=== PATIENT | female | born 1980 | race Caucasian/White ===

== ENCOUNTER 2018-01-02 13:45 | Emergency (ER) | payer MEDICAID, SELFPAY ==
[2018-01-02 13:47] VITALS: BP 103/70; PULSE 95; RESP 17; TEMP 36.8; O2SAT 97; BMI 17.5
--- NOTE | 2018-01-02 14:14 | RAD_ITS ---
STUDY: X-RAY CHEST REASON FOR EXAM: Female, 37 years old. Cough, fever TECHNIQUE: PA and lateral views of the chest. COMPARISON: February 12, 2016 FINDINGS: There is no new focal consolidation. The lungs remain hyperinflated. Normal size heart. Normal mediastinum and chantell. Normal visualized pulmonary arteries. Normal visualized aortic arch and descending thoracic aorta. Normal visualized thoracic spine. Normal visualized ribs, clavicles, and shoulders. There is no demonstrated abnormality of the visualized soft tissue structures of the upper abdomen. RAD/Chest PA and Lateral IMPRESSION: No acute cardiopulmonary process. Electronically Signed: Emi Mendoza MD at 15:30 EDT Tel , Service support ,
[2018-01-02] MEDS: Albuterol 2.5 MG/3 ML VIAL.NEB. INHALATION (14:21)
[2018-01-02 14:23] VITALS: PULSE 95; RESP 18; O2SAT 98
--- NOTE | 2018-01-02 15:52 | ED.VISSUMM ---
- ER Visit Summary Date of Service: 01/02/18 Chief Complaint: Cough and fever History of Present Illness: The patient is a 37 F presenting for evaluation secondary to cough and fever. Patient states that over the course last 5 days she has been feeling significantly ill. Patient states that she has a nonproductive cough, nausea with no vomiting. She has a mild amount of diarrhea. Patient states that she is getting somewhat dyspneic on exertion and has had fevers as high as 102. She has generalized myalgias. Patient states that ibuprofen really has not been helping her myalgias, but has been helping her fevers. Patient states that she does not have any sick contacts. She has a prior history of alcohol abuse, has been clean since July, she has not smoked a cigarette in 5 days. Physical Examination: Vital signs are within normal limits, patient is afebrile. General: Patient is well-nourished well-developed and in no acute distress. Head: Normocephalic, atraumatic Eyes: Pupils equal round and reactive bilaterally, extra occular motion intact bialterally ENT: Moist mucous membranes Neck: Supple, no lymphadenopathy, no JVD, no meningismus, negative Brudzinski Kernig jolt and heel strike CVS: Heart regular rate and rhythm, no murmurs, rubs or gallops, radial pulses 2+ bilaterally Resp: Respirations nondistressed, lung sounds showed evidence of wheezes with no respiratory distress or retractions Abdomen: Soft, nontender, nondistended, no palpable masses, normal bowel sounds Back: Nontender Extremities: Nontender, atraumatic, active full range of motion, no peripheral edema Skin: warm, no rashes, no petechia Neuro: Alert and oriented x 4, CN 2-12 intact, no lateralizing neurological defecits Psyc: Normal affect Test Results: Flu swab is negative, PA and lateral chest x-ray by my personal interpretation as well as radiology is found to be negative Emergency Department Course and Treatment: Patient presented for evaluation secondary to generalized illness. She has normal vital signs I do not believe the laboratory workup is necessary. Chest x-ray shows no evidence of infiltrate, influenza was found to be negative but the patient has all of the stigmata of influenza. However, the patient is outside of the treatment window for this so she will be treated symptomatically. Patient was treated with albuterol Toradol and prednisone in the emergency department she will be discharged with a albuterol inhaler, prednisone, Naprosyn and instructed to follow-up with her primary care physician. Disposition: Discharge Impression: 1. Influenza This note was generated with Gem dictation software. It may contain incorrect words, spelling, and punctuation that were not noted in review of the chart prior to signing ED Disposition - Plan for ED Patient: Disposition: Home or Assisted Living Chief Complaint: General Illness Diagnosis: Influenza Instructions: ED Flu Prescriptions: Albuterol Inhaler [Ventolin Hfa] 1 - 2 puff INHALATION Q4H PRN PRN #1 inhaler PRN Reason: Wheezing Naproxen [Naprosyn] 500 mg PO BID PRN #20 tab Prednisone [Deltasone] 60 mg PO DAILY #15 tab Referrals: Jonah Leroy MD [NON-STAFF] - 1 Week if not improving
--- NOTE | 2018-01-02 15:59 | ED.DCSUM_ITS ---
- ER Visit Summary Date of Service: 01/02/18 Chief Complaint: Cough and fever History of Present Illness: The patient is a 37 F presenting for evaluation secondary to cough and fever. Patient states that over the course last 5 days she has been feeling significantly ill. Patient states that she has a nonproductive cough, nausea with no vomiting. She has a mild amount of diarrhea. Patient states that she is getting somewhat dyspneic on exertion and has had fevers as high as 102. She has generalized myalgias. Patient states that ibuprofen really has not been helping her myalgias, but has been helping her fevers. Patient states that she does not have any sick contacts. She has a prior history of alcohol abuse, has been clean since July, she has not smoked a cigarette in 5 days. Physical Examination: Vital signs are within normal limits, patient is afebrile. General: Patient is well-nourished well-developed and in no acute distress. Head: Normocephalic, atraumatic Eyes: Pupils equal round and reactive bilaterally, extra occular motion intact bialterally ENT: Moist mucous membranes Neck: Supple, no lymphadenopathy, no JVD, no meningismus, negative Brudzinski Kernig jolt and heel strike CVS: Heart regular rate and rhythm, no murmurs, rubs or gallops, radial pulses 2 + bilaterally Resp: Respirations nondistressed, lung sounds showed evidence of wheezes with no respiratory distress or retractions Abdomen: Soft, nontender, nondistended, no palpable masses, normal bowel sounds Back: Nontender Extremities: Nontender, atraumatic, active full range of motion, no peripheral edema Skin: warm, no rashes, no petechia Neuro: Alert and oriented x 4, CN 2-12 intact, no lateralizing neurological defecits Psyc: Normal affect Test Results: Flu swab is negative, PA and lateral chest x-ray by my personal interpretation as well as radiology is found to be negative Emergency Department Course and Treatment: Patient presented for evaluation secondary to generalized illness. She has normal vital signs I do not believe the laboratory workup is necessary. Chest x-ray shows no evidence of infiltrate , influenza was found to be negative but the patient has all of the stigmata of influenza. However, the patient is outside of the treatment window for this so she will be treated symptomatically. Patient was treated with albuterol Toradol and prednisone in the emergency department she will be discharged with a albuterol inhaler, prednisone, Naprosyn and instructed to follow-up with her primary care physician. Disposition: Discharge Impression: 1. Influenza This note was generated with [employer] dictation software. It may contain incorrect words, spelling, and punctuation that were not noted in review of the chart prior to signing ED Disposition - Plan for ED Patient: Disposition: Home or Assisted Living Chief Complaint: General Illness Diagnosis: Influenza Instructions: ED Flu Prescriptions: Albuterol Inhaler [Ventolin Hfa] 1 - 2 puff INHALATION Q4H PRN PRN #1 inhaler PRN Reason: Wheezing Naproxen [Naprosyn] 500 mg PO BID PRN #20 tab Prednisone [Deltasone] 60 mg PO DAILY #15 tab Referrals: Jonah Leroy MD [NON-STAFF] - 1 Week if not improving
[2018-01-02] MEDS: predniSONE 20 MG Tablet 60 MG PO (16:06)
[2018-01-02] MEDS: Ketorolac 30 MG/ML Syringe IM (16:06)
[2018-01-02 16:27] VITALS: BP 100/64; PULSE 101; RESP 16; O2SAT 94
== END 2018-01-02 16:28 | disposition home or self-care (01) ==
PROVIDERS: Emergency Provider Emergency Medicine
DX: J11.1 Influenza due to unidentified influenza virus with other respiratory manifestations (principal); Z87.19 Personal history of other diseases of the digestive system; Z87.898 Personal history of other specified conditions; Z87.891 Personal history of nicotine dependence
CPT/HCPCS: 71046; 87804; 94640; 96372; 99283

== ENCOUNTER 2018-08-27 08:04 | Observation (INO) | payer MEDICAID, SELFPAY ==
[2018-08-27 08:05] VITALS: BP 115/57; PULSE 59; RESP 18; TEMP 36.7; O2SAT 96; BMI 19.5
[2018-08-27] MEDS: 0.9% Normal Saline 1,000 ML 1000 ML IV (08:20)
[2018-08-27] MEDS: Ondansetron 4 MG/2 ML Vial IV ×2 (08:20→14:27)
[2018-08-27 08:53] LABS: Absolute Lymphocyte Count 1.42 X10^3/ul (0.83-4.51); Absolute Neutrophil Count 11.8 X10^3/uL (2.0-7.7); Eosinophil# 0.03 X10^3/uL; Eosinophils% 0.2 % (0-5); Hematocrit 40.4 % (37-47); Lymphocyte # 1.42 X10^3/ul (4.0); Lymphocyte % 10.2 % (19-41); Mean Corp Hgb Conc 34.7 g/gl (32-36); Mean Corpuscular Hgb 36.3 pg (27.0-32.0); Mean Corpuscular Volume 104.7 fL (81-99); Mean Platelet Vol. 10.9 fl (6.2-12.0); Monocyte# 0.77 X10^3/uL; Monocyte% 5.5 % (0-10); Neutrophil # 11.75 X10^3/uL (2.7-7.7); Platelet Count 254 K/mm3 (150-450); RBC Distribution Width CV 13.5 % (11.6-14.6); RBC Distribution Width SD 51.5 fl (35.1-43.9); Red Blood Count 3.86 M/mm3 (4.2-5.4)
[2018-08-27 08:56] LABS: POSITIVE COUNT NO; POSITIVE DIFFERENTIAL NO; POSITIVE MORPHOLOGY NO
[2018-08-27 08:59] LABS: Acetaminophen (Tylenol) Level < 2.0 ug/mL (10.0-30.0)
[2018-08-27 09:00] LABS: ALB/GLOB Ratio 0.9 RATIO (0.9-2.4); AST(SGOT) 58 U/L (15-37); Alanine Aminotransfer ALT/SGPT 47 U/L (13-56); Albumin, Serum 3.5 g/dL (3.2-5.0); Alkaline Phosphatase 136 U/L (45-117); Anion Gap 10 (5-15); BUN 14 mg/dL (7-18); BUN/Creat Ratio 19.4 RATIO (10-20); Chloride 96 mmol/L (98-107); Creatinine, Serum 0.72 mg/dL (0.55-1.02); EST Glomerular Filtration Rate 96 mL/min (>60); Est Glom Filt Rate - Afr Amer 117 mL/min (>60); Globulin 3.8 g/dL (2.2-4.2); Glucose 124 mg/dL (74-106); International Normalized Ratio 1.2; Lipase 6025 U/L (73-393); Potassium 3.3 mmol/L (3.5-5.1); Protein, Total 7.3 g/dL (6.4-8.2); Prothrombin Time (Protime)PT. 14.8 SECONDS (11.7-14.9); Sodium Level 133 mmol/L (136-145)
[2018-08-27 09:01] LABS: Partial Thromboplast Time 26.4 Seconds (24.1-36.2)
[2018-08-27 09:02] LABS: Salicylate < 1.7 mg/dL (2.8-20.0)
[2018-08-27 09:04] LABS: Lactic Acid 1.2 mmol/L (0.4-2.0)
[2018-08-27 09:08] LABS: Pregnancy, Serum, hCG Quali. NEGATIVE Negative (0-9 Nonpreg)
--- NOTE | 2018-08-27 09:30 | RAD_ITS ---
STUDY: X-RAY - ACUTE ABDOMINAL SERIES REASON FOR EXAM: Female, 38 years old. Abdominal pain with distention and vomiting. TECHNIQUE: Single view of the chest. Supine, and erect view(s) of the abdomen were obtained. COMPARISON: Comparison is made with prior chest radiograph dated January 02, 2018. FINDINGS: A faint infiltrate is seen in the right midlung. Follow-up is recommended. Normal size heart. Normal mediastinum and chantell. Normal visualized pulmonary arteries. Normal visualized aortic arch and descending thoracic aorta. There is a non-specific bowel gas pattern. The soft tissue structures of the abdomen and pelvis are unremarkable. Normal visualized osseous structures. RAD/Acute Abdomen Inc Chest IMPRESSION: Faint infiltrate is seen in the right midlung. Follow-up is recommended. Electronically Signed: Parker Paz MD at 10:12 EST Tel [phone], Service support ,
[2018-08-27] MEDS: HYDROmorphone 0.5 MG/0.5 ML SYRINGE IV (10:03)
[2018-08-27 10:05] VITALS: BP 112/74; PULSE 80; RESP 14; O2SAT 98
--- NOTE | 2018-08-27 10:14 | ED.VISSUMM ---
- ER Visit Summary Date of Service: 08/27/18 Chief Complaint: Central upper abdominal pain History of Present Illness: The patient is a 38 F who presents by ambulance because of central abdominal pain that started approximate 1 week ago. She states the pain is gotten worse. She reports vomiting several times since last evening. She denies diarrhea or constipation. She is still passing gas. She denied taking anything more than 2 Advil. Violetta informed me that her significant other stated she took multiple [id number]-ovxcuic medications. Uncertain whether she took aspirin Tylenol or NSAID. This was not an intentional ingestion. She states she took the medicine to help alleviate the pain. She reports documented fever to 103 degrees. She denies visual, ocular auditory symptoms. She denies chest pain, palpitations, orthopnea or PND. She denies shortness of breath, dyspnea on exertion. She does report slight cough. She is a smoker. She denies hematemesis, no hematochezia. She reports decreased urine output otherwise negative. She does report mid central back pain. She also complains of generalized weakness. Review of past medical history reveals history of depression anxiety and anxiety. She has history of pancreatitis. Of note she admitted to drinking heavily this past weekend. Physical Examination: Patient appears uncomfortable. She is presently not febrile. HEENT exam is remarkable dry mucosa. There is no scleral icterus. Neck is supple. Heart is regular without murmur, gallop or rub. Lungs are clear to auscultation. Abdomen is slightly distended tympanitic with significant pain upper abdomen versus lower. There is equivocal left CVA tenderness. There is no evidence of trauma. There is no petechia purpura contusions or hematomas noted. Patient is alert and oriented ?3. Motor is 5 over 5. Sensory is intact. DTRs are symmetric with no clonus or Babinski sign. Cranial 2 through 12 are intact. Cerebellar testing is normal. Test Results: White count is 14,000 with 84 segs no bands. Electro panel reveals mild abnormalities with a sodium 133 and chloride of 96. Potassium 3.3 and glucose is 124. PT/INR and PTT are normal. Hepatic enzymes reveal slight elevation AST of 58. Lipase is 6025. Serum test is negative. Three-view x-ray of the abdomen reveals no evidence of pneumoperitoneum. Chest portion is normal with a normal cardiac silhouette, mediastinum and lung parenchyma. Salicylate and acetaminophen level were obtained since there was report of ingestion to alleviate her pain with OTC pain medicine. Emergency Department Course and Treatment: IV was established and she received IV fluids. She initially received Zofran. Once lipase returned and results were reviewed he received Dilaudid. Will obtain PT/INR PTT to evaluate for coagulopathy. With reported vomiting I panel was obtained to assess electrolytes and more importantly renal function. CBC was obtained to evaluate for anemia etc. Treatment Plan: IV fluids, IV Zofran and Dilaudid Disposition: Admit medical surge floor Impression: Abdominal pain secondary to acute pancreatitis Sinus bradycardia documented on monitor This note was generated with [employer] dictation software. It may contain incorrect words, spelling, and punctuation that were not noted in review of the chart prior to signing ED Disposition - Plan for ED Patient: Chief Complaint: Abd Pain Referrals: Care Physician,No Primary [Primary Care Provider] -
--- NOTE | 2018-08-27 10:19 | ED.DCSUM_ITS ---
- ER Visit Summary Date of Service: 08/27/18 Chief Complaint: Central upper abdominal pain History of Present Illness: The patient is a 38 F who presents by ambulance because of central abdominal pain that started approximate 1 week ago. She states the pain is gotten worse. She reports vomiting several times since last evening. She denies diarrhea or constipation. She is still passing gas. She denied taking anything more than 2 Advil. Violetta informed me that her significant other stated she took multiple [id number] medications. Uncertain whether she took aspirin Tylenol or NSAID. This was not an intentional ingestion. She states she took the medicine to help alleviate the pain. She reports documented fever to 103 degrees. She denies visual, ocular auditory symptoms. She denies chest pain, palpitations, orthopnea or PND. She denies shortness of breath, dyspnea on exertion. She does report slight cough. She is a smoker. She denies hematemesis, no hematochezia. She reports decreased urine output otherwise negative. She does report mid central back pain. She also complains of generalized weakness. Review of past medical history reveals history of depression anxiety and anxiety. She has history of pancreatitis. Of note she admitted to drinking heavily this past weekend. Physical Examination: Patient appears uncomfortable. She is presently not febrile. HEENT exam is remarkable dry mucosa. There is no scleral icterus. Neck is supple. Heart is regular without murmur, gallop or rub. Lungs are clear to auscultation. Abdomen is slightly distended tympanitic with significant pain upper abdomen versus lower. There is equivocal left CVA tenderness. There is no evidence of trauma. There is no petechia purpura contusions or hematomas noted. Patient is alert and oriented ?3. Motor is 5 over 5. Sensory is intact. DTRs are symmetric with no clonus or Babinski sign. Cranial 2 through 12 are intact. Cerebellar testing is normal. Test Results: White count is 14,000 with 84 segs no bands. Electro panel re veals mild abnormalities with a sodium 133 and chloride of 96. Potassium 3.3 and glucose is 124. PT/INR and PTT are normal. Hepatic enzymes reveal slight elevation AST of 58. Lipase is 6025. Serum test is negative. Three- view x-ray of the abdomen reveals no evidence of pneumoperitoneum. Chest portion is normal with a normal cardiac silhouette, mediastinum and lung parenchyma. Salicylate and acetaminophen level were obtained since there was report of ingestion to alleviate her pain with OTC pain medicine. Emergency Department Course and Treatment: IV was established and she received IV fluids. She initially received Zofran. Once lipase returned and results were reviewed he received Dilaudid. Will obtain PT/INR PTT to evaluate for coagulopathy. With reported vomiting I panel was obtained to assess electrolytes and more importantly renal function. CBC was obtained to evaluate for anemia etc. Treatment Plan: IV fluids, IV Zofran and Dilaudid Disposition: Admit medical surge floor Impression: Abdominal pain secondary to acute pancreatitis Sinus bradycardia documented on monitor This note was generated with [employer] dictation software. It may contain incorrect words, spelling, and punctuation that were not noted in review of the chart prior to signing ED Disposition - Plan for ED Patient: Chief Complaint: Abd Pain Referrals: Care Physician,No Primary [Primary Care Provider] -
[2018-08-27 11:04] VITALS: BMI 18.8
[2018-08-27 11:47] VITALS: BP 130/76; PULSE 51; RESP 16; TEMP 36.8; O2SAT 100
[2018-08-27] MEDS: Dicyclomine 10 MG Capsule 20 MG PO (12:09)
[2018-08-27] MEDS: chlordiazePOXIDE 25 MG Capsule PO ×2 (12:10→22:21)
[2018-08-27] MEDS: 0.9% Normal Saline 1,000 ML 200 ML IV ×3 (12:12→22:37)
[2018-08-27] MEDS: Methocarbamol 750 MG Tablet PO (14:27)
[2018-08-27 14:29] VITALS: BP 141/83; PULSE 53; RESP 16; TEMP 37.1; O2SAT 100
--- NOTE | 2018-08-27 15:21 | US_ITS ---
STUDY: ABDOMINAL ULTRASOUND - RIGHT UPPER QUADRANT REASON FOR VISIT: Female, 38 years old. Pancreatitis TECHNIQUE: Ultrasound evaluation of the right upper quadrant was performed with real-time and static ramírez-scale imaging. TECHNICAL QUALITY: Adequate. COMPARISON: None. FINDINGS: Liver: The liver measures 15.6 cm. There is normal echogenicity of the liver. The bile ducts are within normal limits. There is hepatic color flow. The direction of portal flow is hepatopetal. There is no demonstrated mass lesion. Gallbladder: Normal distended gallbladder. The gallbladder wall measures 1.8 mm. There is a negative sonographic Rain's sign. There is no pericholecystic fluid. There are no gallstones. Common Bile Duct (C.B.D.): The common bile duct measures 3.9 mm. Pancreas: Normal size of the head, body and tail of the pancreas. There is normal echogenicity of the pancreas. There is no demonstrated pancreatic mass or cyst. Right Kidney: Normal size of the right kidney. The right kidney measures 10.9 x 5.2 x 3.7 cm. Normal renal cortex. The right cortex measures 1.2 cm. There is no demonstrated renal mass or cyst. There is no right hydronephrosis. US/Gallbladder IMPRESSION: Normal right upper quadrant ultrasound examination. Electronically Signed: Vikas Hutchinson DO at 23:13 EST Tel [phone], Service support ,
[2018-08-27] MEDS: Morphine 2 MG/ML Syringe IV ×2 (15:38→22:21)
--- NOTE | 2018-08-27 15:53 | HP.PCM_ITS ---
Problem List (1) Tobacco use Status: Chronic (2) Anxiety and depression Status: Chronic (3) Alcohol abuse Status: Chronic (4) Pancreatitis Status: Acute Qualifiers: History of Present Illness Date of Admission: 08/27/18 Chief Complaint: Abdominal pain The patient is a 38 year old F who takes no medications presents with a 1 days history of mid-abdominal pain with radiation to her back. She also had nausea/vomiting yesterday and today with minimal intake. her pain started around 1 pm as did her vomiting. She presented to the ER for further evaluation. In the ED she was found to have an elevated lipase and was given pain medications and IVF. Per the ED physician she drinks heavily on the weekends, per the floor nurse, her last drink was 4 months ago, and to me she states that she has a small beer 4 days ago and the weekend prior. She denies any fevers, chills, or SOB, and reports no drug use. Past Medical History Past Medical History (Chronic Problems): Chronic Problems Tobacco use (Chronic) Anxiety and depression (Chronic) Alcohol abuse (Chronic) Hepatomegaly (Chronic) Hepatic steatosis (Chronic) Allergies No Known Allergies Allergy (Verified 08/27/18 10:07) Home Medications: Ambulatory Orders Medication Instructions Recorded NK 08/27/18 Surgical History: - - Partial Hysterectomy. 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 Denies: Chills, Fever, Weight Change HEENT: Denies: Head Aches, Sinus Congestion, Sinus Drainage Cardiovascular: Denies: Chest Pain, Palpitations Respiratory: Denies: Cough, Shortness of breath at rest, Sputum production Gastrointestinal: Reports: Abdominal Pain, Nausea, Vomiting Genitourinary: Denies: Dysuria Musculoskeletal: Denies: Joint Pain, Joint Tenderness Skin: Denies: Rash, Wounds Neurological: Denies: Numbness, Tingling, Focal weakness Psychiatric: Denies: Anxiety, Depression Hematologic/ Lymphatic: Denies: Easy Bruising, Easy Bleeding VTE Information - Inpt Only VTE Present on Admission: No - Physical Exam General: Alert, Oriented x3, Cooperative, No apparent distress HEENT: Atraumatic, PERRLA, EOMI, Normocephalic Oral: Dry Mucosa Neck: Supple, No JVD Lungs: Clear to auscultation, Normal air movement, No rhonchi, No wheeze, No rales Cardiovascular: Regular rate, Regular Rhythm, Normal S1, Normal S2, No murmurs Abdomen: Soft, Non-Distended, No Hepato-splenomegaly, Guarding, Tender Extremities: No edema, Capillary Refill Less than 3 Seconds Skin: No rashes, No breakdown Neurological: Neuro grossly intact, Motor Exam 5/5 strength throughout, Sensory exam intact to light touch and pain Psych/Mental Status: Normal Affect, Appropriate Vital Signs Temp Pulse Resp BP Pulse Ox 98.7 F 53 L 16 141/83 H 100 08/27/18 14:29 08/27/18 14:29 08/27/18 14:29 08/27/18 14:29 08/27/18 14:29 Oxygen Delivery Method Room Air Weight: 96 lb 5.472 oz Body Mass Index (BMI) 18.8 Laboratory Tests Past 24 Hrs 08/27/18 08/27/18 08/27/18 08:15 08:15 08:15 WBC 14.0 H RBC 3.86 L Hgb 14.0 Hct 40.4 MCV 104.7 H MCH 36.3 H MCHC 34.7 RDW 13.5 RDW Differential 51.5 H Plt Count 254 MPV 10.9 Immature Gran % (Auto) 0.100 Neut % (Auto) 84.0 H Lymph % (Auto) 10.2 L [place] % (Auto) 5.5 Eos % (Auto) 0.2 Baso % (Auto) 0.0 Absolute Neuts (auto) 11.8 H Absolute Lymphs (auto) 1.42 Total Counted Not Reportable PT 14.8 INR 1.2 APTT 26.4 Sodium 133 L Potassium 3.3 L Chloride 96 L Carbon Dioxide 27.0 Anion Gap 10 BUN 14 Creatinine 0.72 Estim Creat Clear Calc 76.60 Est GFR (MDRD) Af Amer 117 Est GFR (MDRD) Non-Af 96 BUN/Creatinine Ratio 19.4 Glucose 124 H Lactic Acid Calcium 9.0 Total Bilirubin 0.90 AST 58 H ALT 47 Alkaline Phosphatase 136 H Total Protein 7.3 Albumin 3.5 Globulin 3.8 Albumin/Globulin Ratio 0.9 Lipase 6025 H Serum , Qual Salicylates Acetaminophen 08/27/18 08/27/18 08/27/18 08:15 08:15 08:15 WBC RBC Hgb Hct MCV MCH MCHC RDW RDW Differential Plt Count MPV Immature Gran % (Auto) Neut % (Auto) Lymph % (Auto) [place] % (Auto) Eos % (Auto) Baso % (Auto) Absolute Neuts (auto) Absolute Lymphs (auto) Total Counted PT INR APTT Sodium Potassium Chloride Carbon Dioxide Anion Gap BUN Creatinine Estim Creat Clear Calc Est GFR (MDRD) Af Amer Est GFR (MDRD) Non-Af BUN/Creatinine Ratio Glucose Lactic Acid 1.2 Calcium Total Bilirubin AST ALT Alkaline Phosphatase Total Protein Albumin Globulin Albumin/Globulin Ratio Lipase Serum , Qual NEGATIVE Salicylates Acetaminophen < 2.0 L 08/27/18 08:15 WBC RBC Hgb Hct MCV MCH MCHC RDW RDW Differential Plt Count MPV Immature Gran % (Auto) Neut % (Auto) Lymph % (Auto) [place] % (Auto) Eos % (Auto) Baso % (Auto) Absolute Neuts (auto) Absolute Lymphs (auto) Total Counted PT INR APTT Sodium Potassium Chloride Carbon Dioxide Anion Gap BUN Creatinine Estim Creat Clear Calc Est GFR (MDRD) Af Amer Est GFR (MDRD) Non-Af BUN/Creatinine Ratio Glucose Lactic Acid Calcium Total Bilirubin AST ALT Alkaline Phosphatase Total Protein Albumin Globulin Albumin/Globulin Ratio Lipase Serum , Qual Salicylates < 1.7 L Acetaminophen Assessment/Plan All Active Problems Hypomagnesemia (Acute) Hypokalemia (Acute) Acute alcoholic hepatitis (Acute) Pancreatitis (Acute) 1. Acute pancreatitis - She denies any medications - She still has her gallbladder so will obtain a RUQ US even though her bilirubin is normal - C/w with aggressive IVF - Check lipid panel in the am - Etiology is unsure at the moment - Morphine for pain - IF pain is improved tomorrow with transition to a low fat diet - Lipase is over 6000 2. Alcohol use - this could be the cause, however she gives very fluctuating account of her habits - Will treat as alcohol abuse at the moment and will continue with the new vision protocol 3. Tobacco and marijuana use - counselled on cessation DVT: None Diet: NPO Code Visit Inpatient E&M: 31835 Init Hosp L3
[2018-08-27 22:27] VITALS: BP 117/73; PULSE 102; RESP 16; TEMP 37; O2SAT 100
[2018-08-27] MEDS: LORazepam 2 MG/ML Syringe 1 MG IV (23:08)
[2018-08-28] MEDS: 0.9% Normal Saline 1,000 ML 200 ML IV ×4 (03:45→18:41)
[2018-08-28] MEDS: chlordiazePOXIDE 25 MG Capsule PO ×3 (03:54→20:34)
[2018-08-28 03:57] VITALS: BP 107/75; PULSE 57; RESP 16; TEMP 36.8; O2SAT 100
[2018-08-28 06:17] LABS: Absolute Lymphocyte Count 1.72 X10^3/ul (0.83-4.51); Absolute Neutrophil Count 7.5 X10^3/uL (2.0-7.7); Basophil# 0.01 X10^3/uL; Basophil% 0.1 % (0-1); Hematocrit 32.3 % (37-47); Hemoglobin 10.9 g/dl (12.0-15.0); Lymphocyte # 1.72 X10^3/ul (4.0); Lymphocyte % 17.1 % (19-41); Mean Corp Hgb Conc 33.7 g/gl (32-36); Mean Corpuscular Volume 106.6 fL (81-99); Mean Platelet Vol. 10.8 fl (6.2-12.0); Monocyte# 0.67 X10^3/uL; Monocyte% 6.7 % (0-10); Neutrophil # 7.53 X10^3/uL (2.7-7.7); Platelet Count 173 K/mm3 (150-450); RBC Distribution Width CV 13.5 % (11.6-14.6); RBC Distribution Width SD 53.1 fl (35.1-43.9); Red Blood Count 3.03 M/mm3 (4.2-5.4)
[2018-08-28 06:27] LABS: POSITIVE COUNT NO; POSITIVE DIFFERENTIAL NO; POSITIVE MORPHOLOGY NO
[2018-08-28 06:42] LABS: Anion Gap 8 (5-15); BUN 5 mg/dL (7-18); BUN/Creat Ratio 12.4 RATIO (10-20); Calcium,Total 7.7 mg/dL (8.5-10.1); Chloride 103 mmol/L (98-107); Cholesterol 132 mg/dL (200); EST Glomerular Filtration Rate 188 mL/min (>60); Est Glom Filt Rate - Afr Amer 228 mL/min (>60); Estimated Creatinine Clearance 132.84 ml/min; Glucose 78 mg/dL (74-106); High Density Lipoprotein 46 mg/dL; Potassium 3.1 mmol/L (3.5-5.1); Sodium Level 134 mmol/L (136-145); Triglycerides 95 mg/dL; Very Low Density Lipoprotein 19 mg/dL (5-40)
[2018-08-28 08:13] VITALS: BP 114/71; PULSE 60; RESP 18; TEMP 37; O2SAT 100
[2018-08-28] MEDS: 0.9% NaCl Peripheral Flush Adult/Peds IV ×3 (08:19→17:17)
[2018-08-28] MEDS: Morphine 2 MG/ML Syringe IV ×4 (08:19→20:34)
[2018-08-28] MEDS: Folic Acid 1 MG Tablet PO (08:23)
[2018-08-28] MEDS: Multivitamins,Therapeutic Tablet 1 TABLET PO (08:24)
--- NOTE | 2018-08-28 08:28 | PCM.PN.HOSP ---
Subjective: Still with abdominal pain. Improves with the morphine Vitals/I&O's: Vital Signs Temp Pulse Resp BP Pulse Ox 98.6 F 60 18 114/71 100 08/28/18 08:13 08/28/18 08:13 08/28/18 08:13 08/28/18 08:13 08/28/18 08:13 Oxygen Delivery Method Room Air Weight: 96 lb 5.472 oz Body Mass Index (BMI) 18.8 Intake and Output for Last 24 Hours 08/26/18 08/27/18 08/28/18 23:59 23:59 23:59 Intake Total 975 / 975 1000 / 1000 Output Total 100 / 100 200 / 200 Balance 875 / 875 800 / 800 General: Alert, Oriented x3, Cooperative, No apparent distress HEENT: Atraumatic, PERRLA, EOMI, Normocephalic Oral: Dry Mucosa Neck: Supple, No JVD Lungs: Clear to auscultation, Normal air movement, No rhonchi, No wheeze, No rales Cardiovascular: Regular rate, Regular Rhythm, Normal S1, Normal S2, No murmurs Abdomen: Soft, Non-Distended, No Hepato-splenomegaly, Guarding, Tender mid abdomen Extremities: No edema, Capillary Refill Less than 3 Seconds Skin: No rashes, No breakdown Neurological: Neuro grossly intact, Motor Exam 5/5 strength throughout, Sensory exam intact to light touch and pain Psych/Mental Status: Normal Affect, Appropriate Laboratory Results 08/27/18 08:15: WBC 14.0 H, RBC 3.86 L, Hgb 14.0, Hct 40.4, MCV 104.7 H, MCH 36.3 H, MCHC 34.7, RDW 13.5, RDW Differential 51.5 H, Plt Count 254, MPV 10.9, Immature Gran % (Auto) 0.100, Neut % (Auto) 84.0 H, Lymph % (Auto) 10.2 L, [place] % (Auto) 5.5, Eos % (Auto) 0.2, Baso % (Auto) 0.0, Absolute Neuts (auto) 11.8 H, Absolute Lymphs (auto) 1.42, Total Counted Not Reportable 08/27/18 08:15: PT 14.8, INR 1.2, APTT 26.4 08/27/18 08:15: Sodium 133 L, Potassium 3.3 L, Chloride 96 L, Carbon Dioxide 27.0, Anion Gap 10, BUN 14, Creatinine 0.72, Estim Creat Clear Calc 76.60, Est GFR (MDRD) Af Amer 117, Est GFR (MDRD) Non-Af 96, BUN/Creatinine Ratio 19.4, Glucose 124 H, Calcium 9.0, Total Bilirubin 0.90, AST 58 H, ALT 47, Alkaline Phosphatase 136 H, Total Protein 7.3, Albumin 3.5, Globulin 3.8, Albumin/Globulin Ratio 0.9, Lipase 6025 H 08/27/18 08:15: Lactic Acid 1.2 08/27/18 08:15: Serum , Qual NEGATIVE 08/27/18 08:15: Acetaminophen < 2.0 L 08/27/18 08:15: Salicylates < 1.7 L 08/28/18 05:26: Sodium 134 L, Potassium 3.1 L, Chloride 103, Carbon Dioxide 23.0, Anion Gap 8, BUN 5 L, Creatinine 0.40 L, Estim Creat Clear Calc 132.84, Est GFR (MDRD) Af Amer 228, Est GFR (MDRD) Non-Af 188, BUN/Creatinine Ratio 12.4, Glucose 78, Calcium 7.7 L, Triglycerides 95, Cholesterol 132, LDL Cholesterol 67, VLDL Cholesterol 19, HDL Cholesterol 46 08/28/18 05:26: WBC 10.0, RBC 3.03 L, Hgb 10.9 L, Hct 32.3 L, MCV 106.6 H, MCH 36.0 H, MCHC 33.7, RDW 13.5, RDW Differential 53.1 H, Plt Count 173, MPV 10.8, Immature Gran % (Auto) 0.100, Neut % (Auto) 75.0 H, Lymph % (Auto) 17.1 L, [place] % (Auto) 6.7, Eos % (Auto) 1.0, Baso % (Auto) 0.1, Absolute Neuts (auto) 7.5, Absolute Lymphs (auto) 1.72, Total Counted Not Reportable Current Medications Chlordiazepoxide (Librium) 50 mg PO Q8H [facility]; Taper Stop: 08/30/18 12:44 Last Admin: 08/28/18 03:54 Dose: 50 mg Dicyclomine HCl (Bentyl) 20 mg PO Q6H PRN PRN PRN Reason: abdominal discomfort Last Admin: 08/27/18 12:09 Dose: 20 [facility] Last Admin: 08/28/18 08:23 Dose: 1 mg Hydroxyzine Pamoate (Vistaril Pamoate Capsule) 50 mg PO Q6H PRN PRN PRN Reason: Mild Anxiety (score 1/3) Sodium Chloride () 1,000 mls @ 200 mls/hr IV .Q5H [facility] Last Admin: 08/28/18 08:19 Dose: 200 mls/hr Thiamine HCl 200 mg/ Sodium (Chloride) 52 mls @ 200 mls/hr IV DAILY [facility] Last Admin: 08/27/18 13:32 Dose: 200 mls/hr Lorazepam (Ativan) 1 mg IV Q4H PRN PRN PRN Reason: Severe Anxiety Last Admin: 08/27/18 23:08 Dose: 1 mg Lorazepam (Ativan) 2 mg IV X1 PRN PRN Reason: Seizure Magnesium Hydroxide (Milk Of Magnesia) 30 ml PO DAILY PRN PRN PRN Reason: Constipation Methocarbamol (Methocarbamol) 750 mg PO Q6H PRN PRN PRN Reason: Muscle Aches Last Admin: 08/27/18 14:27 Dose: 750 mg Morphine Sulfate () 2 mg IV Q3H PRN PRN PRN Reason: SEVERE PAIN (6-10/10) Last Admin: 08/28/18 08:19 Dose: 2 mg [facility] ([facility]) [facility] Last Admin: 08/28/18 08:24 Dose: 1 tablet Ondansetron HCl (Zofran) 4 mg IV Q8H PRN PRN PRN Reason: NAUSEA Last Admin: 08/27/18 14:27 Dose: 4 mg Sodium Chloride () 5 - 30 ml IV UD PRN PRN Reason: SALINE FLUSH Last Admin: 08/28/18 08:19 Dose: 10 ml Medical Necessity - Tobacco Use Smoking Status: Current every day smoker Tobacco Use: Cigarettes Assessment/Plan All Active Problems Hypomagnesemia (Acute) Hypokalemia (Acute) Acute alcoholic hepatitis (Acute) Pancreatitis (Acute) 1. Acute pancreatitis - She denies any medications - RUQ US was unremarkable - C/w with aggressive IVF - TG normal - Etiology is unsure at the moment - Morphine for pain - IF pain is improved tomorrow with transition to a low fat diet - Lipase is over 6000 2. Alcohol use - this could be the cause, however she gives very fluctuating account of her habits - Will treat as alcohol abuse at the moment and will continue with the new vision protocol 3. Tobacco and marijuana use - counselled on cessation DVT: None Diet: NPO Code Visit Inpatient E&M: 46983 Subs Hosp L2
--- NOTE | 2018-08-28 08:32 | PN_ITS ---
Subjective: Still with abdominal pain. Improves with the morphine Vitals/I&O's: Vital Signs Temp Pulse Resp BP Pulse Ox 98.6 F 60 18 114/71 100 08/28/18 08:13 08/28/18 08:13 08/28/18 08:13 08/28/18 08:13 08/28/18 08:13 Oxygen Delivery Method Room Air Weight: 96 lb 5.472 oz Body Mass Index (BMI) 18.8 Intake and Output for Last 24 Hours 08/26/18 08/27/18 08/28/18 23:59 23:59 23:59 Intake Total 975 / 975 1000 / 1000 Output Total 100 / 100 200 / 200 Balance 875 / 875 800 / 800 General: Alert, Oriented x3, Cooperative, No apparent distress HEENT: Atraumatic, PERRLA, EOMI, Normocephalic Oral: Dry Mucosa Neck: Supple, No JVD Lungs: Clear to auscultation, Normal air movement, No rhonchi, No wheeze, No rales Cardiovascular: Regular rate, Regular Rhythm, Normal S1, Normal S2, No murmurs Abdomen: Soft, Non-Distended, No Hepato-splenomegaly, Guarding, Tender mid abdomen Extremities: No edema, Capillary Refill Less than 3 Seconds Skin: No rashes, No breakdown Neurological: Neuro grossly intact, Motor Exam 5/5 strength throughout, Sensory exam intact to light touch and pain Psych/Mental Status: Normal Affect, Appropriate Laboratory Results 08/27/18 08:15: WBC 14.0 H, RBC 3.86 L, Hgb 14.0, Hct 40.4, MCV 104.7 H, MCH 36.3 H, MCHC 34.7, RDW 13.5, RDW Differential 51.5 H, Plt Count 254, MPV 10.9, Immature Gran % (Auto) 0.100, Neut % (Auto) 84.0 H, Lymph % (Auto) 10.2 L, [place] % (Auto) 5.5, Eos % (Auto) 0.2, Baso % (Auto) 0.0, Absolute Neuts (auto) 11.8 H, Absolute Lymphs (auto) 1.42, Total Counted Not Reportable 08/27/18 08:15: PT 14.8, INR 1.2, APTT 26.4 08/27/18 08:15: Sodium 133 L, Potassium 3.3 L, Chloride 96 L, Carbon Dioxide 27.0, Anion Gap 10, BUN 14, Creatinine 0.72, Estim Creat Clear Calc 76.60, Est GFR (MDRD) Af Amer 117, Est GFR (MDRD) Non-Af 96, BUN/Creatinine Ratio 19.4, Glucose 124 H, Calcium 9.0, Total Bilirubin 0.90, AST 58 H, ALT 47, Alkaline Phosphatase 136 H, Total Protein 7.3, Albumin 3.5, Globulin 3.8, Albumin/Globulin Ratio 0.9, Lipase 6025 H 08/27/18 08:15: Lactic Acid 1.2 08/27/18 08:15: Serum , Qual NEGATIVE 08/27/18 08:15: Acetaminophen < 2.0 L 08/27/18 08:15: Salicylates < 1.7 L 08/28/18 05:26: Sodium 134 L, Potassium 3.1 L, Chloride 103, Carbon Dioxide 23.0, Anion Gap 8, BUN 5 L, Creatinine 0.40 L, Estim Creat Clear Calc 132.84, Est GFR (MDRD) Af Amer 228, Est GFR (MDRD) Non-Af 188, BUN/Creatinine Ratio 12.4, Glucose 78, Calcium 7.7 L, Triglycerides 95, Cholesterol 132, LDL Cholesterol 67, VLDL Cholesterol 19, HDL Cholesterol 46 08/28/18 05:26: WBC 10.0, RBC 3.03 L, Hgb 10.9 L, Hct 32.3 L, MCV 106.6 H, MCH 36.0 H, MCHC 33.7, RDW 13.5, RDW Differential 53.1 H, Plt Count 173, MPV 10.8, Immature Gran % (Auto) 0.100, Neut % (Auto) 75.0 H, Lymph % (Auto) 17.1 L, [place] % (Auto) 6.7, Eos % (Auto) 1.0, Baso % (Auto) 0.1, Absolute Neuts (auto) 7.5, Absolute Lymphs (auto) 1.72, Total Counted Not Reportable Current Medications Chlordiazepoxide (Librium) 50 mg PO Q8H [facility]; Taper Stop: 08/30/18 12:44 Last Admin: 08/28/18 03:54 Dose: 50 mg Dicyclomine HCl (Bentyl) 20 mg PO Q6H PRN PRN PRN Reason: abdominal discomfort Last Admin: 08/27/18 12:09 Dose: 20 mg [facility] Last Admin: 08/28/18 08:23 Dose: 1 mg Hydroxyzine Pamoate (Vistaril Pamoate Capsule) 50 mg PO Q6H PRN PRN PRN Reason: Mild Anxiety (score 1/3) Sodium Chloride () 1,000 mls @ 200 mls/hr IV .Q5H [facility] Last Admin: 08/28/18 08:19 Dose: 200 mls/hr Thiamine HCl 200 mg/ Sodium (Chloride) 52 mls @ 200 mls/hr IV DAILY [facility] Last Admin: 08/27/18 13:32 Dose: 200 mls/hr Lorazepam (Ativan) 1 mg IV Q4H PRN PRN PRN Reason: Severe Anxiety Last Admin: 08/27/18 23:08 Dose: 1 mg Lorazepam (Ativan) 2 mg IV X1 PRN PRN Reason: Seizure Magnesium Hydroxide (Milk Of Magnesia) 30 ml PO DAILY PRN PRN PRN Reason: Constipation Methocarbamol (Methocarbamol) 750 mg PO Q6H PRN PRN PRN Reason: Muscle Aches Last Admin: 08/27/18 14:27 Dose: 750 mg Morphine Sulfate () 2 mg IV Q3H PRN PRN PRN Reason: SEVERE PAIN (6-10/10) Last Admin: 08/28/18 08:19 Dose: 2 mg Multivitamins ([facility]itamin) [facility] Last Admin: 08/28/18 08:24 Dose: 1 tablet Ondansetron HCl (Zofran) 4 mg IV Q8H PRN PRN PRN Reason: NAUSEA Last Admin: 08/27/18 14:27 Dose: 4 mg Sodium Chloride () 5 - 30 ml IV UD PRN PRN Reason: SALINE FLUSH Last Admin: 08/28/18 08:19 Dose: 10 ml Medical Necessity - Tobacco Use Smoking Status: Current every day smoker Tobacco Use: Cigarettes Assessment/Plan All Active Problems Hypomagnesemia (Acute) Hypokalemia (Acute) Acute alcoholic hepatitis (Acute) Pancreatitis (Acute) 1. Acute pancreatitis - She denies any medications - RUQ US was unremarkable - C/w with aggressive IVF - TG normal - Etiology is unsure at the moment - Morphine for pain - IF pain is improved tomorrow with transition to a low fat diet - Lipase is over 6000 2. Alcohol use - this could be the cause, however she gives very fluctuating account of her habits - Will treat as alcohol abuse at the moment and will continue with the new vision protocol 3. Tobacco and marijuana use - counselled on cessation DVT: None Diet: NPO Code Visit Inpatient E&M: 34625 Subs Hosp L2
[2018-08-28 10:38] LABS: Magnesium 1.6 mg/dL (1.6-2.6); Phosphorus 1.8 mg/dL (2.5-4.9)
--- NOTE | 2018-08-28 12:35 | CASEMGMT ---
STEPHANIE PRICE Face to Face with patient for initial transition planning/care coordination assessment. STEPHANIE PRICE introduced self and role at [facility]. Patient lying in bed, alert and oriented. Patient willing to participate in assessment and is able to answer all questions appropriately. Care providers, pharmacy, and demographics verified. Patient wishes to discharge home, denies need for home health at this time. Patient states that her had recently moved out and took her car and money. RN ALBERT offered to have SW see patient, but she denied services. Patient states she has no further needs or concerns at this time. CM to follow for discharge planning needs that may arise. PCP: No PCP, CM to provide list of PCPs Specialists: None Preferred Pharmacy: [facility] Insurance: [employer] Prescription Benefit: [employer] Living Will/HPOA: None LNOK: (seperated) 3 kids ages 15,7,and 6. Living Arrangements: Patient lives with children in 1 story house, no steps to enter home. Patient independent. Transportation: Self DME/HHC: Denied needs for DME Disposition Plan: Patient to discharge home with family support and follow-up plans in place. Aydee DIANEN, RN, CM
[2018-08-28 13:27] VITALS: BP 114/70; PULSE 58; RESP 18; TEMP 36.7; O2SAT 96
[2018-08-28] MEDS: Dicyclomine 10 MG Capsule 20 MG PO (13:33)
--- NOTE | 2018-08-28 14:02 | NURSING ---
PT RESTING QUIETLY IN BED WITH EYES CLOSED, RESP EASY
--- NOTE | 2018-08-28 15:49 | NURSING ---
LATE ENTRY - 1500 - PT STATES MORPHINE INEFFECTIVE THIS TIME. RATES ABD/BACK PAIN 4. PAIN MED NOT DUE AGAIN UNTIL 1630. PT ENCOURAGED TO USE HEATING PAD FOR COMFORT. ALSO ENCOURAGED PT TO AMBULATE IN HALLS TO HELP RELIEVE PAIN - MAYBE BACK WOULD FEEL BETTER IF NOT LAYING IN BED, PT STATES NO FUCKING WAY AM I WALKING OUT THERE LOOKING LIKE THIS!. DR BRAGG MADE AWARE, NO MED CHANGES @ THIS TIME.
[2018-08-28] MEDS: Methocarbamol 750 MG Tablet PO (17:17)
[2018-08-28 20:53] VITALS: BP 100/61; PULSE 54; RESP 16; TEMP 37; O2SAT 99
[2018-08-28] MEDS: LORazepam 2 MG/ML Syringe 1 MG IV (23:39)
[2018-08-29] VITALS (7 sets, daily range): BP systolic 107–120; BP diastolic 59–77; PULSE 54–109; RESP 16–18; TEMP 36.7–37.1; O2SAT 95–100
[2018-08-29] MEDS: 0.9% Normal Saline 1,000 ML 200 ML IV ×2 (01:48→05:39)
[2018-08-29] MEDS: chlordiazePOXIDE 25 MG Capsule PO ×2 (05:38→11:41)
[2018-08-29 06:08] LABS: Basophil# 0.01 X10^3/uL; Basophil% 0.1 % (0-1); Eosinophil# 0.28 X10^3/uL; Eosinophils% 3.9 % (0-5); Hematocrit 36.7 % (37-47); Hemoglobin 12.4 g/dl (12.0-15.0); Lymphocyte % 19.5 % (19-41); Mean Corp Hgb Conc 33.8 g/gl (32-36); Mean Corpuscular Hgb 36.3 pg (27.0-32.0); Mean Corpuscular Volume 107.3 fL (81-99); Mean Platelet Vol. 11.3 fl (6.2-12.0); Monocyte# 0.43 X10^3/uL; Neutrophil # 5.03 X10^3/uL (2.7-7.7); Neutrophil % 70.2 % (47-70); Platelet Count 139 K/mm3 (150-450); RBC Distribution Width CV 12.7 % (11.6-14.6); RBC Distribution Width SD 49.3 fl (35.1-43.9); Red Blood Count 3.42 M/mm3 (4.2-5.4); White Blood Count 7.2 K/mm3 (4.4-11.0)
[2018-08-29 06:17] LABS: Anion Gap 14 (5-15); BUN 4 mg/dL (7-18); BUN/Creat Ratio 11.3 RATIO (10-20); Calcium,Total 8.2 mg/dL (8.5-10.1); Chloride 106 mmol/L (98-107); Creatinine, Serum 0.36 mg/dL (0.55-1.02); EST Glomerular Filtration Rate 219 mL/min (>60); Est Glom Filt Rate - Afr Amer 264 mL/min (>60); Estimated Creatinine Clearance 147.61 ml/min; Glucose 50 mg/dL (74-106); Phosphorus 2.2 mg/dL (2.5-4.9); Potassium 3.8 mmol/L (3.5-5.1); Sodium Level 137 mmol/L (136-145)
[2018-08-29 06:35] LABS: POSITIVE COUNT NO; POSITIVE DIFFERENTIAL NO; POSITIVE MORPHOLOGY NO
[2018-08-29] MEDS: Dextrose 50%-Water 25 GM/50 ML DISP.SYRIN IV (08:09)
[2018-08-29] MEDS: Folic Acid 1 MG Tablet PO (08:13)
[2018-08-29] MEDS: Multivitamins,Therapeutic Tablet 1 TABLET PO (08:13)
[2018-08-29] MEDS: Morphine 2 MG/ML Syringe IV ×4 (08:18→19:40)
[2018-08-29] MEDS: 0.9% NaCl Peripheral Flush Adult/Peds IV ×4 (08:18→12:22)
[2018-08-29 08:46] LABS: Bedside Glucose 143 mg/dL (70-110)
--- NOTE | 2018-08-29 09:32 | CT_ITS ---
STUDY: CT ABDOMEN AND PELVIS WITH CONTRAST REASON FOR EXAM: Female, 38 years old. Abdominal pain. History of alcoholic hepatitis and pancreatitis. Elevated lipase. RADIATION DOSAGE (If Supplied By Facility): CTDIvol = ( 6.44 ) mGy, DLP = ( 285.01 ) mGycm TECHNIQUE: Transaxial images were obtained from the dome of the diaphragm to the symphysis pubis with oral contrast. 100mL ml of Isovue 300 contrast was administered. Sagittal and coronal images were reconstructed. Individualized dose optimization techniques were used for this CT. COMPARISON: Comparison is made with prior study of December 01, 2016. FINDINGS: Small bilateral pleural effusions left greater than right with bibasilar atelectasis worse on the left side. The visualized portions of the heart are within normal limits. There is decreased attenuation of the liver consistent with steatosis. The liver measures upper limits of normal. This has improved as compared to prior study. Normal gallbladder and extrahepatic biliary system. Normal spleen. There is diffuse enlargement of the pancreas with [place]-pancreatic edema suggesting acute pancreatitis. There is evidence of increased markings in the left pararenal space. Normal bilateral adrenal glands. Normal right kidney. Normal left kidney. Normal visualized stomach. Normal small intestine. Normal colon. There is non-visualization of the appendix. Normal abdominal aorta. Normal inferior vena cava. Normal retroperitoneum. Normal urinary bladder. There is absence of the uterus consistent with a prior hysterectomy. Small amount of free fluid is seen in the cul-de-sac. Normal abdominal wall. Normal osseous structures. CT/Abdomen/Pelvis WITH Contrast IMPRESSION: Findings indicative of pancreatitis. Electronically Signed: Parker Paz MD at 12:51 EST Tel [phone], Service support ,
--- NOTE | 2018-08-29 09:33 | PCM.PN.HOSP ---
Subjective: Complaining of worsening pain, still NPO, VSS normal, heart rate normal, temp is normal and respiratory rate is normal. Blood pressure is stable Vitals/I&O's: Vital Signs Temp Pulse Resp BP Pulse Ox 98.1 F 61 18 120/64 97 08/29/18 08:14 08/29/18 08:40 08/29/18 08:40 08/29/18 08:14 08/29/18 08:14 Oxygen Delivery Method Room Air Weight: 96 lb 5.472 oz Body Mass Index (BMI) 18.8 Intake and Output for Last 24 Hours 08/27/18 08/28/18 08/29/18 23:59 23:59 23:59 Intake Total 975 / 975 4556 / 4556 1696 / 1696 Output Total 100 / 100 3550 / 3550 500 / 500 Balance 875 / 875 1006 / 1006 1196 / 1196 General: Alert, Oriented x3, Cooperative, No apparent distress HEENT: Atraumatic, PERRLA, EOMI, Normocephalic Oral: Dry Mucosa Neck: Supple, No JVD Lungs: Clear to auscultation, Normal air movement, No rhonchi, No wheeze, No rales Cardiovascular: Regular rate, Regular Rhythm, Normal S1, Normal S2, No murmurs Abdomen: Soft, Non-Distended, No Hepato-splenomegaly, Guarding, Tender mid abdomen Extremities: No edema, Capillary Refill Less than 3 Seconds Skin: No rashes, No breakdown Neurological: Neuro grossly intact, Sensory exam intact to light touch and pain Psych/Mental Status: Normal Affect, Appropriate Laboratory Results 08/28/18 05:26: Phosphorus 1.8 L, Magnesium 1.6 08/29/18 05:32: WBC 7.2, RBC 3.42 L, Hgb 12.4, Hct 36.7 L, MCV 107.3 H, MCH 36.3 H, MCHC 33.8, RDW 12.7, RDW Differential 49.3 H, Plt Count 139 L, MPV 11.3, Immature Gran % (Auto) 0.300, Neut % (Auto) 70.2 H, Lymph % (Auto) 19.5, [place] % (Auto) 6.0, Eos % (Auto) 3.9, Baso % (Auto) 0.1, Absolute Neuts (auto) 5.0, Absolute Lymphs (auto) 1.40, Total Counted Not Reportable 08/29/18 05:32: Sodium 137, Potassium 3.8, Chloride 106, Carbon Dioxide 17.0 L, Anion Gap 14, BUN 4 L, Creatinine 0.36 L, Estim Creat Clear Calc 147.61, Est GFR (MDRD) Af Amer 264, Est GFR (MDRD) Non-Af 219, BUN/Creatinine Ratio 11.3, Glucose 50 L, Calcium 8.2 L, Phosphorus 2.2 L, Magnesium 2.0 08/29/18 08:36: POC Glucose 143 H Current Medications Chlordiazepoxide (Librium) 50 mg PO Q8H [facility]; Taper Stop: 08/30/18 12:44 Last Admin: 08/29/18 05:38 Dose: 50 mg Dicyclomine HCl (Bentyl) 20 mg PO Q6H PRN PRN PRN Reason: abdominal discomfort Last Admin: 08/28/18 13:33 Dose: 20 mg Folic Acid (Folic Acid) 1 mg PO DAILYCM [facility] Last Admin: 08/29/18 08:13 Dose: 1 mg Hydroxyzine Pamoate (Vistaril Pamoate Capsule) 50 mg PO Q6H PRN PRN PRN Reason: Mild Anxiety (score 1/3) Thiamine HCl 200 mg/ Sodium (Chloride) 52 mls @ 200 mls/hr IV DAILY [facility] Last Admin: 08/28/18 11:08 Dose: 200 mls/hr Dextrose/Sodium Chloride (Dextrose 5%/0.9% Nacl) 1,000 mls @ 100 mls/hr IV .Q10H [facility] Lorazepam (Ativan) 1 mg IV Q4H PRN PRN PRN Reason: Severe Anxiety Last Admin: 08/28/18 23:39 Dose: 1 mg Lorazepam (Ativan) 2 mg IV X1 PRN PRN Reason: Seizure Magnesium Hydroxide (Milk Of Magnesia) 30 ml PO DAILY PRN PRN PRN Reason: Constipation Methocarbamol (Methocarbamol) 750 mg PO Q6H PRN PRN PRN Reason: Muscle Aches Last Admin: 08/28/18 17:17 Dose: 750 mg Morphine Sulfate () 2 mg IV Q3H PRN PRN PRN Reason: SEVERE PAIN (6-10/10) Last Admin: 08/29/18 08:18 Dose: 2 mg Multivitamins (Multivitamin) 1 tablet PO DAILYCM [facility] Last Admin: 08/29/18 08:13 Dose: 1 tablet Ondansetron HCl (Zofran) 4 mg IV Q8H PRN PRN PRN Reason: NAUSEA Last Admin: 08/27/18 14:27 Dose: 4 mg Sodium Chloride () 5 - 30 ml IV UD PRN PRN Reason: SALINE FLUSH Last Admin: 08/29/18 08:18 Dose: 10 ml Medical Necessity - Tobacco Use Smoking Status: Current every day smoker Tobacco Use: Cigarettes Assessment/Plan All Active Problems Hypomagnesemia (Acute) Hypokalemia (Acute) Acute alcoholic hepatitis (Acute) Pancreatitis (Acute) 1. Acute pancreatitis - She denies any medications - RUQ US was unremarkable - C/w with aggressive IVF - TG normal - Etiology is unsure at the moment - Morphine for pain - Lipase was over 6000 on admission - CT abd/pelvis today to evaluate for worsening pain 2. Alcohol use - this could be the cause, however she gives very fluctuating account of her habits - Will treat as alcohol abuse at the moment and will continue with the new vision protocol 3. Tobacco and marijuana use - counselled on cessation DVT: Lovenox Diet: NPO Code Visit Inpatient E&M: [id number] Subs Hosp L2
--- NOTE | 2018-08-29 09:36 | PN_ITS ---
Subjective: Complaining of worsening pain, still NPO, VSS normal, heart rate normal, temp is normal and respiratory rate is normal. Blood pressure is stable Vitals/I&O's: Vital Signs Temp Pulse Resp BP Pulse Ox 98.1 F 61 18 120/64 97 08/29/18 08:14 08/29/18 08:40 08/29/18 08:40 08/29/18 08:14 08/29/18 08:14 Oxygen Delivery Method Room Air Weight: 96 lb 5.472 oz Body Mass Index (BMI) 18.8 Intake and Output for Last 24 Hours 08/27/18 08/28/18 08/29/18 23:59 23:59 23:59 Intake Total 975 / 975 4556 / 4556 1696 / 1696 Output Total 100 / 100 3550 / 3550 500 / 500 Balance 875 / 875 1006 / 1006 1196 / 1196 General: Alert, Oriented x3, Cooperative, No apparent distress HEENT: Atraumatic, PERRLA, EOMI, Normocephalic Oral: Dry Mucosa Neck: Supple, No JVD Lungs: Clear to auscultation, Normal air movement, No rhonchi, No wheeze, No rales Cardiovascular: Regular rate, Regular Rhythm, Normal S1, Normal S2, No murmurs Abdomen: Soft, Non-Distended, No Hepato-splenomegaly, Guarding, Tender mid abdomen Extremities: No edema, Capillary Refill Less than 3 Seconds Skin: No rashes, No breakdown Neurological: Neuro grossly intact, Sensory exam intact to light touch and pain Psych/Mental Status: Normal Affect, Appropriate Laboratory Results 08/28/18 05:26: Phosphorus 1.8 L, Magnesium 1.6 08/29/18 05:32: WBC 7.2, RBC 3.42 L, Hgb 12.4, Hct 36.7 L, MCV 107.3 H, MCH 36.3 H, MCHC 33.8, RDW 12.7, RDW Differential 49.3 H, Plt Count 139 L, MPV 11.3, Immature Gran % (Auto) 0.300, Neut % (Auto) 70.2 H, Lymph % (Auto) 19.5, [place] % (Auto) 6.0, Eos % (Auto) 3.9, Baso % (Auto) 0.1, Absolute Neuts (auto) 5.0, Absolute Lymphs (auto) 1.40, Total Counted Not Reportable 08/29/18 05:32: Sodium 137, Potassium 3.8, Chloride 106, Carbon Dioxide 17.0 L, Anion Gap 14, BUN 4 L, Creatinine 0.36 L, Estim Creat Clear Calc 147.61, Est GFR (MDRD) Af Amer 264, Est GFR (MDRD) Non-Af 219, BUN/Creatinine Ratio 11.3, Glucose 50 L, Calcium 8.2 L, Phosphorus 2.2 L, Magnesium 2.0 08/29/18 08:36: POC Glucose 143 H Current Medications Chlordiazepoxide (Librium) 50 mg PO Q8H [facility]; Taper Stop: 08/30/18 12:44 Last Admin: 08/29/18 05:38 Dose: 50 mg Dicyclomine HCl (Bentyl) 20 mg PO Q6H PRN PRN PRN Reason: abdominal discomfort Last Admin: 08/28/18 13:33 Dose: 20 mg Folic Acid (Folic Acid) 1 mg PO DAILYCM [facility] Last Admin: 08/29/18 08:13 Dose: 1 mg Hydroxyzine Pamoate (Vistaril Pamoate Capsule) 50 mg PO Q6H PRN PRN PRN Reason: Mild Anxiety (score 1/3) Thiamine HCl 200 mg/ Sodium (Chloride) 52 mls @ 200 mls/hr IV DAILY [facility] Last Admin: 08/28/18 11:08 Dose: 200 mls/hr Dextrose/Sodium Chloride (Dextrose 5%/0.9% Nacl) 1,000 mls @ 100 mls/hr IV .Q10H [facility] Lorazepam (Ativan) 1 mg IV Q4H PRN PRN PRN Reason: Severe Anxiety Last Admin: 08/28/18 23:39 Dose: 1 mg Lorazepam (Ativan) 2 mg IV X1 PRN PRN Reason: Seizure Magnesium Hydroxide (Milk Of Magnesia) 30 ml PO DAILY PRN PRN PRN Reason: Constipation Methocarbamol (Methocarbamol) 750 mg PO Q6H PRN PRN PRN Reason: Muscle Aches Last Admin: 08/28/18 17:17 Dose: 750 mg Morphine Sulfate () 2 mg IV Q3H PRN PRN PRN Reason: SEVERE PAIN (6-10/10) Last Admin: 08/29/18 08:18 Dose: 2 mg Multivitamins (Multivitamin) 1 tablet PO DAILYCM [facility] Last Admin: 08/29/18 08:13 Dose: 1 tablet Ondansetron HCl (Zofran) 4 mg IV Q8H PRN PRN PRN Reason: NAUSEA Last Admin: 08/27/18 14:27 Dose: 4 mg Sodium Chloride () 5 - 30 ml IV UD PRN PRN Reason: SALINE FLUSH Last Admin: 08/29/18 08:18 Dose: 10 ml Medical Necessity - Tobacco Use Smoking Status: Current every day smoker Tobacco Use: Cigarettes Assessment/Plan All Active Problems Hypomagnesemia (Acute) Hypokalemia (Acute) Acute alcoholic hepatitis (Acute) Pancreatitis (Acute) 1. Acute pancreatitis - She denies any medications - RUQ US was unremarkable - C/w with aggressive IVF - TG normal - Etiology is unsure at the moment - Morphine for pain - Lipase was over 6000 on admission - CT abd/pelvis today to evaluate for worsening pain 2. Alcohol use - this could be the cause, however she gives very fluctuating account of her habits - Will treat as alcohol abuse at the moment and will continue with the new vision protocol 3. Tobacco and marijuana use - counselled on cessation DVT: Lovenox Diet: NPO Code Visit Inpatient E&M: 81785 Subs Hosp L2
[2018-08-29] MEDS: Dextrose 5%/0.9% NaCl 1,000 ML 100 ML IV ×2 (10:12→19:40)
[2018-08-29] MEDS: Enoxaparin 40 MG/0.4 ML Syringe SC (11:26)
[2018-08-29] MEDS: Methocarbamol 750 MG Tablet PO ×2 (11:41→17:43)
[2018-08-29] MEDS: hydrOXYzine PAM 25 MG Capsule 50 MG PO ×2 (11:41→17:43)
--- NOTE | 2018-08-29 13:42 | CASEMGMT ---
Social Work Note SW attempted to meet with pt to determine if pt needs additional resources at discharge. Pt currently sleeping. SW will attempt to meet with pt later today or tomorrow to talk to pt. Aydee Velarde PROFESSOR OF ENGLISH, ANTHROPOLOGY AND ARCHEOLOGY INSTRUCTOR
--- NOTE | 2018-08-29 15:56 | NURSING ---
agree with kalani ornelas shift assessments today.
[2018-08-30] MEDS: chlordiazePOXIDE 25 MG Capsule PO (01:01)
[2018-08-30] MEDS: Morphine 2 MG/ML Syringe IV ×6 (01:01→23:07)
[2018-08-30 05:21] LABS: Absolute Lymphocyte Count 1.08 X10^3/ul (0.83-4.51); Absolute Neutrophil Count 2.5 X10^3/uL (2.0-7.7); Basophil# 0.01 X10^3/uL; Basophil% 0.2 % (0-1); Eosinophil# 0.19 X10^3/uL; Eosinophils% 4.7 % (0-5); Hematocrit 34.1 % (37-47); Hemoglobin 11.8 g/dl (12.0-15.0); Lymphocyte # 1.08 X10^3/ul (4.0); Lymphocyte % 26.8 % (19-41); Mean Corp Hgb Conc 34.6 g/gl (32-36); Mean Corpuscular Hgb 36.4 pg (27.0-32.0); Mean Corpuscular Volume 105.2 fL (81-99); Mean Platelet Vol. 11.1 fl (6.2-12.0); Monocyte# 0.24 X10^3/uL; Neutrophil # 2.49 X10^3/uL (2.7-7.7); Neutrophil % 61.8 % (47-70); Platelet Count 147 K/mm3 (150-450); RBC Distribution Width CV 12.4 % (11.6-14.6); RBC Distribution Width SD 46.3 fl (35.1-43.9); Red Blood Count 3.24 M/mm3 (4.2-5.4)
[2018-08-30 05:24] LABS: POSITIVE COUNT NO; POSITIVE DIFFERENTIAL NO; POSITIVE MORPHOLOGY NO
[2018-08-30] MEDS: Dextrose 5%/0.9% NaCl 1,000 ML 100 ML IV ×2 (05:30→19:29)
[2018-08-30 05:32] VITALS: BP 108/71; PULSE 62; RESP 16; TEMP 36.9; O2SAT 96
[2018-08-30 05:34] LABS: ALB/GLOB Ratio 0.8 RATIO (0.9-2.4); AST(SGOT) 28 U/L (15-37); Alanine Aminotransfer ALT/SGPT 22 U/L (13-56); Albumin, Serum 2.3 g/dL (3.2-5.0); Alkaline Phosphatase 76 U/L (45-117); Anion Gap 10 (5-15); BUN 2 mg/dL (7-18); BUN/Creat Ratio 4.6 RATIO (10-20); Calcium,Total 8.1 mg/dL (8.5-10.1); Chloride 108 mmol/L (98-107); Creatinine, Serum 0.44 mg/dL (0.55-1.02); EST Glomerular Filtration Rate 172 mL/min (>60); Est Glom Filt Rate - Afr Amer 208 mL/min (>60); Estimated Creatinine Clearance 120.77 ml/min; Glucose 111 mg/dL (74-106); Potassium 2.9 mmol/L (3.5-5.1); Protein, Total 5.3 g/dL (6.4-8.2); Sodium Level 140 mmol/L (136-145)
[2018-08-30 08:00] VITALS: BP 124/76; PULSE 76; RESP 16; TEMP 36.6; O2SAT 97
--- NOTE | 2018-08-30 09:08 | PCM.PN.HOSP ---
Subjective: Feels a little better, mostly back pain now. She is very emotional since she is going through so much right now in her personal life. CT did demonstrate pancreatitis. Vitals/I&O's: Vital Signs Temp Pulse Resp BP Pulse Ox 98.4 F 62 16 108/71 96 08/30/18 05:32 08/30/18 05:32 08/30/18 05:32 08/30/18 05:32 08/30/18 05:32 Oxygen Delivery Method Room Air Weight: 96 lb 5.472 oz Body Mass Index (BMI) 18.8 Intake and Output for Last 24 Hours 08/28/18 08/29/18 08/30/18 23:59 23:59 23:59 Intake Total 4556 / 4556 2506 / 2506 1254 / 1254 Output Total 3550 / 3550 1100 / 1100 1100 / 1100 Balance 1006 / 1006 1406 / 1406 154 / 154 General: Alert, Oriented x3, Cooperative, No apparent distress HEENT: Atraumatic, PERRLA, EOMI, Normocephalic Oral: Dry Mucosa Neck: Supple, No JVD Lungs: Clear to auscultation, Normal air movement, No rhonchi, No wheeze, No rales Cardiovascular: Regular rate, Regular Rhythm, Normal S1, Normal S2, No murmurs Abdomen: Soft, Non-Distended, No Hepato-splenomegaly, Guarding, Tender mid abdomen Extremities: No edema, Capillary Refill Less than 3 Seconds Skin: No rashes, No breakdown Neurological: Neuro grossly intact, Sensory exam intact to light touch and pain Psych/Mental Status: Normal Affect, Appropriate Laboratory Results 08/30/18 05:08: WBC 4.0 L, RBC 3.24 L, Hgb 11.8 L, Hct 34.1 L, MCV 105.2 H, MCH 36.4 H, MCHC 34.6, RDW 12.4, RDW Differential 46.3 H, Plt Count 147 L, MPV 11.1, Immature Gran % (Auto) 0.500, Neut % (Auto) 61.8, Lymph % (Auto) 26.8, [place] % (Auto) 6.0, Eos % (Auto) 4.7, Baso % (Auto) 0.2, Absolute Neuts (auto) 2.5, Absolute Lymphs (auto) 1.08, Total Counted Not Reportable 08/30/18 05:08: Sodium 140, Potassium 2.9 L, Chloride 108 H, Carbon Dioxide 22.0, Anion Gap 10, BUN 2 L, Creatinine 0.44 L, Estim Creat Clear Calc 120.77, Est GFR (MDRD) Af Amer 208, Est GFR (MDRD) Non-Af 172, BUN/Creatinine Ratio 4.6 L, Glucose 111 H, Calcium 8.1 L, Total Bilirubin 0.30, AST 28, ALT 22, Alkaline Phosphatase 76, Total Protein 5.3 L, Albumin 2.3 L, Globulin 3.0, Albumin/Globulin Ratio 0.8 L Current Medications Chlordiazepoxide (Librium) 25 mg PO Q12H [facility]; Taper Stop: 08/30/18 12:44 Last Admin: 08/30/18 01:01 Dose: 25 mg Dicyclomine HCl (Bentyl) 20 mg PO Q6H PRN PRN PRN Reason: abdominal discomfort Last Admin: 08/28/18 13:33 Dose: 20 mg Enoxaparin Sodium (Lovenox) 40 mg SC DAILY [facility] Last Admin: 08/29/18 11:26 Dose: 40 mg Folic Acid (Folic Acid) 1 mg PO DAILYCM [facility] Last Admin: 08/29/18 08:13 Dose: 1 mg Hydroxyzine Pamoate (Vistaril Pamoate Capsule) 50 mg PO Q6H PRN PRN PRN Reason: Mild Anxiety (score 1/3) Last Admin: 08/29/18 17:43 Dose: 50 mg Thiamine HCl 200 mg/ Sodium (Chloride) 52 mls @ 200 mls/hr IV DAILY [facility] Last Admin: 08/29/18 11:26 Dose: 200 mls/hr Dextrose/Sodium Chloride (Dextrose 5%/0.9% Nacl) 1,000 mls @ 100 mls/hr IV .Q10H [facility] Last Admin: 08/30/18 05:30 Dose: 100 mls/hr Lorazepam (Ativan) 1 mg IV Q4H PRN PRN PRN Reason: Severe Anxiety Last Admin: 08/28/18 23:39 Dose: 1 mg Lorazepam (Ativan) 2 mg IV X1 PRN PRN Reason: Seizure Magnesium Hydroxide (Milk Of Magnesia) 30 ml PO DAILY PRN PRN PRN Reason: Constipation Methocarbamol (Methocarbamol) 750 mg PO Q6H PRN PRN PRN Reason: Muscle Aches Last Admin: 08/29/18 17:43 Dose: 750 mg Morphine Sulfate () 2 mg IV Q2H PRN PRN PRN Reason: SEVERE PAIN (6-10/10) Last Admin: 08/30/18 05:37 Dose: 2 mg Multivitamins (Multivitamin) 1 tablet PO DAILYCM [facility] Last Admin: 08/29/18 08:13 Dose: 1 tablet Ondansetron HCl (Zofran) 4 mg IV Q8H PRN PRN PRN Reason: NAUSEA Last Admin: 08/27/18 14:27 Dose: 4 mg Sodium Chloride () 5 - 30 ml IV UD PRN PRN Reason: SALINE FLUSH Last Admin: 08/29/18 12:22 Dose: 10 ml Medical Necessity - Tobacco Use Smoking Status: Current every day smoker Tobacco Use: Cigarettes Assessment/Plan All Active Problems Hypomagnesemia (Acute) Hypokalemia (Acute) Acute alcoholic hepatitis (Acute) Pancreatitis (Acute) 1. Acute pancreatitis - She denies any medications - RUQ US was unremarkable - C/w with aggressive IVF no with D5 given her hypoglycemia yesterday - TG normal - Etiology is unsure at the moment - Morphine for pain - Lipase was over 6000 on admission - CT abd/pelvis with pancreatitis, if no significant improvement by tomorrow, may need surgery for dobhoff and post-pyloric feeding 2. Alcohol use - this could be the cause, however she gives very fluctuating account of her habits - Will treat as alcohol abuse at the moment and will continue with the new vision protocol 3. Tobacco and marijuana use - counselled on cessation 4. Hypokalemia - once again 2.8 - had to replace with phos and mag last time, so will obtain levels prior to replacing potassium DVT: Lovenox Diet: NPO Code Visit Inpatient E&M: 82047 Subs Hosp L2
--- NOTE | 2018-08-30 09:12 | PN_ITS ---
Subjective: Feels a little better, mostly back pain now. She is very emotional since she is going through so much right now in her personal life. CT did demonstrate pancreatitis. Vitals/I&O's: Vital Signs Temp Pulse Resp BP Pulse Ox 98.4 F 62 16 108/71 96 08/30/18 05:32 08/30/18 05:32 08/30/18 05:32 08/30/18 05:32 08/30/18 05:32 Oxygen Delivery Method Room Air Weight: 96 lb 5.472 oz Body Mass Index (BMI) 18.8 Intake and Output for Last 24 Hours 08/28/18 08/29/18 08/30/18 23:59 23:59 23:59 Intake Total 4556 / 4556 2506 / 2506 1254 / 1254 Output Total 3550 / 3550 1100 / 1100 1100 / 1100 Balance 1006 / 1006 1406 / 1406 154 / 154 General: Alert, Oriented x3, Cooperative, No apparent distress HEENT: Atraumatic, PERRLA, EOMI, Normocephalic Oral: Dry Mucosa Neck: Supple, No JVD Lungs: Clear to auscultation, Normal air movement, No rhonchi, No wheeze, No rales Cardiovascular: Regular rate, Regular Rhythm, Normal S1, Normal S2, No murmurs Abdomen: Soft, Non-Distended, No Hepato-splenomegaly, Guarding, Tender mid abdomen Extremities: No edema, Capillary Refill Less than 3 Seconds Skin: No rashes, No breakdown Neurological: Neuro grossly intact, Sensory exam intact to light touch and pain Psych/Mental Status: Normal Affect, Appropriate Laboratory Results 08/30/18 05:08: WBC 4.0 L, RBC 3.24 L, Hgb 11.8 L, Hct 34.1 L, MCV 105.2 H, MCH 36.4 H, MCHC 34.6, RDW 12.4, RDW Differential 46.3 H, Plt Count 147 L, MPV 11.1, Immature Gran % (Auto) 0.500, Neut % (Auto) 61.8, Lymph % (Auto) 26.8, [place] % (Auto) 6.0, Eos % (Auto) 4.7, Baso % (Auto) 0.2, Absolute Neuts (auto) 2.5, Absolute Lymphs (auto) 1.08, Total Counted Not Reportable 08/30/18 05:08: Sodium 140, Potassium 2.9 L, Chloride 108 H, Carbon Dioxide 22.0, Anion Gap 10, BUN 2 L, Creatinine 0.44 L, Estim Creat Clear Calc 120.77, Est GFR (MDRD) Af Amer 208, Est GFR (MDRD) Non-Af 172, BUN/Creatinine Ratio 4.6 L, Glucose 111 H, Calcium 8.1 L, Total Bilirubin 0.30, AST 28, ALT 22, Alkaline Phosphatase 76, Total Protein 5.3 L, Albumin 2.3 L, Globulin 3.0, Albumin/Globulin Ratio 0.8 L Current Medications Chlordiazepoxide (Librium) 25 mg PO Q12H [facility]; Taper Stop: 08/30/18 12:44 Last Admin: 08/30/18 01:01 Dose: 25 mg Dicyclomine HCl (Bentyl) 20 mg PO Q6H PRN PRN PRN Reason: abdominal discomfort Last Admin: 08/28/18 13:33 Dose: 20 mg Enoxaparin Sodium (Lovenox) 40 mg SC DAILY [facility] Last Admin: 08/29/18 11:26 Dose: 40 mg Folic Acid (Folic Acid) 1 mg PO DAILYCM [facility] Last Admin: 08/29/18 08:13 Dose: 1 mg Hydroxyzine Pamoate (Vistaril Pamoate Capsule) 50 mg PO Q6H PRN PRN PRN Reason: Mild Anxiety (score 1/3) Last Admin: 08/29/18 17:43 Dose: 50 mg Thiamine HCl 200 mg/ Sodium (Chloride) 52 mls @ 200 mls/hr IV DAILY [facility] Last Admin: 08/29/18 11:26 Dose: 200 mls/hr Dextrose/Sodium Chloride (Dextrose 5%/0.9% Nacl) 1,000 mls @ 100 mls/hr IV .Q10H [facility] Last Admin: 08/30/18 05:30 Dose: 100 mls/hr Lorazepam (Ativan) 1 mg IV Q4H PRN PRN PRN Reason: Severe Anxiety Last Admin: 08/28/18 23:39 Dose: 1 mg Lorazepam (Ativan) 2 mg IV X1 PRN PRN Reason: Seizure Magnesium Hydroxide (Milk Of Magnesia) 30 ml PO DAILY PRN PRN PRN Reason: Constipation Methocarbamol (Methocarbamol) 750 mg PO Q6H PRN PRN PRN Reason: Muscle Aches Last Admin: 08/29/18 17:43 Dose: 750 mg Morphine Sulfate () 2 mg IV Q2H PRN PRN PRN Reason: SEVERE PAIN (6-10/10) Last Admin: 08/30/18 05:37 Dose: 2 mg Multivitamins (Multivitamin) 1 tablet PO DAILYCM [facility] Last Admin: 08/29/18 08:13 Dose: 1 tablet Ondansetron HCl (Zofran) 4 mg IV Q8H PRN PRN PRN Reason: NAUSEA Last Admin: 08/27/18 14:27 Dose: 4 mg Sodium Chloride () 5 - 30 ml IV UD PRN PRN Reason: SALINE FLUSH Last Admin: 08/29/18 12:22 Dose: 10 ml Medical Necessity - Tobacco Use Smoking Status: Current every day smoker Tobacco Use: Cigarettes Assessment/Plan All Active Problems Hypomagnesemia (Acute) Hypokalemia (Acute) Acute alcoholic hepatitis (Acute) Pancreatitis (Acute) 1. Acute pancreatitis - She denies any medications - RUQ US was unremarkable - C/w with aggressive IVF no with D5 given her hypoglycemia yesterday - TG normal - Etiology is unsure at the moment - Morphine for pain - Lipase was over 6000 on admission - CT abd/pelvis with pancreatitis, if no significant improvement by tomorrow, may need surgery for dobhoff and post-pyloric feeding 2. Alcohol use - this could be the cause, however she gives very fluctuating account of her habits - Will treat as alcohol abuse at the moment and will continue with the new vision protocol 3. Tobacco and marijuana use - counselled on cessation 4. Hypokalemia - once again 2.8 - had to replace with phos and mag last time, so will obtain levels prior to replacing potassium DVT: Lovenox Diet: NPO Code Visit Inpatient E&M: 34716 Subs Hosp L2
[2018-08-30 09:29] LABS: Magnesium 1.6 mg/dL (1.6-2.6); Phosphorus 2.5 mg/dL (2.5-4.9)
[2018-08-30] MEDS: Folic Acid 1 MG Tablet PO (09:41)
[2018-08-30] MEDS: 0.9% NaCl Peripheral Flush Adult/Peds IV ×5 (09:41→20:12)
[2018-08-30] MEDS: Enoxaparin 40 MG/0.4 ML Syringe SC (09:41)
[2018-08-30] MEDS: Multivitamins,Therapeutic Tablet 1 TABLET PO (09:41)
[2018-08-30] MEDS: Methocarbamol 750 MG Tablet PO (10:40)
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
[2018-08-30 14:00] VITALS: BP 114/71; PULSE 72; RESP 16; TEMP 36.6; O2SAT 99
[2018-08-30] MEDS: LORazepam 2 MG/ML Syringe 1 MG IV (14:02)
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
[2018-08-30 19:51] VITALS: BP 116/82; PULSE 71; RESP 16; TEMP 36.9; O2SAT 98
[2018-08-30] MEDS: Ondansetron 4 MG/2 ML Vial IV (20:12)
[2018-08-30] MEDS: Magnesium Hydroxide 30 ML UDC PO (20:12)
[2018-08-30 20:14] VITALS: BP 116/82; PULSE 71; RESP 16; TEMP 36.9; O2SAT 98
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
[2018-08-31 02:10] VITALS: BP 102/67; PULSE 65; RESP 18; TEMP 36.9; O2SAT 98
--- NOTE | 2018-08-31 06:02 | NURSING ---
ENTERED PT ROOM TO FIND THE IV TUBING DISCONNECTED FROM HER IV SITE. PT IS IN [place] [place]. STATES REPEATEDLY THAT SHE NEEDED TO GET HER SON TO SCHOOL SO SHE NEEDS TO LEAVE. THIS RN REMINDED PT THAT TODAY IS SUNDAY. ASKED PT IF SHE PLANNED TO STAY AT THE HOSPITAL OR LEAVE AMA PREVIOUSLY DISCUSSED. PT STATES SHE'D LIKE SOME TIME TO CONSIDER HER DECISION. EMOTIONAL SUPPORT OFFERED. WILL MONITOR.
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
--- OUTSIDE RECORDS SUMMARY | 2018-10-08 20:41 | XMS RPT_ITS ---
:1980 Author Organization OHIP Support Name Relationship Address Phone АНДРЕЙ PEARCE Unavailable [address] + [place] [address] [address] + [place] [address] АНДРЕЙ PEARCE Unavailable [address] + [place] [address] + [place] [address] АНДРЕЙ PEARCE Unavailable [address] + [place] [address] + [place] [address] АНДРЕЙ PEARCE Unavailable [address] + [place] [address] + [place] [address] АНДРЕЙ PEARCE Unavailable [address] + [place] [address] +. [place] [address] АНДРЕЙ PEARCE Unavailable [address] + [place] [address] [address] . +. [place] [address] АНДРЕЙ PEARCE Unavailable [address] + [place] [address] +[place] [address] АНДРЕЙ PEARCE Unavailable [address] + [place] [address] +[place] [address] АНДРЕЙ PEARCE Unavailable [address] + [place] [address] +[place] [address] DUNSP Unavailable [address] + [place] [address] АНДРЕЙ PEARCE Unavailable [address] + [place] [address] [address] . +. [place] [address] Care Team Providers Name Role Phone Primay Care Physicia, No Primary Care Unavailable Arron King Attending Unavailable Primay Care Physicia, No Primary Care Unavailable Kotsonis, Ottoniel F Admitting Unavailable Kotsonis, Ottoniel F Attending Unavailable Kotsonis, Ottoniel F Admitting Unavailable Kotsonis, Ototniel F Attending Unavailable Primay Care Physicia, No Primary Care Unavailable Kotsonis, Ottoniel F Consulting Unavailable Kotsonis, Ottoniel F Admitting Unavailable Kotsonis, Ottoniel F Attending Unavailable Primay Care Physicia, No Primary Care Unavailable Kotsonis, Ottoniel F Consulting Unavailable Kotsonis, Ottoniel F Admitting Unavailable Kotsonis, Ottoniel F Attending Unavailable Primay Care Physicia, No Primary Care Unavailable Kotsonis, Ottoniel F Consulting Unavailable Kotsonis, Ottoniel F Admitting Unavailable Kotsonis, Ottoniel F Attending Unavailable Primay Care Physicia, No Primary Care Unavailable Kotsonis, Ottoniel F Consulting Unavailable Primay Care Physicia, No Primary Care Unavailable Kotsonis, Ottoniel F Admitting Unavailable Roberta Traore Consulting Unavailable Nitin Escoto Attending Unavailable Kotsonis, Ottoniel F Admitting Unavailable Kotsonis, Ottoniel F Attending Unavailable Primay Care Physicia, No Primary Care Unavailable Roberta Traore Consulting Unavailable Kotsonis, Ottoniel F Consulting Unavailable Kotsonis, Ottoniel F Admitting Unavailable Kotsonis, Ottoniel F Attending Unavailable Primay Care Physicia, No Primary Care Unavailable Roberta Traore Consulting Unavailable Ranjittsonis, Ottoniel F Consulting Unavailable Kotsonis, Ottoniel F Admitting Unavailable Nitin Escoto Attending Unavailable Primay Care Physicia, No Primary Care Unavailable Roberta Traore Consulting Unavailable Nitin Escoto Consulting Unavailable PROBLEMS PROBLEMS DATE TYPE CONDITION / CODE ATTENDING STATUS SOURCE 09/03/2018 Unknown K85.90 - Acute Tereletsky, Active Brice pancreatitis [facility] without necrosis Hospital or infection, Repository unspecified / K85.90(ICD-10) PROCEDURES PROCEDURES No Procedure Records FoundRESULTS RESULTS DISCHARGE SUMMARY Observed: 09/03/2018 Status: F Source: [place] 9:15 AM [facility] REPOSITORY [facility] Medical Records Department [address] [place] [address] Discharge Summary 09/03/18 0910 MR#: [id number] Acct: [id number] Name: FAY PEARCE Rep #: [id number] : 1980 38 From: Nitin Escoto DO PCP: Care Physician, No Primary Status: DIS IN Y Location: LA3 [id number] Discharge Date and Diagnosis Date of Admission: 08/31/18 Date of Discharge: 09/02/18 - Primary Discharge Diagnosis #1 acute recurrent pancreatitis-etiology unknown #2 hypokalemia - Secondary Discharge Diagnosis Chronic Problems Tobacco use (Chronic) Anxiety and depression (Chronic) Alcohol abuse (Chronic) Hepatomegaly (Chronic) Hepatic steatosis (Chronic) Hospital Course and Treatment Operations: None Procedures: None Summary of Care Provided: The patient is a 38 year old F who was seen in the emergency room at [facility] with chief complaint of abdominal pain, she had been seen earlier in the emergency room at [facility] but left AMA to take care of personal business, she then return for reevaluation and labs were drawn which showed elevated lipase at 696, AST was slightly elevated at 81, potassium was 3.3, white blood cell count was normal. Toxicology screen was positive for benzodiazepines. Patient was admitted for acute recurrent pancreatitis, she was seen in consultation by general surgery who did not feel the patient needed surgical intervention, she was given IV fluids and IV pain medications and no imaging studies were performed as the patient had a gallbladder ultrasound on August 27, [address] of the abdomen and pelvis on 08/29/18. These tests were remarkable for findings indicative of pancreatitis on her abdominal CT. Patient's abdominal pain improved, on 09/02/18, patient was seen and examined: On examination she appeared in good health and spirits. Vital signs as documented. Skin warm and dry and without overt rashes. Neck without JVD. Lungs clear. Heart exam notable for regular rhythm, normal sounds and absence of murmurs, rubs or gallops. Abdomen unremarkable and without evidence of organomegaly, masses, or abdominal aortic enlargement. Extremities nonedematous. Neuro: Cranial nerves II through XII are intact, no focal motor deficits were noted. Psych: Patient is alert and oriented x3, she does not appear to be anxious or depressed. On 09/02/18, patient was seen and examined and discharged home in stable condition. Etiology of the patient's pancreatitis was unknown. - Physical Exam Vital Signs Temp Pulse Resp BP Pulse Ox 97.8 F 106 H 16 142/98 H 94 09/02/18 08:15 09/02/18 08:15 09/02/18 08:15 09/02/18 08:15 09/02/18 08:15 Oxygen Delivery Method Room Air Weight: 45.359 kg Body Mass Index (BMI) 19.5 Finger Stick Blood Glucose 185 Intake and Output for Last 24 Hours Intake Total 2292 / 2292 671 / 671 Output Total 1700 / 1700 400 / 400 Balance 592 / 592 271 / 271 Laboratory Tests Past 24 Hrs Vitamin B12 > 2000 H Discharge Activity: Return to Normal Activity Weight Bearing Status: Full weight bearing Home Medications: Medications to take at Discharge Oxycodone [Oxyir] 10 mg PO Q6H PRN PRN 7 Days #30 tab 09/02/18 Following Prescrptions Were Given to Patient: Oxycodone [Oxyir] 10 mg PO Q6H PRN PRN 7 Days #30 tab PRN Reason: Severe Pain (6-07/10) Primary Care Physician: Care Physician,No Primary [Primary Care Provider] - Please follow up with your Primary Care Physician in: in 2- 3 weeks Disposition: Home Minutes spent on discharge:: 33 Patient Condition:: Stable Medical Necessity - Tobacco Use Smoking Status: Current every day smoker Meaningful Use Info Meaningful Use Diagnoses (Choose all that apply): None applicable Code Visit Inpatient E AND M: 34520 Disch Hosp 09/03/18 0915 <Electronically signed by Nitin Escoto DO> Date Nitin Escoto DO Cosigner Signature (if applicable): Date CC: No Primary Care Physician; Nitin Escoto DO Signed DISCHARGE INSTRUCTION Observed: 09/02/2018 Status: F Source: [place] 11:30 AM [facility] REPOSITORY [facility] Medical Records Department [address] [place] [address] Instructions for Home/Discharge Instructions 09/02/18 1129 MR#: [id number] Acct: [id number] Name: FAY PEARCE Rep #: [id number] : 1980 38 From: Nitin Escoto DO PCP: Care Physician, No Primary Status: ADM IN You will use the following diet at home:: No restrictions Your food should be the consistency of: Regular Your liquids should be the consistency of: Regular/Thin Discharge Activity: Return to Normal Activity Weight Bearing Status: Full weight bearing Allergies/Adverse Reactions: Allergies No Known Allergies Allergy (Verified 08/27/18 10:07) Medications to take at Discharge Oxycodone [Oxyir] 10 mg PO Q6H PRN PRN 7 Days #30 tab 09/02/18 The following prescriptions were given: Oxycodone [Oxyir] 10 mg PO Q6H PRN PRN 7 Days #30 tab PRN Reason: Severe Pain () Primary Care Physician: Care Physician,No Primary [Primary Care Provider] - Please follow up with your Primary Care Physician in: in 2- 3 weeks Test Results: Test results from this visit will be discussed in further detail at your follow-up appointment, if applicable. 09/02/18 1130 <Electronically signed by Nitin Escoto DO> Date Nitin Escoto DO CC: No Primary Care Physician; Roberta Traore MD CONSULTATION Observed: 09/01/2018 Status: F Source: [place] 12:29 PM [facility] REPOSITORY [facility] Medical Records Department [address] [place] [address] Consultation 08/31/18 1903 MR#: [id number] Acct: [id number] Name: FAY PEARCE Rep #: [id number] : 1980 38 From: Roberta Traore MD PCP: Care Physician, No Primary Status: ADM IN Y Location: MS3 [id number] - Consult Date of Consult: 08/31/18 - Reason for Consult Asked to see patient by hospitalist service for persistent pancreatitis. Chief Complaint: abdominal pain History of Present Illness: 38 y/o WF with abdominal pain. Patient states that this is her first admission for pancreatitis to the hospital and that she never had pancreatitis before. She states that she has a great deal of personal stress as she is undergoing a divorce and her bank account has been emptied and that she is responsible for care of many children. Patient complains of severe epigastric abdominal pain for the past 3-4 days, sharp, cannot walk. She states that she has had numerous episodes of emesis and filled a garbage can. Denies fevers, but having chills. Has no appetite, she states that she hasn't eaten for 10 days. Also states that she has not had a bowel movement for at least a week. Also complains of severe back pain. Past Medical History: TOB use anxiety/depression disorder hepatic steatosis ETOH abuse - though patient denies Past Surgical History: csections partial hysterectomy wisdom teeth extraction Medications: denies taking chronic medications (this was asked by me specifically to patient) Allergies: Has no known drug allergies Social history: TOB use about a pack per day ETOH use patient denies, states that her last ETOH drink was one drink about 2 weeks ago, and she denied chronic ETOH use when I pointedly questioned her about this Review of Systems: General - denies fevers, denies weight loss, has no appetite Cardiovascular denies chest pain Pulmonary denies shortness of breath, denies coughing up blood Gastrointestinal as per HPI Neurological denies seizures Genitourinary denies blood in urine Hematological denies spontaneous/prolonged bleeding Endocrine denies diabetes Psychological personal stress ongoing, denies suicidal ideation, denies hallucinations Physical examination: Vital signs Temp 97.7F HR 82 RR 16 BP 115/68 General WD/WN WF tearful, upset, states that she is in severe pain HEENT Normocephalic. EOM intact with sclera clear and no icterus noted. Lungs no labored breathing noted, such as retractions. No cough heard. Heart normal S1 and S2 auscultated. No rubs/clicks/murmurs noted. Normal size and location by auscultation. Abdomen soft, generalized tenderness - no peritoneal signs noted Extremities no calf tenderness noted. Genitourinary/Rectal deferred Skin normal skin integrity. Neurological non focal. Psychological crying, tearful, anxious Impression: acute on chronic pancreatitis Discussion/Plan: I have discussed the above with the patient. At this point in time, I have no surgical options to offer patient. US gallbladder was normal. May consider MRCP for further workup of pancreatitis. Treatment of pancreatitis - aggressive fluid hydration, bowel rest until decreased symptomology and/or inflammatory markers decreasing, pain management. Patient seems to have psychosocial stressors that are contributing to her symptoms. She denies ETOH abuse to my questioning and/or history of pancreatitis in the past, when it is well documented in the EHR. Also outpatient records in [facility] from the past note patient having drank 1/2 bottle of vodka per day. She has a history of medical noncompliance, for example, signing out AMA, no-shows for office appointments, etc. She is an unreliable historian of her medical history. Given above, etiology of pancreatitis is likely due to ETOH. Her best option for prevention of further episodes of pancreatitis would be complete abstinence of alcohol. From the EHR, she has been offered psychosocial support as an outpatient in the past. I have answered all questions to the patient s satisfaction and the patient has no further questions. 09/01/18 1229 <Electronically signed by Roberta Traore MD> Date Roberta Traore MD Cosigner Signature (if applicable): Date CC: No Primary Care Physician; Roberta Traore MD Signed BASIC METABOLIC Collected: 09/01/2018 Status: F Source: [place] PROFILE (BMP) 5:45 AM [facility] REPOSITORY TYPE CODE TESTS RESULT OUT OF RANGE REFERENCE UNITS LAB L501.0100 74-106 mg/dL High GLU 117 Result Comment: Fasting Glucose result from 100 to 125 mg/dL suggests IMPAIRED HOMEOSTASIS per A.D.A. criteria. Please note revised GLUCOSE reference range effective 2017. LAB L501.1000 7-18 mg/dL Low BUN < 1 LAB L501.1100 0.55-1.02 mg/dL Normal CREAT,SERUM 0.58 Result Comment: The validity of the calculated GFR AND GFRAA in patients over 70 years has not been determined. Clinical correlation is essential. LAB L501.1110 >60 mL/min Normal EST GFR 125 Result Comment: Non- GFR Calc LAB L501.1115 >60 mL/min Normal EST GFR - AA 152 Result Comment: GFR Calc LAB L501.1255 ml/min 95.10 Normal Estimated CRCL LAB L501.1300 10-20 RATIO Test Normal BUN/CRE not performed LAB L501.2200 8.5-10 mg/dL .1 CA 8.5 Normal LAB L501.5300 136-14 mmol/L 5 NA 143 Normal LAB L501.5600 3.5-5. mmol/L 1 K 3.6 Normal LAB L501.5900 98-107 mmol/L High CL 111 LAB L501.6100 21.0-3 mmol/L 2.0 CO2 25.0 Normal LAB L501.6200 5-15 GAP 7 Normal Performed By: #### L500.2500, L501.2300, L501.5200 #### [facility] [address] [facility]. [place], [place], [id number] PHOSPHORUS Collected: 09/01/2018 Status: F Source: [place] 5:45 AM [facility] REPOSITORY TYPE CODE TESTS RESULT OUT OF RANGE REFERENCE UNITS LAB L501.2300 2.5-4.9 mg/dL Normal PHOS 3.4 Performed By: #### L500.2500, L501.2300, L501.5200 #### [facility] [address] [place], [address] MAGNESIUM Collected: 09/01/2018 Status: F Source: [place] 5:45 AM [facility] REPOSITORY TYPE CODE TESTS RESULT OUT OF RANGE REFERENCE UNITS LAB L501.5200 1.6-2.6 mg/dL Normal MG 2.2 Performed By: #### L500.2500, L501.2300, L501.5200 #### [facility] [address] [facility]. [place], [place], [address] CBC W/DIFF, AUTOMATED Collected: 09/01/2018 Status: F Source: [place] 5:45 AM [facility] REPOSITORY TYPE CODE TESTS RESULT OUT OF RANGE REFERENCE UNITS LAB L100.1000 4.4-11.0 K/mm3 Low WBC 3.8 LAB L100.1200 4.2-5.4 M/mm3 Low RBC 3.45 LAB L100.1300 12.0-15.0 g/dl Normal HGB 12.1 LAB L100.1400 37-47 % Low HCT 36.5 LAB L100.1500 81-99 fL High MCV 105.8 LAB L100.1600 27.0-32.0 pg High MCH 35.1 LAB L100.1700 32-36 g/gl Normal MCHC 33.2 LAB L100.1810 11.6-14.6 % Normal RDW CV 13.5 LAB L100.1820 35.1-43.9 fl High RDW SD 52.4 LAB L100.1900 150-450 K/mm3 Normal PLT 199 LAB L100.2000 6.2-12.0 fl Normal MPV 10.9 LAB L100.2100 47-70 % Low NEUT% 42.5 LAB L100.2200 19-41 % Normal LY% 38.9 LAB L100.2300 0-10 % High MONO% 10.2 LAB L100.2400 0-5 % High EO% 8.1 LAB L100.2500 0-1 % Normal BASO% 0.3 LAB L100.2550 0.0-0.9 % Normal IM GRAN % 0.000 Result Comment: IG% - Immature Granulocytes (promyelocytes, myelocytes and metamyelocytes) > 1% indicates that a LEFT SHIFT is Present. LAB L100.2620 2.0-7.7 X10 3/uL Low Absolute Neut 1.6 LAB L100.2720 0.83-4.51 X10 3/ul Normal Absolute Lymph 1.49 Performed By: #### L100.0100 #### [facility] [address] [place], [address] HISTORY AND PHYSICAL Observed: 08/31/2018 Status: F Source: [place] EXAM 7:16 PM [facility] REPOSITORY [facility] Medical Records Department [address] [place] [address] History and Physical 08/31/18 1356 MR#: [id number] Acct: [id number] Name: FAY PEARCE Rep #: [id number] : 1980 38 From: Ottoniel Morrow MD PCP: Care Physician, No Primary Status: ADM IN Y Location: [facility] [id number] Problem List (1) Hypomagnesemia Status: Acute (2) Hypokalemia Status: Acute (3) Anxiety and depression Status: Chronic (4) Alcohol abuse Status: Chronic (5) Pancreatitis Status: Acute Qualifiers: History of Present Illness Date of Admission: 08/31/18 Chief Complaint: Abdominal pain The patient is a 38 year old F who takes no medications presented with a 1 day history of mid-abdominal pain with radiation to her back. She also had nausea/vomiting the day prior to her initial presentaion. Her pain started around 1 pm as did her vomiting. She presented to the ER for further evaluation. In the ED she was found to have an elevated lipase to 6000 and was given pain medications and IVF. Per the ED physician she drinks heavily on the weekends, per the floor nurse, her last drink was 4 months ago, and to me she states that she has a small beer 4 days ago and the weekend prior. She denies any fevers, chills, or SOB, and reports no drug use. She left this morning AMA and returned a few hours later stating she never should have left and that the pain was worse. Her history is complicated by the fact that she is going through a divorce and her ex- just filed for full custody of their kids, which was the impetus for her to leave today. The issue is that she is still having pain despite a lipase <700 and almost 4 days of not eating. Past Medical History Past Medical History (Chronic Problems): Chronic Problems Tobacco use (Chronic) Anxiety and depression (Chronic) Alcohol abuse (Chronic) Hepatomegaly (Chronic) Hepatic steatosis (Chronic) Allergies No Known Allergies Allergy (Verified 08/27/18 10:07) Home Medications: Ambulatory Orders Medication Instructions Recorded NK 08/27/18 Surgical History: - - Partial Hysterectomy. Psychiatric History: Anxiety, Depression [employer]OR History: No pertinent [employer]ATE [employer]AT[employer] PROF[employer]OR history Smoking Status: Current every day smoker - *Family History Maternal History Items: No pertinent history Paternal History Items: No pertinent history Review of Systems Constitutional: Denies: Chills, Fever, Weight Change HEENT: Denies: Head Aches, Sinus Congestion, Sinus Drainage Cardiovascular: Denies: Chest Pain, Palpitations Respiratory: Denies: Cough, Shortness of breath at rest, Sputum production Gastrointestinal: Reports: Abdominal Pain, Nausea. Denies: Vomiting Genitourinary: Denies: Dysuria Musculoskeletal: Denies: Joint Pain, Joint Tenderness Skin: Denies: Rash, Wounds Neurological: Denies: Numbness, Tingling, Focal weakness Psychiatric: Reports: Anxiety. Denies: Depression Hematologic/ Lymphatic: Denies: Easy Bruising, Easy Bleeding VTE Information - Inpt Only VTE Present on Admission: No - Physical Exam Vital Signs Temp Pulse Resp BP Pulse Ox 97.4 F L 102 H 18 152/93 H 96 08/31/18 11:19 08/31/18 11:19 08/31/18 12:03 08/31/18 11:19 08/31/18 11:19 Oxygen Delivery Method Room Air Weight: 100 lb Body Mass Index (BMI) 19.5 Finger Stick Blood Glucose 185 Laboratory Tests Past 24 Hrs WBC 5.8 RBC 3.69 L Hgb 13.2 Hct 38.7 MCV 104.9 H MCH 35.8 H MCHC 34.1 RDW 13.5 POC Glucose POC Glucose 185 H General: Alert, Oriented x3, Cooperative, No apparent distress HEENT: Atraumatic, PERRLA, EOMI, Normocephalic Oral: Dry Mucosa Neck: Supple, No JVD Lungs: Clear to auscultation, Normal air movement, No rhonchi, No wheeze, No rales Cardiovascular: Regular rate, Regular Rhythm, Normal S1, Normal S2, No murmurs Abdomen: Soft, Non-Distended, No Hepato-splenomegaly, Guarding, Tender mid abdomen Extremities: No edema, Capillary Refill Less than 3 Seconds Skin: No rashes, No breakdown Neurological: Neuro grossly intact, Sensory exam intact to light touch and pain Psych/Mental Status: Normal Affect, Appropriate Assessment/Plan All Active Problems Hypomagnesemia (Acute) Hypokalemia (Acute) Acute alcoholic hepatitis (Acute) Pancreatitis (Acute) 1. Acute pancreatitis - She denies any medications - RUQ US was unremarkable - C/w with aggressive IVF no with D5 given her hypoglycemia yesterday - TG normal - Etiology is unsure at the moment - Morphine for pain - Lipase was over 6000 on admission - CT abd/pelvis with pancreatitis, - Since no improvement will discuss with surgery, option for therapy and feeding 2. Alcohol use - this could be the cause, however she gives very fluctuating account of her habits - Will treat as alcohol abuse at the moment and will continue with the new vision protocol 3. Tobacco and marijuana use - counselled on cessation 4. Hypokalemia - once again 3.3 - Will replace 5. Macrocytosis - check B12 and Folate, related to EtOH use DVT: Lovenox Diet: NPO Code Visit Inpatient E AND M: 19746 Init Hosp L3 08/31/18 1916 <Electronically signed by Ottoniel Morrow MD> Date Ottoniel Morrow MD Cosigner Signature: Date (if applicable) CC: No Primary Care Physician; Ottoniel Morrow MD Signed EMERGENCY DEPARTMENT Observed: 08/31/2018 Status: F Source: [place] SUMMARY 4:15 PM [facility] REPOSITORY [facility] Medical Records Department [address] [place] [address] Emergency Department Summary 08/31/18 1133 MR#: [id number] Acct: [id number] Name: FAY PEARCE Rep #: [id number] : 1980 38 From: Jose Luis Calle MD PCP: Care Physician, No Primary Status: ADM IN - ER Visit Summary Date of Service: 08/31/18 Chief Complaint: Pancreatitis History of Present Illness: The patient is a 38 F with a history of pancreatitis. She was in the hospital and left this morning AMA at 6:30 AM to address some family issues. She says that since she left, she lost custody of her children. She returned, stating that she should have never left. She continues to have abdominal pain. It radiates through to her back. No other changes. Physical Examination: Afebrile and vital signs unremarkable. She is tearful and appears depressed. Abdomen diffusely tender. Otherwise exam unremarkable. Test Results: Laboratory studies, drug screen, and alcohol testing are pending. Emergency Department Course and Treatment: I spoke with Dr. Morrow who was aware that she had left. He advised starting D5 as she has a history of hypoglycemia. I also treated her with morphine and Zofran. Will recheck labs and she will be admitted. IV access obtained. Patient treated. Results pending. Patient will be admitted. Treatment Plan: As above Disposition: Admission Impression: 1. Pancreatitis This note was generated with JUNTA.[employer] dictation software. It may contain incorrect words, spelling, and punctuation that were not noted in review of the chart prior to signing ED Disposition - Plan for ED Patient: Chief Complaint: Abd Pain Referrals: Care Physician,No Primary [Primary Care Provider] - What to do if you have Problems For any increased pain, shortness of breath, bleeding, nausea or vomiting, chest pain, or any unexpected problems, contact your Primary Care Provider. Call [facility] ([phone]) or report to the closest Emergency Room. Call 911 if necessary. 08/31/18 4568 <Electronically signed by Jose Luis Calle MD> Date Jose Luis Calle MD Cosigner Signature (If Indicated): Date CC: No Primary Care Physician VITAMIN B12 Collected: 08/31/2018 Status: F Source: [place] 1:13 PM [facility] REPOSITORY TYPE CODE TESTS RESULT OUT OF REFERENCE UNITS RANGE LAB L503.0105 211-911 pg/mL High Vitamin B12 > 2000 Performed By: #### L503.0105 #### [facility] [address] [place], [place], [address] BEDSIDE GLUCOSE Collected: 08/31/2018 Status: F Source: BRADY 12:13 PM [facility] REPOSITORY TYPE CODE TESTS RESULT OUT OF REFERENCE UNITS RANGE LAB L501.080 70-110 mg/dL High BEDSIDE GLU 185 Result Comment: MANAGEMENT OF PATIENT CARE PER NURSING PROTOCOL Performed By: #### L501.080 #### [facility] Point of Care [address] [place], [place] [address] CBC W/DIFF, AUTOMATED Collected: 08/31/2018 Status: F Source: BRADY 11:58 AM [facility] REPOSITORY TYPE CODE TESTS RESULT OUT OF RANGE REFERENCE UNITS LAB L100.1000 4.4-11.0 K/mm3 Normal WBC 5.8 LAB L100.1200 4.2-5.4 M/mm3 Low RBC 3.69 LAB L100.1300 12.0-15.0 g/dl Normal HGB 13.2 LAB L100.1400 37-47 % Normal HCT 38.7 LAB L100.1500 81-99 fL High MCV 104.9 LAB L100.1600 27.0-32.0 pg High MCH 35.8 LAB L100.1700 32-36 g/gl Normal MCHC 34.1 LAB L100.1810 11.6-14.6 % Normal RDW CV 13.5 LAB L100.1820 35.1-43.9 fl High RDW SD 51.3 LAB L100.1900 150-450 K/mm3 Normal PLT 189 LAB L100.2000 6.2-12.0 fl Normal MPV 10.1 LAB L100.2100 47-70 % High NEUT% 77.5 LAB L100.2200 19-41 % Low LY% 14.8 LAB L100.2300 0-10 % Normal MONO% 4.8 LAB L100.2400 0-5 % Normal EO% 2.6 LAB L100.2500 0-1 % Normal BASO% 0.3 LAB L100.2550 0.0-0.9 % Normal IM GRAN % 0.000 Result Comment: IG% - Immature Granulocytes (promyelocytes, myelocytes and metamyelocytes) > 1% indicates that a LEFT SHIFT is Present. LAB L100.2620 2.0-7.7 X10 3/uL Normal Absolute Neut 4.5 LAB L100.2720 0.83-4.51 X10 3/ul Normal Absolute Lymph 0.86 Performed By: #### L100.0100 #### [facility] [place], [address] COMPREHENSIVE METABOLIC Collected: 08/31/2018 Status: F Source: [facility] 11:58 AM [facility] REPOSITORY TYPE CODE TESTS RESULT OUT OF RANGE REFERENCE UNITS LAB L501.0100 74-106 mg/dL Normal GLU 106 Result Comment: Fasting Glucose result from 100 to 125 mg/dL suggests IMPAIRED HOMEOSTASIS per A.D.A. criteria. Please note revised GLUCOSE reference range effective 2017. LAB L501.1000 7-18 mg/dL Low BUN 1 LAB L501.1100 0.55-1.02 mg/dL Normal CREAT,SERUM 0.57 Result Comment: The validity of the calculated GFR AND GFRAA in patients over 70 years has not been determined. Clinical correlation is essential. LAB L501.1110 >60 mL/min Normal EST GFR 127 Result Comment: Non- GFR Calc LAB L501.1115 >60 mL/min Normal EST GFR - AA 153 Result Comment: GFR Calc LAB L501.1255 ml/min Normal Estimated CRCL 96.76 LAB L501.1300 10-20 RATIO Low BUN/CRE 1.8 LAB L501.1500 6.4-8. g/dL Normal 2 T PROT 7.6 LAB L501.1800 3.2-5. g/dL Normal 0 ALB 3.4 LAB L501.1950 2.2-4. g/dL Normal 2 GLOB 4.2 LAB L501.2000 0.9-2. RATIO Low 4 A/G 0.8 LAB L501.2200 8.5-10 mg/dL Normal .1 CA 9.2 LAB L501.4100 15-37 U/L High AST 81 LAB L501.4305 45-117 U/L Normal ALK P 98 LAB L501.4405 13-56 U/L Normal ALT 47 LAB L501.4600 0.20-1 mg/dL Normal .00 T BILI 0.30 LAB L501.5300 136-14 mmol/L Normal 5 NA 142 LAB L501.5600 3.5-5. mmol/L Low 1 K 3.3 LAB L501.5900 98-107 mmol/L Normal CL 107 LAB L501.6100 21.0-3 mmol/L Normal 2.0 CO2 27.0 LAB L501.6200 5-15 Normal GAP 8 Performed By: #### L500.4050, L501.2450 #### [facility] [address] [place], [address] LIPASE Collected: 08/31/2018 Status: F Source: BRADY 11:58 AM [facility] REPOSITORY TYPE CODE TESTS RESULT OUT OF REFERENCE UNITS RANGE LAB L501.2450 73-393 U/L High LIPASE 696 Performed By: #### L500.4050, L501.2450 #### [facility] [address] [place], [address] ALCOHOL, BLOOD Collected: 08/31/2018 Status: F Source: BRADY (MEDICAL)-SERUM 11:58 AM [facility] REPOSITORY TYPE CODE TESTS RESULT OUT OF RANGE REFERENCE UNITS LAB L501.9100 mg/dL Normal SERUM 7.0 ETOH Result Comment: The serum:whole blood ethanol ratio is approximately 1.14 and varies slightly with hematocrit. Medical Alcohol reference interval and critical value in non-tolerant individuals; 50 - 100 Impairment 100 Intoxication 100 - 250 Severe Poisoning 250 - 400 Deep/possible fatal coma Performed By: #### L501.9100 #### [facility] [address] [facility] [place], [address] FOLATES, (FOLIC ACID) Collected: 08/31/2018 Status: F Source: BRADY 11:58 AM [facility] REPOSITORY TYPE CODE TESTS RESULT OUT OF RANGE REFERENCE UNITS LAB L506.0250 3.1-55.4 ng/mL Normal FOLATES 15.90 Performed By: #### L506.0250 #### [facility] [address] [place], [address] URINE DRUG SCREEN Collected: 08/31/2018 Status: F Source: YUDY (VISTA) 11:55 AM [facility] REPOSITORY TYPE CODE TESTS RESULT OUT OF RANGE REFERENCE UNITS LAB L505.0075 TO BE Normal CONFIRMED Result Comment: CONFIRMATORY TESTING FOR ALL POSITIVE URINE DRUG SCREEN RESULTS WILL ONLY BE SENT OUT UPON PHYSICIAN ORDER. VISTA Urine Drug Screen methods provide only preliminary analytical test results. A more specific alternate chemical method must be used in order to obtain a confirmed analytical result. Gas chromatography/mass spectrometery (GC/MS) is the preferred confirmatory method. Clinical consideration and professional judgement should be applied to any drug of abuse test result, particularly when preliminary positive results are used. URINE TCA TESTING MUST BE ORDERED SEPARATELY. USE TEST MNEMONIC: [facility] LAB L505.5005 VISTA UDS PH 6 Normal LAB L505.5015 <1000 ng/mL AMPHETAMINES Normal NEGATIVE LAB L505.5025 < 200 ng/mL BARBITIURATES Normal NEGATIVE LAB L505.5035 < 200 High ng/mL BENZODIAZIPINE POSITIVE LAB L505.5045 < 300 ng/mL COCAINE Normal NEGATIVE LAB L505.5055 < 500 ng/mL ECSTACY Normal NEGATIVE LAB L505.5065 < 300 ng/mL METHADONE Normal NEGATIVE LAB L505.5075 < 300 ng/mL OPIATES Normal NEGATIVE LAB L505.5085 < 25 ng/mL PCP Normal NEGATIVE LAB L505.5095 < 50 ng/mL THC Normal NEGATIVE Performed By: #### L505.5000 #### [facility] [place], [address] CBC W/DIFF, AUTOMATED Collected: 08/30/2018 Status: F Source: YUDY 5:08 AM [facility] REPOSITORY TYPE CODE TESTS RESULT OUT OF RANGE REFERENCE UNITS LAB L100.1000 4.4-11.0 K/mm3 Low WBC 4.0 LAB L100.1200 4.2-5.4 M/mm3 Low RBC 3.24 LAB L100.1300 12.0-15.0 g/dl Low HGB 11.8 LAB L100.1400 37-47 % Low HCT 34.1 LAB L100.1500 81-99 fL High MCV 105.2 LAB L100.1600 27.0-32.0 pg High MCH 36.4 LAB L100.1700 32-36 g/gl Normal MCHC 34.6 LAB L100.1810 11.6-14.6 % Normal RDW CV 12.4 LAB L100.1820 35.1-43.9 fl High RDW SD 46.3 LAB L100.1900 150-450 K/mm3 Low PLT 147 LAB L100.2000 6.2-12.0 fl Normal MPV 11.1 LAB L100.2100 47-70 % Normal NEUT% 61.8 LAB L100.2200 19-41 % Normal LY% 26.8 LAB L100.2300 0-10 % Normal MONO% 6.0 LAB L100.2400 0-5 % Normal EO% 4.7 LAB L100.2500 0-1 % Normal BASO% 0.2 LAB L100.2550 0.0-0.9 % Normal IM GRAN % 0.500 Result Comment: IG% - Immature Granulocytes (promyelocytes, myelocytes and metamyelocytes) > 1% indicates that a LEFT SHIFT is Present. LAB L100.2620 2.0-7.7 X10 3/uL Normal Absolute Neut 2.5 LAB L100.2720 0.83-4.51 X10 3/ul Normal Absolute Lymph 1.08 Performed By: #### L100.0100 #### [facility] [address] [place], [address] COMPREHENSIVE METABOLIC Collected: 08/30/2018 Status: F Source: [facility] 5:08 AM [facility] REPOSITORY TYPE CODE TESTS RESULT OUT OF RANGE REFERENCE UNITS LAB L501.0100 74-106 mg/dL High GLU 111 Result Comment: Fasting Glucose result from 100 to 125 mg/dL suggests IMPAIRED HOMEOSTASIS per A.D.A. criteria. Please note revised GLUCOSE reference range effective 2017. LAB L501.1000 7-18 mg/dL Low BUN 2 LAB L501.1100 0.55-1.02 mg/dL Low CREAT,SERUM 0.44 Result Comment: The validity of the calculated GFR AND GFRAA in patients over 70 years has not been determined. Clinical correlation is essential. LAB L501.1110 >60 mL/min Normal EST GFR 172 Result Comment: Non- GFR Calc LAB L501.1115 >60 mL/min Normal EST GFR - AA 208 Result Comment: GFR Calc LAB L501.1255 ml/min Normal Estimated CRCL 120.77 LAB L501.1300 10-20 RATIO Low BUN/CRE 4.6 LAB L501.1500 6.4-8. g/dL Low 2 T PROT 5.3 LAB L501.1800 3.2-5. g/dL Low 0 ALB 2.3 LAB L501.1950 2.2-4. g/dL 2 GLOB Normal 3.0 LAB L501.2000 0.9-2. RATIO Low 4 A/G 0.8 LAB L501.2200 8.5-10 mg/dL Low .1 CA 8.1 LAB L501.4100 15-37 U/L AST Normal 28 LAB L501.4305 45-117 U/L ALK P Normal 76 LAB L501.4405 13-56 U/L ALT Normal 22 LAB L501.4600 0.20-1 mg/dL .00 T BILI Normal 0.30 LAB L501.5300 136-14 mmol/L 5 NA Normal 140 LAB L501.5600 3.5-5. mmol/L Low 1 K 2.9 LAB L501.5900 98-107 mmol/L High CL 108 LAB L501.6100 21.0-3 mmol/L 2.0 CO2 Normal 22.0 LAB L501.6200 5-15 GAP Normal 10 Performed By: #### L500.4050 #### [facility] [address] [place], [place], [id number] PHOSPHORUS Collected: 08/30/2018 Status: F Source: BRADY 5:08 AM [facility] REPOSITORY TYPE CODE TESTS RESULT OUT OF RANGE REFERENCE UNITS LAB L501.2300 2.5-4.9 mg/dL Normal PHOS 2.5 Performed By: #### L501.2300, L501.5200 #### [facility] [address] [place], [place], [address] MAGNESIUM Collected: 08/30/2018 Status: F Source: BRADY 5:08 AM [facility] REPOSITORY TYPE CODE TESTS RESULT OUT OF RANGE REFERENCE UNITS LAB L501.5200 1.6-2.6 mg/dL Normal MG 1.6 Performed By: #### L501.2300, L501.5200 #### [facility] [address] [place], [address] ABDOMEN/PELVIS WITH Observed: 08/29/2018 Status: F Source: BRADY CONTRAST 9:33 AM [facility] REPOSITORY [facility] Imaging Services [address] [place] [address] Abdomen/Pelvis WITH Contrast MR#: [id number] Acct: [id number] Name: FAY PEARCE Rep #: [id number] : 1980 F 38 From: Parker Paz MD PCP: Care Physician, No Primary Status: ADM IN Study: Abdomen/Pelvis WITH Contrast Date of Exam: 08/29/18 Exam# [id number] Ordering Dr: Ottoniel Morrow MD STUDY: CT ABDOMEN AND PELVIS WITH CONTRAST REASON FOR EXAM: Female, 38 years old. Abdominal pain. History of alcoholic hepatitis and pancreatitis. Elevated lipase. RADIATION DOSAGE (If Supplied By Facility): CTDIvol = ( 6.44 ) mGy, DLP = ( 285.01 ) mGycm TECHNIQUE: Transaxial images were obtained from the dome of the diaphragm to the symphysis pubis with oral contrast. 100mL ml of Isovue 300 contrast was administered. Sagittal and coronal images were reconstructed. Individualized dose optimization techniques were used for this CT. COMPARISON: Comparison is made with prior study of December 01, 2016. FINDINGS: Small bilateral pleural effusions left greater than right with bibasilar atelectasis worse on the left side. The visualized portions of the heart are within normal limits. There is decreased attenuation of the liver consistent with steatosis. The liver measures upper limits of normal. This has improved as compared to prior study. Normal gallbladder and extrahepatic biliary system. Normal spleen. There is diffuse enlargement of the pancreas with angeles-pancreatic edema suggesting acute pancreatitis. There is evidence of increased markings in the left pararenal space. Normal bilateral adrenal glands. Normal right kidney. Normal left kidney. Normal visualized stomach. Normal small intestine. Normal colon. There is non-visualization of the appendix. Normal abdominal aorta. Normal inferior vena cava. Normal retroperitoneum. Normal urinary bladder. There is absence of the uterus consistent with a prior hysterectomy. Small amount of free fluid is seen in the cul-de-sac. Normal abdominal wall. Normal osseous structures. CT/Abdomen/Pelvis WITH Contrast IMPRESSION: Findings indicative of pancreatitis. Electronically Signed: Parker Paz MD at 12:51 EST Tel [phone], Service support , CC: No Primary Care Physician; Ottoniel Morrow MD Surtass Analyst: Signed BEDSIDE GLUCOSE Collected: 08/29/2018 Status: F Source: BRADY 8:36 AM [facility] REPOSITORY TYPE CODE TESTS RESULT OUT OF REFERENCE UNITS RANGE LAB L501.080 70-110 mg/dL High BEDSIDE GLU 143 Result Comment: MANAGEMENT OF PATIENT CARE PER NURSING PROTOCOL Performed By: #### L501.080 #### [facility] Point of Care [address] [place] [address] BASIC METABOLIC Collected: 08/29/2018 Status: F Source: BRADY PROFILE (BMP) 5:32 AM [facility] REPOSITORY TYPE CODE TESTS RESULT OUT OF RANGE REFERENCE UNITS LAB L501.0100 74-106 mg/dL Low GLU 50 Result Comment: Please note revised GLUCOSE reference range effective 2017. LAB L501.1000 7-18 mg/dL Low BUN 4 LAB L501.1100 0.55-1.02 mg/dL Low CREAT,SERUM 0.36 Result Comment: The validity of the calculated GFR AND GFRAA in patients over 70 years has not been determined. Clinical correlation is essential. LAB L501.1110 >60 mL/min Normal EST GFR 219 Result Comment: Non- GFR Calc LAB L501.1115 >60 mL/min Normal EST GFR - AA 264 Result Comment: GFR Calc LAB L501.1255 ml/min Normal Estimated CRCL 147.61 LAB L501.1300 10-20 RATIO BUN/CRE Normal 11.3 LAB L501.2200 8.5-10 mg/dL Low .1 CA 8.2 LAB L501.5300 136-14 mmol/L 5 NA Normal 137 LAB L501.5600 3.5-5. mmol/L 1 K Normal 3.8 Result Comment: Slight Hemolysis, Result may be falsely increased. LAB L501.5900 98-107 mmol/L Normal CL 106 LAB L501.6100 21.0-32.0 mmol/L Low CO2 17.0 LAB L501.6200 5-15 Normal GAP 14 Performed By: #### L500.2500, L501.2300, L501.5200 #### [facility] [address] [place], [place], [id number] PHOSPHORUS Collected: 08/29/2018 Status: F Source: BRADY 5:32 AM [facility] REPOSITORY TYPE CODE TESTS RESULT OUT OF RANGE REFERENCE UNITS LAB L501.2300 2.5-4.9 mg/dL Low PHOS 2.2 Performed By: #### L500.2500, L501.2300, L501.5200 #### [facility] [address] [place], [place], [address] MAGNESIUM Collected: 08/29/2018 Status: F Source: BRADY 5:32 AM [facility] REPOSITORY TYPE CODE TESTS RESULT OUT OF RANGE REFERENCE UNITS LAB L501.5200 1.6-2.6 mg/dL Normal MG 2.0 Result Comment: Slight Hemolysis, Result may be falsely increased. Performed By: #### L500.2500, L501.2300, L501.5200 #### [facility] [address] [place], [place], [address] CBC W/DIFF, AUTOMATED Collected: 08/29/2018 Status: F Source: BRADY 5:32 AM [facility] REPOSITORY TYPE CODE TESTS RESULT OUT OF RANGE REFERENCE UNITS LAB L100.1000 4.4-11.0 K/mm3 Normal WBC 7.2 LAB L100.1200 4.2-5.4 M/mm3 Low RBC 3.42 LAB L100.1300 12.0-15.0 g/dl Normal HGB 12.4 LAB L100.1400 37-47 % Low HCT 36.7 LAB L100.1500 81-99 fL High MCV 107.3 LAB L100.1600 27.0-32.0 pg High MCH 36.3 LAB L100.1700 32-36 g/gl Normal MCHC 33.8 LAB L100.1810 11.6-14.6 % Normal RDW CV 12.7 LAB L100.1820 35.1-43.9 fl High RDW SD 49.3 LAB L100.1900 150-450 K/mm3 Low PLT 139 LAB L100.2000 6.2-12.0 fl Normal MPV 11.3 LAB L100.2100 47-70 % High NEUT% 70.2 LAB L100.2200 19-41 % Normal LY% 19.5 LAB L100.2300 0-10 % Normal MONO% 6.0 LAB L100.2400 0-5 % Normal EO% 3.9 LAB L100.2500 0-1 % Normal BASO% 0.1 LAB L100.2550 0.0-0.9 % Normal IM GRAN % 0.300 Result Comment: IG% - Immature Granulocytes (promyelocytes, myelocytes and metamyelocytes) > 1% indicates that a LEFT SHIFT is Present. LAB L100.2620 2.0-7.7 X10 3/uL Normal Absolute Neut 5.0 LAB L100.2720 0.83-4.51 X10 3/ul Normal Absolute Lymph 1.40 Performed By: #### L100.0100 #### [facility] [address] [place] [address]. [place], [address] CBC W/DIFF, AUTOMATED Collected: 08/28/2018 Status: F Source: BRADY 5:26 AM [facility] REPOSITORY TYPE CODE TESTS RESULT OUT OF RANGE REFERENCE UNITS LAB L100.1000 4.4-11.0 K/mm3 Normal WBC 10.0 LAB L100.1200 4.2-5.4 M/mm3 Low RBC 3.03 LAB L100.1300 12.0-15.0 g/dl Low HGB 10.9 LAB L100.1400 37-47 % Low HCT 32.3 LAB L100.1500 81-99 fL High MCV 106.6 LAB L100.1600 27.0-32.0 pg High MCH 36.0 LAB L100.1700 32-36 g/gl Normal MCHC 33.7 LAB L100.1810 11.6-14.6 % Normal RDW CV 13.5 LAB L100.1820 35.1-43.9 fl High RDW SD 53.1 LAB L100.1900 150-450 K/mm3 Normal PLT 173 LAB L100.2000 6.2-12.0 fl Normal MPV 10.8 LAB L100.2100 47-70 % High NEUT% 75.0 LAB L100.2200 19-41 % Low LY% 17.1 LAB L100.2300 0-10 % Normal MONO% 6.7 LAB L100.2400 0-5 % Normal EO% 1.0 LAB L100.2500 0-1 % Normal BASO% 0.1 LAB L100.2550 0.0-0.9 % Normal IM GRAN % 0.100 Result Comment: IG% - Immature Granulocytes (promyelocytes, myelocytes and metamyelocytes) > 1% indicates that a LEFT SHIFT is Present. LAB L100.2620 2.0-7.7 X10 3/uL Normal Absolute Neut 7.5 LAB L100.2720 0.83-4.51 X10 3/ul Normal Absolute Lymph 1.72 Performed By: #### L100.0100 #### [facility] [address] [place], [place], [address] BASIC METABOLIC Collected: 08/28/2018 Status: F Source: BRADY PROFILE ([facility]) 5:26 AM [facility] REPOSITORY TYPE CODE TESTS RESULT OUT OF RANGE REFERENCE UNITS LAB L501.0100 74-106 mg/dL Normal GLU 78 Result Comment: Please note revised GLUCOSE reference range effective 2017. LAB L501.1000 7-18 mg/dL Low BUN 5 LAB L501.1100 0.55-1.02 mg/dL Low CREAT,SERUM 0.40 Result Comment: The validity of the calculated GFR AND GFRAA in patients over 70 years has not been determined. Clinical correlation is essential. LAB L501.1110 >60 mL/min Normal EST GFR 188 Result Comment: Non- GFR Calc LAB L501.1115 >60 mL/min Normal EST GFR - AA 228 Result Comment: GFR Calc LAB L501.1255 ml/min Normal Estimated CRCL 132.84 LAB L501.1300 10-20 RATIO BUN/CRE Normal 12.4 LAB L501.2200 8.5-10 mg/dL Low .1 CA 7.7 LAB L501.5300 136-14 mmol/L Low 5 NA 134 LAB L501.5600 3.5-5. mmol/L Low 1 K 3.1 LAB L501.5900 98-107 mmol/L CL Normal 103 LAB L501.6100 21.0-3 mmol/L 2.0 CO2 Normal 23.0 LAB L501.6200 5-15 GAP Normal 8 Performed By: #### L500.2500, L500.4100 #### [facility] [address] [facility] [place], [place], [id number] LIPID PROFILE Collected: 08/28/2018 Status: F Source: BRADY 5:26 AM [facility] REPOSITORY TYPE CODE TESTS RESULT OUT OF RANGE REFERENCE UNITS LAB L501.4900 200 mg/dL Normal CHOL 132 Result Comment: <200 mg/dL Desirable 200-240 mg/dL Borderline >240 mg/dL High Risk LAB L501.5000 mg/dL Normal TRIG 95 Result Comment: The drugs N-Acetylcysteine and Metamizole may falsely depress this assay. Serum Triglycerides Reference Interval Normal <150 mg/dL Borderline high 150 - 199 mg/dL High 200 - 499 mg/dL Very High > or = 500 mg/dL LAB L501.6400 mg/dL Normal HDL 46 Result Comment: The drugs N-Acetylcysteine and Metamizole may falsely depress this assay. Reference Range HDL <40 mg/dL Low HDL Cholesterol HDL >or= 60 mg/dL High HDL Cholesterol LAB L501.6500 0-130 mg/dL Normal LDL 67 LAB L501.6600 5-40 mg/dL Normal VLDL 19 Performed By: #### L500.2500, L500.4100 #### [facility] [address] [facility] [place], [place], [id number] PHOSPHORUS Collected: 08/28/2018 Status: F Source: BRADY 5:26 AM [facility] REPOSITORY TYPE CODE TESTS RESULT OUT OF RANGE REFERENCE UNITS LAB L501.2300 2.5-4.9 mg/dL Low PHOS 1.8 Performed By: #### L501.2300, L501.5200 #### [facility] [address] [place], [address] MAGNESIUM Collected: 08/28/2018 Status: F Source: YUDY 5:26 AM [facility] REPOSITORY TYPE CODE TESTS RESULT OUT OF RANGE REFERENCE UNITS LAB L501.5200 1.6-2.6 mg/dL Normal MG 1.6 Performed By: #### L501.2300, L501.5200 #### [facility] [address] [facility] [place], [address] HISTORY AND PHYSICAL Observed: 08/27/2018 Status: F Source: BRADY EXAM 4:00 PM [facility] REPOSITORY [facility] Medical Records Department [address] [place] [address] History and Physical 08/27/18 1549 MR#: [id number] Acct: [id number] Name: FAY PEARCE Rep #: [id number] : 1980 38 From: Ottoniel Morrow MD PCP: Care Physician, No Primary Status: ADM IN Y Location: [address] Problem List (1) Tobacco use Status: Chronic (2) Anxiety and depression Status: Chronic (3) Alcohol abuse Status: Chronic (4) Pancreatitis Status: Acute Qualifiers: History of Present Illness Date of Admission: 08/27/18 Chief Complaint: Abdominal pain The patient is a 38 year old F who takes no medications presents with a 1 days history of mid-abdominal pain with radiation to her back. She also had nausea/vomiting yesterday and today with minimal intake. her pain started around 1 pm as did her vomiting. She presented to the ER for further evaluation. In the ED she was found to have an elevated lipase and was given pain medications and IVF. Per the ED physician she drinks heavily on the weekends, per the floor nurse, her last drink was 4 months ago, and to me she states that she has a small beer 4 days ago and the weekend prior. She denies any fevers, chills, or SOB, and reports no drug use. Past Medical History Past Medical History (Chronic Problems): Chronic Problems Tobacco use (Chronic) Anxiety and depression (Chronic) Alcohol abuse (Chronic) Hepatomegaly (Chronic) Hepatic steatosis (Chronic) Allergies No Known Allergies Allergy (Verified 08/27/18 10:07) Home Medications: Ambulatory Orders Medication Instructions Recorded NK 08/27/18 Surgical History: - - Partial Hysterectomy. 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 Denies: Chills, Fever, Weight Change HEENT: Denies: Head Aches, Sinus Congestion, Sinus Drainage Cardiovascular: Denies: Chest Pain, Palpitations Respiratory: Denies: Cough, Shortness of breath at rest, Sputum production Gastrointestinal: Reports: Abdominal Pain, Nausea, Vomiting Genitourinary: Denies: Dysuria Musculoskeletal: Denies: Joint Pain, Joint Tenderness Skin: Denies: Rash, Wounds Neurological: Denies: Numbness, Tingling, Focal weakness Psychiatric: Denies: Anxiety, Depression Hematologic/ Lymphatic: Denies: Easy Bruising, Easy Bleeding VTE Information - Inpt Only VTE Present on Admission: No - Physical Exam General: Alert, Oriented x3, Cooperative, No apparent distress HEENT: Atraumatic, PERRLA, EOMI, Normocephalic Oral: Dry Mucosa Neck: Supple, No JVD Lungs: Clear to auscultation, Normal air movement, No rhonchi, No wheeze, No rales Cardiovascular: Regular rate, Regular Rhythm, Normal S1, Normal S2, No murmurs Abdomen: Soft, Non-Distended, No Hepato-splenomegaly, Guarding, Tender Extremities: No edema, Capillary Refill Less than 3 Seconds Skin: No rashes, No breakdown Neurological: Neuro grossly intact, Motor Exam 5/5 strength throughout, Sensory exam intact to light touch and pain Psych/Mental Status: Normal Affect, Appropriate Vital Signs Temp Pulse Resp BP Pulse Ox 98.7 F 53 L 16 141/83 H 100 08/27/18 14:29 08/27/18 14:29 08/27/18 14:29 08/27/18 14:29 08/27/18 14:29 Oxygen Delivery Method Room Air Weight: 96 lb 5.472 oz Body Mass Index (BMI) 18.8 Laboratory Tests Past 24 Hrs WBC 14.0 H RBC 3.86 L Hgb 14.0 Hct 40.4 WBC RBC Hgb Hct WBC RBC Hgb Hct MCV MCH MCHC RDW RDW Differential Plt Count MPV Immature Gran % (Auto) Assessment/Plan All Active Problems Hypomagnesemia (Acute) Hypokalemia (Acute) Acute alcoholic hepatitis (Acute) Pancreatitis (Acute) 1. Acute pancreatitis - She denies any medications - She still has her gallbladder so will obtain a RUQ US even though her bilirubin is normal - C/w with aggressive IVF - Check lipid panel in the am - Etiology is unsure at the moment - Morphine for pain - IF pain is improved tomorrow with transition to a low fat diet - Lipase is over 6000 2. Alcohol use - this could be the cause, however she gives very fluctuating account of her habits - Will treat as alcohol abuse at the moment and will continue with the new vision protocol 3. Tobacco and marijuana use - counselled on cessation DVT: None Diet: NPO Code Visit Inpatient E AND M: [id number] Init Hosp L3 08/27/18 1600 <Electronically signed by Ottoniel Morrow MD> Date Ottoniel Morrow MD Cosigner Signature: Date (if applicable) CC: No Primary Care Physician; Ottoniel Morrow MD Signed GALLBLADDER Observed: 08/27/2018 Status: F Source: BRADY 3:22 PM [facility] REPOSITORY [facility] Imaging Services [address] [place] [address] Gallbladder MR#: [id number] Acct: [id number] Name: FAY PEARCE Rep #: [id number] : 1980 F 38 From: Vikas Hutchinson DO PCP: Care Physician, No Primary Status: ADM IN Study: Gallbladder Date of Exam: 08/27/18 Exam# [id number] Ordering Dr: Ottoniel Morrow MD STUDY: ABDOMINAL ULTRASOUND - RIGHT UPPER QUADRANT REASON FOR VISIT: Female, 38 years old. Pancreatitis TECHNIQUE: Ultrasound evaluation of the right upper quadrant was performed with real-time and static ramírez-scale imaging. TECHNICAL QUALITY: Adequate. COMPARISON: None. FINDINGS: Liver: The liver measures 15.6 cm. There is normal echogenicity of the liver. The bile ducts are within normal limits. There is hepatic color flow. The direction of portal flow is hepatopetal. There is no demonstrated mass lesion. Gallbladder: Normal distended gallbladder. The gallbladder wall measures 1.8 mm. There is a negative sonographic Rain's sign. There is no pericholecystic fluid. There are no gallstones. Common Bile Duct (C.B.D.): The common bile duct measures 3.9 mm. Pancreas: Normal size of the head, body and tail of the pancreas. There is normal echogenicity of the pancreas. There is no demonstrated pancreatic mass or cyst. Right Kidney: Normal size of the right kidney. The right kidney measures 10.9 x 5.2 x 3.7 cm. Normal renal cortex. The right cortex measures 1.2 cm. There is no demonstrated renal mass or cyst. There is no right hydronephrosis. US/Gallbladder IMPRESSION: Normal right upper quadrant ultrasound examination. Electronically Signed: Vikas Hutchinson DO at 23:13 EST Tel [phone], Service support , CC: No Primary Care Physician; Ottoniel Morrow MD Surtass Analyst: Signed EMERGENCY DEPARTMENT Observed: 08/27/2018 Status: F Source: YUDY SUMMARY 10:19 AM [facility] REPOSITORY [facility] Medical Records Department [address] [place] [address] Emergency Department Summary 08/27/18 1014 MR#: [id number] Acct: [id number] Name: FAY PEARCE Rep #: [id number] : 1980 38 From: Shiv Candelario MD PCP: Care Physician, No Primary Status: REG ER - ER Visit Summary Date of Service: 08/27/18 Chief Complaint: Central upper abdominal pain History of Present Illness: The patient is a 38 F who presents by ambulance because of central abdominal pain that started approximate 1 week ago. She states the pain is gotten worse. She reports vomiting several times since last evening. She denies diarrhea or constipation. She is still passing gas. She denied taking anything more than 2 Advil. Violetta informed me that her significant other stated she took multiple [id number] medications. Uncertain whether she took aspirin Tylenol or NSAID. This was not an intentional ingestion. She states she took the medicine to help alleviate the pain. She reports documented fever to 103 degrees. She denies visual, ocular auditory symptoms. She denies chest pain, palpitations, orthopnea or PND. She denies shortness of breath, dyspnea on exertion. She does report slight cough. She is a smoker. She denies hematemesis, no hematochezia. She reports decreased urine output otherwise negative. She does report mid central back pain. She also complains of generalized weakness. Review of past medical history reveals history of depression anxiety and anxiety. She has history of pancreatitis. Of note she admitted to drinking heavily this past weekend. Physical Examination: Patient appears uncomfortable. She is presently not febrile. HEENT exam is remarkable dry mucosa. There is no scleral icterus. Neck is supple. Heart is regular without murmur, gallop or rub. Lungs are clear to auscultation. Abdomen is slightly distended tympanitic with significant pain upper abdomen versus lower. There is equivocal left CVA tenderness. There is no evidence of trauma. There is no petechia purpura contusions or hematomas noted. Patient is alert and oriented 3. Motor is 5 over 5. Sensory is intact. DTRs are symmetric with no clonus or Babinski sign. Cranial 2 through 12 are intact. Cerebellar testing is normal. Test Results: White count is 14,000 with 84 segs no bands. Electro panel reveals mild abnormalities with a sodium 133 and chloride of 96. Potassium 3.3 and glucose is 124. PT/INR and PTT are normal. Hepatic enzymes reveal slight elevation AST of 58. Lipase is 6025. Serum test is negative. Three-view x-ray of the abdomen reveals no evidence of pneumoperitoneum. Chest portion is normal with a normal cardiac silhouette, mediastinum and lung parenchyma. Salicylate and acetaminophen level were obtained since there was report of ingestion to alleviate her pain with OTC pain medicine. Emergency Department Course and Treatment: IV was established and she received IV fluids. She initially received Zofran. Once lipase returned and results were reviewed he received Dilaudid. Will obtain PT/INR PTT to evaluate for coagulopathy. With reported vomiting I panel was obtained to assess electrolytes and more importantly renal function. CBC was obtained to evaluate for anemia etc. Treatment Plan: IV fluids, IV Zofran and Dilaudid Disposition: Admit medical surge floor Impression: Abdominal pain secondary to acute pancreatitis Sinus bradycardia documented on monitor This note was generated with JUNTA.CL dictation software. It may contain incorrect words, spelling, and punctuation that were not noted in review of the chart prior to signing ED Disposition - Plan for ED Patient: Chief Complaint: Abd Pain Referrals: Care Physician,No Primary [Primary Care Provider] - What to do if you have Problems For any increased pain, shortness of breath, bleeding, nausea or vomiting, chest pain, or any unexpected problems, contact your Primary Care Provider. Call [facility] ([phone]) or report to the closest Emergency Room. Call 911 if necessary. 08/27/18 1019 <Electronically signed by Shiv Candelario MD> Date Shiv Candelario MD Cosigner Signature (If Indicated): Date CC: No Primary Care Physician CBC W/DIFF, AUTOMATED Collected: 08/27/2018 Status: F Source: YUDY 8:15 AM [facility] REPOSITORY TYPE CODE TESTS RESULT OUT OF RANGE REFERENCE UNITS LAB L100.1000 4.4-11.0 K/mm3 High WBC 14.0 LAB L100.1200 4.2-5.4 M/mm3 Low RBC 3.86 LAB L100.1300 12.0-15.0 g/dl Normal HGB 14.0 LAB L100.1400 37-47 % Normal HCT 40.4 LAB L100.1500 81-99 fL High MCV 104.7 LAB L100.1600 27.0-32.0 pg High MCH 36.3 LAB L100.1700 32-36 g/gl Normal MCHC 34.7 LAB L100.1810 11.6-14.6 % Normal RDW CV 13.5 LAB L100.1820 35.1-43.9 fl High RDW SD 51.5 LAB L100.1900 150-450 K/mm3 Normal PLT 254 LAB L100.2000 6.2-12.0 fl Normal MPV 10.9 LAB L100.2100 47-70 % High NEUT% 84.0 LAB L100.2200 19-41 % Low LY% 10.2 LAB L100.2300 0-10 % Normal MONO% 5.5 LAB L100.2400 0-5 % Normal EO% 0.2 LAB L100.2500 0-1 % Normal BASO% 0.0 LAB L100.2550 0.0-0.9 % Normal IM GRAN % 0.100 Result Comment: IG% - Immature Granulocytes (promyelocytes, myelocytes and metamyelocytes) > 1% indicates that a LEFT SHIFT is Present. LAB L100.2620 2.0-7.7 X10 3/uL High Absolute Neut 11.8 LAB L100.2720 0.83-4.51 X10 3/ul Normal Absolute Lymph 1.42 Performed By: #### L100.0100 #### [facility] [address] [facility] [place], [address] ACETAMINOPHEN (TYLENOL) Collected: 08/27/2018 Status: F Source: YUDY LEVEL 8:15 AM [facility] REPOSITORY TYPE CODE TESTS RESULT OUT OF REFERENCE UNITS RANGE LAB L501.8400 10.0-30.0 ug/mL ACETAMINOPHEN Low < 2.0 Performed By: #### L501.8400 #### [facility] [address] [place], [place], [address] COMPREHENSIVE METABOLIC Collected: 08/27/2018 Status: F Source: YUDY PROFIL 8:15 AM [facility] REPOSITORY TYPE CODE TESTS RESULT OUT OF RANGE REFERENCE UNITS LAB L501.0100 74-106 mg/dL High GLU 124 Result Comment: Fasting Glucose result from 100 to 125 mg/dL suggests IMPAIRED HOMEOSTASIS per A.D.A. criteria. Please note revised GLUCOSE reference range effective 2017. LAB L501.1000 7-18 mg/dL Normal BUN 14 LAB L501.1100 0.55-1.02 mg/dL Normal CREAT,SERUM 0.72 Result Comment: The validity of the calculated GFR AND GFRAA in patients over 70 years has not been determined. Clinical correlation is essential. LAB L501.1110 >60 mL/min Normal EST GFR 96 Result Comment: Non- GFR Calc LAB L501.1115 >60 mL/min Normal EST GFR - AA 117 Result Comment: GFR Calc LAB L501.1255 ml/min Normal Estimated CRCL 76.60 LAB L501.1300 10-20 RATIO Normal BUN/CRE 19.4 LAB L501.1500 6.4-8. g/dL Normal 2 T PROT 7.3 LAB L501.1800 3.2-5. g/dL Normal 0 ALB 3.5 LAB L501.1950 2.2-4. g/dL Normal 2 GLOB 3.8 LAB L501.2000 0.9-2. RATIO Normal 4 A/G 0.9 LAB L501.2200 8.5-10 mg/dL Normal .1 CA 9.0 LAB L501.4100 15-37 U/L High AST 58 Result Comment: Slight Hemolysis, Result may be falsely increased. LAB L501.4305 45-117 U/L High ALK P 136 LAB L501.4405 13-56 U/L Normal ALT 47 LAB L501.4600 0.20-1.00 mg/dL Normal T BILI 0.90 LAB L501.5300 136-145 mmol/L Low NA 133 LAB L501.5600 3.5-5.1 mmol/L Low K 3.3 Result Comment: Slight Hemolysis, Result may be falsely increased. LAB L501.5900 98-107 mmol/L Low CL 96 LAB L501.6100 21.0-32.0 mmol/L Normal CO2 27.0 LAB L501.6200 5-15 Normal GAP 10 Performed By: #### L500.4050, L501.2450 #### [facility] [address] [place], [address] LIPASE Collected: 08/27/2018 Status: F Source: BRADY 8:15 AM [facility] REPOSITORY TYPE CODE TESTS RESULT OUT OF REFERENCE UNITS RANGE LAB L501.2450 73-393 U/L High LIPASE 6025 Performed By: #### L500.4050, L501.2450 #### [facility] [address] [place], [address] SALICYLATE Collected: 08/27/2018 Status: F Source: BRADY 8:15 AM [facility] REPOSITORY TYPE CODE TESTS RESULT OUT OF REFERENCE UNITS RANGE LAB L501.8300 2.8-20.0 mg/dL Low SALICYLATE < 1.7 Performed By: #### L501.8300 #### [facility] [place], [address] LACTIC ACID Collected: 08/27/2018 Status: F Source: BRADY 8:15 AM [facility] REPOSITORY Order Comment: Yes/No query for Sepsis Lactate Rule Y TYPE CODE TESTS RESULT OUT OF RANGE REFERENCE UNITS LAB L503.6005 0.4-2.0 mmol/L Normal LACTIC ACID 1.2 Performed By: #### L503.6005 #### [facility] [address] [place], [address] PROTHROMBIN TIME W/INR Collected: 08/27/2018 Status: F Source: BRADY 8:15 AM [facility] REPOSITORY TYPE CODE TESTS RESULT OUT OF RANGE REFERENCE UNITS LAB L300.4150 11.7-14.9 SECONDS Normal PROTIME 14.8 LAB L300.4200 Normal INR 1.2 Performed By: #### L300.3900, L300.4310 #### [facility] [address] [place], [address] PARTIAL THROMBOPLAST Collected: 08/27/2018 Status: F Source: BRADY TIME 8:15 AM [facility] REPOSITORY TYPE CODE TESTS RESULT OUT OF RANGE REFERENCE UNITS LAB L300.4310 24.1-36.2 Seconds Normal PTT 26.4 Performed By: #### L300.3900, L300.4310 #### [facility] [address] [place], [address] ,SERUM,HCG QUALI. Collected: Status: F Source: BRADY 08/27/2018 8:15 AM [facility] REPOSITORY TYPE CODE TESTS RESULT OUT OF REFERENCE UNITS RANGE LAB L700.6700 =>Qualitative mIU/mL Normal HCG Qual < 1 triggr LAB L700.7000 0-9 Nonpreg Negative Normal HCGSQUAL NEGATIVE Performed By: #### L700.6800 #### [facility] [address] [facility] [place], [address] ACUTE ABDOMEN INC Observed: 08/27/2018 Status: F Source: BRADY CHEST 8:10 AM [facility] REPOSITORY [facility] Imaging Services [address] [place] [address] Acute Abdomen Inc Chest MR#: [id number] Acct: [id number] Name: FAY PEARCE Rep #: [id number] : 1980 F 38 From: Parker Paz MD PCP: Care Physician, No Primary Status: REG ER Study: Acute Abdomen Inc Chest Date of Exam: 08/27/18 Exam# [id number] Ordering Dr: Shiv Candelario MD STUDY: X-RAY - ACUTE ABDOMINAL SERIES REASON FOR EXAM: Female, 38 years old. Abdominal pain with distention and vomiting. TECHNIQUE: Single view of the chest. Supine, and erect view(s) of the abdomen were obtained. COMPARISON: Comparison is made with prior chest radiograph dated January 02, 2018. FINDINGS: A faint infiltrate is seen in the right midlung. Follow-up is recommended. Normal size heart. Normal mediastinum and chantell. Normal visualized pulmonary arteries. Normal visualized aortic arch and descending thoracic aorta. There is a non-specific bowel gas pattern. The soft tissue structures of the abdomen and pelvis are unremarkable. Normal visualized osseous structures. RAD/Acute Abdomen Inc Chest IMPRESSION: Faint infiltrate is seen in the right midlung. Follow-up is recommended. Electronically Signed: Parker Paz MD at 10:12 EST Tel [phone], Service support , CC: No Primary Care Physician; Shiv Candelario MD Surtass Analyst: Signed EMERGENCY DEPARTMENT Observed: 01/02/2018 Status: F Source: BRADY SUMMARY 4:27 PM [facility] REPOSITORY [facility] Medical Records Department [address] [place] [address] Emergency Department Summary 01/02/18 1552 MR#: [id number] Acct: [id number] Name: FAY YUONG Rep #: [id number] : 1980 37 From: Arron King MD PCP: Care Physician, No Primary Status: REG ER - ER Visit Summary Date of Service: 01/02/18 Chief Complaint: Cough and fever History of Present Illness: The patient is a 37 F presenting for evaluation secondary to cough and fever. Patient states that over the course last 5 days she has been feeling significantly ill. Patient states that she has a nonproductive cough, nausea with no vomiting. She has a mild amount of diarrhea. Patient states that she is getting somewhat dyspneic on exertion and has had fevers as high as 102. She has generalized myalgias. Patient states that ibuprofen really has not been helping her myalgias, but has been helping her fevers. Patient states that she does not have any sick contacts. She has a prior history of alcohol abuse, has been clean since July, she has not smoked a cigarette in 5 days. Physical Examination: Vital signs are within normal limits, patient is afebrile. General: Patient is well-nourished well-developed and in no acute distress. Head: Normocephalic, atraumatic Eyes: Pupils equal round and reactive bilaterally, extra occular motion intact bialterally ENT: Moist mucous membranes Neck: Supple, no lymphadenopathy, no JVD, no meningismus, negative Brudzinski Kernig jolt and heel strike CVS: Heart regular rate and rhythm, no murmurs, rubs or gallops, radial pulses 2+ bilaterally Resp: Respirations nondistressed, lung sounds showed evidence of wheezes with no respiratory distress or retractions Abdomen: Soft, nontender, nondistended, no palpable masses, normal bowel sounds Back: Nontender Extremities: Nontender, atraumatic, active full range of motion, no peripheral edema Skin: warm, no rashes, no petechia Neuro: Alert and oriented x 4, CN 2-12 intact, no lateralizing neurological defecits Psyc: Normal affect Test Results: Flu swab is negative, PA and lateral chest x- ray by my personal interpretation as well as radiology is found to be negative Emergency Department Course and Treatment: Patient presented for evaluation secondary to generalized illness. She has normal vital signs I do not believe the laboratory workup is necessary. Chest x-ray shows no evidence of infiltrate, influenza was found to be negative but the patient has all of the stigmata of influenza. However, the patient is outside of the treatment window for this so she will be treated symptomatically. Patient was treated with albuterol Toradol and prednisone in the emergency department she will be discharged with a albuterol inhaler, prednisone, Naprosyn and instructed to follow-up with her primary care physician. Disposition: Discharge Impression: 1. Influenza This note was generated with JUNTA.CL dictation software. It may contain incorrect words, spelling, and punctuation that were not noted in review of the chart prior to signing ED Disposition - Plan for ED Patient: Disposition: Home or Assisted Living Chief Complaint: General Illness Diagnosis: Influenza Instructions: ED Flu Prescriptions: Albuterol Inhaler [Ventolin Hfa] 1 - 2 puff INHALATION Q4H PRN PRN #1 inhaler PRN Reason: Wheezing Naproxen [Naprosyn] 500 mg PO BID PRN #20 tab Prednisone [Deltasone] 60 mg PO DAILY #15 tab Referrals: Jonah Leroy MD [NON-STAFF] - 1 Week if not improving What to do if you have Problems For any increased pain, shortness of breath, bleeding, nausea or vomiting, chest pain, or any unexpected problems, contact your Primary Care Provider. Call [facility] ([phone]) or report to the closest Emergency Room. Call 911 if necessary. 01/02/18 1627 <Electronically signed by Arron King MD> Date Arron King MD Cosigner Signature (If Indicated): Date CC: No Primary Care Physician Observed: 01/02/2018 Status: F Source: BRADY INFLUENZA A+B (RAPID 2:25 PM [facility] YISEL) REPOSITORY Has pt arrived? Y FLU A/B Rapid Negative test results should be confirmed by culture. Order Rapid Viral Culture for Influenzae A+B ([id number]) if clinically indicated. Influenza Ag, Direct Presumptive NEGATIVE for Influenza A/B Antigen (See Note) Performed By: #### M101.0101 #### [facility] [address] [facility] [place], [address] CHEST PA AND LATERAL Observed: 01/02/2018 Status: F Source: BRADY 2:15 PM [facility] REPOSITORY [facility] Imaging Services [address] [place] [address] Chest PA and Lateral MR#: [id number] Acct: [id number] Name: FAY YOUNG Rep #: [id number] : 1980 F 37 From: Emi Mendoza MD PCP: Care Physician, No Primary Status: REG ER Study: Chest PA and Lateral Date of Exam: 01/02/18 Exam# [id number] Ordering Dr: Arron King MD STUDY: X-RAY CHEST REASON FOR EXAM: Female, 37 years old. Cough, fever TECHNIQUE: PA and lateral views of the chest. COMPARISON: February 12, 2016 FINDINGS: There is no new focal consolidation. The lungs remain hyperinflated. Normal size heart. Normal mediastinum and chantell. Normal visualized pulmonary arteries. Normal visualized aortic arch and descending thoracic aorta. Normal visualized thoracic spine. Normal visualized ribs, clavicles, and shoulders. There is no demonstrated abnormality of the visualized soft tissue structures of the upper abdomen. RAD/Chest PA and Lateral IMPRESSION: No acute cardiopulmonary process. Electronically Signed: Emi Mendoza MD at 15:30 EDT Tel , Service support , CC: No Primary Care Physician; Arron King Surtass Analyst: Signed ALLERGIES ALLERGIES DATE TYPE / CODE NAME / CODE REACTION SEVERITY SOURCE 08/27/2018 Drug No Known Unknown [facility] Allergy/4160 Allergies/F00 Hospital 83801(SNOMED 2846015(RXNOR Repository CT) M) ENCOUNTERS ENCOUNTERS ADMIT/DISCHARGE ACCOUNT ADMITTING ENCOUNTER LOCATION SOURCE NUMBER CLASS 08/31/2018/ [id number] Odalys, Inpatient Brice Yudy 8 5 Ottoniel Fabian Encounter [facility] ing:SY6Tmfm: Repository IC174Won: 1 08/31/2018 [id number] Odalys, Ambulatory BMSBuilding:B Yudy 8 Ottoniel Fabian [place] Repository 08/31/2018 [id number] Fernandos, Ambulatory BMSBuilding:B Brice 4 Ottoniel Fabian [place] Repository 08/31/2018 [id number] Fernandos, Ambulatory BMSBuilding:B Brice 4 Ottoniel Fabian [place] Repository 08/27/2018/ [id number] Ranjittsbuddys, Inpatient Yudy Yudy 8 1 Ottoniel Rui Encounter [facility] ing:GE2Qkdl: Repository QX801Sma: 1 08/27/2018 [id number] Odalys, Ambulatory BMSBuilding:B Yudy 1 Ottoniel Fabian [place] Repository 08/27/2018 [id number] Fernandos, Ambulatory BMSBuilding:B Brice 1 Ottoniel Fabian [place] Repository 08/27/2018 [id number] Ranjittsonis, Ambulatory BMSBuilding:B Brice 0 Ottoniel Fabian [place] Repository 08/27/2018 [id number] Kotsonis, Ambulatory BMSBuilding:B Yudy 6 Ottoniel Fabian [place] Repository 01/02/2018/ [id number] Emergency Yudy Yudy 8 9 [facility] ing:ED Repository PAYERS PAYERS ENCOUNTER GUARANTOR PAYER SUBSCRIBER SOURCE 08/31/2018 FAY A Primary FAY A Yudy [id number] Insurance:[facility]: [facility] Number: [id number] [id number] Repository [address]Toz: ([phone]) Date:2018-08-31P O [phone] () [address]ATTN: [place] [address]OG: 08/31/2018 Secondary NOT GIVENUNK Brice Insurance:SELF PAY [facility] Number: Effective Repository Date:2018-08-31 08/31/2018 FAY A Primary FAY A Brice [id number] Insurance:[facility]: [facility] Number: [id number], [place] [id number] Repository [address]Jel: ([phone]) Date:2018-08-31P O [phone] () [address]ATTN: [place] [address]WT: 08/31/2018 Secondary NOT GIVENUNK Yudy Insurance:SELF PAY [facility] Number: Effective Repository Date:2018-08-31 08/31/2018 FAY A Primary FAY A Brice [id number] Insurance:[facility]: [facility] Number: [id number], [place] [id number] Repository 18[address]Nie: ([phone]) Date:2018-08-31P O [phone] () [address]ATTN: [place] [address]MN: 08/31/2018 Secondary NOT GIVENUNK Brice Insurance:SELF PAY [facility] Number: Effective Repository Date:2018-08-31 08/31/2018 FAY A Primary FAY A Brice [id number] [facility] Number: [id number], [place] [id number] Repository [address]Rel: ([phone]) Date:2018-08-31 O [phone] () [address]ATTN: [place] [address]DA: 08/31/2018 Secondary NOT GIVENUNK Brice Insurance:SELF PAY [facility] Number: Effective Repository Date:2018-08-31 08/27/2018 FAY A Primary FAY A Brice [id number] [facility] Number: [id number], [place] [id number] Repository [address]Cdq: ([phone]) Date:2018-08-27P O [phone] (HP) [address]ATTN: [place] [address]LN: 08/27/2018 Secondary NOT GIVENUNK Yudy Insurance:SELF PAY [facility] Number: Effective Repository Date:2018-08-27 08/27/2018 FAY A Primary FAY A Yudy [id number] Insurance:[employer]P [facility]: [facility] Number: [id number], [place] [id number] Repository [address]Joe: ([phone]) Date:2018-08-27P O [phone] () [address]ATTN: [place] [address]UV: 08/27/2018 Secondary NOT GIVENUNK Yudy Insurance:SELF PAY [facility] Number: Effective Repository Date:2018-08-27 08/27/2018 FAY A Primary FAY A Yudy [id number] Insurance[facility] Number: [id number], [place] [id number] Repository [address]Bxw: ([phone]) Date:2018-08-27P O [phone] (HP) [address]ATTN: [place] [address]CB: 08/27/2018 Secondary NOT GIVENUNK Brice Insurance:SELF PAY [facility] Number: Effective Repository Date:2018-08-27 08/27/2018 FAY A Primary FAY A Yudy [id number] [facility] Number: [id number], [place] [id number] Repository [address]Shz: ([phone]) Date:2018-08-27P O [phone] (HP) [address]ATTN: [place] [address]NQ: 08/27/2018 Secondary NOT GIVENUNK Brice Insurance:SELF PAY [facility] Number: Effective Repository Date:2018-08-27 08/27/2018 FAY A Primary FAY A Yudy [id number] Insurance:[facility]: [facility] Number: [id number], [place] [id number] Repository [address]Wdd: (330) Date:2018-08-27P O [phone] (HP) [address]ATTN: [place] [address]VU: 08/27/2018 Secondary NOT GIVENUNK Yudy Insurance:SELF PAY [facility] Number: Effective Repository Date:2018-08-27 01/02/2018 FAY A Primary FAY A Yudy [id number] Insurance:[facility] Number: [id number] [id number] Repository [id number]: (330) Date:2018-01-02P O [phone] (HP) [address]ATTN: [place] [address]MO: 01/02/2018 Secondary NOT GIVENUNK Brice Insurance:SELF PAY [facility] Number: Effective Repository Date:2018-01-02
== END 2018-08-31 06:31 | disposition left against medical advice (07) | DRG 282 ==
LOC: ED 08:19 → MS3 10:56
PROVIDERS: Admitting Provider Family Medicine; Emergency Provider Emergency Medicine; Visit Provider Family Medicine
DX: K85.90 Acute pancreatitis without necrosis or infection, unspecified (principal); R00.1 Bradycardia, unspecified; F17.210 Nicotine dependence, cigarettes, uncomplicated; F12.90 Cannabis use, unspecified, uncomplicated; E87.6 Hypokalemia; F10.10 Alcohol abuse, uncomplicated
CPT/HCPCS: 36415; 74022; 74177; 76705; 80048; 80053; 80061; 80329; 82962; 83605; 83690; 83735; 84100; 84703; 85025; 85610; 85730; 99218; 99285; 99406; J7030; J7040; J7050; Q9967; A4216; G0378; G0480; J2405; J3490

== ENCOUNTER 2018-08-31 11:17 | Inpatient (IN) | payer MEDICAID, SELFPAY ==
[2018-08-27 11:04] VITALS: BMI 18.8
[2018-08-31 11:19] VITALS: BP 152/93; PULSE 102; RESP 16; TEMP 36.3; O2SAT 96; BMI 19.5
--- NOTE | 2018-08-31 11:33 | ED.VISSUMM ---
- ER Visit Summary Date of Service: 08/31/18 Chief Complaint: Pancreatitis History of Present Illness: The patient is a 38 F with a history of pancreatitis. She was in the hospital and left this morning AMA at 6:30 AM to address some family issues. She says that since she left, she lost custody of her children. She returned, stating that she should have never left. She continues to have abdominal pain. It radiates through to her back. No other changes. Physical Examination: Afebrile and vital signs unremarkable. She is tearful and appears depressed. Abdomen diffusely tender. Otherwise exam unremarkable. Test Results: Laboratory studies, drug screen, and alcohol testing are pending. Emergency Department Course and Treatment: I spoke with Dr. Morrow who was aware that she had left. He advised starting D5 as she has a history of hypoglycemia. I also treated her with morphine and Zofran. Will recheck labs and she will be admitted. IV access obtained. Patient treated. Results pending. Patient will be admitted. Treatment Plan: As above Disposition: Admission Impression: 1. Pancreatitis This note was generated with [employer] dictation software. It may contain incorrect words, spelling, and punctuation that were not noted in review of the chart prior to signing ED Disposition - Plan for ED Patient: Chief Complaint: Abd Pain Referrals: Care Physician,No Primary [Primary Care Provider] -
[2018-08-31] MEDS: Ondansetron 4 MG/2 ML Vial IV (12:02)
[2018-08-31] MEDS: Dextrose 5%/0.9% NaCl 1,000 ML 125 ML IV (12:02)
[2018-08-31] MEDS: Morphine 4 MG/ML Syringe IV (12:02)
[2018-08-31 12:03] VITALS: RESP 18
[2018-08-31 12:03] LABS: Absolute Lymphocyte Count 0.86 X10^3/ul (0.83-4.51); Absolute Neutrophil Count 4.5 X10^3/uL (2.0-7.7); Basophil# 0.02 X10^3/uL; Basophil% 0.3 % (0-1); Eosinophil# 0.15 X10^3/uL; Eosinophils% 2.6 % (0-5); Hematocrit 38.7 % (37-47); Hemoglobin 13.2 g/dl (12.0-15.0); Lymphocyte # 0.86 X10^3/ul (4.0); Lymphocyte % 14.8 % (19-41); Mean Corp Hgb Conc 34.1 g/gl (32-36); Mean Corpuscular Hgb 35.8 pg (27.0-32.0); Mean Corpuscular Volume 104.9 fL (81-99); Mean Platelet Vol. 10.1 fl (6.2-12.0); Monocyte# 0.28 X10^3/uL; Monocyte% 4.8 % (0-10); Neutrophil # 4.49 X10^3/uL (2.7-7.7); Neutrophil % 77.5 % (47-70); POSITIVE COUNT NO; POSITIVE DIFFERENTIAL NO; POSITIVE MORPHOLOGY NO; Platelet Count 189 K/mm3 (150-450); RBC Distribution Width CV 13.5 % (11.6-14.6); RBC Distribution Width SD 51.3 fl (35.1-43.9); Red Blood Count 3.69 M/mm3 (4.2-5.4); White Blood Count 5.8 K/mm3 (4.4-11.0)
[2018-08-31 12:12] LABS: Amphetamine Urine VISTA NEGATIVE (<1000 ng/mL); Barbiturate Urine VISTA NEGATIVE (< 200 ng/mL); Benzodiazepine Urine VISTA POSITIVE (< 200 ng/mL); Cocaine Urine VISTA NEGATIVE (< 300 ng/mL); Ecstacy Urine VISTA NEGATIVE (< 500 ng/mL); Methadone Urine VISTA NEGATIVE (< 300 ng/mL); PCP Urine VISTA NEGATIVE (< 25 ng/mL); THC Urine VISTA NEGATIVE (< 50 ng/mL); Vista UDS pH Range 6
[2018-08-31 12:18] LABS: ALB/GLOB Ratio 0.8 RATIO (0.9-2.4); AST(SGOT) 81 U/L (15-37); Alanine Aminotransfer ALT/SGPT 47 U/L (13-56); Albumin, Serum 3.4 g/dL (3.2-5.0); Alkaline Phosphatase 98 U/L (45-117); Anion Gap 8 (5-15); BUN 1 mg/dL (7-18); BUN/Creat Ratio 1.8 RATIO (10-20); Calcium,Total 9.2 mg/dL (8.5-10.1); Chloride 107 mmol/L (98-107); Creatinine, Serum 0.57 mg/dL (0.55-1.02); EST Glomerular Filtration Rate 127 mL/min (>60); Est Glom Filt Rate - Afr Amer 153 mL/min (>60); Estimated Creatinine Clearance 96.76 ml/min; Globulin 4.2 g/dL (2.2-4.2); Glucose 106 mg/dL (74-106); Lipase 696 U/L (73-393); Potassium 3.3 mmol/L (3.5-5.1); Protein, Total 7.6 g/dL (6.4-8.2); Sodium Level 142 mmol/L (136-145)
[2018-08-31 12:20] LABS: Bedside Glucose 185 mg/dL (70-110)
[2018-08-31 13:14] VITALS: BMI 19.5
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
[2018-08-31] MEDS: Magnesium Hydroxide 30 ML UDC PO (15:31)
[2018-08-31] MEDS: Morphine 2 MG/ML Syringe IV ×2 (15:31→19:59)
[2018-08-31 16:17] VITALS: BP 111/67; PULSE 75; RESP 18; TEMP 36.8; O2SAT 96
[2018-08-31] MEDS: Dextrose 5%/0.9% NaCl 1,000 ML 100 ML IV (17:16)
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
[2018-08-31] MEDS: 0.9% NaCl Peripheral Flush Adult/Peds IV (20:00)
[2018-08-31 21:26] VITALS: BP 115/68; PULSE 77; RESP 16; TEMP 36.8; O2SAT 96
[2018-08-31] MEDS: LORazepam 1 MG Tablet PO (23:56)
[2018-09-01] MEDS: Dextrose 5%/0.9% NaCl 1,000 ML 100 ML IV (02:25)
[2018-09-01 03:59] VITALS: BP 103/58; PULSE 52; RESP 16; TEMP 36.5; O2SAT 99
[2018-09-01 06:35] LABS: Absolute Lymphocyte Count 1.49 X10^3/ul (0.83-4.51); Absolute Neutrophil Count 1.6 X10^3/uL (2.0-7.7); Basophil# 0.01 X10^3/uL; Basophil% 0.3 % (0-1); Eosinophil# 0.31 X10^3/uL; Eosinophils% 8.1 % (0-5); Hematocrit 36.5 % (37-47); Hemoglobin 12.1 g/dl (12.0-15.0); Lymphocyte # 1.49 X10^3/ul (4.0); Lymphocyte % 38.9 % (19-41); Mean Corp Hgb Conc 33.2 g/gl (32-36); Mean Corpuscular Hgb 35.1 pg (27.0-32.0); Mean Corpuscular Volume 105.8 fL (81-99); Mean Platelet Vol. 10.9 fl (6.2-12.0); Monocyte# 0.39 X10^3/uL; Monocyte% 10.2 % (0-10); Neutrophil # 1.63 X10^3/uL (2.7-7.7); Neutrophil % 42.5 % (47-70); Platelet Count 199 K/mm3 (150-450); RBC Distribution Width CV 13.5 % (11.6-14.6); RBC Distribution Width SD 52.4 fl (35.1-43.9); Red Blood Count 3.45 M/mm3 (4.2-5.4); White Blood Count 3.8 K/mm3 (4.4-11.0)
--- NOTE | 2018-09-01 06:43 | PN_ITS ---
Subjective: Abdominal pain is improved but continues to have back pain Vitals/I&O's: Vital Signs Temp Pulse Resp BP Pulse Ox 97.7 F L 52 L 16 103/58 L 99 09/01/18 03:59 09/01/18 03:59 09/01/18 03:59 09/01/18 03:59 09/01/18 03:59 Oxygen Delivery Method Room Air Weight: 100 lb Body Mass Index (BMI) 19.5 Finger Stick Blood Glucose 185 Intake and Output for Last 24 Hours 08/30/18 08/31/18 09/01/18 23:59 23:59 23:59 Intake Total 1139 / 1139 944 / 944 Output Total 600 / 600 300 / 300 Balance 539 / 539 644 / 644 General: Alert, Oriented x3, Cooperative, No apparent distress HEENT: Atraumatic, PERRLA, EOMI, Normocephalic Oral: Dry Mucosa Neck: Supple, No JVD Lungs: Clear to auscultation, Normal air movement, No rhonchi, No wheeze, No rales Cardiovascular: Regular rate, Regular Rhythm, Normal S1, Normal S2, No murmurs Abdomen: Soft, Non-Distended, No Hepato-splenomegaly, no guarding, mild TTP mid abdomen Extremities: No edema, Capillary Refill Less than 3 Seconds Skin: No rashes, No breakdown Neurological: Neuro grossly intact, Sensory exam intact to light touch and pain Psych/Mental Status: Normal Affect, Appropriate Laboratory Results 08/31/18 11:55: Urine Opiates Screen NEGATIVE, Urine Methadone Screen NEGATIVE, Ur Barbiturates Screen NEGATIVE, Ur Phencyclidine Scrn NEGATIVE, Ur Amphetamines Screen NEGATIVE, U Methamphetamin-MDMA NEGATIVE, U Benzodiazepines Scrn POSITIVE H, Urine Cocaine Screen NEGATIVE, U Cannabinoids Screen NEGATIVE, Ur Drug Screen Comment 08/31/18 11:58: WBC 5.8, RBC 3.69 L, Hgb 13.2, Hct 38.7, MCV 104.9 H, MCH 35.8 H , MCHC 34.1, RDW 13.5, RDW Differential 51.3 H, Plt Count 189, MPV 10.1, Immature Gran % (Auto) 0.000, Neut % (Auto) 77.5 H, Lymph % (Auto) 14.8 L, [place] % (Auto) 4.8, Eos % (Auto) 2.6, Baso % (Auto) 0.3, Absolute Neuts (auto) 4.5, Absolute Lymphs (auto) 0.86, Total Counted Not Reportable 08/31/18 11:58: Sodium 142, Potassium 3.3 L, Chloride 107, Carbon Dioxide 27.0, Anion Gap 8, BUN 1 L, Creatinine 0.57, Estim Creat Clear Calc 96.76, Est GFR (MDRD) Af Amer 153, Est GFR (MDRD) Non-Af 127, BUN/Creatinine Ratio 1.8 L, Glucose 106, Calcium 9.2, Total Bilirubin 0.30, AST 81 H, ALT 47, Alkaline Phosphatase 98, Total Protein 7.6, Albumin 3.4, Globulin 4.2, Albumin/Globulin Ratio 0.8 L, Lipase 696 H 08/31/18 11:58: Ethyl Alcohol 7.0 08/31/18 11:58: Folate 15.90 08/31/18 12:13: POC Glucose 185 H 09/01/18 05:45: WBC Pending, RBC Pending, Hgb Pending, Hct Pending, MCV Pending, MCH Pending, MCHC Pending, RDW Pending, RDW Differential Pending, Plt Count Pending, Neut % (Auto) Pending, Absolute Neuts (auto) Pending, Total Counted Pending 09/01/18 05:45: Sodium Pending, Potassium Pending, Chloride Pending, Carbon Dioxide Pending, Anion Gap Pending, BUN Pending, Creatinine Pending, Est GFR (MDRD) Af Amer Pending, Est GFR (MDRD) Non-Af Pending, BUN/Creatinine Ratio Pending, Glucose Pending, Calcium Pending, Phosphorus Pending, Magnesium Pending Current Medications Enoxaparin Sodium (Lovenox) 40 mg SC DAILY@1000 AMRIT Dextrose/Sodium Chloride (Dextrose 5%/0.9% Nacl) 1,000 mls @ 100 mls/hr IV .Q10H AMRIT Last Admin: 09/01/18 02:25 Dose: 100 mls/hr Sodium Chloride () 250 mls @ 15 mls/hr IV .[id number] PRN PRN Reason: SALINE FLUSH Magnesium Hydroxide (Milk Of Magnesia) 30 ml PO DAILY PRN PRN PRN Reason: Constipation Last Admin: 08/31/18 15:31 Dose: 30 ml Morphine Sulfate () 2 mg IV Q2H PRN PRN PRN Reason: SEVERE PAIN (6-10/10) Last Admin: 08/31/18 19:59 Dose: 2 mg Sodium Chloride () 5 - 15 ml IV UD PRN PRN Reason: SALINE FLUSH Last Admin: 08/31/18 20:00 Dose: 10 ml Medical Necessity - Tobacco Use Smoking Status: Current every day smoker Assessment/Plan All Active Problems Hypomagnesemia (Acute) Hypokalemia (Acute) Acute alcoholic hepatitis (Acute) Pancreatitis (Acute) 1. Acute pancreatitis - She denies any medications - RUQ US was unremarkable - c/w IVF - TG normal - Etiology is unsure at the moment - Morphine for pain - Lipase was over 6000 on admission - CT abd/pelvis with pancreatitis, - C/s to surgery, apreciate recs - will try and advance to a low fat diet today, if fails may need post-pyloric feed 2. Alcohol use - this could be the cause, however she gives very fluctuating account of her habits - Will treat as alcohol abuse at the moment and will continue with the new vision protocol 3. Tobacco and marijuana use - counselled on cessation 4. Hypokalemia - once again 3.3 - Will replace 5. Macrocytosis - check B12 and Folate, related to EtOH use DVT: Lovenox Diet: Low fat Code Visit Inpatient E&M: 11132 Subs Hosp L2
[2018-09-01 07:04] LABS: Anion Gap 7 (5-15); BUN < 1 mg/dL (7-18); Calcium,Total 8.5 mg/dL (8.5-10.1); Chloride 111 mmol/L (98-107); Creatinine, Serum 0.58 mg/dL (0.55-1.02); EST Glomerular Filtration Rate 125 mL/min (>60); Est Glom Filt Rate - Afr Amer 152 mL/min (>60); Glucose 117 mg/dL (74-106); Magnesium 2.2 mg/dL (1.6-2.6); Phosphorus 3.4 mg/dL (2.5-4.9); Potassium 3.6 mmol/L (3.5-5.1); Sodium Level 143 mmol/L (136-145)
[2018-09-01 07:09] LABS: POSITIVE COUNT NO; POSITIVE DIFFERENTIAL NO; POSITIVE MORPHOLOGY NO
[2018-09-01] MEDS: 0.9% Normal Saline 1,000 ML 100 ML IV ×2 (07:18→15:04)
[2018-09-01 09:09] VITALS: BP 100/69; PULSE 50; RESP 18; TEMP 36.8; O2SAT 98
[2018-09-01] MEDS: Enoxaparin 40 MG/0.4 ML Syringe SC (09:10)
--- NOTE | 2018-09-01 11:59 | PCM.PN.SRG ---
Subjective: awoke patient from sleep at 11:45 am, asked if she had any abdominal pain for today and she stated that her eyes just opened and she couldn't say, she stated that she couldn't sleep all night because she was awakened every hour when the question was repeated, she stated that she did not have abdominal pain. she states that she had a bowel movement yesterday she did not feel hungry - Physical Exam General: Alert Oral: Moist Mucosa Neck: Supple Abdomen: Bowel Sounds Present, Soft Vital Signs Temp Pulse Resp BP Pulse Ox 98.2 F 50 L 18 100/69 98 09/01/18 09:09 09/01/18 09:09 09/01/18 09:09 09/01/18 09:09 09/01/18 09:09 Oxygen Delivery Method Room Air Weight: 45.359 kg Body Mass Index (BMI) 19.5 Finger Stick Blood Glucose 185 Intake and Output for Last 24 Hours 08/30/18 08/31/18 09/01/18 23:59 23:59 23:59 Intake Total 1139 / 1139 944 / 944 Output Total 600 / 600 300 / 300 Balance 539 / 539 644 / 644 Laboratory Tests Past 24 Hrs 08/31/18 08/31/18 08/31/18 11:55 11:58 11:58 WBC 5.8 RBC 3.69 L Hgb 13.2 Hct 38.7 MCV 104.9 H MCH 35.8 H MCHC 34.1 RDW 13.5 RDW Differential 51.3 H Plt Count 189 MPV 10.1 Immature Gran % (Auto) 0.000 Neut % (Auto) 77.5 H Lymph % (Auto) 14.8 L [place] % (Auto) 4.8 Eos % (Auto) 2.6 Baso % (Auto) 0.3 Absolute Neuts (auto) 4.5 Absolute Lymphs (auto) 0.86 Total Counted Not Reportable Sodium 142 Potassium 3.3 L Chloride 107 Carbon Dioxide 27.0 Anion Gap 8 BUN 1 L Creatinine 0.57 Estim Creat Clear Calc 96.76 Est GFR (MDRD) Af Amer 153 Est GFR (MDRD) Non-Af 127 BUN/Creatinine Ratio 1.8 L Glucose 106 Calcium 9.2 Phosphorus Magnesium Total Bilirubin 0.30 AST 81 H ALT 47 Alkaline Phosphatase 98 Total Protein 7.6 Albumin 3.4 Globulin 4.2 Albumin/Globulin Ratio 0.8 L Lipase 696 H Folate Urine Opiates Screen NEGATIVE Urine Methadone Screen NEGATIVE Ur Barbiturates Screen NEGATIVE Ur Phencyclidine Scrn NEGATIVE Ur Amphetamines Screen NEGATIVE U Methamphetamin-MDMA NEGATIVE U Benzodiazepines Scrn POSITIVE H Urine Cocaine Screen NEGATIVE U Cannabinoids Screen NEGATIVE Ethyl Alcohol 08/31/18 08/31/18 09/01/18 11:58 11:58 05:45 WBC 3.8 L RBC 3.45 L Hgb 12.1 Hct 36.5 L MCV 105.8 H MCH 35.1 H MCHC 33.2 RDW 13.5 RDW Differential 52.4 H Plt Count 199 MPV 10.9 Immature Gran % (Auto) 0.000 Neut % (Auto) 42.5 L Lymph % (Auto) 38.9 [place] % (Auto) 10.2 H Eos % (Auto) 8.1 H Baso % (Auto) 0.3 Absolute Neuts (auto) 1.6 L Absolute Lymphs (auto) 1.49 Total Counted Not Reportable Sodium Potassium Chloride Carbon Dioxide Anion Gap BUN Creatinine Estim Creat Clear Calc Est GFR (MDRD) Af Amer Est GFR (MDRD) Non-Af BUN/Creatinine Ratio Glucose Calcium Phosphorus Magnesium Total Bilirubin AST ALT Alkaline Phosphatase Total Protein Albumin Globulin Albumin/Globulin Ratio Lipase Folate 15.90 Urine Opiates Screen Urine Methadone Screen Ur Barbiturates Screen Ur Phencyclidine Scrn Ur Amphetamines Screen U Methamphetamin-MDMA U Benzodiazepines Scrn Urine Cocaine Screen U Cannabinoids Screen Ethyl Alcohol 7.0 09/01/18 05:45 WBC RBC Hgb Hct MCV MCH MCHC RDW RDW Differential Plt Count MPV Immature Gran % (Auto) Neut % (Auto) Lymph % (Auto) [place] % (Auto) Eos % (Auto) Baso % (Auto) Absolute Neuts (auto) Absolute Lymphs (auto) Total Counted Sodium 143 Potassium 3.6 Chloride 111 H Carbon Dioxide 25.0 Anion Gap 7 BUN < 1 L Creatinine 0.58 Estim Creat Clear Calc 95.10 Est GFR (MDRD) Af Amer 152 Est GFR (MDRD) Non-Af 125 BUN/Creatinine Ratio TNP Glucose 117 H Calcium 8.5 Phosphorus 3.4 Magnesium 2.2 Total Bilirubin AST ALT Alkaline Phosphatase Total Protein Albumin Globulin Albumin/Globulin Ratio Lipase Folate Urine Opiates Screen Urine Methadone Screen Ur Barbiturates Screen Ur Phencyclidine Scrn Ur Amphetamines Screen U Methamphetamin-MDMA U Benzodiazepines Scrn Urine Cocaine Screen U Cannabinoids Screen Ethyl Alcohol POC Glucose 08/31/18 12:13 POC Glucose 185 H Medical Necessity - Tobacco Use Smoking Status: Current every day smoker Assessment/Plan All Active Problems Hypomagnesemia (Acute) Hypokalemia (Acute) Acute alcoholic hepatitis (Acute) Pancreatitis (Acute) Impression: acute on chronic pancreatitis Plan: as per previous note
[2018-09-01] MEDS: Morphine 2 MG/ML Syringe IV ×5 (12:20→23:54)
[2018-09-01 15:05] VITALS: BP 112/62; PULSE 68; RESP 18; TEMP 36.8; O2SAT 97
[2018-09-01 20:15] VITALS: BP 118/75; PULSE 84; RESP 18; TEMP 37; O2SAT 96
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
[2018-09-02] MEDS: LORazepam 0.5 MG Tablet PO (00:19)
[2018-09-02] MEDS: 0.9% Normal Saline 1,000 ML 100 ML IV (00:20)
[2018-09-02 02:00] VITALS: BP 150/90; PULSE 97; RESP 17; TEMP 36.8; O2SAT 96
[2018-09-02] MEDS: Morphine 2 MG/ML Syringe IV (06:10)
[2018-09-02 08:15] VITALS: BP 142/98; PULSE 106; RESP 16; TEMP 36.6; O2SAT 94
[2018-09-02] MEDS: oxyCODONE 5 MG Tablet 10 MG PO (08:18)
--- NOTE | 2018-09-02 11:30 | DCINST_ITS ---
You will use the following diet at home:: No restrictions Your food should be the consistency of: Regular Your liquids should be the consistency of: Regular/Thin Discharge Activity: Return to Normal Activity Weight Bearing Status: Full weight bearing Allergies/Adverse Reactions: Allergies No Known Allergies Allergy (Verified 08/27/18 10:07) Medications to take at Discharge Oxycodone [Oxyir] 10 mg PO Q6H PRN PRN 7 Days #30 tab 09/02/18 The following prescriptions were given: Oxycodone [Oxyir] 10 mg PO Q6H PRN PRN 7 Days #30 tab PRN Reason: Severe Pain (-07/10) Primary Care Physician: Care Physician,No Primary [Primary Care Provider] - Please follow up with your Primary Care Physician in: in 2-3 weeks Test Results: Test results from this visit will be discussed in further detail at your follow- up appointment, if applicable.
[2018-09-02 14:12] LABS: Vitamin B12 > 2000 pg/mL (211-911)
--- NOTE | 2018-09-02 15:00 | CASEMGMT ---
RN CM attempted to complete Face to Face assessment but patient was discharged. RN ALBERT had Face to Face assessment completed on last admission on 08/28/18. Patient denied needs at that time.
--- NOTE | 2018-09-03 09:10 | PCM.DC.SUM ---
Discharge Date and Diagnosis Date of Admission: 08/31/18 Date of Discharge: 09/02/18 - Primary Discharge Diagnosis #1 acute recurrent pancreatitis-etiology unknown #2 hypokalemia - Secondary Discharge Diagnosis Chronic Problems Tobacco use (Chronic) Anxiety and depression (Chronic) Alcohol abuse (Chronic) Hepatomegaly (Chronic) Hepatic steatosis (Chronic) Hospital Course and Treatment Operations: None Procedures: None Summary of Care Provided: The patient is a 38 year old F who was seen in the emergency room at [facility] with chief complaint of abdominal pain, she had been seen earlier in the emergency room at [facility] but left AMA to take care of personal business, she then return for reevaluation and labs were drawn which showed elevated lipase at 696, AST was slightly elevated at 81, potassium was 3.3, white blood cell count was normal. Toxicology screen was positive for benzodiazepines. Patient was admitted for acute recurrent pancreatitis, she was seen in consultation by general surgery who did not feel the patient needed surgical intervention, she was given IV fluids and IV pain medications and no imaging studies were performed as the patient had a gallbladder ultrasound on August 27, [address] of the abdomen and pelvis on 08/29/18. These tests were remarkable for findings indicative of pancreatitis on her abdominal CT. Patient's abdominal pain improved, on 09/02/18, patient was seen and examined: On examination she appeared in good health and spirits. Vital signs as documented. Skin warm and dry and without overt rashes. Neck without JVD. Lungs clear. Heart exam notable for regular rhythm, normal sounds and absence of murmurs, rubs or gallops. Abdomen unremarkable and without evidence of organomegaly, masses, or abdominal aortic enlargement. Extremities nonedematous. Neuro: Cranial nerves II through XII are intact, no focal motor deficits were noted. Psych: Patient is alert and oriented x3, she does not appear to be anxious or depressed. On 09/02/18, patient was seen and examined and discharged home in stable condition. Etiology of the patient's pancreatitis was unknown. - Physical Exam Vital Signs Temp Pulse Resp BP Pulse Ox 97.8 F 106 H 16 142/98 H 94 09/02/18 08:15 09/02/18 08:15 09/02/18 08:15 09/02/18 08:15 09/02/18 08:15 Oxygen Delivery Method Room Air Weight: 45.359 kg Body Mass Index (BMI) 19.5 Finger Stick Blood Glucose 185 Intake and Output for Last 24 Hours 09/01/18 09/02/18 09/03/18 23:59 23:59 23:59 Intake Total 2292 / 2292 671 / 671 Output Total 1700 / 1700 400 / 400 Balance 592 / 592 271 / 271 Laboratory Tests Past 24 Hrs 08/31/18 13:13 Vitamin B12 > 2000 H Discharge Activity: Return to Normal Activity Weight Bearing Status: Full weight bearing Home Medications: Medications to take at Discharge Oxycodone [Oxyir] 10 mg PO Q6H PRN PRN 7 Days #30 tab 09/02/18 Following Prescrptions Were Given to Patient: Oxycodone [Oxyir] 10 mg PO Q6H PRN PRN 7 Days #30 tab PRN Reason: Severe Pain (-07/10) Primary Care Physician: Care Physician,No Primary [Primary Care Provider] - Please follow up with your Primary Care Physician in: in 2-3 weeks Disposition: Home Minutes spent on discharge:: 33 Patient Condition:: Stable Medical Necessity - Tobacco Use Smoking Status: Current every day smoker Meaningful Use Info Meaningful Use Diagnoses (Choose all that apply): None applicable Code Visit Inpatient E&M: 02869 Disch Hosp
--- NOTE | 2018-09-05 16:03 | CASEMGMT ---
STEPHANIE PRICE Discharge Follow-up Phone Call: TEGAN: 11 Strata: 3 Call Date: 09/05/18 Discharge Date: 09/02/18 Time of Call: 1605 Duration: 1 min Admitting Diagnosis: Pancreatitis RN ALBERT attempted to complete follow-up phone call after recent hospitalization. No answer, voice mail box full and unable to leave message.
--- OUTSIDE RECORDS SUMMARY | 2018-10-25 19:57 | XMS RPT_ITS ---
:1980 Author Organization OHIP Support Name Relationship Address Phone АНДРЕЙ PEARCE Unavailable [address] + [place] [address] [address] + [place] [address] АНДРЕЙ PEARCE Unavailable [address] + [place] [address] [address] + [place] [address] АНДРЕЙ PEARCE Unavailable [address] + [place] [address] [address] + [place] [address] АНДРЕЙ PEARCE Unavailable [address] + [place] [address] + [place] [address] АНДРЕЙ PEARCE Unavailable [address] + [place] [address] +[place] [address] АНДРЕЙ PEARCE Unavailable [address] + [place] [address] [address] Unavailable . +. [place] [address] АНДРЕЙ PEARCE Unavailable [address] + [place] [address] +[place] [address] АНДРЕЙ PEARCE Unavailable [address] + [place] [address] +[place] [address] АНДРЕЙ PEARCE Unavailable [address] + [place] [address] +[place] [address] DUNSP Unavailable [address] + [place] [address] АНДРЕЙ PEARCE Unavailable [address] + [place] [address] [address] Unavailable . +. [place] [address] Care Team Providers Name Role Phone Primay [...] Care Physicia, No Primary Care Unavailable Roberta Traroe Consulting Unavailable Kotsonis, Ottoniel F Consulting Unavailable [...] 09/03/2018 Unknown K85.90 - Acute Tereletsky, Active Foster pancreatitis [facility] without necrosis Hospital or infection, Repository unspecified / K85.90(ICD-10) PROCEDURES PROCEDURES No Procedure Records FoundRESULTS RESULTS DISCHARGE SUMMARY Observed: 09/03/2018 Status: F Source: [place] 9:15 AM [facility] REPOSITORY [facility] Medical Records Department [address] [place] [address] Discharge Summary 09/03/18 0910 MR#: [id number] Acct: [id number] Name: FAY PEARCE Rep #: [id number] : 1980 38 From: Nitin Escoto DO PCP: Care Physician, No Primary Status: DIS IN Y Location: NH3 BF687-0 Discharge Date and Diagnosis Date of Admission: [...] was seen in the emergency room at [facility] with chief complaint of abdominal pain, she had been seen earlier in the emergency room at [facility] but left AMA to take care [...] applicable Code Visit Inpatient E AND M: 78745 Disch Hosp 09/03/18 0915 <Electronically signed by Nitin Escoto DO> Date Nitin Escoto DO Cosigner Signature (if applicable): Date CC: No Primary Care Physician; Nitin Escoto DO Signed DISCHARGE INSTRUCTION Observed: 09/02/2018 Status: F Source: [place] 11:30 AM [facility] REPOSITORY [facility] Medical Records Department [address] [place] [address] Instructions for Home/Discharge Instructions 09/02/18 1129 MR#: [id number] Acct: [id number] Name: FAY PEARCE Rep #: [id number] : 1980 38 From: Nitin Escoto DO [...] 09/01/2018 Status: F Source: [place] 12:29 PM [facility] REPOSITORY [facility] Medical Records Department [address] [place] [address] Consultation 08/31/18 1903 MR#: [id number] Acct: [id number] Name: FAY PEARCE Rep #: [id number] : 1980 38 From: Roberta Traore MD PCP: Care Physician, No Primary Status: ADM IN Y Location: MS3 GD119-4 - Consult Date of Consult: 08/31/18 - [...] in the EHR. Also outpatient records in [facility] from the past note patient having drank [...] F Source: [place] PROFILE (BMP) 5:45 AM [facility] REPOSITORY TYPE CODE TESTS RESULT OUT OF [...] Performed By: #### L500.2500, L501.2300, L501.5200 #### [facility] [address] [facility]. [place], [place], [address] PHOSPHORUS Collected: 09/01/2018 Status: F Source: [place] 5:45 AM [facility] REPOSITORY TYPE CODE TESTS RESULT OUT OF RANGE REFERENCE UNITS LAB L501.2300 2.5-4.9 mg/dL Normal PHOS 3.4 Performed By: #### L500.2500, L501.2300, L501.5200 #### [facility] [address] [facility] [place], [address] MAGNESIUM Collected: 09/01/2018 Status: F Source: [place] 5:45 AM [facility] REPOSITORY TYPE CODE TESTS RESULT OUT OF RANGE REFERENCE UNITS LAB L501.5200 1.6-2.6 mg/dL Normal MG 2.2 Performed By: #### L500.2500, L501.2300, L501.5200 #### [facility] [address] [facility]. [place], [place], [address] CBC W/DIFF, AUTOMATED Collected: 09/01/2018 Status: F Source: [place] 5:45 AM [facility] REPOSITORY TYPE CODE TESTS RESULT OUT OF [...] Lymph 1.49 Performed By: #### L100.0100 #### [facility] [address] [place], [address] HISTORY AND PHYSICAL Observed: 08/31/2018 Status: F Source: [place] EXAM 7:16 PM [facility] REPOSITORY [facility] Medical Records Department [address] [place] [address] History and Physical 08/31/18 1356 MR#: [id number] Acct: [id number] Name: FAY PEARCE Rep #: [id number] : 1980 38 From: Ottoniel Morrow MD PCP: Care Physician, No Primary Status: ADM IN Y Location: [facility] [id number] Problem List (1) Hypomagnesemia Status: Acute (2) [...] - Partial Hysterectomy. 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 Smoking Status: Current every day smoker [...] NPO Code Visit Inpatient E AND M: 62918 Init Hosp L3 08/31/18 1916 <Electronically signed by Ottoniel Morrow MD> Date Ottoniel Morrow MD Cosigner Signature: Date (if applicable) CC: No Primary Care Physician; Ottoniel Morrow MD Signed EMERGENCY DEPARTMENT Observed: 08/31/2018 Status: F Source: [place] SUMMARY 4:15 PM [facility] REPOSITORY [facility] Medical Records Department [address] [place] [address] Emergency Department Summary 08/31/18 1133 MR#: [id number] Acct: [id number] Name: FAY PEARCE Rep #: [id number] : 1980 38 From: Jose Luis Calle [...] 1. Pancreatitis This note was generated with [employer] dictation software. It may contain incorrect words, [...] your Primary Care Provider. Call [facility] ([phone]) or report to the closest Emergency Room. Call 911 if necessary. 08/31/18 0513 <Electronically signed by Jose Luis Calle MD> Date Jose Luis Calle MD Cosigner Signature (If Indicated): Date CC: No Primary Care Physician VITAMIN B12 Collected: 08/31/2018 Status: F Source: [place] 1:13 PM [facility] REPOSITORY TYPE CODE TESTS RESULT OUT OF REFERENCE UNITS RANGE LAB L503.0105 211-911 pg/mL High Vitamin B12 > 2000 Performed By: #### L503.0105 #### [facility] [address] [place], [place], [address] BEDSIDE GLUCOSE Collected: 08/31/2018 Status: F Source: [place] 12:13 PM [facility] REPOSITORY TYPE CODE TESTS RESULT OUT OF REFERENCE UNITS RANGE LAB L501.080 70-110 mg/dL High BEDSIDE GLU 185 Result Comment: MANAGEMENT OF PATIENT CARE PER NURSING PROTOCOL Performed By: #### L501.080 #### [facility] Point of Care [address] [place], [place] [address] CBC W/DIFF, AUTOMATED Collected: 08/31/2018 Status: F Source: [place] 11:58 AM [facility] REPOSITORY TYPE CODE TESTS RESULT OUT OF [...] Lymph 0.86 Performed By: #### L100.0100 #### [facility] [address], [address] COMPREHENSIVE METABOLIC Collected: 08/31/2018 Status: F Source: [facility] 11:58 AM [facility] REPOSITORY TYPE CODE TESTS RESULT OUT OF [...] 8 Performed By: #### L500.4050, L501.2450 #### [facility] [address] [facility] [address] [place], [address] LIPASE Collected: 08/31/2018 Status: F Source: [place] 11:58 AM [facility] REPOSITORY TYPE CODE TESTS RESULT OUT OF REFERENCE UNITS RANGE LAB L501.2450 73-393 U/L High LIPASE 696 Performed By: #### L500.4050, L501.2450 #### [facility] [address] [facility] [place], [address] ALCOHOL, BLOOD Collected: 08/31/2018 Status: F Source: [place] (MEDICAL)-SERUM 11:58 AM [facility] REPOSITORY TYPE CODE TESTS RESULT OUT OF [...] fatal coma Performed By: #### L501.9100 #### [facility] [address] [facility] [place], [address] FOLATES, (FOLIC ACID) Collected: 08/31/2018 Status: F Source: [place] 11:58 AM [facility] REPOSITORY TYPE CODE TESTS RESULT OUT OF RANGE REFERENCE UNITS LAB L506.0250 3.1-55.4 ng/mL Normal FOLATES 15.90 Performed By: #### L506.0250 #### [facility] [address] [facility] [place], [address] URINE DRUG SCREEN Collected: 08/31/2018 Status: F Source: [place] (VISTA) 11:55 AM [facility] REPOSITORY TYPE CODE TESTS RESULT OUT OF [...] Normal NEGATIVE Performed By: #### L505.5000 #### [facility] [place], [address] CBC W/DIFF, AUTOMATED Collected: 08/30/2018 Status: F Source: [place] 5:08 AM [facility] REPOSITORY TYPE CODE TESTS RESULT OUT OF [...] Lymph 1.08 Performed By: #### L100.0100 #### [facility] [address] [place], [address] COMPREHENSIVE METABOLIC Collected: 08/30/2018 Status: F Source: [facility] 5:08 AM [facility] REPOSITORY TYPE CODE TESTS RESULT OUT OF [...] Normal 10 Performed By: #### L500.4050 #### [facility] [address] [place], [place], [address] PHOSPHORUS Collected: 08/30/2018 Status: F Source: [place] 5:08 AM [facility] REPOSITORY TYPE CODE TESTS RESULT OUT OF RANGE REFERENCE UNITS LAB L501.2300 2.5-4.9 mg/dL Normal PHOS 2.5 Performed By: #### L501.2300, L501.5200 #### [facility] [address] [place], [place], [address] MAGNESIUM Collected: 08/30/2018 Status: F Source: [place] 5:08 AM [facility] REPOSITORY TYPE CODE TESTS RESULT OUT OF RANGE REFERENCE UNITS LAB L501.5200 1.6-2.6 mg/dL Normal MG 1.6 Performed By: #### L501.2300, L501.5200 #### [facility] [address] [place], [address] ABDOMEN/PELVIS WITH Observed: 08/29/2018 Status: F Source: [place] CONTRAST 9:33 AM [facility] REPOSITORY [facility] Imaging Services [address] [place] [address] Abdomen/Pelvis WITH Contrast MR#: [id number] Acct: [id number] Name: FAY PEARCE Rep #: [id number] : 1980 F 38 From: Parker Paz MD PCP: Care Physician, No Primary Status: ADM IN Study: Abdomen/Pelvis WITH Contrast Date of Exam: 08/29/18 Exam# [id number] Ordering Dr: Ottoniel Morrow MD STUDY: CT [...] Parker Paz MD at 12:51 EST Tel [phone], Service support , CC: No Primary Care Physician; Ottoniel Morrow MD Residential Driver: Signed BEDSIDE GLUCOSE Collected: 08/29/2018 Status: F Source: [place] 8:36 AM [facility] REPOSITORY TYPE CODE TESTS RESULT OUT OF REFERENCE UNITS RANGE LAB L501.080 70-110 mg/dL High BEDSIDE GLU 143 Result Comment: MANAGEMENT OF PATIENT CARE PER NURSING PROTOCOL Performed By: #### L501.080 #### [facility] Point of Care [address] [place] [address] BASIC METABOLIC Collected: 08/29/2018 Status: F Source: [place] PROFILE (BMP) 5:32 AM [facility] REPOSITORY TYPE CODE TESTS RESULT OUT OF [...] Performed By: #### L500.2500, L501.2300, L501.5200 #### [facility] [address] [place], [place], [address] PHOSPHORUS Collected: 08/29/2018 Status: F Source: [place] 5:32 AM [facility] REPOSITORY TYPE CODE TESTS RESULT OUT OF RANGE REFERENCE UNITS LAB L501.2300 2.5-4.9 mg/dL Low PHOS 2.2 Performed By: #### L500.2500, L501.2300, L501.5200 #### [facility] [address] [place], [place], [address] MAGNESIUM Collected: 08/29/2018 Status: F Source: [place] 5:32 AM [facility] REPOSITORY TYPE CODE TESTS RESULT OUT OF RANGE REFERENCE UNITS LAB L501.5200 1.6-2.6 mg/dL Normal MG 2.0 Result Comment: Slight Hemolysis, Result may be falsely increased. Performed By: #### L500.2500, L501.2300, L501.5200 #### [facility] [address] [facility] [address] [place], [place], [address] CBC W/DIFF, AUTOMATED Collected: 08/29/2018 Status: F Source: [place] 5:32 AM [facility] REPOSITORY TYPE CODE TESTS RESULT OUT OF [...] Lymph 1.40 Performed By: #### L100.0100 #### [facility] [address] [place] [address]. [place], [address] CBC W/DIFF, AUTOMATED Collected: 08/28/2018 Status: F Source: [place] 5:26 AM [facility] REPOSITORY TYPE CODE TESTS RESULT OUT OF [...] Lymph 1.72 Performed By: #### L100.0100 #### [facility] [address] [place], [place], [address] BASIC METABOLIC Collected: 08/28/2018 Status: F Source: [place] PROFILE ([facility]) 5:26 AM [facility] REPOSITORY TYPE CODE TESTS RESULT OUT OF [...] 8 Performed By: #### L500.2500, L500.4100 #### [facility] [address] [facility] [place], [place], [address] LIPID PROFILE Collected: 08/28/2018 Status: F Source: [place] 5:26 AM [facility] REPOSITORY TYPE CODE TESTS RESULT OUT OF [...] 19 Performed By: #### L500.2500, L500.4100 #### [facility] [address] [facility] [place], [place], [address] PHOSPHORUS Collected: 08/28/2018 Status: F Source: [place] 5:26 AM [facility] REPOSITORY TYPE CODE TESTS RESULT OUT OF RANGE REFERENCE UNITS LAB L501.2300 2.5-4.9 mg/dL Low PHOS 1.8 Performed By: #### L501.2300, L501.5200 #### [facility] [address] [place] [place], [address] MAGNESIUM Collected: 08/28/2018 Status: F Source: [place] 5:26 AM [facility] REPOSITORY TYPE CODE TESTS RESULT OUT OF RANGE REFERENCE UNITS LAB L501.5200 1.6-2.6 mg/dL Normal MG 1.6 Performed By: #### L501.2300, L501.5200 #### [facility] [address] [facility] [place], [address] HISTORY AND PHYSICAL Observed: 08/27/2018 Status: F Source: [place] EXAM 4:00 PM [facility] REPOSITORY [facility] Medical Records Department [address] [facility] [place] [address] History and Physical 08/27/18 1549 MR#: [id number] Acct: [id number] Name: FAY PEARCE Rep #: [id number] : 1980 38 From: Ottoniel Morrow MD PCP: Care Physician, No Primary Status: ADM IN Y Location: [address] Problem List (1) Tobacco use Status: [...] - Partial Hysterectomy. 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 Smoking Status: Current every day smoker [...] NPO Code Visit Inpatient E AND M: 19311 Init Hosp L3 08/27/18 1600 <Electronically signed by Ottoniel Morrow MD> Date Ottoniel Morrow MD Cosigner Signature: Date (if applicable) CC: No Primary Care Physician; Ottoniel Morrow MD Signed GALLBLADDER Observed: 08/27/2018 Status: F Source: [place] 3:22 PM [facility] REPOSITORY [facility] Imaging Services [address] [place] [address] Gallbladder MR#: [id number] Acct: [id number] Name: FAY PEARCE Rep #: [id number] : 1980 F 38 From: Vikas Hutchinson DO PCP: Care Physician, No Primary Status: ADM IN Study: Gallbladder Date of Exam: 08/27/18 Exam# [id number] Ordering Dr: Ottoniel Morrow MD STUDY: ABDOMINAL [...] Vikas Hutchinson DO at 23:13 EST Tel [phone], Service support , CC: No Primary Care Physician; Ottoniel Morrow MD Residential Driver: Signed EMERGENCY DEPARTMENT Observed: 08/27/2018 Status: F Source: [place] SUMMARY 10:19 AM [facility] REPOSITORY [facility] Medical Records Department [address] [place] [address] Emergency Department Summary 08/27/18 1014 MR#: [id number] Acct: [id number] Name: FAY PEARCE Rep #: [id number] : 1980 38 From: Shiv Candelario MD [...] her significant other stated she took multiple trcy-dgp-elitqgx medications. Uncertain whether she took aspirin Tylenol [...] on monitor This note was generated with [employer] dictation software. It may contain incorrect words, [...] your Primary Care Provider. Call [facility] ([phone]) or report to the closest Emergency Room. Call 911 if necessary. 08/27/18 1019 <Electronically signed by Shiv Candelario MD> Date Shiv Candelario MD Cosigner Signature (If Indicated): Date CC: No Primary Care Physician CBC W/DIFF, AUTOMATED Collected: 08/27/2018 Status: F Source: [place] 8:15 AM [facility] REPOSITORY TYPE CODE TESTS RESULT OUT OF [...] Lymph 1.42 Performed By: #### L100.0100 #### [facility] [address] [facility] [place], [address] ACETAMINOPHEN (TYLENOL) Collected: 08/27/2018 Status: F Source: [place] LEVEL 8:15 AM [facility] REPOSITORY TYPE CODE TESTS RESULT OUT OF REFERENCE UNITS RANGE LAB L501.8400 10.0-30.0 ug/mL ACETAMINOPHEN Low < 2.0 Performed By: #### L501.8400 #### [facility] [address] [place], [place], [address] COMPREHENSIVE METABOLIC Collected: 08/27/2018 Status: F Source: [place] PROFIL 8:15 AM [facility] REPOSITORY TYPE CODE TESTS RESULT OUT OF [...] 10 Performed By: #### L500.4050, L501.2450 #### [facility] [address] [place], [address] LIPASE Collected: 08/27/2018 Status: F Source: [place] 8:15 AM [facility] REPOSITORY TYPE CODE TESTS RESULT OUT OF REFERENCE UNITS RANGE LAB L501.2450 73-393 U/L High LIPASE 6025 Performed By: #### L500.4050, L501.2450 #### [facility] [address] [place], [address] SALICYLATE Collected: 08/27/2018 Status: F Source: [place] 8:15 AM [facility] REPOSITORY TYPE CODE TESTS RESULT OUT OF REFERENCE UNITS RANGE LAB L501.8300 2.8-20.0 mg/dL Low SALICYLATE < 1.7 Performed By: #### L501.8300 #### [facility] [place], [address] LACTIC ACID Collected: 08/27/2018 Status: F Source: [place] 8:15 AM [facility] REPOSITORY Order Comment: Yes/No query for Sepsis Lactate Rule Y TYPE CODE TESTS RESULT OUT OF RANGE REFERENCE UNITS LAB L503.6005 0.4-2.0 mmol/L Normal LACTIC ACID 1.2 Performed By: #### L503.6005 #### [facility] [address] [place], [address] PROTHROMBIN TIME W/INR Collected: 08/27/2018 Status: F Source: [place] 8:15 AM [facility] REPOSITORY TYPE CODE TESTS RESULT OUT OF RANGE REFERENCE UNITS LAB L300.4150 11.7-14.9 SECONDS Normal PROTIME 14.8 LAB L300.4200 Normal INR 1.2 Performed By: #### L300.3900, L300.4310 #### [facility] [address] [place], [address] PARTIAL THROMBOPLAST Collected: 08/27/2018 Status: F Source: [place] TIME 8:15 AM [facility] REPOSITORY TYPE CODE TESTS RESULT OUT OF RANGE REFERENCE UNITS LAB L300.4310 24.1-36.2 Seconds Normal PTT 26.4 Performed By: #### L300.3900, L300.4310 #### [facility] [address] [place] [place], [address] ,SERUM,HCG QUALI. Collected: Status: F Source: [place] 08/27/2018 8:15 AM [facility] REPOSITORY TYPE CODE TESTS RESULT OUT OF REFERENCE UNITS RANGE LAB L700.6700 =>Qualitative mIU/mL Normal HCG Qual < 1 triggr LAB L700.7000 0-9 Nonpreg Negative Normal HCGSQUAL NEGATIVE Performed By: #### L700.6800 #### [facility] [address] [facility] [place], [address] ACUTE ABDOMEN INC Observed: 08/27/2018 Status: F Source: [place] CHEST 8:10 AM [facility] REPOSITORY [facility] Imaging Services [address] [place] [address] Acute Abdomen Inc Chest MR#: [id number] Acct: [id number] Name: FAY PEARCE Rep #: [id number] : 1980 F 38 From: Parker Paz MD PCP: Care Physician, No Primary Status: REG ER Study: Acute Abdomen Inc Chest Date of Exam: 08/27/18 Exam# [id number] Ordering Dr: Shiv Candelario MD STUDY: X-RAY [...] Parker Paz MD at 10:12 EST Tel [phone], Service support , CC: No Primary Care Physician; Shiv Candelario MD Residential Driver: Signed EMERGENCY DEPARTMENT Observed: 01/02/2018 Status: F Source: [place] SUMMARY 4:27 PM [facility] REPOSITORY [facility] Medical Records Department [address] [place] [address] Emergency Department Summary 01/02/18 1552 MR#: [id number] Acct: [id number] Name: FAY YOUNG Rep #: [id number] : 1980 37 From: Arron King MD [...] 1. Influenza This note was generated with [employer] dictation software. It may contain incorrect words, [...] your Primary Care Provider. Call [facility] ([phone]) or report to the closest Emergency Room. Call 911 if necessary. 01/02/18 1627 <Electronically signed by Arron King MD> Date Arron King MD Cosigner Signature (If Indicated): Date CC: No Primary Care Physician Observed: 01/02/2018 Status: F Source: [place] INFLUENZA A+B (RAPID 2:25 PM [facility] YISEL) REPOSITORY Has pt arrived? Y FLU A/B Rapid Negative test results should be confirmed by culture. Order Rapid Viral Culture for Influenzae A+B ([id number]) if clinically indicated. Influenza Ag, Direct Presumptive NEGATIVE for Influenza A/B Antigen (See Note) Performed By: #### M101.0101 #### [facility] [address] [facility] [place], [address] CHEST PA AND LATERAL Observed: 01/02/2018 Status: F Source: [place] 2:15 PM [facility] REPOSITORY [facility] Imaging Services [address] [place] [address] Chest PA and Lateral MR#: [id number] Acct: [id number] Name: FAY YOUNG Rep #: [id number] : 1980 F 37 From: Emi Mendoza MD PCP: Care Physician, No Primary Status: REG ER Study: Chest PA and Lateral Date of Exam: 01/02/18 Exam# [id number] Ordering Dr: Arron King MD STUDY: X-RAY [...] CC: No Primary Care Physician; Arron King Residential Driver: Signed ALLERGIES ALLERGIES DATE TYPE / CODE NAME / CODE REACTION SEVERITY SOURCE 08/27/2018 Drug No Known Unknown [facility] Allergy/4160 Allergies/F00 Hospital 67012(SNOMED [id number](RXNOR Repository CT) M) ENCOUNTERS ENCOUNTERS ADMIT/DISCHARGE ACCOUNT ADMITTING ENCOUNTER LOCATION SOURCE NUMBER CLASS 08/31/2018/ [id number] Odalys, Inpatient [place] 8 5 Ottoniel Fabian Encounter [facility] ing:ZT1Uxbf: Repository IB268Ehj: 1 08/31/2018 [id number] Odalys, Ambulatory BMSBuilding:B [place] 8 Ottoniel Fabian [place] Repository 08/31/2018 [id number] Fernandos, Ambulatory BMSBuilding:B [place] 4 Ottoniel Fabian MS.[facility] Repository 08/31/2018 [id number] Fernandos, Ambulatory BMSBuilding:B [place] 4 Ottoniel Fabian [place].[facility] Repository 08/27/2018/ [id number] Ranjittsbuddys, Inpatient [place] 8 1 Ottoniel Rui Encounter [facility] ing:YS1Qirp: Repository RE262Ddi: 1 08/27/2018 [id number] Odalys, Ambulatory BMSBuilding:B [place] 1 Ottoniel Fabian MS.[facility] Repository 08/27/2018 [id number] Fernandos, Ambulatory BMSBuilding:B [place] 1 Ottoniel Fabian MS.[facility] Repository 08/27/2018 [id number] Ranjittsonis, Ambulatory BMSBuilding:B [place] 0 Ottoniel Fabian MS.[facility] Repository 08/27/2018 [id number] Kotsonis, Ambulatory BMSBuilding:B [place] 6 Ottoniel Fabian MS.[facility] Repository 01/02/2018/ [id number] Emergency [place] 8 9 [facility] ing:ED Repository PAYERS PAYERS ENCOUNTER GUARANTOR PAYER SUBSCRIBER SOURCE 08/31/2018 FAY A Primary FAY A [place] [id number] Insurance:[facility]: [facility] Number: [id number] [id number] Repository 56898Rcy: ([phone]) Date:2018-08-31P O [phone] () [address]ATTN: [place] [address]CK: 08/31/2018 Secondary NOT GIVENUNK Foster Insurance:SELF PAY [facility] Number: Effective Repository Date:2018-08-31 08/31/2018 FAY A Primary FAY A Foster [id number] Insurance:[facility]: [facility] Number: [id number], [place] [id number] Repository 22578Gng: (330) Date:2018-08-31P O [phone] () [address]ATTN: [place] [address]SI: 08/31/2018 Secondary NOT GIVENUNK Yudy Insurance:SELF PAY [facility] Number: Effective Repository Date:2018-08-31 08/31/2018 FAY A Primary FAY A Foster [id number] Insurance:[facility]: [facility] Number: [id number], [place] [id number] Repository [address]Acc: ([phone]) Date:2018-08-31P O [phone] () [address]ATTN: [place] [address]TC: 08/31/2018 Secondary NOT GIVENUNK Foster Insurance:SELF PAY [facility] Number: Effective Repository Date:2018-08-31 08/31/2018 FAY A Primary FAY A Foster [id number] [facility] Number: [id number], [place] [id number] Repository 40[address]Gyg: ([phone]) Date:2018-08-31 O [phone] () [address]ATTN: [place] [address]SY: 08/31/2018 Secondary NOT GIVENUNK Foster Insurance:SELF PAY [facility] Number: Effective Repository Date:2018-08-31 08/27/2018 FAY A Primary FAY A Foster [id number] [facility] Number: [id number], [place] [id number] Repository [address]Iyn: ([phone]) Date:2018-08-27P O [phone] (HP) [address]ATTN: [place] [address]RM: 08/27/2018 Secondary NOT GIVENUNK Yudy Insurance:SELF PAY [facility] Number: Effective Repository Date:2018-08-27 08/27/2018 FYA A Primary FAY A Yudy [id number] Insurance[place] [place] Number: [id number], [place] [id number] Repository [address]Mvu: ([phone]) Date:2018-08-27P O [phone] () [address]ATTN: [place] [address]YN: 08/27/2018 Secondary NOT GIVENUNK Yudy Insurance:SELF PAY [facility] Number: Effective Repository Date:2018-08-27 08/27/2018 FAY A Primary FAY A Yudy [id number] Insurance[facility] Number: [id number], [place] [id number] Repository [address]Xoy: ([phone]) Date:2018-08-27P O [phone] (HP) [address]N: [place] [address]EL: 08/27/2018 Secondary NOT GIVENUNK Foster Insurance:SELF PAY [facility] Number: Effective Repository Date:2018-08-27 08/27/2018 FAY A Primary FAY A Yudy [id number] [facility] Number: [id number], [place] [id number] Repository 38[address]Mml: (330) Date:2018-08-27P O [phone] (HP) [address]ATTN: [place] [address]SK: 08/27/2018 Secondary NOT GIVENUNK Foster Insurance:SELF PAY [facility] Number: Effective Repository Date:2018-08-27 08/27/2018 FAY A Primary FAY A Yudy [id number] Insurance:[facility]: [facility] Number: [id number], [place] [id number] Repository [address]Uta: ([phone]) Date:2018-08-27P O [phone] (HP) [address]ATTN: [place] [address]XU: 08/27/2018 Secondary NOT GIVENUNK Yudy Insurance:SELF PAY [facility] Number: Effective Repository Date:2018-08-27 01/02/2018 FAY A Primary FAY A Yudy [id number] Insurance[facility] Number: [id number] [place] [id number] Repository [address]Kbj: ([phone]) Date:2018-01-02P O [phone] (HP) [address]ATTN: [place] [address]TU: 01/02/2018 Secondary NOT GIVENUNK Foster Insurance:SELF PAY [facility]: Effective Repository Date:2018-01-02
== END 2018-09-02 12:27 | disposition home or self-care (01) | DRG 282 ==
LOC: ED 11:56 → MS3 12:47
PROVIDERS: Admitting Provider Family Medicine; Emergency Provider Emergency Medicine; Visit Provider Internal Medicine
DX: K85.90 Acute pancreatitis without necrosis or infection, unspecified (principal); E87.6 Hypokalemia; F32.9 Major depressive disorder, single episode, unspecified; F41.9 Anxiety disorder, unspecified; F10.10 Alcohol abuse, uncomplicated; K76.0 Fatty (change of) liver, not elsewhere classified; R16.0 Hepatomegaly, not elsewhere classified; F12.90 Cannabis use, unspecified, uncomplicated; F17.210 Nicotine dependence, cigarettes, uncomplicated; R00.1 Bradycardia, unspecified
CPT/HCPCS: 36415; 74022; 74177; 76705; 80048; 80053; 80061; 80307; 80320; 80329; 82607; 82746; 82962; 83605; 83690; 83735; 84100; 84703; 85025; 85610; 85730; 99218; 99284; 99285; 99406; J7030; J7040; J7050; Q9967; A4216; G0378; G0480; J2405; J3490

== ENCOUNTER 2019-01-26 16:27 | Emergency (ER) | payer MEDICAID, SELFPAY ==
[2018-08-31 13:14] VITALS: BMI 19.5
[2019-01-26 16:28] VITALS: BP 114/80; PULSE 70; RESP 18; TEMP 36.5; O2SAT 100; BMI 17.8
--- NOTE | 2019-01-26 16:51 | ED.VIS.GEN ---
History of Present Illness Chief Complaint: Back Informant: Patient Onset: Today Context: Sudden Onset Timing: Continuous Quality: Pain Location: lower dorsal upper lumbar Current Severity: Moderate Maximum Severity: Severe Worsened by: Bending, twisting and lifting Relieved by: Nothing Associated Symptoms: Patient reports dysuria Narrative: Patient is a 38-year-old woman who presents with abrupt onset of back pain as she was loading her vehicle. She states she was getting supplies for child's birthday. She reports dysuria prior to presentation when she urinated. She denies history of back problems. Denies history of PE or DVT. She denies leg pain, swelling discoloration. She denies any other symptoms. Prior similar symptoms: No Recent Illness/Hospitalization: No - Past Medical History (1) Acute alcoholic hepatitis Status: Acute (2) Alcohol abuse Status: Chronic (3) Anxiety and depression Status: Chronic (4) Hepatic steatosis Status: Chronic (5) Tobacco use Status: Chronic Past Medical History - Allergies and Home Meds Allergies/Adverse Reactions: Allergies No Known Allergies Allergy (Verified 01/26/19 17:16) Primary Care Physician: Care Physician,No Primary [NON-STAFF] - Prior records reviewed: Yes Surgical History: noncontributory, - - Partial Hysterectomy. Lives: Spouse/ Significant Other, With Family Smoking Status: Current every day smoker Alcohol: Rare - Family History Maternal Family History: Reports: No pertinent history Paternal Family History: Reports: No pertinent history Review of Systems General: Denies: Chills, Fever, Subjective Cardiovascular: Denies: Chest pain, Palpitations, Heart racing Respiratory: Denies: Dyspnea, Cough, Dyspnea on exertion Gastrointestinal: Denies: Abdominal pain, Nausea, Vomiting Genitourinary: Reports: Dysuria. Denies: Hematuria, Frequency Musculoskeletal: Reports: Back pain. Denies: Myalgias, Arthralgias, Neck pain, Swelling, Extremity Pain, -, - Skin: Denies: Rash, Wounds Neurological: Denies: Headache, Weakness, Parasthesia, Numbness, -, - Allergy: Denies: Uticaria, Swelling of the mouth Physical Exam Vital Signs/Narrative: Vital Signs Temp Pulse Resp BP Pulse Ox 01/26/19 16:28 97.7 F L 70 18 114/80 100 Inital Vital Signs reviewed: Yes General: Well nourished, Well developed, No Acute Distress Head: Normocephalic, Atraumatic Eyes: Perrl, EOMI. Negative for: Pale conjunctiva, Scleral icterus ENT: Negative for: Moist mucous membranes, No rhinorrhea, TM's clear Cardiovascular: Regular rate, Regular rhythm, No murmurs, Normal S1, Normal S2 Respiratory: No distress, CTA bilaterally, Chest nontender Abdomen: Soft, Nontender, Nondistended, Normal bowel sounds, No masses Back: Normal Inspection, - - Bilateral dorsal and lumbar pain to palpation. Straight leg test is negative bilaterally. She complains of severe pain with 5 to 10 degrees of elevation without radicular pain. Having her twist to the left or right or flex causes her significant pain.. Negative for: CVA tenderness Extremities: Nontender, No edema, - - There is no asymmetry, swelling, discoloration, leg vein distention, palpable cords or tenderness along the distribution of the deep venous system. Skin: Normal color, No rash. Negative for: Diaphoresis, Jaundice Neurological: Alert, Oriented x3, Cranial nerves II-XII grossly intact, Normal Strength, Normal Sensation, Normal DTR - Patella and ankle reflex are 2+., - - EHL is intact bilaterally. Dorsi and plantar flexion is 5/5. Psychological: Normal affect, Normal Mood Diagnostic/Tx/Re-eval Laboratory Results 01/26/19 17:18 Urine Color Yellow Urine Clarity Clear Urine pH 6.5 Ur Specific [place] 1.010 Urine Protein Negative Urine Glucose (UA) Normal Urine Ketones Negative Urine Occult Blood Negative Urine Nitrite Negative Urine Bilirubin Negative Urine Urobilinogen Normal Ur Leukocyte Esterase Negative Urine RBC 0 SEEN Urine WBC 0 SEEN Ur Squamous Epith Cells 0 SEEN Urine Bacteria 0 SEEN Urine Mucus 0 SEEN - Medical Decision Making Recent with acute muscular bilateral back pain. Will medicate with IV Toradol and reevaluate. Patient reports improvement after medication. She states she feels loopy. She feels comfortable going home with pain medicine. With history of alcohol abuse and substance abuse opiate analgesia was not prescribed. ED Disposition - Plan for ED Patient: Disposition: Home or Assisted Living Diagnosis: Bilateral thoracic back pain Instructions: ED Neck Back Pain General Prescriptions: Naproxen [Naprosyn] 500 mg PO BID #14 tablet Referrals: Care Physician,No Primary [NON-STAFF] - Additional Instructions: Your prescription was electronically transmitted to your designated pharmacy of choice.
[2019-01-26] MEDS: Ondansetron 4 MG/2 ML Vial IV (17:14)
[2019-01-26] MEDS: Ketorolac 15 MG/ML Vial IV (17:14)
[2019-01-26] MEDS: Morphine 4 MG/ML Syringe IV (17:14)
[2019-01-26 17:21] LABS: Bacteria 0 SEEN /hpf (None Seen); Mucous, Urine 0 SEEN /hpf (<or=2+); Red Blood Cells-Urine 0 SEEN /hpf (0-5); Squamous Epithelial Cells - UA 0 SEEN /hpf (5-10); White Blood Cells 0 SEEN /hpf (0-5)
[2019-01-26 17:27] LABS: Color, Urine Yellow (Yellow); Glucose, Dipstick Normal (Normal); Ketone-Dipstick Negative (Negative); Leukocyte Esterase-Dipstick Negative /ul (Negative); Nitrite-Dipstick Negative (Negative); Occult Blood-Urine Negative /ul (Negative); Protein-Dipstick Negative (Negative); Urine Bilirubin Dipstick Negative (Negative); Urine Clarity Clear (Clear); Urine Urobilinogen Normal (Normal); Urine pH 6.5 (5.0 - 8.0)
[2019-01-26 18:33] VITALS: BP 142/67; PULSE 71; RESP 15; O2SAT 98
== END 2019-01-26 18:35 | disposition home or self-care (01) ==
PROVIDERS: Emergency Provider Emergency Medicine; Family Provider Family Medicine; PCP Family Medicine
DX: M54.6 Pain in thoracic spine (principal); F17.200 Nicotine dependence, unspecified, uncomplicated
CPT/HCPCS: 81001; 96374; 96375; 99283; A4216; J2405

== ENCOUNTER 2019-07-15 23:44 | Emergency (ER) | payer MEDICAID, SELFPAY ==
[2019-07-15 23:45] VITALS: BP 114/79; PULSE 65; RESP 16; TEMP 37.2; O2SAT 100; BMI 17.4
--- NOTE | 2019-07-16 | ED.DCSUM_ITS ---
History of Present Illness Chief Complaint: Abd Pain Informant: Patient Onset: Days - 2 days Current Severity: Moderate Maximum Severity: Moderate Narrative: Patient presents with generalized abdominal pain, nausea, vomiting, and diarrhea over the past 2 days. She states she had a temperature of 102. She does report is been drinking a lot of wine recently. She is a history of alcohol abuse and pancreatitis. She states her abdominal pain does not feel consistent with her prior pancreatitis episodes. She has had partial hysterectomy in the past. Past Medical History - Allergies and Home Meds Allergies/Adverse Reactions: Allergies No Known Allergies Allergy (Verified 07/15/19 23:50) Primary Care Physician: Jonah Leroy MD [Primary Care Provider] - Prior records reviewed: Yes Past Medical History: - - Reviewed Surgical History: noncontributory, - - Partial Hysterectomy. Lives: Spouse/ Significant Other Smoking Status: Current every day smoker Alcohol: Heavy - Family History Maternal Family History: Reports: No pertinent history Paternal Family History: Reports: No pertinent history Review of Systems General: Reports: Fever. Denies: Chills Eyes: Denies: Visual changes - bilaterally ENT: Denies: Bilateral ear pain Cardiovascular: Denies: Chest pain Respiratory: Denies: Dyspnea Gastrointestinal: Reports: Abdominal pain, Nausea, Vomiting, Diarrhea Genitourinary: Denies: Dysuria Musculoskeletal: Denies: Extremity Pain Skin: Denies: Rash Neurological: Denies: Headache Physical Exam Vital Signs/Narrative: Vital Signs Temp Pulse Resp BP Pulse Ox 07/15/19 23:45 98.9 F 65 16 114/79 100 Inital Vital Signs reviewed: Yes General: Well nourished, Well developed Head: Normocephalic ENT: Moist mucous membranes Cardiovascular: Regular rate, Regular rhythm Respiratory: No distress, CTA bilaterally Abdomen: Soft, Tender - Mild diffuse tenderness palpation., Hypoactive bowel sounds. Negative for: Guarding, Rebound tenderness Extremities: Nontender Skin: Normal color Neurological: Alert, Oriented x3 Psychological: Normal affect Diagnostic/Tx/Re-eval Laboratory Results 07/16/19 07/16/19 00:18 00:18 WBC 10.7 RBC 3.85 L Hgb 14.2 Hct 40.9 MCV 106.2 H MCH 36.9 H MCHC 34.7 RDW Std Deviation 53.5 H RDW Coeff of Jose Guadalupe 13.6 Plt Count 297 MPV 10.2 Immature Gran % (Auto) 0.400 Neut % (Auto) 60.6 Lymph % (Auto) 30.5 Wallace % (Auto) 6.2 Eos % (Auto) 1.9 Baso % (Auto) 0.4 Absolute Neuts (auto) 6.5 Absolute Lymphs (auto) 3.25 Nucleated RBC % 0 Sodium 141 Potassium 4.7 Chloride 108 H Carbon Dioxide 26.0 Anion Gap 7 BUN 4 L Creatinine 0.73 Estim Creat Clear Calc 66.97 Est GFR (MDRD) Af Amer 115 Est GFR (MDRD) Non-Af 95 BUN/Creatinine Ratio 5.5 L Glucose 89 Calcium 8.8 Total Bilirubin 0.40 Direct Bilirubin 0.07 AST 32 ALT 17 Alkaline Phosphatase 113 Total Protein 7.8 Albumin 3.9 Globulin 3.9 Lipase 49 L - Medical Decision Making Patient was given IV fluids along with morphine and Zofran. On repeat evaluation she is resting comfortably. Repeat abdominal examination reveals mild tenderness with no guarding or rebound. I advised her that her pain could be secondary to her recent alcohol consumption or secondary to a gastro-bug. There is no evidence of acute pancreatitis. She will be treated with Bentyl and Zofran at home. ED Disposition - Plan for ED Patient: Disposition: Home or Assisted Living Diagnosis: Gastroenteritis Instructions: GASTROENTERITIS, Viral (7y-Adult) Prescriptions: Dicyclomine HCl [Bentyl] 10 mg PO TIDAC PRN #20 capsule PRN Reason: Pain Score 1-10/10 Ondansetron [Zofran Odt] 4 mg PO Q8H PRN PRN #10 tablet PRN Reason: Nausea Referrals: Jonah Leroy MD [Primary Care Provider] - 3-5 Days if not improving
[2019-07-16] MEDS: Ondansetron 4 MG/2 ML Vial IV (00:17)
[2019-07-16 00:28] LABS: Absolute Lymphocyte Count 3.25 X10^3/uL (0.83-4.51); Absolute Neutrophil Count 6.5 X10^3/uL (2.0-7.7); Basophil# 0.04 X10^3/uL; Basophil% 0.4 % (0-1); Eosinophils% 1.9 % (0-5); Hematocrit 40.9 % (37-47); Hemoglobin 14.2 g/dL (12.0-15.0); Lymphocyte # 3.25 X10^3/ul (4.0); Lymphocyte % 30.5 % (19-41); Mean Corp Hgb Conc 34.7 g/dL (32-36); Mean Corpuscular Hgb 36.9 pg (27.0-32.0); Mean Corpuscular Volume 106.2 fL (81-99); Mean Platelet Vol. 10.2 fl (6.2-12.0); Monocyte# 0.66 X10^3/uL; Monocyte% 6.2 % (0-10); NRBC Flagged by Analyzer 0 % (0-5); Neutrophil # 6.47 X10^3/uL (2.7-7.7); Neutrophil % 60.6 % (47-70); Platelet Count 297 K/mm3 (150-450); RBC Distribution Width CV 13.6 % (11.6-14.6); RBC Distribution Width SD 53.5 fl (35.1-43.9); Red Blood Count 3.85 M/mm3 (4.2-5.4); White Blood Count 10.7 K/mm3 (4.4-11.0)
[2019-07-16] MEDS: Morphine 4 MG/ML Syringe IV (00:43)
[2019-07-16] MEDS: 0.9% Normal Saline 1,000 ML 75 ML IV (00:44)
[2019-07-16 00:47] LABS: AST(SGOT) 32 U/L (15-37); Alanine Aminotransfer ALT/SGPT 17 U/L (13-56); Albumin, Serum 3.9 g/dL (3.2-5.0); Alkaline Phosphatase 113 U/L (45-117); Anion Gap 7 (5-15); BUN 4 mg/dL (7-18); BUN/Creat Ratio 5.5 RATIO (10-20); Bilirubin, Direct 0.07 mg/dL (0.00-0.30); Calcium,Total 8.8 mg/dL (8.5-10.1); Chloride 108 mmol/L (98-107); Creatinine, Serum 0.73 mg/dL (0.55-1.02); EST Glomerular Filtration Rate 95 mL/min (>60); Est Glom Filt Rate - Afr Amer 115 mL/min (>60); Estimated Creatinine Clearance 66.97 ml/min; Globulin 3.9 g/dL (2.2-4.2); Glucose 89 mg/dL (74-106); Lipase 49 U/L (73-393); Potassium 4.7 mmol/L (3.5-5.1); Protein, Total 7.8 g/dL (6.4-8.2); Sodium Level 141 mmol/L (136-145)
[2019-07-16 01:21] VITALS: BP 103/67; PULSE 74; RESP 16; O2SAT 98
== END 2019-07-16 01:26 | disposition home or self-care (01) ==
PROVIDERS: Emergency Provider Emergency Medicine; Family Provider Family Medicine; PCP Family Medicine
DX: K52.9 Noninfective gastroenteritis and colitis, unspecified (principal); F17.200 Nicotine dependence, unspecified, uncomplicated
CPT/HCPCS: 80048; 80076; 83690; 85025; 96361; 96374; 96375; 99284; J7030; A4216; J2405

== ENCOUNTER 2019-10-09 20:23 | Inpatient (IN) | payer MEDICAID, SELFPAY ==
[2019-10-09 20:24] VITALS: BP 105/71; PULSE 111; RESP 18; TEMP 36.6; O2SAT 97; BMI 17.6
--- NOTE | 2019-10-09 20:57 | CT_ITS ---
STUDY: CT ABDOMEN AND PELVIS WITH CONTRAST REASON FOR EXAM: Female, 39 years old. RIGHT SIDE ABDOMINAL PAIN RADIATES INTO BACK. VOMITING AND DECREASED APPETITE -- Hx: alcoholic HEPATITIS AND PANCREATITIS -- Surgery: X 2 ,PARTIAL HYSTERECTOMY RADIATION DOSAGE (If Supplied By Facility): CTDIvol = ( 10.64 ) mGy, DLP = ( 213.34 ) mGycm TECHNIQUE: Transaxial images were obtained from the dome of the diaphragm to the symphysis pubis without oral contrast. IV 100mL Isovue-300 was administered. Sagittal and coronal images were reconstructed. Individualized dose optimization techniques were used for this CT. COMPARISON: August 29, 2018 FINDINGS: The visualized lung bases are unremarkable. The visualized portions of the heart are within normal limits. There is a stable too small to characterize low-attenuation focus within the right hepatic lobe. Normal gallbladder and extrahepatic biliary system. Normal spleen. There is peripancreatic fluid adjacent to the pancreatic tail. There is associated fluid within the left paracolic gutter. Normal bilateral adrenal glands. Normal right kidney. Normal left kidney. Normal visualized stomach. Normal small intestine. The colon is incompletely distended. There is circumferential wall thickening of the colon. The appendix is visualized and appears normal. There are peripheral calcifications of the abdominal aorta. Normal inferior vena cava. Normal retroperitoneum. Normal urinary bladder. Normal abdominal wall. Normal osseous structures. CT/Abdomen/Pelvis W IV Cont ONLY IMPRESSION: Circumferential wall thickening of the colon, this may be secondary to its incompletely distended state however cannot exclude underlying colitis. Stranding adjacent to the tail of the pancreas, cannot exclude focal pancreatitis. Atherosclerosis. Electronically Signed: Emi Mendoza MD at 22:22 EST Tel , Service support ,
--- NOTE | 2019-10-09 20:58 | ED.DCSUM_ITS ---
History of Present Illness Chief Complaint: Abd Pain Informant: Patient - Abdominal Pain/Flank Pain Onset: Days - 5 Context: Gradual Onset Timing: Continuous, Waxes and wanes Location: Right Flank Current Severity: Severe Maximum Severity: Severe Worsened by: Nothing Relieved by: Nothing - Nausea/Vomiting/Emesis GI Symptom: Nausea, Vomiting Onset: Weeks - 1 Quality: Nonbilious. Negative for: Blood streaks, Coffee ground, Hematemesis Severity: Severe - Diarrhea/Melena/Hematochezia GI Symptom: - - Small amounts of stool. Negative for: Melena, Hematochezia Onset: Weeks - 1 Associated Symptoms: - - Decreased urine output. Negative for: Dysuria, Frequency, Hematuria, Urgency Narrative: Patient states for about a week she has had vomiting, occasional fevers up to 102, cough, sore throat, now she is hoarse of voice. She was seen at urgent care on 5 days ago, at that time she had some mild right flank/right upper quadrant pain, it slowly worsened and got severe yesterday and today. It seems colicky. She has no history of any abdominal surgeries, she had a negative ultrasound just over a year ago of her gallbladder. She has history of pancreatitis and states this feels similar, she had pancreatitis due to an alcohol problem and indeed she did drink some alcohol recently which she does not elaborate on. She has been having trouble keeping fluids down. No fevers in the past 2 days. No known history of kidney stones. - Past Medical History (1) Pancreatitis Status: Suspected (2) Alcohol abuse Status: Chronic (3) Anxiety and depression Status: Chronic (4) Hepatic steatosis Status: Chronic (5) Hepatomegaly Status: Chronic Past Medical History - Allergies and Home Meds Allergies/Adverse Reactions: Allergies No Known Allergies Allergy (Verified 07/15/19 23:50) Primary Care Physician: Jonah Leroy MD [Primary Care Provider] - Surgical History: noncontributory, - - Partial Hysterectomy. Smoking Status: Current every day smoker Alcohol: Occasional Drugs: None - Family History Maternal Family History: Reports: No pertinent history Paternal Family History: Reports: No pertinent history Review of Systems General: Reports: Fever, Malaise. Denies: Chills, Sweats Eyes: Denies: Visual changes - bilaterally, Diplopia ENT: Reports: Sore throat, - - Hoarse of voice. Denies: Bilateral ear pain, Rhinorrhea Cardiovascular: Denies: Chest pain, Palpitations Respiratory: Reports: Cough. Denies: Dyspnea, Dyspnea on exertion Gastrointestinal: Reports: Abdominal pain - Radiates straight through to her back, Nausea, Vomiting. Denies: Melena, Hematochezia Genitourinary: Denies: Dysuria, Hematuria, Frequency Musculoskeletal: Reports: Back pain. Denies: Neck pain, Swelling, Extremity Pain Skin: Denies: Rash, Wounds Neurological: Denies: Headache, Weakness, Numbness Physical Exam Vital Signs/Narrative: Vital Signs Temp Pulse Resp BP Pulse Ox 10/09/19 20:24 97.9 F 111 H 18 105/71 97 Inital Vital Signs reviewed: Yes General: Well nourished, Well developed, No Acute Distress Head: Normocephalic, Atraumatic Eyes: Perrl, EOMI ENT: Moist mucous membranes, No rhinorrhea, - - Hoarseness without stridor Neck: Supple, Nontender, No lymphadenopathy Cardiovascular: Regular rate, Regular rhythm, No murmurs, Tachycardia - Mild Respiratory: No distress, CTA bilaterally, Chest nontender Abdomen: Soft, Nondistended, Normal bowel sounds, Tender - Severely tender throughout the right side/abdomen; otherwise nontender throughout the epigastrium/left side, Guarding - Voluntary right side. Negative for: Rebound tenderness Back: Nontender, Normal Inspection. Negative for: CVA tenderness Extremities: Nontender, No edema Skin: Normal color, No rash, No Trauma Neurological: Alert, Oriented x3, Cranial nerves II-XII grossly intact, Normal Strength, Normal Sensation Psychological: Normal affect, Normal Mood Diagnostic/Tx/Re-eval Impressions Abdomen/Pelvis CT 10/09/19 20:57 IMPRESSION: Circumferential wall thickening of the colon, this may be secondary to its incompletely distended state however cannot exclude underlying colitis. Stranding adjacent to the tail of the pancreas, cannot exclude focal pancreatitis. Atherosclerosis. Electronically Signed: Emi Mendoza MD at 22:22 EST Tel , Service support , Chest X-Ray 10/09/19 21:42 IMPRESSION: No acute cardiopulmonary process. Electronically Signed: Emi Mendoza MD at 22:00 EST Tel , Service support , 10/09/19 20:57 Abdomen/Pelvis W IV Cont ONLY [CT] Stat 10/09/19 21:42 Chest PA and Lateral [RAD] Stat Laboratory Results 10/09/19 10/09/19 10/09/19 20:49 21:15 21:15 WBC 16.9 H RBC 3.61 L Hgb 13.2 Hct 37.9 MCV 105.0 H MCH 36.6 H MCHC 34.8 RDW Std Deviation 53.1 H RDW Coeff of Jose Guadalupe 13.9 Plt Count 308 MPV 10.2 Immature Gran % (Auto) 0.500 Neut % (Auto) 83.4 H Lymph % (Auto) 11.2 L [place] % (Auto) 4.1 Eos % (Auto) 0.6 Baso % (Auto) 0.2 Absolute Neuts (auto) 14.1 H Absolute Lymphs (auto) 1.89 Nucleated RBC % 0 Sodium 139 Potassium 3.6 Chloride 105 Carbon Dioxide 27.0 Anion Gap 7 BUN 9 Creatinine 0.73 Estim Creat Clear Calc 67.80 Est GFR (MDRD) Af Amer 114 Est GFR (MDRD) Non-Af 94 BUN/Creatinine Ratio 12.3 Glucose 107 H Calcium 9.2 Total Bilirubin 0.30 AST 55 H ALT 27 Alkaline Phosphatase 113 Total Protein 7.0 Albumin 3.7 Globulin 3.3 Albumin/Globulin Ratio 1.1 Lipase 1158 H Urine Color Yellow Urine Clarity Clear Urine pH 7.0 Ur Specific [place] 1.010 Urine Protein 30 H Urine Glucose (UA) Normal Urine Ketones 5 H Urine Occult Blood Negative Urine Nitrite Negative Urine Bilirubin Negative Urine Urobilinogen 1 H Ur Leukocyte Esterase Negative Urine RBC 0 SEEN Urine WBC 0 SEEN Ur Squamous Epith Cells 0-5 SEEN Urine Bacteria RARE Urine Mucus RARE - Medical Decision Making Pain was initially improved with morphine, she was given IV fluids and Zofran and her nausea is resolved but now her pain is returning. She is asking for more pain medication. She has never tried to treat her pancreatitis at home with fluids and prefers to be admitted to the hospital which I think is not unreasonable. Suspect this is more related to alcohol than her gallbladder, which appears normal on the CT, and she had an unremarkable ultrasound just over a year ago. No evidence of liver enzyme elevation. ED Disposition - Plan for ED Patient: Disposition: Acute Care [facility] Diagnosis: Acute pancreatitis, Viral URI with cough Referrals: Jonah Leroy MD [Primary Care Provider] -
[2019-10-09] MEDS: 0.9% Normal Saline 1,000 ML 1000 ML IV (21:19)
[2019-10-09] MEDS: Ondansetron 4 MG/2 ML Vial IV (21:19)
[2019-10-09] MEDS: Morphine 4 MG/ML Syringe IV ×2 (21:19→22:52)
[2019-10-09 21:23] LABS: Absolute Lymphocyte Count 1.89 X10^3/uL (0.83-4.51); Absolute Neutrophil Count 14.1 X10^3/uL (2.0-7.7); Basophil# 0.04 X10^3/uL; Basophil% 0.2 % (0-1); Eosinophils% 0.6 % (0-5); Hematocrit 37.9 % (37-47); Hemoglobin 13.2 g/dL (12.0-15.0); Lymphocyte # 1.89 X10^3/ul (4.0); Lymphocyte % 11.2 % (19-41); Mean Corp Hgb Conc 34.8 g/dL (32-36); Mean Corpuscular Hgb 36.6 pg (27.0-32.0); Mean Platelet Vol. 10.2 fl (6.2-12.0); Monocyte# 0.69 X10^3/uL; Monocyte% 4.1 % (0-10); NRBC Flagged by Analyzer 0 % (0-5); Neutrophil # 14.14 X10^3/uL (2.7-7.7); Neutrophil % 83.4 % (47-70); Platelet Count 308 K/mm3 (150-450); RBC Distribution Width CV 13.9 % (11.6-14.6); RBC Distribution Width SD 53.1 fl (35.1-43.9); Red Blood Count 3.61 M/mm3 (4.2-5.4); White Blood Count 16.9 K/mm3 (4.4-11.0)
[2019-10-09 21:35] LABS: Red Blood Cells-Urine 0 SEEN /hpf (0-5); White Blood Cells 0 SEEN /hpf (0-5)
[2019-10-09 21:36] LABS: Color, Urine Yellow (Yellow); Glucose, Dipstick Normal (Normal); Ketone-Dipstick 5 mg/dl (Negative); Leukocyte Esterase-Dipstick Negative /ul (Negative); Nitrite-Dipstick Negative (Negative); Occult Blood-Urine Negative /ul (Negative); Protein-Dipstick 30 mg/dl (Negative); Urine Bilirubin Dipstick Negative (Negative); Urine Clarity Clear (Clear); Urine Urobilinogen 1 mg/dl (Normal)
[2019-10-09 21:40] LABS: ALB/GLOB Ratio 1.1 RATIO (0.9-2.4); AST(SGOT) 55 U/L (15-37); Alanine Aminotransfer ALT/SGPT 27 U/L (13-56); Albumin, Serum 3.7 g/dL (3.2-5.0); Alkaline Phosphatase 113 U/L (45-117); Anion Gap 7 (5-15); BUN 9 mg/dL (7-18); BUN/Creat Ratio 12.3 RATIO (10-20); Calcium,Total 9.2 mg/dL (8.5-10.1); Chloride 105 mmol/L (98-107); Creatinine, Serum 0.73 mg/dL (0.55-1.02); EST Glomerular Filtration Rate 94 mL/min (>60); Est Glom Filt Rate - Afr Amer 114 mL/min (>60); Globulin 3.3 g/dL (2.2-4.2); Glucose 107 mg/dL (74-106); Lipase 1158 U/L (73-393); Potassium 3.6 mmol/L (3.5-5.1); Sodium Level 139 mmol/L (136-145)
--- NOTE | 2019-10-09 21:42 | RAD_ITS ---
STUDY: X-RAY CHEST REASON FOR EXAM: Female, 39 years old. COUGH AND FEVER TECHNIQUE: PA and lateral views of the chest. COMPARISON: August 27, 2018 FINDINGS: The lungs remain hyperinflated. There is no new focal consolidation. Normal size heart. Normal mediastinum and chantell. Normal visualized pulmonary arteries. Normal visualized aortic arch and descending thoracic aorta. Normal visualized thoracic spine. Normal visualized ribs, clavicles, and shoulders. There is no demonstrated abnormality of the visualized soft tissue structures of the upper abdomen. RAD/Chest PA and Lateral IMPRESSION: No acute cardiopulmonary process. Electronically Signed: Emi Mendoza MD at 22:00 EST Tel , Service support ,
[2019-10-09 22:02] LABS: Bacteria RARE /hpf (None Seen); Mucous, Urine RARE /hpf (<or=2+); Squamous Epithelial Cells - UA 0-5 SEEN /hpf (5-10)
[2019-10-09 22:23] VITALS: BP 109/76; PULSE 78; RESP 16; O2SAT 98
--- NOTE | 2019-10-09 22:57 | HP.PCM_ITS ---
Problem List (1) Acute pancreatitis Status: Acute Qualifiers: Pancreatitis type: alcohol induced Acute pancreatitis complication: unspecified Qualified Code(s): K85.20 - Alcohol induced acute pancreatitis without necrosis or infection (2) Viral URI with cough Status: Acute (3) Tobacco use Status: Chronic (4) Anxiety and depression Status: Chronic (5) Alcohol abuse Status: Chronic History of Present Illness Date of Admission: 10/09/19 Chief Complaint: Abdominal pain, nausea and vomiting- 1 day. 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 Patient has had a lot of sick contacts. She was recently seen in the urgent care 5 days prior and reportedly had a strep throat test done which was negative. She has been having diarrhea that has been ongoing for days to weeks. She had multiple bowel movements, nonbloody, non-mucoid. She noticed epigastric pain that was crampy-dull and radiated to her back that started today. Associated with nausea and several episodes of vomiting. She denies any fever or chills or chest pain or shortness of breath. Patient has been drinking heavily, she drinks 1 bottle of wine every day. She sometimes drinks twisted tea reportedly contains high amounts of alcohol. She is apparently going through a divorce and is feeling very stressed out and resorts to alcohol. Vitals in the ED showed pressure of 90 7.9F, heart rate 111, blood pressure 105/71, respiratory rate was 18, SPO2 was 97% on room air. Her admitting blood work showed WBC count of 16.9, hemoglobin 13.2, platelet count of 308, BMP was unremarkable, AST was 55, ALT was 27, ALP 113, lipase is 1158, UA is unremarkable. CT of abdomen and pelvis showed peripancreatic fluid adjacent to the pancreatic to with fluid in the left paracolic gutter, circumferential wall thickening of the colon. Chest x-ray was unremarkable. 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 Denies: Chills, Fever, Weight Change Eyes: Denies: Blurred vision, Cataracts, Conjunctivae Inflammation, Pain, Redness, Vision Change HEENT: Reports: Nasal Congestion, Post Nasal Drip, Sinus Congestion, Sinus Drainage, Sore Throat. Denies: Head Aches, Hearing Changes Cardiovascular: Denies: Chest Pain, Claudication, Orthopnea, Palpitations, Paroxysmal Noc. Dyspnea Respiratory: Denies: Cough, Hemoptysis, Shortness of Breath, Shortness of breath at rest, Shortness of breath upon exertion, Sputum production Gastrointestinal: Reports: Abdominal Pain, Diarrhea, Nausea, Vomiting. Denies: Hematemesis, Hematochezia, Melena Genitourinary: Denies: Dysuria, Frequency, Incontinence, Nocturia Gynecological: Denies: Breast symptoms, Excessively long or heavy periods Musculoskeletal: Denies: Joint Pain, Joint stiffness, Joint swelling, Joint Tenderness Skin: Denies: Pruritis, Rash, Wounds Neurological: Denies: Double vision, Difficulty swallowing, Focal weakness, Numbness, Tingling Psychiatric: Reports: Anxiety, Depression. Denies: Homicidal Ideations, Suicidal Ideations Hematologic/ Lymphatic: Denies: Easy Bruising, Easy Bleeding VTE Information - Inpt Only VTE Present on Admission: No VTE Pharm Prophylaxis ordered?: Yes Patient Problems: Active and Suspected Problems Acute pancreatitis (Acute) Viral URI with cough (Acute) - Physical Exam Vitals/I&O's: Vital Signs Temp Pulse Resp BP Pulse Ox 97.9 F 111 H 18 105/71 97 10/09/19 20:24 10/09/19 20:24 10/09/19 20:24 10/09/19 20:24 10/09/19 20:24 Oxygen Delivery Method Room Air Weight: 41.1 kg Body Mass Index (BMI) 17.6 Finger Stick Blood Glucose 185 Intake and Output for Last 24 Hours 10/07/19 10/08/1910/09/20 23:59 23:59 23:59 Intake Total 999 / 999 Balance 999 / 999 General: Alert, Oriented x3, Cooperative, No apparent distress HEENT: Atraumatic, PERRLA, EOMI, Normocephalic Oral: Moist Mucosa Neck: Supple Lungs: Clear to auscultation, Normal air movement Cardiovascular: Regular rate, Regular Rhythm, Normal S1, Normal S2, No murmurs Abdomen: Bowel Sounds Present, Soft, Non-Distended, No Hepato-splenomegaly, Hypoactive Bowel Sounds, Guarding, Tender Extremities: No edema Skin: - - Tattooes all over the body Musculoskeletal: No Tenderness to Palpation of Joints or Extremities Lymphatic: No Cervical, Supraclavicular, or Inguinal Adenopathy Neurological: Cranial nerves II-XII grossly intact, Neuro grossly intact Psych/Mental Status: Normal Affect, Appropriate Laboratory Results 10/09/19 20:49: Urine Color Yellow, Urine Clarity Clear, Urine pH 7.0, Ur Specific [place] 1.010, Urine Protein 30 H, Urine Glucose (UA) Normal, Urine Ketones 5 H, Urine Occult Blood Negative, Urine Nitrite Negative, Urine Bilirubin Negative, Urine Urobilinogen 1 H, Ur Leukocyte Esterase Negative, Urine RBC 0 SEEN, Urine WBC 0 SEEN, Ur Squamous Epith Cells 0-5 SEEN, Urine Bacteria RARE, Urine Mucus RARE 10/09/19 21:15: WBC 16.9 H, RBC 3.61 L, Hgb 13.2, Hct 37.9, MCV 105.0 H, MCH 36.6 H, MCHC 34.8, RDW Std Deviation 53.1 H, RDW Coeff of Jose Guadalupe 13.9, Plt Count 308, MPV 10.2, Immature Gran % (Auto) 0.500, Neut % (Auto) 83.4 H, Lymph % (Auto) 11.2 L, [place] % (Auto) 4.1, Eos % (Auto) 0.6, Baso % (Auto) 0.2, Absolute Neuts (auto) 14.1 H, Absolute Lymphs (auto) 1.89, Nucleated RBC % 0 10/09/19 21:15: Sodium 139, Potassium 3.6, Chloride 105, Carbon Dioxide 27.0, Anion Gap 7, BUN 9, Creatinine 0.73, Estim Creat Clear Calc 67.80, Est GFR (MDRD) Af Amer 114, Est GFR (MDRD) Non-Af 94, BUN/Creatinine Ratio 12.3, Glucose 107 H, Calcium 9.2, Total Bilirubin 0.30, AST 55 H, ALT 27, Alkaline Phosphatase 113, Total Protein 7.0, Albumin 3.7, Globulin 3.3, Albumin/Globulin Ratio 1.1, Lipase 1158 H Assessment/Plan All Active Problems Acute pancreatitis (Acute) Viral URI with cough (Acute) Hypomagnesemia (Acute) Hypokalemia (Acute) Acute alcoholic hepatitis (Acute) 39 year old F with past medical history of 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 1. Acute pancreatitis, likely alcohol-related; patient consumes heavy amounts of alcohol Admitting lipase was 1158. CT of abdomen and pelvis shows pancreatitis of the tail of the pancreas Patient is tolerating clear liquid diet We will continue pain control, Zofran as needed, ultrasound of the gallbladder continue on clear liquid diet, advance diet as can be tolerated 2. Acute upper respiratory infection, likely viral Check respiratory panel Will rule out acute Strep throat with rapid strep assay Continue symptomatic treatment 3. Acute colitis, recent diarrhea, doubt ischemic colitis as patient has no risk factors for that We will put in contact precautions, stool enteric panel Empiric IV Cipro and Flagyl pending results of enteric panel Consider general surgery consult if colitis persists/worsens 4. Leukocytosis, likely related to current upper respiratory infection as well as acute diarrhea vs acute pancreatitis 5. Chronic heavy Alcohol use disorder, would anticipate acute withdrawal Continue on the CIWA protocol 6. Nicotine dependence, on replacement 7. DVT PPx- low risk, encourage early ambulation Code Visit Inpatient E&M: 40367 Init Hosp L2
[2019-10-09 23:13] VITALS: BP 109/76; PULSE 78; RESP 16; O2SAT 98
[2019-10-09 23:27] VITALS: BMI 17.6
--- NOTE | 2019-10-09 23:49 | US_ITS ---
STUDY: ABDOMINAL ULTRASOUND - RIGHT UPPER QUADRANT REASON FOR VISIT: Female, 39 years old ACUTE PANCREATITIS -- RT ABD PAIN TECHNIQUE: Ultrasound evaluation of the right upper quadrant was performed with real-time and static ramírez-scale imaging. TECHNICAL QUALITY: Adequate. COMPARISON: None. FINDINGS: Liver: The liver measures 16.9 cm. There is normal echogenicity of the liver. The bile ducts are within normal limits. There is hepatic color flow. The direction of portal flow is hepatopetal. There is no demonstrated mass lesion. Gallbladder: Normal distended gallbladder. The gallbladder wall measures 2.4 mm. There is a positive sonographic Rain''s sign. There is a trace of pericholecystic fluid. There are no gallstones. Common Bile Duct (C.B.D.): The common bile duct measures 3.8 mm. Pancreas: Normal size of the head, body and tail of the pancreas. There is normal echogenicity of the pancreas. There is no demonstrated pancreatic mass or cyst. Right Kidney: Normal size of the right kidney. The right kidney measures 10.8 cm x 5 cm x 3.0 cm. Normal renal cortex. The right cortex measures 1.1 cm. There is no demonstrated renal mass or cyst. There is no right hydronephrosis. US/Abdomen Limited IMPRESSION: Small amount of pericholecystic fluid. No evidence of cholelithiasis. Positive Rain''s sign. Electronically Signed: Parker Paz, at 8:38 EST , Service support ,
[2019-10-09 23:51] VITALS: BP 98/65; PULSE 71; RESP 16; TEMP 37.4; O2SAT 99
[2019-10-10] MEDS: Dicyclomine 10 MG Capsule 20 MG PO ×2 (00:17→06:19)
[2019-10-10] MEDS: Methocarbamol 750 MG Tablet PO ×3 (00:17→12:35)
[2019-10-10] MEDS: 0.9% Normal Saline 1,000 ML 150 ML IV ×3 (00:18→16:26)
[2019-10-10 00:31] LABS: Amphetamine Urine VISTA NEGATIVE (<1000 ng/mL); Barbiturate Urine VISTA NEGATIVE (< 200 ng/mL); Benzodiazepine Urine VISTA NEGATIVE (< 200 ng/mL); Cocaine Urine VISTA NEGATIVE (< 300 ng/mL); Ecstacy Urine VISTA NEGATIVE (< 500 ng/mL); Methadone Urine VISTA NEGATIVE (< 300 ng/mL); PCP Urine VISTA NEGATIVE (< 25 ng/mL); THC Urine VISTA POSITIVE (< 50 ng/mL); Vista UDS pH Range 7
[2019-10-10] MEDS: LORazepam 1 MG Tablet PO ×6 (00:38→20:52)
[2019-10-10] MEDS: Ciprofloxacin 400 MG/200 ML BAG 200 MG IV ×3 (01:01→21:07)
[2019-10-10] MEDS: Morphine 2 MG/ML Syringe IV ×6 (02:42→21:01)
[2019-10-10 04:35] VITALS: BP 92/53; PULSE 65; RESP 18; TEMP 36.9; O2SAT 99
[2019-10-10 06:24] LABS: Absolute Lymphocyte Count 2.59 X10^3/uL (0.83-4.51); Absolute Neutrophil Count 9.1 X10^3/uL (2.0-7.7); Basophil# 0.02 X10^3/uL; Basophil% 0.2 % (0-1); Eosinophil# 0.28 X10^3/uL; Eosinophils% 2.2 % (0-5); Hematocrit 30.4 % (37-47); Hemoglobin 10.4 g/dL (12.0-15.0); Lymphocyte # 2.59 X10^3/ul (4.0); Lymphocyte % 20.7 % (19-41); Mean Corp Hgb Conc 34.2 g/dL (32-36); Mean Corpuscular Hgb 36.7 pg (27.0-32.0); Mean Corpuscular Volume 107.4 fL (81-99); NRBC Flagged by Analyzer 0 % (0-5); Neutrophil # 9.05 X10^3/uL (2.7-7.7); Neutrophil % 72.4 % (47-70); Platelet Count 230 K/mm3 (150-450); RBC Distribution Width CV 13.8 % (11.6-14.6); RBC Distribution Width SD 54.2 fl (35.1-43.9); Red Blood Count 2.83 M/mm3 (4.2-5.4); White Blood Count 12.5 K/mm3 (4.4-11.0)
[2019-10-10 06:53] LABS: ALB/GLOB Ratio 1.1 RATIO (0.9-2.4); AST(SGOT) 31 U/L (15-37); Alanine Aminotransfer ALT/SGPT 17 U/L (13-56); Albumin, Serum 2.7 g/dL (3.2-5.0); Alkaline Phosphatase 95 U/L (45-117); Anion Gap 5 (5-15); BUN 6 mg/dL (7-18); BUN/Creat Ratio 8.4 RATIO (10-20); Calcium,Total 7.6 mg/dL (8.5-10.1); Chloride 107 mmol/L (98-107); Creatinine, Serum 0.72 mg/dL (0.55-1.02); EST Glomerular Filtration Rate 96 mL/min (>60); Est Glom Filt Rate - Afr Amer 117 mL/min (>60); Globulin 2.5 g/dL (2.2-4.2); Glucose 91 mg/dL (74-106); Lipase 885 U/L (73-393); Potassium 3.2 mmol/L (3.5-5.1); Protein, Total 5.2 g/dL (6.4-8.2); Sodium Level 138 mmol/L (136-145)
[2019-10-10 08:31] VITALS: BP 99/73; PULSE 67; RESP 16; TEMP 36.8; O2SAT 100
[2019-10-10] MEDS: Thiamine Hydrochloride 100 MG Tablet PO (08:38)
[2019-10-10] MEDS: Folic Acid 1 MG Tablet PO (08:38)
[2019-10-10] MEDS: Ensure Clear 120 ML Liquid PO ×3 (08:38→21:07)
[2019-10-10] MEDS: 0.9% Saline Lock 10 ML Syringe IV ×5 (08:38→21:00)
[2019-10-10] MEDS: Multivitamins,Therapeutic Tablet 1 TABLET PO (08:38)
--- NOTE | 2019-10-10 10:25 | CASEMGMT ---
RN CM Face to Face with patient for initial transition planning/care coordination assessment. RN CM introduced self and role at [facility]. Patient lying in bed, alert and oriented. Patient willing to participate in assessment and is able to answer all questions appropriately. Care providers, pharmacy, and demographics verified. Patient wishes to discharge home, denies need for home health at this time. Patient states she has no further needs or concerns at this time. CM to follow for discharge planning needs that may arise. PCP: Mariaa Specialists: none [facility] Insurance: [employer] Prescription Benefit: yes Living Will/HPOA: none LNOK: , currently going through divorce, children-17,8,7 yo Living Arrangements: Patient lives with children in 1 story home. Patient is independent at home. Transportation: Brother DME/C: None Patient states she smokes cigarettes and drinks bottle of wine per day. Patient states that she is going to quit and is interested in information. TIM Velarde notified. Disposition Plan: Patient to discharge home with family support and follow-up plans in place. Aydee ESPINO, RN, CM
--- NOTE | 2019-10-10 10:55 | CASEMGMT ---
Social Work Note TIM reviewed chart, pt has pancreatitis that is likely linked to alcohol consumption. Per H+P pt is currently going through a divorce. SW met with pt and introduced self and role at [facility]. Pt is alert and orientated x3. Pt confirms that she drinks around a bottle of wine a day. SW provided pt with substance abuse/mental health resources and also provided support to pt regarding divorce. Pt thanked this worker, denied additional needs or concerns at this time. Aydee Velarde RETAIL SALES ASSISTANT, COMPUTER SYSTEMS SOFTWARE ENGINEER
--- NOTE | 2019-10-10 11:40 | PCM.PN.HOSP ---
Patient Problems: Active and Suspected Problems Acute pancreatitis (Acute) Viral URI with cough (Acute) Subjective: She was sleeping when I entered the room, seems to be doing fairly comfortable, though with epigastric abdominal pain Vitals/I&O's: Vital Signs Temp Pulse Resp BP Pulse Ox 98.2 F 67 16 99/73 100 10/10/19 08:31 10/10/19 08:31 10/10/19 08:31 10/10/19 08:31 10/10/19 08:31 Oxygen Delivery Method Room Air Weight: 90 lb 2.705 oz Body Mass Index (BMI) 17.6 Finger Stick Blood Glucose 185 Intake and Output for Last 24 Hours 10/08/19 10/09/19 10/10/19 23:59 23:59 23:59 Intake Total 1000 / 1000 1577 / 1577 Output Total 375 / 375 Balance 1000 / 1000 1202 / 1202 General: Alert, Oriented x3, Cooperative, No apparent distress HEENT: Atraumatic, PERRLA, EOMI, Normocephalic Oral: Moist Mucosa Neck: Supple, No JVD Lungs: Clear to auscultation, Normal air movement, No rhonchi, No wheeze, No rales Cardiovascular: Regular rate, Regular Rhythm, Normal S1, Normal S2, No murmurs Abdomen: Soft, Non-Distended - region, No Hepato-splenomegaly, Tender - In the epigastric Extremities: No edema, Capillary Refill Less than 3 Seconds Skin: No rashes, No breakdown Neurological: Neuro grossly intact, Sensory exam intact to light touch and pain Psych/Mental Status: Normal Affect, Appropriate Microbiology Past 72 Hours 10/10/19 03:19 Mucosa - Nasopharyngeal Respiratory Panel (PCR) - Final 10/10/19 03:30 Mucosa - Throat Group A Streptococcus Rapid Screen - Preliminary Laboratory Results 10/09/19 20:49: Urine Color Yellow, Urine Clarity Clear, Urine pH 7.0, Ur Specific [place] 1.010, Urine Protein 30 H, Urine Glucose (UA) Normal, Urine Ketones 5 H, Urine Occult Blood Negative, Urine Nitrite Negative, Urine Bilirubin Negative, Urine Urobilinogen 1 H, Ur Leukocyte Esterase Negative, Urine RBC 0 SEEN, Urine WBC 0 SEEN, Ur Squamous Epith Cells 0-5 SEEN, Urine Bacteria RARE, Urine Mucus RARE 10/09/19 20:49: Urine Opiates Screen NEGATIVE, Urine Methadone Screen NEGATIVE, Ur Barbiturates Screen NEGATIVE, Ur Phencyclidine Scrn NEGATIVE, Ur Amphetamines Screen NEGATIVE, U Methamphetamin-MDMA NEGATIVE, U Benzodiazepines Scrn NEGATIVE, Urine Cocaine Screen NEGATIVE, U Cannabinoids Screen POSITIVE H, Ur Drug Screen Comment 10/09/19 21:15: WBC 16.9 H, RBC 3.61 L, Hgb 13.2, Hct 37.9, MCV 105.0 H, MCH 36.6 H, MCHC 34.8, RDW Std Deviation 53.1 H, RDW Coeff of Jose Guadalupe 13.9, Plt Count 308, MPV 10.2, Immature Gran % (Auto) 0.500, Neut % (Auto) 83.4 H, Lymph % (Auto) 11.2 L, [place] % (Auto) 4.1, Eos % (Auto) 0.6, Baso % (Auto) 0.2, Absolute Neuts (auto) 14.1 H, Absolute Lymphs (auto) 1.89, Nucleated RBC % 0 10/09/19 21:15: Sodium 139, Potassium 3.6, Chloride 105, Carbon Dioxide 27.0, Anion Gap 7, BUN 9, Creatinine 0.73, Estim Creat Clear Calc 67.80, Est GFR (MDRD) Af Amer 114, Est GFR (MDRD) Non-Af 94, BUN/Creatinine Ratio 12.3, Glucose 107 H, Calcium 9.2, Total Bilirubin 0.30, AST 55 H, ALT 27, Alkaline Phosphatase 113, Total Protein 7.0, Albumin 3.7, Globulin 3.3, Albumin/Globulin Ratio 1.1, Lipase 1158 H 10/10/19 05:39: WBC 12.5 H, RBC 2.83 L, Hgb 10.4 L, Hct 30.4 L, MCV 107.4 H, MCH 36.7 H, MCHC 34.2, RDW Std Deviation 54.2 H, RDW Coeff of Jose Guadalupe 13.8, Plt Count 230, MPV 11.0, Immature Gran % (Auto) 0.500, Neut % (Auto) 72.4 H, Lymph % (Auto) 20.7, [place] % (Auto) 4.0, Eos % (Auto) 2.2, Baso % (Auto) 0.2, Absolute Neuts (auto) 9.1 H, Absolute Lymphs (auto) 2.59, Nucleated RBC % 0 10/10/19 05:39: Sodium 138, Potassium 3.2 L, Chloride 107, Carbon Dioxide 26.0, Anion Gap 5, BUN 6 L, Creatinine 0.72, Estim Creat Clear Calc 68.40, Est GFR (MDRD) Af Amer 117, Est GFR (MDRD) Non-Af 96, BUN/Creatinine Ratio 8.4 L, Glucose 91, Calcium 7.6 L, Total Bilirubin 0.70, AST 31, ALT 17, Alkaline Phosphatase 95, Total Protein 5.2 L, Albumin 2.7 L, Globulin 2.5, Albumin/Globulin Ratio 1.1, Lipase 885 H Current Medications Dicyclomine HCl (Bentyl) 20 mg PO Q6H PRN PRN PRN Reason: abdominal discomfort Last Admin: 10/10/19 06:19 Dose: 20 mg Documented by: Folic Acid (Folic Acid) [facility] Stop: 10/12/19 08:01 Last Admin: 10/10/19 08:38 Dose: 1 mg Documented by: Hydroxyzine Pamoate (Vistaril Pamoate Capsule) 50 mg PO Q6H PRN PRN PRN Reason: Mild Anxiety (score 1/3) Sodium Chloride () 1,000 mls @ 150 mls/hr IV .[id number] [facility] Last Infusion: 10/10/19 10:28 Dose: 150 mls/hr Documented by: Ciprofloxacin (Cipro) 400 mg in 200 mls @ 200 mls/hr IV Q12 [facility] Last Infusion: 10/10/19 10:28 Dose: Infused Documented by: Thiamine HCl 200 mg/ Sodium (Chloride) 52 mls @ 200 mls/hr IV DAILY [facility] Last Infusion: 10/10/19 00:55 Dose: Infused Documented by: Sodium Chloride () 250 mls @ 15 mls/hr IV .[id number] PRN PRN Reason: Saline Flush Sodium Chloride () 250 mls @ 15 mls/hr IV .[id number] PRN PRN Reason: Additional IVPB Infusion Potassium Chloride () 10 meq in 100 mls @ 100 mls/hr IV BOLUS Q1H [facility] Stop: 10/10/19 15:44 Lorazepam (Ativan) 2 mg IV X1 PRN PRN Reason: Seizure Lorazepam (Ativan) 1 mg PO Q4H [facility]; Taper Stop: 10/13/19 04:14 Last Admin: 10/10/19 08:38 Dose: 1 mg Documented by: Methocarbamol (Methocarbamol) 750 mg PO Q6H PRN PRN PRN Reason: Muscle Aches Last Admin: 10/10/19 06:19 Dose: 750 mg Documented by: Morphine Sulfate () 2 mg IV Q3H PRN PRN PRN Reason: Pain Score 6-10/10 Last Admin: 10/10/19 09:28 Dose: 2 mg Documented by: Multivitamins (Multivitamin) 1 tablet [facility] Last Admin: 10/10/19 08:38 Dose: 1 tablet Documented by: Nicotine (Nicoderm Cq ([facility])) 21 mg TRANSDERM. DAILY [facility] Last Admin: 10/10/19 09:28 Dose: 21 mg Documented by: Nicotine Polacrilex ([place]ugby Nicotine ([facility])) 4 mg PO Q2H PRN PRN PRN Reason: Nicotine Craving Nutritional Formula (Lactose Free) (Ensure Clear) 120 ml PO 4X/DAY [facility] Last Admin: 10/10/19 08:38 Dose: 120 ml Documented by: Ondansetron HCl (Zofran) 4 mg IV Q8H PRN PRN PRN Reason: NAUSEA/VOMITING Sodium Chloride () 10 - 40 ml IV UD PRN PRN Reason: SALINE FLUSH Last Admin: 10/10/19 09:28 Dose: 10 ml Documented by: Thiamine HCl (Vitamin B1) 100 mg PO [facility] Stop: 10/12/19 08:01 Last Admin: 10/10/19 08:38 Dose: 100 mg Documented by: STROKE Vital Signs/Narrative: Vital Signs Temp Pulse Resp BP Pulse Ox 10/10/19 08:31 98.2 F 67 16 99/73 100 Medical Necessity - Tobacco Use Smoking Status: Current every day smoker Tobacco Use: Cigarettes Assessment/Plan All Active Problems Acute pancreatitis (Acute) Viral URI with cough (Acute) Hypomagnesemia (Acute) Hypokalemia (Acute) Acute alcoholic hepatitis (Acute) 1. Acute alcoholic pancreatitis/possible acute colitis/viral URI -Strep throat was negative, will continue with symptomatic treatment for her viral URI -Continue with Cipro and Flagyl for possible colitis, though as her lipase improves and her pancreatitis comes down if should her diarrhea and pain slows down we can stop the antibiotics. -This morning when I entered the room she was resting comfortably and sleeping however she did receive morphine at around 6 AM -Continue with IV fluids and continue with n.p.o. for now, if she has minimal tenderness in the morning can advance her to a low-fat diet 2. Alcohol abuse/nicotine abuse -She states that she drinks about a bottle of wine every day and occasionally will also drink twisted tea, she says she has been going through a divorce and that is why she is resorting alcohol -We will continue with alcohol withdrawal protocol -He with a nicotine patch, advised cessation DVT: Ambulation Code Visit Inpatient E&M: 36013 Subs Hosp L2
[2019-10-10 12:30] VITALS: BP 93/53; PULSE 65; RESP 14; TEMP 36.8; O2SAT 100
[2019-10-10 16:26] VITALS: BP 99/61; PULSE 79; RESP 14; TEMP 36.9; O2SAT 99
--- NOTE | 2019-10-10 16:31 | CHAPLAIN ---
patient was sleeping when visit was attempted
[2019-10-10 20:50] VITALS: BP 93/65; PULSE 90; RESP 16; TEMP 37.7; O2SAT 97
[2019-10-10] MEDS: Ondansetron 4 MG/2 ML Vial IV (21:00)
[2019-10-11] MEDS: 0.9% Normal Saline 1,000 ML 150 ML IV ×3 (00:19→14:54)
[2019-10-11] MEDS: 0.9% Saline Lock 10 ML Syringe IV (00:22)
[2019-10-11] MEDS: Morphine 2 MG/ML Syringe IV ×3 (00:22→20:56)
[2019-10-11] MEDS: LORazepam 1 MG Tablet PO ×4 (02:28→20:45)
[2019-10-11 02:30] VITALS: BP 107/74; PULSE 96; RESP 16; TEMP 37.7; O2SAT 98
[2019-10-11 07:35] LABS: Absolute Lymphocyte Count 1.65 X10^3/uL (0.83-4.51); Absolute Neutrophil Count 10.1 X10^3/uL (2.0-7.7); Basophil# 0.03 X10^3/uL; Basophil% 0.2 % (0-1); Eosinophils% 3.1 % (0-5); Hematocrit 30.4 % (37-47); Hemoglobin 10.5 g/dL (12.0-15.0); Lymphocyte # 1.65 X10^3/ul (4.0); Lymphocyte % 12.9 % (19-41); Mean Corp Hgb Conc 34.5 g/dL (32-36); Mean Corpuscular Hgb 36.8 pg (27.0-32.0); Mean Corpuscular Volume 106.7 fL (81-99); Mean Platelet Vol. 11.4 fl (6.2-12.0); Monocyte# 0.58 X10^3/uL; Monocyte% 4.5 % (0-10); NRBC Flagged by Analyzer 0 % (0-5); Neutrophil # 10.06 X10^3/uL (2.7-7.7); Neutrophil % 78.8 % (47-70); Platelet Count 209 K/mm3 (150-450); RBC Distribution Width CV 13.5 % (11.6-14.6); RBC Distribution Width SD 53.2 fl (35.1-43.9); Red Blood Count 2.85 M/mm3 (4.2-5.4); White Blood Count 12.8 K/mm3 (4.4-11.0)
[2019-10-11 07:58] LABS: Anion Gap 4 (5-15); BUN 3 mg/dL (7-18); BUN/Creat Ratio 5.7 RATIO (10-20); Calcium,Total 7.9 mg/dL (8.5-10.1); Chloride 110 mmol/L (98-107); Creatinine, Serum 0.52 mg/dL (0.55-1.02); EST Glomerular Filtration Rate 139 mL/min (>60); Est Glom Filt Rate - Afr Amer 168 mL/min (>60); Estimated Creatinine Clearance 103.28 ml/min; Glucose 84 mg/dL (74-106); Potassium 3.4 mmol/L (3.5-5.1); Sodium Level 139 mmol/L (136-145)
[2019-10-11 08:39] VITALS: BP 103/64; PULSE 91; RESP 16; TEMP 37.3; O2SAT 96
[2019-10-11 08:45] VITALS: RESP 16
[2019-10-11] MEDS: Thiamine Hydrochloride 100 MG Tablet PO (08:55)
[2019-10-11] MEDS: Multivitamins,Therapeutic Tablet 1 TABLET PO (08:55)
[2019-10-11] MEDS: Folic Acid 1 MG Tablet PO (08:55)
[2019-10-11 09:22] LABS: Magnesium 1.6 mg/dL (1.6-2.6); Phosphorus 2.3 mg/dL (2.5-4.9)
--- NOTE | 2019-10-11 10:15 | PCM.PN.HOSP ---
Patient Problems: Active and Suspected Problems Acute pancreatitis (Acute) Viral URI with cough (Acute) Subjective: Abdominal pain has improved some, and she has not had any diarrhea Vitals/I&O's: Vital Signs Temp Pulse Resp BP Pulse Ox 99.1 F 91 16 103/64 96 10/11/19 08:39 10/11/19 08:39 10/11/19 08:45 10/11/19 08:39 10/11/19 08:39 Oxygen Delivery Method Room Air Weight: 98 lb 5.219 oz Body Mass Index (BMI) 17.6 Finger Stick Blood Glucose 185 Intake and Output for Last 24 Hours 10/09/19 10/10/19 10/11/19 23:59 23:59 23:59 Intake Total 1000 / 1000 4114.5 / 4734.5 2117.5 / 2117.5 Output Total 1575 / 2075 500 / 500 Balance 1000 / 1000 2539.5 / 2659.5 1617.5 / 1617.5 General: Alert, Oriented x3, Cooperative, No apparent distress HEENT: Atraumatic, PERRLA, EOMI, Normocephalic Oral: Moist Mucosa Neck: Supple, No JVD Lungs: Clear to auscultation, Normal air movement, No rhonchi, No wheeze, No rales Cardiovascular: Regular rate, Regular Rhythm, Normal S1, Normal S2, No murmurs Abdomen: Soft, Non-Distended, No Hepato-splenomegaly, mild tender - In the epigastric region Extremities: No edema, Capillary Refill Less than 3 Seconds Skin: No rashes, No breakdown Neurological: Neuro grossly intact, Sensory exam intact to light touch and pain Psych/Mental Status: Normal Affect, Appropriate Microbiology Past 72 Hours 10/10/19 03:19 Mucosa - Nasopharyngeal Respiratory Panel (PCR) - Final 10/10/19 03:30 Mucosa - Throat Group A Streptococcus Rapid Screen - Preliminary Laboratory Results 10/11/19 06:16: WBC 12.8 H, RBC 2.85 L, Hgb 10.5 L, Hct 30.4 L, MCV 106.7 H, MCH 36.8 H, MCHC 34.5, RDW Std Deviation 53.2 H, RDW Coeff of Jose Guadalupe 13.5, Plt Count 209, MPV 11.4, Immature Gran % (Auto) 0.500, Neut % (Auto) 78.8 H, Lymph % (Auto) 12.9 L, [place] % (Auto) 4.5, Eos % (Auto) 3.1, Baso % (Auto) 0.2, Absolute Neuts (auto) 10.1 H, Absolute Lymphs (auto) 1.65, Nucleated RBC % 0 10/11/19 06:16: Sodium 139, Potassium 3.4 L, Chloride 110 H, Carbon Dioxide 25.0, Anion Gap 4 L, BUN 3 L, Creatinine 0.52 L, Estim Creat Clear Calc 103.28, Est GFR (MDRD) Af Amer 168, Est GFR (MDRD) Non-Af 139, BUN/Creatinine Ratio 5.7 L, Glucose 84, Calcium 7.9 L 10/11/19 06:16: Phosphorus 2.3 L, Magnesium 1.6 Current Medications Dicyclomine HCl (Bentyl) 20 mg PO Q6H PRN PRN PRN Reason: abdominal discomfort Last Admin: 10/10/19 06:19 Dose: 20 mg Documented by: Folic Acid (Folic Acid) 1 mg PO DAILY [facility] Stop: 10/12/19 08:01 Last Admin: 10/11/19 08:55 Dose: 1 mg Documented by: Hydroxyzine Pamoate (Vistaril Pamoate Capsule) 50 mg PO Q6H PRN PRN PRN Reason: Mild Anxiety (score 1/3) Sodium Chloride () 1,000 mls @ 150 mls/hr IV .Q6H40M [facility] Last Admin: 10/11/19 07:05 Dose: 150 mls/hr Documented by: Thiamine HCl 200 mg/ Sodium (Chloride) 52 mls @ 200 mls/hr IV DAILY [facility] Last Infusion: 10/10/19 00:55 Dose: Infused Documented by: Sodium Chloride () 250 mls @ 15 mls/hr IV .[id number] PRN PRN Reason: Saline Flush Sodium Chloride () 250 mls @ 15 mls/hr IV .[id number] PRN PRN Reason: Additional IVPB Infusion Lorazepam (Ativan) 2 mg IV X1 PRN PRN Reason: Seizure Lorazepam (Ativan) 1 mg PO Q6H [facility]; Taper Stop: 10/13/19 04:14 Last Admin: 10/11/19 08:55 Dose: 1 mg Documented by: Methocarbamol (Methocarbamol) 750 mg PO Q6H PRN PRN PRN Reason: Muscle Aches Last Admin: 10/10/19 12:35 Dose: 750 mg Documented by: Morphine Sulfate () 2 mg IV Q3H PRN PRN PRN Reason: Pain Score 6-10/10 Last Admin: 10/11/19 00:22 Dose: 2 mg Documented by: Multivitamins ([facility]ivitamin) [facility] Last Admin: 10/11/19 08:55 Dose: 1 tablet Documented by: Nicotine (Nicoderm Cq ([facility])) 21 mg TRANSDERM. DAILY [facility] Last Admin: 10/10/19 09:28 Dose: 21 mg Documented by: Nicotine Polacrilex (Rugby Nicotine ([facility])) 4 mg PO Q2H PRN PRN PRN Reason: Nicotine Craving Nutritional Formula (Lactose Free) (Ensure Clear) 120 ml PO 4X/DAY [facility] Last Admin: 10/10/19 21:07 Dose: 120 ml Documented by: Ondansetron HCl (Zofran) 4 mg IV Q8H PRN PRN PRN Reason: NAUSEA/VOMITING Last Admin: 10/10/19 21:00 Dose: 4 mg Documented by: Sodium Chloride () 10 - 40 ml IV UD PRN PRN Reason: SALINE FLUSH Last Admin: 10/11/19 00:22 Dose: 10 ml Documented by: Thiamine HCl (Vitamin B1) [facility] Stop: 10/12/19 08:01 Last Admin: 10/11/19 08:55 Dose: 100 mg Documented by: STROKE Vital Signs/Narrative: Vital Signs Temp Pulse Resp BP Pulse Ox 10/11/19 08:45 16 10/11/19 08:39 99.1 F 91 16 103/64 96 Medical Necessity - Tobacco Use Smoking Status: Current every day smoker Tobacco Use: Cigarettes Assessment/Plan All Active Problems Acute pancreatitis (Acute) Viral URI with cough (Acute) Hypomagnesemia (Acute) Hypokalemia (Acute) Acute alcoholic hepatitis (Acute) 1. Acute alcoholic pancreatitis/possible acute colitis/viral URI -Strep throat was negative, will continue with symptomatic treatment for her viral URI -Given the lack of BM and the fact that her abdominal pain is more epigastric, will discontinue her Cipro for now -This morning when I entered the room she was resting comfortably and sleeping last morphine dose was around midnight -Continue with IV fluids and will start her on a low-fat diet 2. Alcohol abuse/nicotine abuse -She states that she drinks about a bottle of wine every day and occasionally will also drink twisted tea, she says she has been going through a divorce and that is why she is resorting alcohol -We will continue with alcohol withdrawal protocol -He with a nicotine patch, advised cessation DVT: Ambulation Code Visit Inpatient E&M: 06784 Subs Hosp L2
[2019-10-11] MEDS: Ensure Clear 120 ML Liquid PO ×4 (11:03→20:46)
[2019-10-11 16:24] VITALS: BP 98/73; PULSE 106; RESP 16; TEMP 37.1; O2SAT 98
[2019-10-11] MEDS: Methocarbamol 750 MG Tablet PO (17:45)
[2019-10-11] MEDS: Dicyclomine 10 MG Capsule 20 MG PO (17:45)
[2019-10-11 20:50] VITALS: BP 104/68; PULSE 81; RESP 16; TEMP 37; O2SAT 99
[2019-10-11 21:00] VITALS: RESP 16
[2019-10-12] MEDS: Ibuprofen 400 MG Tablet PO (00:38)
[2019-10-12] MEDS: Morphine 2 MG/ML Syringe IV ×2 (00:38→08:23)
[2019-10-12] MEDS: 0.9% Normal Saline 1,000 ML 150 ML IV ×2 (00:39→07:28)
[2019-10-12 00:46] VITALS: BP 106/76; PULSE 80; RESP 16; TEMP 37.1; O2SAT 99
[2019-10-12 03:00] VITALS: RESP 16
[2019-10-12 04:35] VITALS: BP 113/73; PULSE 56; RESP 16; TEMP 36.9; O2SAT 100
[2019-10-12] MEDS: LORazepam 1 MG Tablet PO ×3 (04:37→20:05)
[2019-10-12 06:46] LABS: Absolute Lymphocyte Count 1.89 X10^3/uL (0.83-4.51); Absolute Neutrophil Count 6.4 X10^3/uL (2.0-7.7); Basophil# 0.02 X10^3/uL; Basophil% 0.2 % (0-1); Eosinophil# 0.48 X10^3/uL; Eosinophils% 5.2 % (0-5); Hematocrit 30.6 % (37-47); Hemoglobin 10.5 g/dL (12.0-15.0); Lymphocyte # 1.89 X10^3/ul (4.0); Lymphocyte % 20.5 % (19-41); Mean Corp Hgb Conc 34.3 g/dL (32-36); Mean Corpuscular Hgb 36.2 pg (27.0-32.0); Mean Corpuscular Volume 105.5 fL (81-99); Mean Platelet Vol. 10.8 fl (6.2-12.0); Monocyte# 0.35 X10^3/uL; Monocyte% 3.8 % (0-10); NRBC Flagged by Analyzer 0 % (0-5); Neutrophil # 6.43 X10^3/uL (2.7-7.7); Platelet Count 204 K/mm3 (150-450); RBC Distribution Width CV 13.6 % (11.6-14.6); RBC Distribution Width SD 52.1 fl (35.1-43.9); White Blood Count 9.2 K/mm3 (4.4-11.0)
[2019-10-12 07:06] LABS: Anion Gap 5 (5-15); BUN 2 mg/dL (7-18); BUN/Creat Ratio 4.8 RATIO (10-20); Calcium,Total 7.8 mg/dL (8.5-10.1); Chloride 109 mmol/L (98-107); Creatinine, Serum 0.42 mg/dL (0.55-1.02); EST Glomerular Filtration Rate 181 mL/min (>60); Est Glom Filt Rate - Afr Amer 220 mL/min (>60); Estimated Creatinine Clearance 121.85 ml/min; Glucose 85 mg/dL (74-106); Magnesium 2.1 mg/dL (1.6-2.6); Phosphorus 2.9 mg/dL (2.5-4.9); Potassium 3.1 mmol/L (3.5-5.1); Sodium Level 139 mmol/L (136-145)
[2019-10-12 07:53] VITALS: BP 102/67; PULSE 54; RESP 16; TEMP 37.1; O2SAT 99
[2019-10-12] MEDS: Thiamine Hydrochloride 100 MG Tablet PO (08:03)
[2019-10-12] MEDS: Multivitamins,Therapeutic Tablet 1 TABLET PO (08:03)
[2019-10-12] MEDS: Folic Acid 1 MG Tablet PO (08:03)
[2019-10-12] MEDS: 0.9% Saline Lock 10 ML Syringe IV (08:24)
--- NOTE | 2019-10-12 09:49 | PCM.PN.HOSP ---
Patient Problems: Active and Suspected Problems Acute pancreatitis (Acute) Viral URI with cough (Acute) Subjective: No issues overnight, slept a little bit better overnight. She still using morphine, she used it about 3 times yesterday and 6 times the day before Vitals/I&O's: Vital Signs Temp Pulse Resp BP Pulse Ox 98.7 F 54 L 16 102/67 99 10/12/19 07:53 10/12/19 07:53 10/12/19 07:53 10/12/19 07:53 10/12/19 07:53 Oxygen Delivery Method Room Air Weight: 93 lb 11.143 oz Body Mass Index (BMI) 17.6 Finger Stick Blood Glucose 185 Intake and Output for Last 24 Hours 10/10/19 10/11/19 10/12/19 23:59 23:59 23:59 Intake Total 4114.5 / 4734.5 3738.5 / 4638.5 1999 Output Total 1575 / 2075 500 / 500 Balance 2539.5 / 2659.5 3238.5 / 4138.5 1999 General: Alert, Oriented x3, Cooperative, No apparent distress HEENT: Atraumatic, PERRLA, EOMI, Normocephalic Oral: Moist Mucosa Neck: Supple, No JVD Lungs: Clear to auscultation, Normal air movement, No rhonchi, No wheeze, No rales Cardiovascular: Regular rate, Regular Rhythm, Normal S1, Normal S2, No murmurs Abdomen: Soft, Non-Distended, No Hepato-splenomegaly, mild tender - In the epigastric region, mostly just sore Extremities: No edema, Capillary Refill Less than 3 Seconds Skin: No rashes, No breakdown Neurological: Neuro grossly intact, Sensory exam intact to light touch and pain Psych/Mental Status: Normal Affect, Appropriate Microbiology Past 72 Hours 10/10/19 03:30 Mucosa - Throat Group A Streptococcus Rapid Screen - Preliminary 10/10/19 03:19 Mucosa - Nasopharyngeal Respiratory Panel (PCR) - Final Laboratory Results 10/12/19 06:10: WBC 9.2, RBC 2.90 L, Hgb 10.5 L, Hct 30.6 L, MCV 105.5 H, MCH 36.2 H, MCHC 34.3, RDW Std Deviation 52.1 H, RDW Coeff of Jose Guadalupe 13.6, Plt Count 204, MPV 10.8, Immature Gran % (Auto) 0.300, Neut % (Auto) 70.0, Lymph % (Auto) 20.5, [place] % (Auto) 3.8, Eos % (Auto) 5.2 H, Baso % (Auto) 0.2, Absolute Neuts (auto) 6.4, Absolute Lymphs (auto) 1.89, Nucleated RBC % 0 10/12/19 06:10: Sodium 139, Potassium 3.1 L, Chloride 109 H, Carbon Dioxide 25.0, Anion Gap 5, BUN 2 L, Creatinine 0.42 L, Estim Creat Clear Calc 121.85, Est GFR (MDRD) Af Amer 220, Est GFR (MDRD) Non-Af 181, BUN/Creatinine Ratio 4.8 L, Glucose 85, Calcium 7.8 L, Phosphorus 2.9, Magnesium 2.1 Current Medications Dicyclomine HCl (Bentyl) 20 mg PO Q6H PRN PRN PRN Reason: abdominal discomfort Last Admin: 10/11/19 17:45 Dose: 20 mg Documented by: Hydroxyzine Pamoate (Vistaril Pamoate Capsule) 50 mg PO Q6H PRN PRN PRN Reason: Mild Anxiety (score 1/3) Sodium Chloride () 1,000 mls @ 150 mls/hr IV .Q6H40M [facility] Last Admin: 10/12/19 07:28 Dose: 150 mls/hr Documented by: Thiamine HCl 200 mg/ Sodium (Chloride) 52 mls @ 200 mls/hr IV DAILY [facility] Last Infusion: 10/11/19 11:19 Dose: Infused Documented by: Sodium Chloride () 250 mls @ 15 mls/hr IV .[id number] PRN PRN Reason: Saline Flush Sodium Chloride () 250 mls @ 15 mls/hr IV .[id number] PRN PRN Reason: Additional IVPB Infusion Ibuprofen (Motrin) 400 mg PO Q6H PRN PRN PRN Reason: HEADACHE () Last Admin: 10/12/19 00:38 Dose: 400 mg Documented by: Lorazepam (Ativan) 2 mg IV X1 PRN PRN Reason: Seizure Lorazepam (Ativan) 1 mg PO Q8H [facility]; Taper Stop: 10/13/19 04:14 Last Admin: 10/12/19 04:37 Dose: 1 mg Documented by: Methocarbamol (Methocarbamol) 750 mg PO Q6H PRN PRN PRN Reason: Muscle Aches Last Admin: 10/11/19 17:45 Dose: 750 mg Documented by: Morphine Sulfate () 2 mg IV Q3H PRN PRN PRN Reason: Pain Score 6-10/10 Last Admin: 10/12/19 08:23 Dose: 2 mg Documented by: [facility]ivit[facility] ([facility]) [facility] Last Admin: 10/12/19 08:03 Dose: 1 tablet Documented by: Nicotine (Nicoderm Cq ([facility])) 21 mg TRANSDERM. DAILY [facility] Last Admin: 10/11/19 11:03 Dose: 21 mg Documented by: Nicotine Polacrilex (Rugby Nicotine ([facility])) 4 mg PO Q2H PRN PRN PRN Reason: Nicotine Craving Nutritional Formula (Lactose Free) (Ensure Clear) 120 ml PO 4X/DAY [facility] Last Admin: 10/11/19 20:46 Dose: 120 ml Documented by: Ondansetron HCl (Zofran) 4 mg IV Q8H PRN PRN PRN Reason: NAUSEA/VOMITING Last Admin: 10/10/19 21:00 Dose: 4 mg Documented by: Oxycodone HCl (Oxyir) 5 mg PO Q6H PRN PRN PRN Reason: Pain Score 6-10/10 Sodium Chloride () 10 - 40 ml IV UD PRN PRN Reason: SALINE FLUSH Last Admin: 10/12/19 08:24 Dose: 10 ml Documented by: STROKE Vital Signs/Narrative: Vital Signs Temp Pulse Resp BP Pulse Ox 10/12/19 07:53 98.7 F 54 L 16 102/67 99 Medical Necessity - Tobacco Use Smoking Status: Current every day smoker Tobacco Use: Cigarettes Assessment/Plan All Active Problems Acute pancreatitis (Acute) Viral URI with cough (Acute) Hypomagnesemia (Acute) Hypokalemia (Acute) Acute alcoholic hepatitis (Acute) 1. Acute alcoholic pancreatitis/viral URI -Strep throat was negative, will continue with symptomatic treatment for her viral URI -Leukocytosis resolved as her pancreatitis is improving and her Cipro was discontinued yesterday unlikely to have colitis -She seems to be doing better however she has not started trying to eat yet therefore I do not feel she is ready for discharge until we know how she does with food -Continue with IV fluids at 75 cc/h and will start her on a low-fat diet 2. Alcohol abuse/nicotine abuse -She states that she drinks about a bottle of wine every day and occasionally will also drink twisted tea, she says she has been going through a divorce and that is why she is resorting alcohol -We will continue with alcohol withdrawal protocol -He with a nicotine patch, advised cessation DVT: Ambulation Code Visit Inpatient E&M: 91069 Subs Hosp L2
[2019-10-12] MEDS: Ensure Clear 120 ML Liquid PO ×4 (10:04→21:14)
--- NOTE | 2019-10-12 10:18 | DCINST_ITS ---
- Discharge Diagnoses Current Active Problems: Current Active and Chronic Problems Acute pancreatitis (Acute) Viral URI with cough (Acute) You will use the following diet at home:: Other - Low-fat Your food should be the consistency of: Regular Your liquids should be the consistency of: Regular/Thin Discharge Activity: Return to Normal Activity Call your doctor if you observe: Fever of 101 or Higher, Shortness of breath, Dizziness, Fainting spells, Swelling in the ankles, Chest pain, Increased palpitations (irregular heartbeat) Allergies/Adverse Reactions: Allergies No Known Allergies Allergy (Verified 07/15/19 23:50) Medications to take at Discharge NK 10/09/19 Primary Care Physician: Jonah Leroy MD [Primary Care Provider] - Please follow up with your Primary Care Physician in: 3-5 days Test Results: Test results from this visit will be discussed in further detail at your follow- up appointment, if applicable.
[2019-10-12 14:47] VITALS: BP 111/77; PULSE 82; RESP 16; TEMP 36.8; O2SAT 98
[2019-10-12] MEDS: oxyCODONE 5 MG Tablet PO ×2 (14:57→21:13)
[2019-10-12] MEDS: hydrOXYzine PAM 25 MG Capsule 50 MG PO (17:24)
[2019-10-12] MEDS: 0.9% Normal Saline 1,000 ML 75 ML IV (20:05)
[2019-10-12 20:08] VITALS: BP 104/71; PULSE 71; RESP 18; TEMP 37.1; O2SAT 99
[2019-10-13 02:00] VITALS: BP 117/68; PULSE 60; RESP 18; TEMP 36.6; O2SAT 100
[2019-10-13] MEDS: oxyCODONE 5 MG Tablet PO ×2 (03:33→09:39)
[2019-10-13 06:48] LABS: Anion Gap 6 (5-15); BUN < 1 mg/dL (7-18); Calcium,Total 8.2 mg/dL (8.5-10.1); Chloride 113 mmol/L (98-107); Creatinine, Serum 0.46 mg/dL (0.55-1.02); EST Glomerular Filtration Rate 161 mL/min (>60); Est Glom Filt Rate - Afr Amer 194 mL/min (>60); Estimated Creatinine Clearance 112.04 ml/min; Glucose 96 mg/dL (74-106); Potassium 3.5 mmol/L (3.5-5.1); Sodium Level 142 mmol/L (136-145)
[2019-10-13 08:15] VITALS: BP 120/75; PULSE 66; RESP 18; TEMP 36.9; O2SAT 98
[2019-10-13] MEDS: 0.9% Normal Saline 1,000 ML 75 ML IV (09:15)
[2019-10-13] MEDS: Ensure Clear 120 ML Liquid PO (09:24)
[2019-10-13] MEDS: Multivitamins,Therapeutic Tablet 1 TABLET PO (09:26)
[2019-10-13] MEDS: hydrOXYzine PAM 25 MG Capsule 50 MG PO (09:42)
--- NOTE | 2019-10-13 10:20 | DCINST_ITS ---
- Discharge Diagnoses Current Active Problems: Current Active and Chronic Problems Acute pancreatitis (Acute) Viral URI with cough (Acute) You will use the following diet at home:: No restrictions Discharge Activity: Return to Normal Activity, May not drive while taking narcotic pain medications. Call your doctor if you observe: Fever of 101 or Higher, Shortness of breath, Dizziness, Fainting spells, Swelling in the ankles, Chest pain, Increased palpitations (irregular heartbeat) Allergies/Adverse Reactions: Allergies No Known Allergies Allergy (Verified 07/15/19 23:50) Medications to take at Discharge Nicotine [Nicoderm Cq] 21 mg TRANSDERM. DAILY #30 patch 10/13/19 Oxycodone [Oxyir] 5 mg PO Q6H PRN PRN 5 Days #15 tablet 10/13/19 Pantoprazole Sodium [Protonix] 40 mg PO DAILY #30 tab 10/13/19 The following prescriptions were given: Nicotine [Nicoderm Cq] 21 mg TRANSDERM. DAILY #30 patch Transmission Status: Pending to [facility] [address] Oxycodone [Oxyir] 5 mg PO Q6H PRN PRN 5 Days #15 tablet PRN Reason: Pain Score 6-10/10 Transmission Status: Received by [facility] Pantoprazole Sodium [Protonix] 40 mg PO DAILY #30 tab Transmission Status: Pending to [facility] Primary Care Physician: Jonah Leroy MD [Primary Care Provider] - Please follow up with your Primary Care Physician in: 3-5 days Test Results: Test results from this visit will be discussed in further detail at your follow- up appointment, if applicable. Proposed Discharge Date: 10/13/19
--- NOTE | 2019-10-13 10:23 | PCM.DC.SUM ---
Discharge Date and Diagnosis - Problem List Patient Problems: Active and Suspected Problems Acute pancreatitis (Acute) Viral URI with cough (Acute) Date of Admission: 10/09/19 Date of Discharge: 10/13/19 - Primary Discharge Diagnosis Active and Suspected Problems Acute pancreatitis (Acute) Viral URI with cough (Acute) - Secondary Discharge Diagnosis Chronic Problems Tobacco use (Chronic) Anxiety and depression (Chronic) Alcohol abuse (Chronic) Hepatomegaly (Chronic) Hepatic steatosis (Chronic) Hospital Course and Treatment Imaging Results: Clinical Impression(s) from Imaging Studies Abdomen/Pelvis CT 10/09/19 20:57 IMPRESSION: Circumferential wall thickening of the colon, this may be secondary to its incompletely distended state however cannot exclude underlying colitis. Stranding adjacent to the tail of the pancreas, cannot exclude focal pancreatitis. Atherosclerosis. Electronically Signed: Emi Mendoza MD at 22:22 EST Tel , Service support , Chest X-Ray 10/09/19 21:42 IMPRESSION: No acute cardiopulmonary process. Electronically Signed: Emi Mendoza MD at 22:00 EST Tel , Service support , Abdomen Ultrasound 10/09/19 23:49 IMPRESSION: Small amount of pericholecystic fluid. No evidence of cholelithiasis. Positive Rain''s sign. Electronically Signed: Parker Paz, at 8:38 EST , Service support , Operations: None Summary of Care Provided: The patient is a 39 year old F with back pain found to have acute pancreatitis 2. Acute alcoholic pancreatitis ?Admitted to regular nursing floor manage with conservative management including bowel rest pain management antinausea medication. Patient was started on oral diet once her pain improved and advance as tolerated 2. Acute viral upper respiratory tract infection Treated symptomatically 3. Chronic alcohol abuse Counseled on cessation 4. Tobacco dependence counseled on cessation, offered nicotine patch for tobacco cravings Patient Problems: Active and Suspected Problems Acute pancreatitis (Acute) Viral URI with cough (Acute) - Physical Exam Vitals/I&O's: Vital Signs Temp Pulse Resp BP Pulse Ox 98.4 F 66 18 120/75 98 10/13/19 08:15 10/13/19 08:15 10/13/19 08:15 10/13/19 08:15 10/13/19 08:15 Oxygen Delivery Method Room Air Weight: 42.8 kg Body Mass Index (BMI) 17.6 Finger Stick Blood Glucose 185 Intake and Output for Last 24 Hours 10/11/19 10/12/19 10/13/19 23:59 23:59 23:59 Intake Total 3738.5 / 4638.5 3402.0 / 3402.0 1539.5 / 1539.5 Output Total 500 / 500 Balance 3238.5 / 4138.5 3402.0 / 3402.0 1539.5 / 1539.5 General: Alert HEENT: Atraumatic Neck: Supple Lungs: Diminished Cardiovascular: Regular rate, Regular Rhythm Neurological: Neuro grossly intact Psych/Mental Status: Normal Affect Microbiology Past 72 Hours 10/10/19 03:30 Mucosa - Throat Group A Streptococcus Rapid Screen - Final 10/11/19 17:45 Stool Enteric Bacteriology - Final 10/10/19 03:19 Mucosa - Nasopharyngeal Respiratory Panel (PCR) - Final Laboratory Results 10/13/19 06:00: Sodium 142, Potassium 3.5, Chloride 113 H, Carbon Dioxide 23.0, Anion Gap 6, BUN < 1 L, Creatinine 0.46 L, Estim Creat Clear Calc 112.04, Est GFR (MDRD) Af Amer 194, Est GFR (MDRD) Non-Af 161, BUN/Creatinine Ratio TNP, Glucose 96, Calcium 8.2 L Current Medications Dicyclomine HCl (Bentyl) 20 mg PO Q6H PRN PRN PRN Reason: abdominal discomfort Last Admin: 10/11/19 17:45 Dose: 20 mg Documented by: Hydroxyzine Pamoate (Vistaril Pamoate Capsule) 50 mg PO Q6H PRN PRN PRN Reason: Mild Anxiety (score 1/3) Last Admin: 10/13/19 09:42 Dose: 50 mg Documented by: Sodium Chloride () 1,000 mls @ 75 mls/hr IV .[id number] [facility] Last Admin: 10/13/19 09:15 Dose: 75 mls/hr Documented by: Thiamine HCl 200 mg/ Sodium (Chloride) 52 mls @ 200 mls/hr IV DAILY [facility] Last Infusion: 10/13/19 09:44 Dose: Infused Documented by: Sodium Chloride () 250 mls @ 15 mls/hr IV .[id number] PRN PRN Reason: Saline Flush Sodium Chloride () 250 mls @ 15 mls/hr IV .[id number] PRN PRN Reason: Additional IVPB Infusion Ibuprofen (Motrin) 400 mg PO Q6H PRN PRN PRN Reason: HEADACHE (-07/10) Last Admin: 10/12/19 00:38 Dose: 400 mg Documented by: Lorazepam (Ativan) 2 mg IV X1 PRN PRN Reason: Seizure Methocarbamol (Methocarbamol) 750 mg PO Q6H PRN PRN PRN Reason: Muscle Aches Last Admin: 10/11/19 17:45 Dose: 750 mg Documented by: Morphine Sulfate () 2 mg IV Q3H PRN PRN PRN Reason: Pain Score 6-10/10 Last Admin: 10/12/19 08:23 Dose: 2 mg Documented by: Multivitamins ([facility]amin) [facility] Last Admin: 10/13/19 09:26 Dose: 1 tablet Documented by: Nicotine (Nicoderm Cq ([facility])) 21 mg TRANSDERM. DAILY [facility] Last Admin: 10/13/19 09:25 Dose: 21 mg Documented by: Nicotine Polacrilex (Rugby Nicotine ([facility])) 4 mg PO Q2H PRN PRN PRN Reason: Nicotine Craving Nutritional Formula (Lactose Free) (Ensure Clear) 120 ml PO 4X/DAY [facility] Last Admin: 10/13/19 09:24 Dose: 120 ml Documented by: Ondansetron HCl (Zofran) 4 mg IV Q8H PRN PRN PRN Reason: NAUSEA/VOMITING Last Admin: 10/10/19 21:00 Dose: 4 mg Documented by: Oxycodone HCl (Oxyir) 5 mg PO Q6H PRN PRN PRN Reason: Pain Score 6-10/10 Last Admin: 10/13/19 09:39 Dose: 5 mg Documented by: Sodium Chloride () 10 - 40 ml IV UD PRN PRN Reason: SALINE FLUSH Last Admin: 10/12/19 08:24 Dose: 10 ml Documented by: Discharge Diet: No Restrictions Discharge Activity: Return to Normal Activity, May not drive while taking narcotic pain medications. Call your doctor if you observe: Fever of 101 or Higher, Shortness of breath, Dizziness, Fainting spells, Swelling in the ankles, Chest pain, Increased palpitations (irregular heartbeat) Home Medications: Medications to take at Discharge Nicotine [Nicoderm Cq] 21 mg TRANSDERM. DAILY #30 patch 10/13/19 Oxycodone [Oxyir] 5 mg PO Q6H PRN PRN 5 Days #15 tablet 10/13/19 Pantoprazole Sodium [Protonix] 40 mg PO DAILY #30 tab 10/13/19 Following Prescrptions Were Given to Patient: Nicotine [Nicoderm Cq] 21 mg TRANSDERM. DAILY #30 patch Transmission Status: Pending to [facility] [address] Oxycodone [Oxyir] 5 mg PO Q6H PRN PRN 5 Days #15 tablet PRN Reason: Pain Score 6-10/10 Transmission Status: Received by [facility] [address] Pantoprazole Sodium [Protonix] 40 mg PO DAILY #30 tab Transmission Status: Pending to [facility] [address] Primary Care Physician: Jonah Leroy MD [Primary Care Provider] - Please follow up with your Primary Care Physician in: 3-5 days Disposition: Home Minutes spent on discharge:: 35 Patient Condition:: Stable Medical Necessity - Tobacco Use Smoking Status: Current every day smoker Tobacco Use: Cigarettes Meaningful Use Info Meaningful Use Diagnoses (Choose all that apply): None applicable Code Visit Inpatient E&M: 64632 Disch Hosp
--- NOTE | 2019-10-14 13:55 | CASEMGMT ---
[facility] PHONE CALL DC DATE: DC Disposition: Home Diagnosis on Discharge: pancreatitis LACE/STRATA: 11/01 Attempted call to phone, no answer. Elisabet DIANEN RN ACM
== END 2019-10-13 13:02 | disposition home or self-care (01) | DRG 282 ==
LOC: ED 22:46 → MS3 23:17
PROVIDERS: Family Medicine; Admitting Provider Internal Medicine; Emergency Provider Emergency Medicine; Family Provider Family Medicine; PCP Family Medicine; Visit Provider Internal Medicine
DX: K85.20 Alcohol induced acute pancreatitis without necrosis or infection (principal); J06.9 Acute upper respiratory infection, unspecified; B97.89 Other viral agents as the cause of diseases classified elsewhere; F32.9 Major depressive disorder, single episode, unspecified; F41.9 Anxiety disorder, unspecified; K76.0 Fatty (change of) liver, not elsewhere classified; R16.0 Hepatomegaly, not elsewhere classified; F10.10 Alcohol abuse, uncomplicated; F17.210 Nicotine dependence, cigarettes, uncomplicated
CPT/HCPCS: 36415; 71046; 74177; 76705; 80048; 80053; 80307; 81001; 83690; 83735; 84100; 85025; 87506; 87633; 87880; 97802; 99284; J7030; Q9967; A4216; J0744; J2405; J3490

== ENCOUNTER 2020-04-09 09:33 | Inpatient (IN) | payer MEDICAID, SELFPAY ==
[2019-10-09 23:27] VITALS: BMI 17.6
[2020-04-09] VITALS (7 sets, daily range): BP systolic 123–145; BP diastolic 65–92; PULSE 57–98; RESP 16–21; TEMP 36.7–36.9; O2SAT 98–100; BMI 19.6
--- NOTE | 2020-04-09 09:44 | CT_ITS ---
STUDY: CT ABDOMEN AND PELVIS WITH CONTRAST REASON FOR EXAM: Female, 40 years old. EPIGASTRIC PAIN. ? PANCREATITIS . ALCOHOLIC HEPATITIS RADIATION DOSAGE (If Supplied By Facility): CTDIvol = ( 7.62 ) mGy, DLP = ( 223.88 ) mGycm TECHNIQUE: Transaxial images were obtained from the dome of the diaphragm to the symphysis pubis without oral contrast. IV 100mL Isovue-300 was administered. Sagittal and coronal images were reconstructed. Individualized dose optimization techniques were used for this CT. COMPARISON: Comparison is made with prior study dated October 09, 2019. FINDINGS: The visualized lung bases are unremarkable. The visualized portions of the heart are within normal limits. There is decreased attenuation of the liver consistent with steatosis. Hepatomegaly. Normal gallbladder and extrahepatic biliary system. Normal spleen. There is diffuse enlargement of the pancreas with angeles-pancreatic edema suggesting acute pancreatitis. There is a 1.1 cm x 1 cm cyst in the tail portion of the pancreas. There is also evidence of a 1.1 cm x 1.3 cm cyst in the region of the uncinate process of the pancreas. These may represent small pseudocysts. Small amount of fluid is seen in the left anterior pararenal space. Normal bilateral adrenal glands. Normal right kidney. Normal left kidney. Normal visualized stomach. Normal small intestine. Normal colon. The appendix is visualized and appears normal. Normal abdominal aorta. Normal inferior vena cava. Normal retroperitoneum. Normal urinary bladder. Small amount of free fluid in the pelvis. Dominant follicle in the left ovary. Normal abdominal wall. Normal osseous structures. CT/Abdomen/Pelvis W IV Cont ONLY IMPRESSION: Findings in keeping with acute pancreatitis with a cystic nodule in the tibial portion of pancreas as well as in the uncinate process of the pancreas. Small amount of free fluid in the pelvis. Dominant follicle in the left ovary. Hepatomegaly and diffuse fatty infiltration of the liver. Electronically Signed: Parker Paz, at 11:13 EDT , Service support ,
--- NOTE | 2020-04-09 09:46 | ED.DCSUM_ITS ---
History of Present Illness Chief Complaint: General Illness Informant: Patient Narrative: Patient is a 40-year-old female presents to the emergency department for epigastric abdominal pain that radiates to her back. This started yesterday. She states she has vomited upwards of 30 times. She has been having many episodes of diarrhea as well. She has had a history of pancreatitis that she feels this is similar to. She was drinking alcohol prior to the onset of the symptoms. She currently rates the pain is 10 out of 10. Scribes the pain is sharp. Movement as well as pushing on the abdomen makes her symptoms much worse. No known relieving factors. She tried taking ibuprofen around 4 AM this morning which did not give her any relief. She states she has had chills but no fevers. No chest pain or shortness of breath. She denies any urinary symptoms. Previous abdominal surgeries include 2 sections as well as partial hysterectomy. Past Medical History - Allergies and Home Meds Allergies/Adverse Reactions: Allergies No Known Allergies Allergy (Verified 04/09/20 09:36) Primary Care Physician: Jonah Leroy MD [Primary Care Provider] - Prior records reviewed: Yes Past Medical History: - - Cryptitis Surgical History: hysterectomy, - - sections Smoking Status: Current every day smoker Alcohol: Occasional Drugs: None - Family History Maternal Family History: Reports: Heart Disease, Hypertension Paternal Family History: Reports: Stroke Review of Systems All systems negative except as indicated General: Reports: Chills. Denies: Fever, Sweats Eyes: Denies: Visual changes - bilaterally, Diplopia ENT: Denies: Rhinorrhea, Sore throat Cardiovascular: Denies: Chest pain, Palpitations Respiratory: Denies: Dyspnea, Cough, Dyspnea on exertion Gastrointestinal: Reports: Abdominal pain, Nausea, Vomiting, Diarrhea. Denies: Melena, Hematochezia Genitourinary: Denies: Dysuria, Hematuria, Frequency Musculoskeletal: Denies: Back pain, Extremity Pain Skin: Denies: Rash, Wounds Neurological: Denies: Headache, Weakness, Numbness Physical Exam Vital Signs/Narrative: Vital Signs Temp Pulse Resp BP Pulse Ox 04/09/20 09:34 98.2 F 98 18 145/84 H 98 Inital Vital Signs reviewed: Yes General: Well nourished, Well developed, No Acute Distress, - - Patient does appear uncomfortable but nontoxic. Head: Normocephalic, Atraumatic Eyes: Perrl, EOMI ENT: Moist mucous membranes, No rhinorrhea Neck: Supple, Nontender Cardiovascular: Regular rate, Regular rhythm, No murmurs Respiratory: No distress, CTA bilaterally, Chest nontender Abdomen: Soft, Nondistended, Normal bowel sounds, Tender - Diffuse, worse in the upper quadrants, Guarding - Voluntary Back: Normal Inspection, - - Tender along the mid back bilaterally. Extremities: Nontender, No edema Skin: Normal color, No rash Neurological: Alert, Oriented x3, Cranial nerves II-XII grossly intact, Normal Strength, Normal Sensation Psychological: Normal affect, Normal Mood, Tearful Diagnostic/Tx/Re-eval - Medical Decision Making Patient presents to emerge department for abdominal pain that radiates to her back. She has been having nausea/vomiting and diarrhea. She does have a history of pancreatitis that she relates this to. Upon arrival to the emerge department vital signs within normal limits. Does have significant abdominal tenderness. Will start IV fluids and give morphine/Zofran for symptomatic treatment. Will obtain basic lab work along with CT scan of abdomen/pelvis. Patient's lipase did come back elevated although she has had high readings before in the past. CT scan did show evidence of acute pancreatitis. After 1 dose of morphine her back pain has relieved but still having significant abdominal pain. Given her pain and imaging/lab findings I do feel patient better be served in hospital setting. Her potassium was slightly low and we will replace IV. She otherwise has been stable throughout ED stay. She is agreeable to staying in the hospital at this time. ED Disposition - Plan for ED Patient: Disposition: Acute Care Hospital [facility] Diagnosis: Acute pancreatitis, Hypokalemia Referrals: Jonah Leroy MD [Primary Care Provider] -
[2020-04-09] MEDS: 0.9% Normal Saline 1,000 ML 1000 ML IV (10:09)
[2020-04-09] MEDS: Ondansetron 4 MG/2 ML Vial IV (10:09)
[2020-04-09] MEDS: Morphine 4 MG/ML Syringe IV (10:10)
[2020-04-09 10:16] LABS: Absolute Lymphocyte Count 1.67 X10^3/uL (0.83-4.51); Absolute Neutrophil Count 7.8 X10^3/uL (2.0-7.7); Basophil# 0.02 X10^3/uL; Basophil% 0.2 % (0-1); Eosinophil# 0.25 X10^3/uL; Eosinophils% 2.4 % (0-5); Hematocrit 40.1 % (37-47); Hemoglobin 14.1 g/dL (12.0-15.0); Lymphocyte # 1.67 X10^3/ul (4.0); Lymphocyte % 16.1 % (19-41); Mean Corp Hgb Conc 35.2 g/dL (32-36); Mean Corpuscular Hgb 40.4 pg (27.0-32.0); Mean Corpuscular Volume 114.9 fL (81-99); Monocyte# 0.54 X10^3/uL; Monocyte% 5.2 % (0-10); NRBC Flagged by Analyzer 0 % (0-5); Neutrophil # 7.84 X10^3/uL (2.7-7.7); Neutrophil % 75.6 % (47-70); Platelet Count 314 K/mm3 (150-450); RBC Distribution Width CV 14.5 % (11.6-14.6); RBC Distribution Width SD 61.8 fl (35.1-43.9); Red Blood Count 3.49 M/mm3 (4.2-5.4); White Blood Count 10.4 K/mm3 (4.4-11.0)
[2020-04-09 10:29] LABS: ALB/GLOB Ratio 0.9 RATIO (0.9-2.4); AST(SGOT) 97 U/L (15-37); Alanine Aminotransfer ALT/SGPT 63 U/L (13-56); Albumin, Serum 3.3 g/dL (3.2-5.0); Alkaline Phosphatase 214 U/L (45-117); Anion Gap 5 (5-15); BUN 7 mg/dL (7-18); BUN/Creat Ratio 8.9 RATIO (10-20); Calcium,Total 8.9 mg/dL (8.5-10.1); Chloride 100 mmol/L (98-107); Creatinine, Serum 0.79 mg/dL (0.55-1.02); EST Glomerular Filtration Rate 86 mL/min (>60); Est Glom Filt Rate - Afr Amer 104 mL/min (>60); Estimated Creatinine Clearance 68.67 ml/min; Globulin 3.8 g/dL (2.2-4.2); Glucose 114 mg/dL (74-106); Lipase 967 U/L (73-393); Potassium 3.2 mmol/L (3.5-5.1); Protein, Total 7.1 g/dL (6.4-8.2); Sodium Level 137 mmol/L (136-145)
[2020-04-09 10:36] LABS: Lactic Acid 1.2 mmol/L (0.4-1.9)
[2020-04-09 11:25] LABS: Mucous, Urine 0 SEEN /hpf (<or=2+); Red Blood Cells-Urine 0 SEEN /hpf (0-5); White Blood Cells 0 SEEN /hpf (0-5)
[2020-04-09 11:29] LABS: Color, Urine Yellow (Yellow); Glucose, Dipstick Normal (Normal); Ketone-Dipstick Negative (Negative); Leukocyte Esterase-Dipstick Negative /ul (Negative); Nitrite-Dipstick Negative (Negative); Occult Blood-Urine Negative /ul (Negative); Protein-Dipstick Negative (Negative); Specific Gravity, Urine 1.005 (1.002-1.030); Urine Bilirubin Dipstick Negative (Negative); Urine Clarity Sl. Cloudy (Clear); Urine Urobilinogen Normal (Normal)
[2020-04-09 11:31] LABS: Internal QC Validated? YES +Cl - CLEAR BKGD; Pregnancy, Urine Negative Negative
[2020-04-09] MEDS: Potassium Chloride 10mEq/100mL 10 MEQ/100 ML IV.SOLN. 100 MEQ IV BOLUS ×2 (11:33→12:27)
[2020-04-09 11:38] LABS: Bacteria 1+ /hpf (None Seen); Squamous Epithelial Cells - UA 0-5 SEEN /hpf (5-10)
[2020-04-09] MEDS: Morphine 2 MG/ML Syringe IV ×3 (13:29→20:06)
[2020-04-09] MEDS: 0.9% Normal Saline 1,000 ML 125 ML IV ×2 (13:31→22:00)
[2020-04-09] MEDS: Phenobarbital 32.4 MG Tablet 64.8 MG PO ×3 (14:29→21:09)
--- NOTE | 2020-04-09 14:35 | HP.PCM_ITS ---
History of Present Illness Date of Admission: 04/09/20 Chief Complaint: Abdominal pain The patient is a 40 year old F with PMH as below who presents to the emergency department for epigastric abdominal pain which was radiating to her back. It started 2 days ago and says that she has had significant episodes of vomiting from the pain, as well as some episodes of diarrhea as well. She says this feels very similar to a previous episode of pancreatitis she had in October. Her previous episode of pancreatitis was secondary to alcohol, and she says that she been doing fine since her last admission, had followed up with 180 however life became stressful again and she has been drinking beers for the last month. In the ER she was given morphine for her pain as well as started on IV fluids. CT scan of her abdomen demonstrated findings of acute pancreatitis as well as cystic nodule in the tail of the pancreas which was not there previously. Bilirubin is elevated to 1.5 which has been previously in 2017. She still has her gallbladder. Past Medical History Past Medical History (Chronic Problems): Chronic Problems Tobacco use (Chronic) Anxiety and depression (Chronic) Alcohol abuse (Chronic) Hepatomegaly (Chronic) Hepatic steatosis (Chronic) Allergies No Known Allergies Allergy (Verified 04/09/20 09:36) Home Medications: Ambulatory Orders Medication Instructions Recorded NK 04/09/20 Surgical History: hysterectomy, - - sections Psychiatric History: Anxiety, Depression [employer] History: No pertinent [employer] history Smoking Status: Current every day smoker Tobacco Use: Cigarettes Alcohol: Occasional Drugs: None - *Family History Maternal History Items: Heart Disease, Hypertension Paternal History Items: Stroke Review of Systems Constitutional: Denies: Chills, Fever, Weight Change HEENT: Denies: Head Aches, Sinus Congestion, Sinus Drainage Cardiovascular: Denies: Chest Pain, Palpitations Respiratory: Denies: Cough, Shortness of breath at rest, Sputum production Gastrointestinal: Reports: Abdominal Pain, Diarrhea, Nausea, Vomiting Genitourinary: Denies: Dysuria Musculoskeletal: Denies: Joint Pain, Joint Tenderness Skin: Denies: Rash, Wounds Neurological: Denies: Numbness, Tingling, Focal weakness Psychiatric: Denies: Anxiety, Depression Hematologic/ Lymphatic: Denies: Easy Bruising, Easy Bleeding VTE Information - Inpt Only VTE Present on Admission: No Patient Problems: Active and Suspected Problems Acute pancreatitis (Acute) Hypokalemia (Acute) - Physical Exam Vitals/I&O's: Vital Signs Temp Pulse Resp BP Pulse Ox 98.1 F 57 L 16 138/92 H 100 04/09/20 13:00 04/09/20 13:00 04/09/20 13:00 04/09/20 13:00 04/09/20 13:00 Oxygen Delivery Method Room Air Weight: 100 lb 8.493 oz Body Mass Index (BMI) 19.6 Finger Stick Blood Glucose 185 Intake and Output for Last 24 Hours 04/07/20 04/08/20 04/09/20 23:59 23:59 23:59 Intake Total 1100 / 1100 Balance 1100 / 1099 General: Alert, Oriented x3, Cooperative, No apparent distress HEENT: Atraumatic, PERRLA, EOMI, Normocephalic Oral: Dry Mucosa Neck: Supple, No JVD Lungs: Clear to auscultation, Normal air movement, No rhonchi, No wheeze, No rales, Diminished Cardiovascular: Regular rate, Regular Rhythm, Normal S1, Normal S2, No murmurs Abdomen: Soft, Non-Distended, No Hepato-splenomegaly, Tender - Epigastric Extremities: No edema, Capillary Refill Less than 3 Seconds Skin: No rashes, No breakdown Neurological: Neuro grossly intact, Sensory exam intact to light touch and pain Psych/Mental Status: Normal Affect, Appropriate Laboratory Results 04/09/20 09:55: WBC 10.4, RBC 3.49 L, Hgb 14.1, Hct 40.1, MCV 114.9 H, MCH 40.4 H, MCHC 35.2, RDW Std Deviation 61.8 H, RDW Coeff of Jose Guadalupe 14.5, Plt Count 314, MPV 10.0, Immature Gran % (Auto) 0.500, Neut % (Auto) 75.6 H, Lymph % (Auto) 16.1 L, [place] % (Auto) 5.2, Eos % (Auto) 2.4, Baso % (Auto) 0.2, Absolute Neuts (auto) 7.8 H, Absolute Lymphs (auto) 1.67, Nucleated RBC % 0 04/09/20 09:55: Sodium 137, Potassium 3.2 L, Chloride 100, Carbon Dioxide 32.0, Anion Gap 5, BUN 7, Creatinine 0.79, Estim Creat Clear Calc 68.67, Est GFR (MDRD) Af Amer 104, Est GFR (MDRD) Non-Af 86, BUN/Creatinine Ratio 8.9 L, Glucose 114 H, Calcium 8.9, Total Bilirubin 1.50 H, AST 97 H, ALT 63 H, Alkaline Phosphatase 214 H, Total Protein 7.1, Albumin 3.3, Globulin 3.8, Albumin/Globulin Ratio 0.9, Lipase 967 H 04/09/20 09:55: Lactic Acid 1.2 04/09/20 11:17: Urine Test Negative 04/09/20 11:17: Urine Color Yellow, Urine Clarity Sl. Cloudy, Urine pH 7.0, Ur Specific [place] 1.005, Urine Protein Negative, Urine Glucose (UA) Normal, Urine Ketones Negative, Urine Occult Blood Negative, Urine Nitrite Negative, Urine Bilirubin Negative, Urine Urobilinogen Normal, Ur Leukocyte Esterase Negative, Urine RBC 0 SEEN, Urine WBC 0 SEEN, Ur Squamous Epith Cells 0-5 SEEN, Urine Bacteria 1+, Urine Mucus 0 SEEN Current Medications Acetaminophen (Tylenol) 650 mg PO Q6H PRN PRN PRN Reason: Pain Score 1-10/Temp > 100.7 F Dicyclomine HCl (Bentyl) 20 mg PO Q6H PRN PRN PRN Reason: abdominal discomfort Enoxaparin Sodium (Lovenox) 40 mg SC DAILY [facility] Folic Acid (Folic Acid) 1 mg PO DAILY@0800 [facility] Gabapentin (Neurontin) 300 mg PO Q8H PRN PRN PRN Reason: moderate to severe anxiety Hydroxyzine Pamoate (Vistaril Pamoate Capsule) 50 mg PO Q4H PRN PRN PRN Reason: mild anxiety Sodium Chloride () 1,000 mls @ 125 mls/hr IV .Q8H [facility] Last Admin: 04/09/20 13:31 Dose: 125 mls/hr Documented by: Loperamide HCl (Imodium) 2 mg PO Q4H PRN PRN PRN Reason: LOOSE STOOLS Melatonin (Melatonin) 3 mg PO QHS PRN PRN PRN Reason: INSOMNIA Morphine Sulfate () 2 mg IV Q3H PRN PRN PRN Reason: Pain Score 6-10/10 Last Admin: 04/09/20 13:29 Dose: 2 mg Documented by: Ondansetron HCl (Zofran) 4 mg IV Q8H PRN PRN PRN Reason: NAUSEA/VOMITING Phenobarbital (Phenobarbital) 97.2 mg PO Q4H [facility]; Taper Stop: 04/13/20 21:59 Last Admin: 04/09/20 14:29 Dose: 97.2 mg Documented by: Sodium Chloride () 10 - 40 ml IV UD PRN PRN Reason: SALINE FLUSH Thiamine HCl (Vitamin B1) 100 mg PO DAILYCM [facility] Trazodone HCl (Desyrel) 100 mg PO QHS PRN PRN Reason: INSOMNIA Assessment/Plan All Active Problems Acute pancreatitis (Acute) Viral URI with cough (Acute) Hypomagnesemia (Acute) Hypokalemia (Acute) Acute alcoholic hepatitis (Acute) 1. Acute alcoholic pancreatitis/alcohol abuse -She has recurrent pancreatitis from alcohol intake. She now also has cystic lesions in her pancreas indicating progression of her disease -Bilirubin is elevated, will monitor with CMP's -Lipase on admission was 967, no need to repeat -Continue with IV fluids and morphine -We will place her on alcohol withdrawal protocol DVT: Alicia Inpatient E&M: 65163 Init Hosp L2
--- NOTE | 2020-04-09 14:46 | CASEMGMT ---
STEPHANIE PRICE Face to Face with patient for initial transition planning/care coordination assessment. RN ALBERT introduced self and role at [facility]. Patient lying in bed, alert and oriented. Patient willing to participate in assessment and is able to answer all questions appropriately. Care providers, pharmacy, and demographics verified. Patient wishes to discharge home, denies need for home health at this time. Patient states she has no further needs or concerns at this time. CM to follow for discharge planning needs that may arise. PCP: Mariaa Specialists: None Preferred Pharmacy: [facility] Insurance: [employer] Prescription Benefit: yes Living Will/HPOA: none LNOK: Living Arrangements: Patient lives with in single story home with bed and bath on first floor. Patient is independent at home. Patient states she quit smoking and drinking beer 2 days ago. Patient was smoking 1PPD and drinking 6 beers per day. RN CM offered resource regarding alcohol and tobacco cessation, patient denied resources. Transportation: self/ DME/HHC: Patient denies DME or previous HHC. Disposition Plan: Patient to discharge home with family support and follow-up plans in place. Aydee ESPINO, RN, CM
[2020-04-09] MEDS: hydrOXYzine PAM 25 MG Capsule 50 MG PO (20:06)
[2020-04-10] VITALS (7 sets, daily range): BP systolic 110–123; BP diastolic 67–76; PULSE 57–82; RESP 16; TEMP 36.4–36.9; O2SAT 95–100
[2020-04-10] MEDS: Morphine 2 MG/ML Syringe IV ×5 (00:17→18:16)
[2020-04-10] MEDS: Phenobarbital 32.4 MG Tablet 64.8 MG PO ×6 (01:39→21:23)
[2020-04-10] MEDS: 0.9% Normal Saline 1,000 ML 125 ML IV ×3 (05:35→21:24)
[2020-04-10 08:00] LABS: Absolute Lymphocyte Count 1.94 X10^3/uL (0.83-4.51); Absolute Neutrophil Count 6.3 X10^3/uL (2.0-7.7); Basophil# 0.03 X10^3/uL; Basophil% 0.3 % (0-1); Eosinophil# 0.38 X10^3/uL; Eosinophils% 4.2 % (0-5); Hematocrit 32.2 % (37-47); Hemoglobin 10.9 g/dL (12.0-15.0); Lymphocyte # 1.94 X10^3/ul (4.0); Lymphocyte % 21.2 % (19-41); Mean Corp Hgb Conc 33.9 g/dL (32-36); Mean Corpuscular Hgb 40.2 pg (27.0-32.0); Mean Corpuscular Volume 118.8 fL (81-99); Mean Platelet Vol. 10.3 fl (6.2-12.0); Monocyte# 0.46 X10^3/uL; NRBC Flagged by Analyzer 0 % (0-5); Neutrophil # 6.29 X10^3/uL (2.7-7.7); Neutrophil % 68.9 % (47-70); Platelet Count 224 K/mm3 (150-450); RBC Distribution Width CV 14.2 % (11.6-14.6); RBC Distribution Width SD 61.9 fl (35.1-43.9); Red Blood Count 2.71 M/mm3 (4.2-5.4); White Blood Count 9.1 K/mm3 (4.4-11.0)
[2020-04-10 08:22] LABS: ALB/GLOB Ratio 0.8 RATIO (0.9-2.4); AST(SGOT) 59 U/L (15-37); Alanine Aminotransfer ALT/SGPT 41 U/L (13-56); Albumin, Serum 2.3 g/dL (3.2-5.0); Alkaline Phosphatase 149 U/L (45-117); Anion Gap 11 (5-15); BUN 4 mg/dL (7-18); BUN/Creat Ratio 9.2 RATIO (10-20); Calcium,Total 7.5 mg/dL (8.5-10.1); Chloride 100 mmol/L (98-107); Creatinine, Serum 0.44 mg/dL (0.55-1.02); EST Glomerular Filtration Rate 170 mL/min (>60); Est Glom Filt Rate - Afr Amer 206 mL/min (>60); Glucose 67 mg/dL (74-106); Potassium 3.3 mmol/L (3.5-5.1); Protein, Total 5.3 g/dL (6.4-8.2); Sodium Level 134 mmol/L (136-145)
[2020-04-10] MEDS: Folic Acid 1 MG Tablet PO (09:13)
[2020-04-10] MEDS: Thiamine Hydrochloride 100 MG Tablet PO (09:13)
[2020-04-10] MEDS: Enoxaparin 40 MG/0.4 ML Syringe SC (09:14)
--- NOTE | 2020-04-10 10:25 | PN_ITS ---
Patient Problems: Active and Suspected Problems Acute pancreatitis (Acute) Hypokalemia (Acute) Subjective: Still with epigastric abdominal pain and back pain. May feel little bit better. Vitals/I&O's: Vital Signs Temp Pulse Resp BP Pulse Ox 98.2 F 76 16 113/73 97 04/10/20 09:27 04/10/20 09:27 04/10/20 09:27 04/10/20 09:27 04/10/20 09:27 Oxygen Delivery Method Room Air Weight: 100 lb 8.493 oz Body Mass Index (BMI) 19.6 Finger Stick Blood Glucose 185 Intake and Output for Last 24 Hours 04/08/20 04/09/20 04/10/20 23:59 23:59 23:59 Intake Total 2220 / 2220 967.92 / 967.92 Output Total 400 / 400 400 / 400 Balance 1820 / 1820 567.92 / 567.92 General: Alert, Oriented x3, Cooperative, No apparent distress HEENT: Atraumatic, PERRLA, EOMI, Normocephalic Oral: Dry Mucosa Neck: Supple, No JVD Lungs: Clear to auscultation, Normal air movement, No rhonchi, No wheeze, No rales, Diminished Cardiovascular: Regular rate, Regular Rhythm, Normal S1, Normal S2, No murmurs Abdomen: Soft, Non-Distended, No Hepato-splenomegaly, Tender - Epigastric Extremities: No edema, Capillary Refill Less than 3 Seconds Skin: No rashes, No breakdown Neurological: Neuro grossly intact, Sensory exam intact to light touch and pain Psych/Mental Status: Normal Affect, Appropriate Laboratory Results 04/09/20 09:55: Sodium 137, Potassium 3.2 L, Chloride 100, Carbon Dioxide 32.0, Anion Gap 5, BUN 7, Creatinine 0.79, Estim Creat Clear Calc 68.67, Est GFR (MDRD) Af Amer 104, Est GFR (MDRD) Non-Af 86, BUN/Creatinine Ratio 8.9 L, Glucose 114 H, Calcium 8.9, Total Bilirubin 1.50 H, AST 97 H, ALT 63 H, Alkaline Phosphatase 214 H, Total Protein 7.1, Albumin 3.3, Globulin 3.8, Albumin/Globulin Ratio 0.9, Lipase 967 H 04/09/20 09:55: Lactic Acid 1.2 04/09/20 11:17: Urine Test Negative 04/09/20 11:17: Urine Color Yellow, Urine Clarity Sl. Cloudy, Urine pH 7.0, Ur Specific [place] 1.005, Urine Protein Negative, Urine Glucose (UA) Normal, Urine Ketones Negative, Urine Occult Blood Negative, Urine Nitrite Negative, Urine Bilirubin Negative, Urine Urobilinogen Normal, Ur Leukocyte Esterase Negative, Urine RBC 0 SEEN, Urine WBC 0 SEEN, Ur Squamous Epith Cells 0-5 SEEN, Urine Bacteria 1+, Urine Mucus 0 SEEN 04/10/20 07:20: WBC 9.1, RBC 2.71 L, Hgb 10.9 L, Hct 32.2 L, MCV 118.8 H, MCH 40.2 H, MCHC 33.9, RDW Std Deviation 61.9 H, RDW Coeff of Jose Guadalupe 14.2, Plt Count 224, MPV 10.3, Immature Gran % (Auto) 0.400, Neut % (Auto) 68.9, Lymph % (Auto) 21.2, [place] % (Auto) 5.0, Eos % (Auto) 4.2, Baso % (Auto) 0.3, Absolute Neuts (auto) 6.3, Absolute Lymphs (auto) 1.94, Nucleated RBC % 0 04/10/20 07:20: Sodium 134 L, Potassium 3.3 L, Chloride 100, Carbon Dioxide 23.0, Anion Gap 11, BUN 4 L, Creatinine 0.44 L, Estim Creat Clear Calc 123.30, Est GFR (MDRD) Af Amer 206, Est GFR (MDRD) Non-Af 170, BUN/Creatinine Ratio 9.2 L, Glucose 67 L, Calcium 7.5 L, Total Bilirubin 0.90, AST 59 H, ALT 41, Alkaline Phosphatase 149 H, Total Protein 5.3 L, Albumin 2.3 L, Globulin 3.0, Albumin/Globulin Ratio 0.8 L Current Medications Acetaminophen (Tylenol) 650 mg PO Q6H PRN PRN PRN Reason: Pain Score 1-10/Temp > 100.7 F Dicyclomine HCl (Bentyl) 20 mg PO Q6H PRN PRN PRN Reason: abdominal discomfort Enoxaparin Sodium (Lovenox) 40 mg SC DAILY [facility] Last Admin: 04/10/20 09:14 Dose: 40 mg Documented by: Folic Acid (Folic Acid) 1 mg PO DAILY@0800 [facility] Last Admin: 04/10/20 09:13 Dose: 1 mg Documented by: Gabapentin (Neurontin) 300 mg PO Q8H PRN PRN PRN Reason: moderate to severe anxiety Hydroxyzine Pamoate (Vistaril Pamoate Capsule) 50 mg PO Q4H PRN PRN PRN Reason: mild anxiety Last Admin: 04/09/20 20:06 Dose: 50 mg Documented by: Sodium Chloride () 1,000 mls @ 125 mls/hr IV .Q8H [facility] Last Admin: 04/10/20 05:35 Dose: 125 mls/hr Documented by: Loperamide HCl (Imodium) 2 mg PO Q4H PRN PRN PRN Reason: LOOSE STOOLS Melatonin (Melatonin) 3 mg PO QHS PRN PRN PRN Reason: INSOMNIA Morphine Sulfate () 2 mg IV Q3H PRN PRN PRN Reason: Pain Score 6-10/10 Last Admin: 04/10/20 09:16 Dose: 2 mg Documented by: Ondansetron HCl (Zofran) 4 mg IV Q8H PRN PRN PRN Reason: NAUSEA/VOMITING Phenobarbital (Phenobarbital) 97.2 mg PO Q4H [facility]; Taper Stop: 04/13/20 21:59 Last Admin: 04/10/20 09:16 Dose: 97.2 mg Documented by: Sodium Chloride () 10 - 40 ml IV UD PRN PRN Reason: SALINE FLUSH Thiamine HCl (Vitamin B1) 100 mg PO DAILYCM [facility] Last Admin: 04/10/20 09:13 Dose: 100 mg Documented by: Trazodone HCl (Desyrel) 100 mg PO QHS PRN PRN Reason: INSOMNIA STROKE Vital Signs/Narrative: Vital Signs Temp Pulse Resp BP Pulse Ox 04/10/20 09:27 98.2 F 76 16 113/73 97 Medical Necessity - Tobacco Use Smoking Status: Current every day smoker Tobacco Use: Cigarettes Assessment/Plan All Active Problems Acute pancreatitis (Acute) Viral URI with cough (Acute) Hypomagnesemia (Acute) Hypokalemia (Acute) Acute alcoholic hepatitis (Acute) 1. Acute alcoholic pancreatitis/alcohol abuse -She has recurrent pancreatitis from alcohol intake. She now also has cystic lesions in her pancreas indicating progression of her disease -LFTs and bilirubin have resolved -Lipase on admission was 967, no need to repeat -Continue with IV fluids and morphine, will continue to maintain on n.p.o. for another day and recheck if able, will restart her diet tomorrow -We will place her on alcohol withdrawal protocol -Potassium is still only 3.3, will replace and check a mag and phosphorus DVT: Lovenox Inpatient E&M: 85035 Subs Hosp L2
[2020-04-10 11:03] LABS: Magnesium 1.5 mg/dL (1.6-2.6); Phosphorus 2.5 mg/dL (2.5-4.9)
[2020-04-10] MEDS: Ondansetron 4 MG/2 ML Vial IV (13:48)
[2020-04-10] MEDS: NYSTATIN 500,000 UNIT/5 ML UDC 500000 UNIT PO ×3 (14:37→21:23)
[2020-04-10] MEDS: Gabapentin 300 MG Capsule PO (18:17)
[2020-04-10] MEDS: Acetaminophen 325 MG Tablet 650 MG PO (19:47)
[2020-04-11] VITALS (7 sets, daily range): BP systolic 98–127; BP diastolic 65–78; PULSE 68–87; RESP 16–20; TEMP 36.1–37; O2SAT 92–100
[2020-04-11] MEDS: Phenobarbital 32.4 MG Tablet 64.8 MG PO ×6 (02:12→21:57)
[2020-04-11] MEDS: 0.9% Normal Saline 1,000 ML 125 ML IV ×3 (05:15→23:38)
[2020-04-11] MEDS: Morphine 2 MG/ML Syringe IV ×5 (05:17→23:38)
[2020-04-11 06:23] LABS: Absolute Lymphocyte Count 1.65 X10^3/uL (0.83-4.51); Basophil# 0.03 X10^3/uL; Basophil% 0.3 % (0-1); Eosinophil# 0.42 X10^3/uL; Eosinophils% 4.9 % (0-5); Hematocrit 37.9 % (37-47); Hemoglobin 12.9 g/dL (12.0-15.0); Lymphocyte # 1.65 X10^3/ul (4.0); Lymphocyte % 19.1 % (19-41); Mean Corpuscular Hgb 40.7 pg (27.0-32.0); Mean Corpuscular Volume 119.6 fL (81-99); Mean Platelet Vol. 10.4 fl (6.2-12.0); Monocyte# 0.49 X10^3/uL; Monocyte% 5.7 % (0-10); NRBC Flagged by Analyzer 0 % (0-5); Neutrophil # 6.01 X10^3/uL (2.7-7.7); Neutrophil % 69.5 % (47-70); Platelet Count 220 K/mm3 (150-450); RBC Distribution Width CV 13.3 % (11.6-14.6); RBC Distribution Width SD 59.6 fl (35.1-43.9); Red Blood Count 3.17 M/mm3 (4.2-5.4); White Blood Count 8.6 K/mm3 (4.4-11.0)
[2020-04-11] MEDS: Gabapentin 300 MG Capsule PO ×2 (06:29→23:38)
[2020-04-11 06:54] LABS: Anion Gap 13 (5-15); BUN 3 mg/dL (7-18); Calcium,Total 7.8 mg/dL (8.5-10.1); Chloride 104 mmol/L (98-107); Creatinine, Serum 0.43 mg/dL (0.55-1.02); EST Glomerular Filtration Rate 174 mL/min (>60); Est Glom Filt Rate - Afr Amer 210 mL/min (>60); Estimated Creatinine Clearance 126.17 ml/min; Glucose 55 mg/dL (74-106); Potassium 4.2 mmol/L (3.5-5.1); Sodium Level 132 mmol/L (136-145)
[2020-04-11] MEDS: Folic Acid 1 MG Tablet PO (08:00)
[2020-04-11] MEDS: Thiamine Hydrochloride 100 MG Tablet PO (08:00)
--- NOTE | 2020-04-11 09:42 | PN_ITS ---
Patient Problems: Active and Suspected Problems Acute pancreatitis (Acute) Hypokalemia (Acute) Subjective: Still has some pain that she says is mostly in her back. She would like to try to eat something today Vitals/I&O's: Vital Signs Temp Pulse Resp BP Pulse Ox 97.8 F 70 20 H 118/77 92 04/11/20 07:51 04/11/20 07:51 04/11/20 07:51 04/11/20 07:51 04/11/20 07:51 Oxygen Delivery Method Room Air Weight: 100 lb 8.493 oz Body Mass Index (BMI) 19.6 Finger Stick Blood Glucose 185 Intake and Output for Last 24 Hours 04/09/20 04/10/20 04/11/20 23:59 23:59 23:59 Intake Total 2220 / 2220 2967.92 / 2967.92 1031.25 / 1031.25 Output Total 400 / 400 2600 / 2600 750 / 750 Balance 1820 / 1820 367.92 / 367.92 281.25 / 281.25 General: Alert, Oriented x3, Cooperative, No apparent distress HEENT: Atraumatic, PERRLA, EOMI, Normocephalic Oral: Dry Mucosa Neck: Supple, No JVD Lungs: Clear to auscultation, Normal air movement, No rhonchi, No wheeze, No rales, Diminished Cardiovascular: Regular rate, Regular Rhythm, Normal S1, Normal S2, No murmurs Abdomen: Soft, Non-Distended, No Hepato-splenomegaly, Tender - Epigastric, improving Extremities: No edema, Capillary Refill Less than 3 Seconds Skin: No rashes, No breakdown Neurological: Neuro grossly intact, Sensory exam intact to light touch and pain Psych/Mental Status: Normal Affect, Appropriate Laboratory Results 04/10/20 07:20: Phosphorus 2.5, Magnesium 1.5 L 04/11/20 06:08: WBC 8.6, RBC 3.17 L, Hgb 12.9, Hct 37.9, MCV 119.6 H, MCH 40.7 H , MCHC 34.0, RDW Std Deviation 59.6 H, RDW Coeff of Jose Guadalupe 13.3, Plt Count 220, MPV 10.4, Immature Gran % (Auto) 0.500, Neut % (Auto) 69.5, Lymph % (Auto) 19.1, [place] % (Auto) 5.7, Eos % (Auto) 4.9, Baso % (Auto) 0.3, Absolute Neuts (auto) 6.0, Absolute Lymphs (auto) 1.65, Nucleated RBC % 0 04/11/20 06:08: Sodium 132 L, Potassium 4.2, Chloride 104, Carbon Dioxide 15.0 L , Anion Gap 13, BUN 3 L, Creatinine 0.43 L, Estim Creat Clear Calc 126.17, Est GFR (MDRD) Af Amer 210, Est GFR (MDRD) Non-Af 174, BUN/Creatinine Ratio 7.0 L, Glucose 55 L, Calcium 7.8 L Current Medications Acetaminophen (Tylenol) 650 mg PO Q6H PRN PRN PRN Reason: Pain Score 1-10/Temp > 100.7 F Last Admin: 04/10/20 19:47 Dose: 650 mg Documented by: Dicyclomine HCl (Bentyl) 20 mg PO Q6H PRN PRN PRN Reason: abdominal discomfort Enoxaparin Sodium (Lovenox) 40 mg SC DAILY [facility] Last Admin: 04/10/20 09:14 Dose: 40 mg Documented by: Folic Acid (Folic Acid) 1 mg PO DAILY@0800 [facility] Last Admin: 04/11/20 08:00 Dose: 1 mg Documented by: Gabapentin (Neurontin) 300 mg PO Q8H PRN PRN PRN Reason: moderate to severe anxiety Last Admin: 04/11/20 06:29 Dose: 300 mg Documented by: Hydroxyzine Pamoate (Vistaril Pamoate Capsule) 50 mg PO Q4H PRN PRN PRN Reason: mild anxiety Last Admin: 04/09/20 20:06 Dose: 50 mg Documented by: Sodium Chloride () 1,000 mls @ 125 mls/hr IV .Q8H [facility] Last Admin: 04/11/20 05:15 Dose: 125 mls/hr Documented by: Loperamide HCl (Imodium) 2 mg PO Q4H PRN PRN PRN Reason: LOOSE STOOLS Melatonin (Melatonin) 3 mg PO QHS PRN PRN PRN Reason: INSOMNIA Morphine Sulfate () 2 mg IV Q4H PRN PRN PRN Reason: Pain Score 6-10/10 Nystatin (Nystatin) 500,000 unit PO 4X/DAY [facility] Last Admin: 04/10/20 21:23 Dose: 500,000 unit Documented by: Ondansetron HCl (Zofran) 4 mg IV Q8H PRN PRN PRN Reason: NAUSEA/VOMITING Last Admin: 04/10/20 13:48 Dose: 4 mg Documented by: Phenobarbital (Phenobarbital) 64.8 mg PO Q4H [facility]; Taper Stop: 04/13/20 21:59 Last Admin: 04/11/20 06:26 Dose: 64.8 mg Documented by: Sodium Chloride () 10 - 40 ml IV UD PRN PRN Reason: SALINE FLUSH Thiamine HCl (Vitamin B1) 100 mg PO DAILYCM [facility] Last Admin: 04/11/20 08:00 Dose: 100 mg Documented by: Trazodone HCl (Desyrel) 100 mg PO QHS PRN PRN Reason: INSOMNIA STROKE Vital Signs/Narrative: Vital Signs Temp Pulse Resp BP Pulse Ox 04/11/20 07:51 97.8 F 70 20 H 118/77 92 Medical Necessity - Tobacco Use Smoking Status: Current every day smoker Tobacco Use: Cigarettes Assessment/Plan All Active Problems Acute pancreatitis (Acute) Viral URI with cough (Acute) Hypomagnesemia (Acute) Hypokalemia (Acute) Acute alcoholic hepatitis (Acute) 1. Acute alcoholic pancreatitis/alcohol abuse -She has recurrent pancreatitis from alcohol intake. She now also has cystic lesions in her pancreas indicating progression of her disease -LFTs and bilirubin have resolved -Lipase on admission was 967, no need to repeat -Continue with IV fluids and morphine, will try a low-fat diet today, will hold if makes her pain worse -We will place her on alcohol withdrawal protocol -Hypokalemia has resolved DVT: Lovenox Inpatient E&M: 18154 Subs Hosp L2
[2020-04-11] MEDS: Enoxaparin 40 MG/0.4 ML Syringe SC (09:53)
[2020-04-11] MEDS: NYSTATIN 500,000 UNIT/5 ML UDC 500000 UNIT PO ×4 (09:55→21:59)
[2020-04-11] MEDS: hydrOXYzine PAM 25 MG Capsule 50 MG PO ×2 (11:29→21:57)
[2020-04-11] MEDS: Dicyclomine 10 MG Capsule 20 MG PO ×2 (11:30→20:52)
[2020-04-11] MEDS: Ondansetron 4 MG/2 ML Vial IV (12:40)
[2020-04-11] MEDS: Acetaminophen 325 MG Tablet 650 MG PO (20:52)
[2020-04-12] MEDS: Phenobarbital 32.4 MG Tablet 64.8 MG PO ×2 (04:44→09:16)
[2020-04-12 04:45] VITALS: BP 112/69; PULSE 74; RESP 16; TEMP 36.7; O2SAT 98
[2020-04-12] MEDS: Morphine 2 MG/ML Syringe IV ×2 (04:57→09:16)
[2020-04-12 06:30] LABS: Anion Gap 7 (5-15); BUN 2 mg/dL (7-18); BUN/Creat Ratio 4.6 RATIO (10-20); Calcium,Total 7.6 mg/dL (8.5-10.1); Chloride 109 mmol/L (98-107); Creatinine, Serum 0.43 mg/dL (0.55-1.02); EST Glomerular Filtration Rate 172 mL/min (>60); Est Glom Filt Rate - Afr Amer 208 mL/min (>60); Estimated Creatinine Clearance 126.17 ml/min; Glucose 138 mg/dL (74-106); Potassium 3.4 mmol/L (3.5-5.1); Sodium Level 134 mmol/L (136-145)
[2020-04-12 07:21] VITALS: BP 101/59; PULSE 65; RESP 16; TEMP 36.8; O2SAT 93
[2020-04-12] MEDS: Folic Acid 1 MG Tablet PO (07:33)
[2020-04-12] MEDS: 0.9% Normal Saline 1,000 ML 125 ML IV (07:33)
[2020-04-12] MEDS: Thiamine Hydrochloride 100 MG Tablet PO (07:33)
[2020-04-12] MEDS: Acetaminophen 325 MG Tablet 650 MG PO (07:37)
[2020-04-12] MEDS: Enoxaparin 40 MG/0.4 ML Syringe SC (09:15)
[2020-04-12] MEDS: NYSTATIN 500,000 UNIT/5 ML UDC 500000 UNIT PO (09:15)
[2020-04-12] MEDS: 0.9% Saline Lock 10 ML Syringe IV (09:17)
[2020-04-12] MEDS: Dicyclomine 10 MG Capsule 20 MG PO (12:19)
--- NOTE | 2020-04-12 12:43 | PCM.DC ---
- Discharge Diagnoses Current Active Problems: Current Active and Chronic Problems Acute pancreatitis (Acute) Hypokalemia (Acute) You will use the following diet at home:: No restrictions Your food should be the consistency of: Regular Your liquids should be the consistency of: Regular/Thin Discharge Activity: Return to Normal Activity Weight Bearing Status: Full weight bearing Additional Instructions: DO NOT DRINK ALCOHOL. CONTACT 180 IF YOU NEED HELP WITH ALCOHOL DETOX Allergies/Adverse Reactions: Allergies No Known Allergies Allergy (Verified 04/09/20 09:36) Medications to take at Discharge Hydrocodone/Acetaminophen [[place] 5-325 Tablet] 1 each PO Q4H PRN PRN 7 Days #10 tablet 04/12/20 Ondansetron HCl [Zofran] 8 mg PO Q6H PRN PRN #10 tab 04/12/20 The following prescriptions were given: Hydrocodone/Acetaminophen [[place] 5-325 Tablet] 1 each PO Q4H PRN PRN 7 Days #10 tablet PRN Reason: Pain Score 1-10/10 Transmission Status: Sent to [facility] [address] Ondansetron HCl [Zofran] 8 mg PO Q6H PRN PRN #10 tab PRN Reason: Nausea Transmission Status: Pending to [facility] [address] Primary Care Physician: Jonah Leroy MD [Primary Care Provider] - Please follow up with your Primary Care Physician in: 1-2 WEEKS Test Results: Test results from this visit will be discussed in further detail at your follow-up appointment, if applicable.
--- NOTE | 2020-04-12 17:17 | DS.PCM_ITS ---
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 Patient complained of multiple episodes of vomiting. She also complained of diarrhea. Work-up in the emergency room who did labs which revealed an elevated lipase and elevated liver enzymes and the patient's potassium was 3.2., CT scan of the abdomen and pelvis showed evidence of acute pancreatitis. Patient was given IV morphine and IV antiemetics, she was admitted to [place] [address] and given IV fluids and potassium replacement. Patient told this examiner she only drinks approximately 6 beers a day. On 04/12/2020, patient was seen and examined: On examination she appeared in good health and spirits, she does not appear to be in any distress. Vital signs as documented. Skin warm and dry and without overt rashes. Neck without JVD, thyroid appears normal, trachea is midline, neck is supple. Lungs clear, normal air movement was noted. Heart exam notable for regular rhythm, normal sounds and absence of murmurs, rubs or gallops. Abdomen unremarkable and without evidence of organomegaly, masses, or abdominal aortic enlargement, bowel sounds are pr esent in all 4 quadrants, no abdominal tenderness was noted. Extremities nonedematous, no cyanosis was noted, no clubbing was noted. Neuro: Cranial nerves II through XII are grossly intact, no focal motor deficits were noted, sensation to light touch and pinprick is intact, motor exam 5/5 throughout. Psych: Patient is alert and oriented x3, she does not appear anxious or depressed, she does not appear agitated. Patient appears stable for discharge on 04/12/2020, she was given instructions to follow-up with 180 if she desired detox services from alcohol, there was no evidence of alcohol withdrawal during her hospitalization and patient told nursing staff that she felt she could quit drinking without detox services. Patient has been cautioned not to intake any alcohol due to her history of pancreatitis. - Physical Exam Vitals/I&O's: Vital Signs Temp Pulse Resp BP Pulse Ox 98.3 F 65 16 101/59 L 93 04/12/20 07:21 04/12/20 07:21 04/12/20 07:21 04/12/20 07:21 04/12/20 07:21 Oxygen Delivery Method Room Air Weight: 45.6 kg Body Mass Index (BMI) 19.6 Finger Stick Blood Glucose 185 Intake and Output for Last 24 Hours 04/10/20 04/11/20 04/12/20 23:59 23:59 23:59 Intake Total 2967.92 / 2967.92 4655.25 / 4655.25 1229.58 / 1229.58 Output Total 2600 / 2600 4400 / 4400 2049 / 2049 Balance 367.92 / 367.92 255.25 / 255.25 -820.42 / -820.42 Laboratory Results 04/12/20 05:56: Sodium 134 L, Potassium 3.4 L, Chloride 109 H, Carbon Dioxide 18.0 L, Anion Gap 7, BUN 2 L, Creatinine 0.43 L, Estim Creat Clear Calc 126.17, Est GFR (MDRD) Af Amer 208, Est GFR (MDRD) Non-Af 172, BUN/Creatinine Ratio 4.6 L, Glucose 138 H, Calcium 7.6 L, Magnesium 2.0 Discharge Activity: Return to Normal Activity Weight Bearing Status: Full weight bearing Home Medications: Medications to take at Discharge Hydrocodone/Acetaminophen [[place] 5-325 Tablet] 1 ea PO Q4H PRN PRN 7 Days #10 tab 04/12/20 Ondansetron HCl [Zofran] 8 mg PO Q6H PRN PRN #10 tab 04/12/20 Following Prescrptions Were Given to Patient: Hydrocodone/Acetaminophen [[place] 5-325 Tablet] 1 ea PO Q4H PRN PRN 7 Days #10 tab PRN Reason: Pain Score 1-07/10 Transmission Status: Received by [facility] [address] Ondansetron HCl [Zofran] 8 mg PO Q6H PRN PRN #10 tab PRN Reason: Nausea Transmission Status: Received by [facility] [address] Primary Care Physician: Jonah Leroy MD [Primary Care Provider] - Please follow up with your Primary Care Physician in: 1-2 WEEKS Disposition: Home Minutes spent on discharge:: 32 Patient Condition:: Stable Medical Necessity - Tobacco Use Smoking Status: Current every day smoker Tobacco Use: Cigarettes Meaningful Use Info Meaningful Use Diagnoses (Choose all that apply): None applicable Inpatient E&M: 23589 Disch Hosp
--- NOTE | 2020-04-13 15:47 | CASEMGMT ---
STEPHANIE PRICE Discharge Follow-up Phone Call: TEGAN: 11 Strata: 3 Call Date: 04/13/20 Discharge Date: 04/12/20 Time of Call: 1547 Duration: 1 min Admitting Diagnosis: etoh pancreatitis RN ALBERT attempted to complete follow-up phone call after recent hospitalization. No answer, voice message left with return contact information.
== END 2020-04-12 14:19 | disposition home or self-care (01) | DRG 282 ==
LOC: ED 11:22 → MS3 11:51
PROVIDERS: Admitting Provider Family Medicine; Emergency Provider Emergency Medicine; PCP Family Medicine; Visit Provider Internal Medicine
DX: K85.20 Alcohol induced acute pancreatitis without necrosis or infection (principal); K86.0 Alcohol-induced chronic pancreatitis; E87.6 Hypokalemia; F17.210 Nicotine dependence, cigarettes, uncomplicated
CPT/HCPCS: 36415; 74177; 80048; 80053; 81001; 81025; 83605; 83690; 83735; 84100; 85025; 99284; 99406; J7030; Q9967; A4216; J2405

== ENCOUNTER 2020-04-22 16:08 | Emergency (ER) | payer MEDICAID, SELFPAY ==
[2020-04-09 12:47] VITALS: BMI 19.6
[2020-04-22 16:09] VITALS: BP 131/81; PULSE 64; RESP 18; TEMP 36.6; O2SAT 100; BMI 19.9
--- NOTE | 2020-04-22 16:39 | CT_ITS ---
We are attempting to reach an attending provider to discuss findings. An addendum with communication details will be sent when the communication is complete. STUDY: CT ABDOMEN AND PELVIS WITHOUT CONTRAST REASON FOR EXAM: Female, 40 years old. ABD PAIN, HX PANCREATITIS, UNABLE TO EAT, RUPTURED UTERUS RADIATION DOSAGE (If Supplied By Facility): CTDIvol = ( 12.54 ) mGy, DLP = ( 243.78 ) mGycm TECHNIQUE: Transaxial images were obtained from the dome of the diaphragm to the symphysis pubis without oral contrast, and without intravenous contrast. Sagittal and coronal images were reconstructed. Individualized dose optimization techniques were used for this CT. COMPARISON: Seven ten twenty FINDINGS: The visualized lung bases are unremarkable. The visualized portions of the heart are within normal limits. There is decreased attenuation of the liver consistent with steatosis. Subcentimeter right hepatic lobe hypodensity. Normal gallbladder and extrahepatic biliary system. Normal spleen. Stable cystic lesion in the head of the pancreas measuring 14 x 13 mm on image thirty-one of series 2. Interval enlargement of a cystic lesion in the pancreatic tail, now measuring 22 x 20 mm on image twenty-two. Differential includes pancreatic pseudocysts, cystic neoplasms, and dilated pancreatic duct radicals. Superimposed acute pancreatitis is noted. Nonocclusive thrombus is now visible in the portosplenic confluence. Splenic vein thrombosis is also noted. Normal bilateral adrenal glands. Normal right kidney. Normal left kidney. Normal visualized stomach. Normal small intestine. Normal colon. There is non-visualization of the appendix. Normal abdominal aorta. Normal inferior vena cava. Normal retroperitoneum. Normal urinary bladder. Interval enlargement of a cyst in the left pelvis which is likely ovarian or adnexal in nature, now measuring 31 x 24 mm on image seventy-two of series 2. Normal abdominal wall. Normal osseous structures. CT/Abdomen/Pelvis W IV Cont ONLY IMPRESSION: Two cystic lesions are present in the pancreas. The lesion in the pancreatic head is unchanged and the lesion in the pancreatic tail has enlarged. Differential includes pancreatic pseudocysts, cystic neoplasms, and dilated pancreatic duct radicals. Consider follow-up MRI/MRCP. Superimposed acute pancreatitis is noted. Interval enlargement of a cyst in the left pelvis which is likely ovarian or adnexal in nature, now measuring 31 x 24 mm. No evidence of acute intestinal pathology or acute obstructive uropathy. Nonocclusive thrombus is now visible in the portosplenic confluence. Splenic vein thrombosis is also noted. Electronically Signed: Jonah Bolton MD at 17:45 EDT Tel , Service support ,
--- NOTE | 2020-04-22 16:41 | ED.DCSUM_ITS ---
History of Present Illness Chief Complaint: Abd Pain Informant: Patient Narrative: 40-year-old female presents with concern for pancreatitis. She states that she was recently admitted for pancreatitis and had elevated lipase numbers. She had a CT of the abdomen pelvis at that time which showed multiple cysts on her pancreas. She was admitted to the hospital for pain control however eventually was able to be discharged home. She states she was given Vicodin for home. She finished these and continues to have pain. She states that now she is having pain in her lower abdomen and on her back. She states she is having trouble holding down food and fluids. She states she has had pancreatitis for a long time because she has a history of EtOH abuse. This was the first time she had noted cysts on CAT scan on her previous admission. Patient has not had a fever, cough, chest pain, shortness of breath, urinary or vaginal complaints. She does not drink anymore. Past Medical History - Allergies and Home Meds Allergies/Adverse Reactions: Allergies No Known Allergies Allergy (Verified 04/22/20 16:08) Primary Care Physician: Jonah Leroy MD [Primary Care Provider] - Prior records reviewed: Yes Surgical History: hysterectomy, - - sections Lives: With Family Smoking Status: Current every day smoker Alcohol: None Drugs: None - Family History Maternal Family History: Reports: Heart Disease, Hypertension Paternal Family History: Reports: Stroke Review of Systems General: Denies: Chills, Fever Eyes: Denies: Visual changes - bilaterally, Diplopia ENT: Denies: Rhinorrhea, Sore throat Cardiovascular: Denies: Chest pain, Palpitations Respiratory: Denies: Dyspnea, Cough, Dyspnea on exertion Gastrointestinal: Reports: Abdominal pain, Nausea, Vomiting Genitourinary: Denies: Dysuria Musculoskeletal: Denies: Myalgias, Arthralgias Skin: Denies: Rash Neurological: Denies: Headache Physical Exam Vital Signs/Narrative: Vital Signs Temp Pulse Resp BP Pulse Ox 04/22/20 16:09 97.8 F 64 18 131/81 H 100 General: Well nourished, - - Tearful holding her abdomen Head: Normocephalic, Atraumatic Eyes: Perrl. Negative for: Scleral icterus ENT: Moist mucous membranes Cardiovascular: Regular rate, Regular rhythm Respiratory: No distress Abdomen: Tender - Diffuse tenderness to palpation of the upper and lower abdomen bilaterally. This is worse in the epigastric area. Extremities: Nontender Skin: Normal color. Negative for: Jaundice Neurological: Alert, Oriented x3 Diagnostic/Tx/Re-eval Clinical Impression(s) from Imaging Studies Abdomen/Pelvis CT 04/22/20 16:39 IMPRESSION: Two cystic lesions are present in the pancreas. The lesion in the pancreatic head is unchanged and the lesion in the pancreatic tail has enlarged. Differential includes pancreatic pseudocysts, cystic neoplasms, and dilated pancreatic duct radicals. Consider follow-up MRI/MRCP. Superimposed acute pancreatitis is noted. Interval enlargement of a cyst in the left pelvis which is likely ovarian or adnexal in nature, now measuring 31 x 24 mm. No evidence of acute intestinal pathology or acute obstructive uropathy. Nonocclusive thrombus is now visible in the portosplenic confluence. Splenic vein thrombosis is also noted. Electronically Signed: Jonah Bolton MD at 17:45 EDT Tel , Service support , ADDENDUM: 04/22/20 1804 IMPRESSION: Two cystic lesions are present in the pancreas. The lesion in the pancreatic head is unchanged and the lesion in the pancreatic tail has enlarged. Differential includes pancreatic pseudocysts, cystic neoplasms, and dilated pancreatic duct radicals. Consider follow-up MRI/MRCP. Superimposed acute pancreatitis is noted. Interval enlargement of a cyst in the left pelvis which is likely ovarian or adnexal in nature, now measuring 31 x 24 mm. No evidence of acute intestinal pathology or acute obstructive uropathy. Nonocclusive thrombus is now visible in the portosplenic confluence. Splenic vein thrombosis is also noted. N.B. : The above information has been verbally conveyed by Jonah Bolton MD to Iron Dickerson DO, on 04/22/2020 17:57:46 (ET). Electronically Signed: Jonah Bolton MD at 17:45 EDT Tel , Service support , Laboratory Data 04/22/20 04/22/20 04/22/20 16:45 16:45 16:45 WBC 10.8 RBC 3.02 L Hgb 11.8 L Hct 34.5 L MCV 114.2 H MCH 39.1 H MCHC 34.2 RDW Std Deviation 64.5 H RDW Coeff of Jose Guadalupe 15.2 H Plt Count 565 H MPV 11.0 Immature Gran % (Auto) 0.400 Neut % (Auto) 63.0 Lymph % (Auto) 26.5 [place] % (Auto) 5.3 Eos % (Auto) 4.2 Baso % (Auto) 0.6 Absolute Neuts (auto) 6.8 Absolute Lymphs (auto) 2.85 Nucleated RBC % 0 Sodium 136 Potassium 3.2 L Chloride 102 Carbon Dioxide 29.0 Anion Gap 5 BUN 5 L Creatinine 0.61 Estim Creat Clear Calc 88.94 Est GFR (MDRD) Af Amer 139 Est GFR (MDRD) Non-Af 115 BUN/Creatinine Ratio 8.1 L Glucose 116 H Calcium 8.8 Total Bilirubin 0.30 Direct Bilirubin 0.06 AST 30 ALT 20 Alkaline Phosphatase 137 H Total Protein 6.9 Albumin 3.2 Globulin 3.7 Lipase 1138 H Urine Color Urine Clarity Urine pH Ur Specific [place] Urine Protein Urine Glucose (UA) Urine Ketones Urine Occult Blood Urine Nitrite Urine Bilirubin Urine Urobilinogen Ur Leukocyte Esterase Urine RBC Urine WBC Ur Squamous Epith Cells Urine Bacteria Urine Mucus Urine Opiates Screen Urine Methadone Screen Ur Barbiturates Screen Ur Phencyclidine Scrn Ur Amphetamines Screen U Methamphetamin-MDMA U Benzodiazepines Scrn Urine Cocaine Screen U Cannabinoids Screen Ur Drug Screen Comment Ethyl Alcohol < 3.0 04/22/20 04/22/20 17:51 17:51 WBC RBC Hgb Hct MCV MCH MCHC RDW Std Deviation RDW Coeff of Jose [place]upe Plt Count MPV Immature Gran % (Auto) Neut % (Auto) Lymph % (Auto) [place] % (Auto) Eos % (Auto) Baso % (Auto) Absolute Neuts (auto) Absolute Lymphs (auto) Nucleated RBC % Sodium Potassium Chloride Carbon Dioxide Anion Gap BUN Creatinine Estim Creat Clear Calc Est GFR (MDRD) Af Amer Est GFR (MDRD) Non-Af BUN/Creatinine Ratio Glucose Calcium Total Bilirubin Direct Bilirubin AST ALT Alkaline Phosphatase Total Protein Albumin Globulin Lipase Urine Color Yellow Urine Clarity Sl. Cloudy Urine pH 7.0 Ur Specific [place] 1.005 Urine Protein Negative Urine Glucose (UA) Normal Urine Ketones Negative Urine Occult Blood Negative Urine Nitrite Negative Urine Bilirubin Negative Urine Urobilinogen Normal Ur Leukocyte Esterase Negative Urine RBC 0 SEEN Urine WBC 0 SEEN Ur Squamous Epith Cells 0-5 SEEN Urine Bacteria 0 SEEN Urine Mucus 0 SEEN Urine Opiates Screen POSITIVE H Urine Methadone Screen NEGATIVE Ur Barbiturates Screen POSITIVE H Ur Phencyclidine Scrn NEGATIVE Ur Amphetamines Screen NEGATIVE U Methamphetamin-MDMA NEGATIVE U Benzodiazepines Scrn NEGATIVE Urine Cocaine Screen NEGATIVE U Cannabinoids Screen POSITIVE H Ur Drug Screen Comment Ethyl Alcohol - Medical Decision Making Presents with worsening abdominal pain after finding out she had cysts on her pancreas. She states been persistent since she was discharged. Upon arrival she has diffuse abdominal pain. I did obtain repeat CT imaging which shows two cystic lesions are present in the pancreas. The lesion in the pancreatic head is unchanged and the lesion in the pancreatic tail has enlarged. Differential includes pancreatic pseudocysts, cystic neoplasms, and dilated pancreatic duct radicals. Nonocclusive thrombus is now visible in the portosplenic confluence. Splenic vein thrombosis is also noted. I did speak with the hospitalist for admission given these findings. He did state that he would be happy to manage it however he was not sure if she would ultimately need GI follow-up and since we do not have GI here he recommended asking. She initially wanted me to try to send her to [facility] however after talking to the transfer line at [place] they do not have GI coverage. Her second recommendation was [facility]. I called [facility] transfer line and asked to speak with GI in regards to what the patient's needs will be. I spoke with Dr. Escobedo stated that realistically she would need IV fluids and pain control however given that this would likely take weeks and likely further GI management in addition to possible work-up for autoimmune source of pancreatitis in addition to previous EtOH induced pancreatitis patient with likely benefit from admission. He recommended speaking to the hospitalist to accept admission and he would take a consult. I did speak with the hospitalist who is amenable to the plan. I did discuss with him that Dr. Hurst not recommend any anticoagulation at this time. Patient has been given multiple doses of Dilaudid in the ED as well as antiemetics. Her vital signs have remained stable. She will be transferred in stable condition when bed availability comes open. Impression: 1. Acute pancreatitis 2. Pancreatic cysts 3. Possible pancreatic cystic neoplasm 4. 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 Portal splenic confluence with partial occlusion ED Disposition - Plan for ED Patient: Disposition: [facility] Referrals: Jonah Leroy MD [Primary Care Provider] -
[2020-04-22] MEDS: HYDROmorphone 1 MG/ML Syringe IV ×3 (16:51→23:42)
[2020-04-22] MEDS: Ondansetron 4 MG/2 ML Vial IV (16:51)
[2020-04-22 17:03] LABS: Absolute Lymphocyte Count 2.85 X10^3/uL (0.83-4.51); Absolute Neutrophil Count 6.8 X10^3/uL (2.0-7.7); Basophil# 0.06 X10^3/uL; Basophil% 0.6 % (0-1); Eosinophil# 0.45 X10^3/uL; Eosinophils% 4.2 % (0-5); Hematocrit 34.5 % (37-47); Hemoglobin 11.8 g/dL (12.0-15.0); Lymphocyte # 2.85 X10^3/ul (4.0); Lymphocyte % 26.5 % (19-41); Mean Corp Hgb Conc 34.2 g/dL (32-36); Mean Corpuscular Hgb 39.1 pg (27.0-32.0); Mean Corpuscular Volume 114.2 fL (81-99); Monocyte# 0.57 X10^3/uL; Monocyte% 5.3 % (0-10); NRBC Flagged by Analyzer 0 % (0-5); Neutrophil # 6.78 X10^3/uL (2.7-7.7); Platelet Count 565 K/mm3 (150-450); RBC Distribution Width CV 15.2 % (11.6-14.6); RBC Distribution Width SD 64.5 fl (35.1-43.9); Red Blood Count 3.02 M/mm3 (4.2-5.4); White Blood Count 10.8 K/mm3 (4.4-11.0)
[2020-04-22 17:17] LABS: AST(SGOT) 30 U/L (15-37); Alanine Aminotransfer ALT/SGPT 20 U/L (13-56); Albumin, Serum 3.2 g/dL (3.2-5.0); Alkaline Phosphatase 137 U/L (45-117); Anion Gap 5 (5-15); BUN 5 mg/dL (7-18); BUN/Creat Ratio 8.1 RATIO (10-20); Bilirubin, Direct 0.06 mg/dL (0.00-0.30); Calcium,Total 8.8 mg/dL (8.5-10.1); Chloride 102 mmol/L (98-107); Creatinine, Serum 0.61 mg/dL (0.55-1.02); EST Glomerular Filtration Rate 115 mL/min (>60); Est Glom Filt Rate - Afr Amer 139 mL/min (>60); Estimated Creatinine Clearance 88.94 ml/min; Globulin 3.7 g/dL (2.2-4.2); Glucose 116 mg/dL (74-106); Lipase 1138 U/L (73-393); Potassium 3.2 mmol/L (3.5-5.1); Protein, Total 6.9 g/dL (6.4-8.2); Sodium Level 136 mmol/L (136-145)
[2020-04-22 17:24] LABS: Alcohol, Blood (Medical)-Serum < 3.0 mg/dL
[2020-04-22 18:04] LABS: Bacteria 0 SEEN /hpf (None Seen); Mucous, Urine 0 SEEN /hpf (<or=2+); Red Blood Cells-Urine 0 SEEN /hpf (0-5); White Blood Cells 0 SEEN /hpf (0-5)
[2020-04-22 18:06] LABS: Color, Urine Yellow (Yellow); Glucose, Dipstick Normal (Normal); Ketone-Dipstick Negative (Negative); Leukocyte Esterase-Dipstick Negative /ul (Negative); Nitrite-Dipstick Negative (Negative); Occult Blood-Urine Negative /ul (Negative); Protein-Dipstick Negative (Negative); Specific Gravity, Urine 1.005 (1.002-1.030); Urine Bilirubin Dipstick Negative (Negative); Urine Clarity Sl. Cloudy (Clear); Urine Urobilinogen Normal (Normal)
[2020-04-22 18:21] LABS: Amphetamine Urine VISTA NEGATIVE (<1000 ng/mL); Barbiturate Urine VISTA POSITIVE (< 200 ng/mL); Benzodiazepine Urine VISTA NEGATIVE (< 200 ng/mL); Cocaine Urine VISTA NEGATIVE (< 300 ng/mL); Ecstacy Urine VISTA NEGATIVE (< 500 ng/mL); Methadone Urine VISTA NEGATIVE (< 300 ng/mL); PCP Urine VISTA NEGATIVE (< 25 ng/mL); THC Urine VISTA POSITIVE (< 50 ng/mL); Vista UDS pH Range 6
--- NOTE | 2020-04-22 18:21 | NURSING ---
CALLED [facility] FOR TRANSFER. TALKED TO FARSHAD
[2020-04-22 18:22] LABS: Squamous Epithelial Cells - UA 0-5 SEEN /hpf (5-10)
--- NOTE | 2020-04-22 18:28 | NURSING ---
CALLING [facility]
[2020-04-22 18:38] VITALS: BP 132/91; PULSE 82; RESP 15; O2SAT 98
[2020-04-22 20:00] VITALS: BP 109/61; PULSE 71; RESP 18; O2SAT 97
[2020-04-22 21:00] VITALS: BP 130/67; PULSE 60; RESP 14; O2SAT 98
[2020-04-22 23:43] VITALS: BP 110/67; PULSE 78; RESP 15; O2SAT 99
[2020-04-22] MEDS: proMETHazine 25 MG/ML Syringe 6.25 MG IV (23:43)
[2020-04-22] MEDS: 0.9% Normal Saline 1,000 ML 250 ML IV (23:43)
== END 2020-04-23 00:06 | disposition short-term general hospital (02) ==
PROVIDERS: Emergency Provider Student in an Organized Health Care Education/Training Program; PCP Family Medicine
DX: K85.90 Acute pancreatitis without necrosis or infection, unspecified (principal); K86.2 Cyst of pancreas; I82.890 Acute embolism and thrombosis of other specified veins; F17.200 Nicotine dependence, unspecified, uncomplicated
CPT/HCPCS: 74177; 80048; 80076; 80307; 80320; 81001; 83690; 85025; 96374; 96375; 96376; 99284; J7030; Q9967; A4216; G0480; J2405

== ENCOUNTER 2020-05-01 06:22 | Emergency (ER) | payer MEDICAID, SELFPAY ==
[2020-05-01 06:23] VITALS: BP 116/82; PULSE 65; RESP 16; TEMP 36.7; O2SAT 98; BMI 20.4
--- NOTE | 2020-05-01 06:41 | CT_ITS ---
STUDY: CTA OF THE ABDOMINAL AORTA REASON FOR EXAM: Female, 40 years old. Diffuse abdominal with history of alcohol abuse and pancreatitis. Prior hysterectomy RADIATION DOSAGE (If Supplied By Facility): CTDIvol = ( 8.09 ) mGy, DLP = ( 447.34 ) mGycm TECHNIQUE: Axial CT angiography multi-detector data acquisition was obtained from the diaphragm to the sacrum following intravenous administration of 100ml Isovue 370. Axial images and MIP images were reconstructed from the axial data set. Post-processing of the angiographic images was performed, with multiplanar reformation and 3D reconstruction. Individualized dose optimization techniques were used for this CT. TECHNICAL QUALITY: Fair COMPARISON: CT April 22, 2020 Descriptors of Narrowing: None (0%) Mild (< 50%) Moderate (50-70%) Severe (70-90%) Subtotal/Total Occlusion (90-100%) Non-Evaluable (technically non-diagnostic FINDINGS: Abdominal aorta: No demonstrated narrowing. There is mild atherosclerotic calcification of the distal abdominal aorta, without a demonstrated aneurysm. Celiac and superior mesenteric arteries: No demonstrated narrowing. Inferior mesenteric artery: No demonstrated narrowing. Right renal artery(arteries): No demonstrated narrowing. Left renal artery(arteries): No demonstrated narrowing. Right common iliac artery: No demonstrated narrowing. Right external iliac artery: No demonstrated narrowing. Right internal iliac artery: No demonstrated narrowing. Left common iliac artery: No demonstrated narrowing. Left external iliac artery: No demonstrated narrowing. Left internal iliac artery: No demonstrated narrowing. There is lower lung atelectasis. The visualized portions of the heart are within normal limits. There is hepatomegaly with diffuse hepatic enlargement. Stable hypodensity in the right lobe. Normal gallbladder and extrahepatic biliary system. Normal spleen. There are low-density lesions of the pancreas measuring 2.2 x 2.0 cm in the body the pancreas, 1.4 x 1.3 cm at the head of the pancreas, and 0.8 x 0.7 cm at the uncinate process. There is mild enlargement of the pancreas with angeles-pancreatic edema suggesting acute pancreatitis. There are regions of diminished enhancement consistent with thrombus at the portal splenic confluence and in the splenic vein, series 2 images 109/150 through 114/150. Normal bilateral adrenal glands. Normal right kidney. Normal left kidney. There is wall thickening of the distal stomach. Normal small intestine. Normal colon. There is non-visualization of the appendix. Normal inferior vena cava. Normal retroperitoneum. Normal abdominal wall. Normal osseous structures. CT/CTA Abdomen W/WO Contrast IMPRESSION: Normal abdominal aorta. No aneurysm or dissection. Stable portal and splenic vein thrombosis. Acute pancreatitis with low-density lesions of the pancreas suggesting focal necrosis/pseudocysts versus cystic neoplasms. Electronically Signed: Daren Salazar MD at 8:59 EDT , Service support ,
--- NOTE | 2020-05-01 06:46 | ED.DCSUM_ITS ---
History of Present Illness Chief Complaint: Abd Pain Narrative: Patient presents with abdominal pain, she was recently transferred to [facility] she was found to have a splenic infarct, she is on Eliquis, she is presenting today with quite a bit of abdominal pain that is worse at night especially tonight she tells me she could hardly sleep. She is anticoagulated on Eliquis, she denies any fevers chills cough or congestion she has no diarrhea or constipation she has no dysuria. She has some nausea but no vomiting Past Medical History - Allergies and Home Meds Allergies/Adverse Reactions: Allergies ondansetron [From Zofran] Adverse Reaction (Verified 05/01/20 06:30) NEEDS FOLLOW-UP Primary Care Physician: Jonah Leroy MD [Primary Care Provider] - Past Medical History: - - Splenic infarct as above history of alcohol abuse not currently drinking Surgical History: hysterectomy, - - sections Smoking Status: Current every day smoker - Family History Maternal Family History: Reports: Heart Disease, Hypertension Paternal Family History: Reports: Stroke Review of Systems General: Denies: Fever ENT: Denies: Rhinorrhea, Sore throat Cardiovascular: Denies: Chest pain Respiratory: Denies: Dyspnea, Cough Gastrointestinal: Reports: Abdominal pain, Nausea. Denies: Vomiting, Diarrhea, Constipation Genitourinary: Denies: Dysuria Musculoskeletal: Denies: Myalgias, Arthralgias, Back pain Skin: Denies: Rash Neurological: Denies: Headache, Weakness Psych: Denies: Depression Endocrine: Denies: Polyuria Hematologic: Denies: Easy bruising Allergy: Denies: Swelling of the mouth Physical Exam Vital Signs/Narrative: Vital Signs Temp Pulse Resp BP Pulse Ox 05/01/20 06:23 98.1 F 65 16 116/82 H 98 General: Well nourished, Well developed Head: Normocephalic, Atraumatic Eyes: Negative for: Pale conjunctiva, Scleral icterus Neck: Supple, Nontender Cardiovascular: Regular rate, Regular rhythm Respiratory: No distress, CTA bilaterally, Chest nontender Abdomen: - - Abdomen is soft there is tenderness throughout the abdomen with some voluntary guarding. No flank pain. Back: Nontender, Normal Inspection Extremities: No edema Skin: Normal color, No rash Neurological: Alert, Normal Strength, Normal Sensation Psychological: - - Slightly anxious Diagnostic/Tx/Re-eval - Medical Decision Making Patient received analgesia, I put an IV, I gave IV fluids I will check a CT angiogram of the abdomen as well as blood work she will be reevaluated by the oncoming emergency physician ED Disposition - Plan for ED Patient: Diagnosis: Abdominal pain Referrals: Jonah Leroy MD [Primary Care Provider] -
[2020-05-01] MEDS: HYDROmorphone 1 MG/ML Syringe IV (07:17)
[2020-05-01] MEDS: 0.9% Normal Saline 1,000 ML 1000 ML IV (07:17)
[2020-05-01 07:33] LABS: Absolute Lymphocyte Count 2.58 X10^3/uL (0.83-4.51); Absolute Neutrophil Count 8.2 X10^3/uL (2.0-7.7); Basophil# 0.06 X10^3/uL; Basophil% 0.5 % (0-1); Eosinophil# 0.82 X10^3/uL; Eosinophils% 6.5 % (0-5); Hematocrit 36.7 % (37-47); Hemoglobin 12.2 g/dL (12.0-15.0); Lymphocyte # 2.58 X10^3/ul (4.0); Lymphocyte % 20.6 % (19-41); Mean Corp Hgb Conc 33.2 g/dL (32-36); Mean Corpuscular Volume 111.2 fL (81-99); Mean Platelet Vol. 11.6 fl (6.2-12.0); Monocyte# 0.83 X10^3/uL; Monocyte% 6.6 % (0-10); NRBC Flagged by Analyzer 0 % (0-5); Neutrophil % 65.4 % (47-70); Platelet Count 414 K/mm3 (150-450); RBC Distribution Width CV 15.6 % (11.6-14.6); RBC Distribution Width SD 64.7 fl (35.1-43.9); White Blood Count 12.5 K/mm3 (4.4-11.0)
[2020-05-01 07:53] LABS: ALB/GLOB Ratio 0.7 RATIO (0.9-2.4); AST(SGOT) 40 U/L (15-37); Alanine Aminotransfer ALT/SGPT 14 U/L (13-56); Albumin, Serum 2.6 g/dL (3.2-5.0); Alkaline Phosphatase 92 U/L (45-117); Anion Gap 4 (5-15); BUN 8 mg/dL (7-18); BUN/Creat Ratio 13.8 RATIO (10-20); Calcium,Total 8.3 mg/dL (8.5-10.1); Chloride 111 mmol/L (98-107); Creatinine, Serum 0.58 mg/dL (0.55-1.02); EST Glomerular Filtration Rate 123 mL/min (>60); Est Glom Filt Rate - Afr Amer 148 mL/min (>60); Estimated Creatinine Clearance 93.54 ml/min; Globulin 3.9 g/dL (2.2-4.2); Glucose 89 mg/dL (74-106); Lipase 1084 U/L (73-393); Potassium 4.8 mmol/L (3.5-5.1); Protein, Total 6.5 g/dL (6.4-8.2); Sodium Level 140 mmol/L (136-145)
[2020-05-01] MEDS: oxyCODONE 5 MG Tablet 10 MG PO (08:37)
--- NOTE | 2020-05-01 09:36 | DCINST.ED_ITS ---
ED Disposition - Plan for ED Patient: Disposition: Home or Assisted Living Diagnosis: Acute pancreatitis with uninfected necrosis, Chronic pancreatitis Instructions: ED Pancreatitis Prescriptions: Oxycodone HCl/Acetaminophen [Percocet 5/325] 1 - 2 tablet PO Q4H PRN 3 Days #18 tablet PRN Reason: Pain Transmission Status: Received by [facility] [facility] Referrals: Jonah Leroy MD [Primary Care Provider] - Ottoniel Park MD [CONSULTING PHYSICIAN] - (call for appt)
[2020-05-01 09:47] VITALS: BP 122/90; PULSE 56; RESP 17; O2SAT 97
--- NOTE | 2020-05-01 09:48 | ED.RN ---
IV DC'ED, CATHETER INTACT, SMALL GAUZE DRESSING PLACED. DISCHARGE INSTRUCTIONS GIVEN TO AND REVIEWED WITH PATIENT, PATIENT DENIES QUESTIONS OR CONCERNS AND VOICES UNDERSTANDING OF DISCHARGE INSTRUCTIONS. PT AMBULATES OUT OF ROOM WITHOUT DIFFICULTY.
== END 2020-05-01 09:48 | disposition home or self-care (01) ==
PROVIDERS: Emergency Provider Emergency Medicine; PCP Family Medicine
DX: K86.1 Other chronic pancreatitis (principal); R10.9 Unspecified abdominal pain; Z79.01 Long term (current) use of anticoagulants; F17.200 Nicotine dependence, unspecified, uncomplicated
CPT/HCPCS: 74175; 80053; 83690; 85025; 96361; 96374; 96375; 99284; Q9967; A4216; J2405

== ENCOUNTER 2020-05-06 19:45 | Emergency (ER) | payer MEDICAID, SELFPAY ==
[2020-05-06 19:46] VITALS: BP 121/74; PULSE 85; RESP 18; TEMP 36.8; O2SAT 98; BMI 20.1
--- NOTE | 2020-05-06 21:32 | ED.DCSUM_ITS ---
History of Present Illness Chief Complaint: General Illness Detail of Chief Complaint: Abdominal pain, nausea Onset: Weeks Context: Gradual Onset Timing: Waxes and wanes Current Severity: Severe Maximum Severity: Severe Narrative: Patient returns secondary to increasing abdominal pain. Patient had recent hospital stays for pancreatitis as well as splenic vein thrombosis. She is currently on Eliquis. She was seen in the ER on May 01. She does have evidence of acute pancreatitis at that time but refused hospital admission. She states that she did take Percocet for a few days and has been following a liquid diet. In spite of this over the past 2 days her pain has increased. She denies fever or chills. - Past Medical History (1) Anxiety and depression Status: Chronic (2) Hepatic steatosis Status: Chronic (3) Pancreatitis Status: Chronic Past Medical History - Allergies and Home Meds Allergies/Adverse Reactions: Allergies ondansetron [From Zofran] Adverse Reaction (Verified 05/06/20 19:47) NEEDS FOLLOW-UP Primary Care Physician: Jonah Leroy MD [Primary Care Provider] - Prior records reviewed: Yes Surgical History: hysterectomy, - - sections Smoking Status: Current every day smoker - Family History Maternal Family History: Reports: Heart Disease, Hypertension Paternal Family History: Reports: Stroke Review of Systems General: Denies: Chills, Fever Eyes: Denies: Visual changes - bilaterally ENT: Denies: Bilateral ear pain Cardiovascular: Denies: Chest pain Respiratory: Reports: Cough. Denies: Dyspnea Gastrointestinal: Reports: Abdominal pain, Nausea. Denies: Vomiting Musculoskeletal: Reports: Back pain. Denies: Swelling, Extremity Pain Skin: Denies: Rash Neurological: Denies: Headache Hematologic: Denies: Easy bruising, Easy bleeding Allergy: Denies: Uticaria Physical Exam Vital Signs/Narrative: Vital Signs Temp Pulse Resp BP Pulse Ox 05/06/20 19:46 98.2 F 85 18 121/74 H 98 Inital Vital Signs reviewed: Yes General: Well nourished, Well developed Head: Normocephalic ENT: Moist mucous membranes Neck: Supple Cardiovascular: Regular rate, Regular rhythm Respiratory: No distress, CTA bilaterally Abdomen: Soft, Tender - Epigastric tenderness to palpation., Hypoactive bowel sounds. Negative for: Guarding, Rebound tenderness Extremities: Nontender Skin: Normal color Neurological: Alert, Oriented x3 Psychological: Normal affect Diagnostic/Tx/Re-eval Laboratory Results 05/06/20 05/06/20 05/06/20 21:50 21:50 21:55 WBC 13.2 H RBC 3.33 L Hgb 12.3 Hct 36.2 L MCV 108.7 H MCH 36.9 H MCHC 34.0 RDW Std Deviation 63.2 H RDW Coeff of Jose Guadalupe 15.8 H Plt Count 388 MPV 11.5 Immature Gran % (Auto) 0.500 Neut % (Auto) 69.4 Lymph % (Auto) 22.4 [place] % (Auto) 5.3 Eos % (Auto) 2.2 Baso % (Auto) 0.2 Absolute Neuts (auto) 9.2 H Absolute Lymphs (auto) 2.96 Nucleated RBC % 0 Sodium 138 Potassium 3.9 Chloride 105 Carbon Dioxide 27.0 Anion Gap 6 BUN 7 Creatinine 0.56 Estim Creat Clear Calc 96.88 Est GFR (MDRD) Af Amer 156 Est GFR (MDRD) Non-Af 129 BUN/Creatinine Ratio 12.5 Glucose 79 Calcium 9.2 Total Bilirubin 0.40 AST 27 ALT 15 Alkaline Phosphatase 102 Total Protein 7.2 Albumin 3.1 L Globulin 4.1 Albumin/Globulin Ratio 0.8 L Lipase 740 H Urine Color Yellow Urine Clarity Clear Urine pH 8.0 Ur Specific [place] 1.010 Urine Protein Negative Urine Glucose (UA) Normal Urine Ketones Negative Urine Occult Blood Negative Urine Nitrite Negative Urine Bilirubin Negative Urine Urobilinogen Normal Ur Leukocyte Esterase Negative Urine RBC 0 SEEN Urine WBC 0 SEEN Ur Squamous Epith Cells 5-10 SEEN Urine Bacteria 0 SEEN Urine Mucus 0 SEEN - Medical Decision Making Patient was given Dilaudid and Phenergan here for pain. She was given IV fluids. Test results do indicate her lipase is coming down appropriately. I do not see signs of dehydration. We discussed hospitalization, however I do not know that anything different will be done inpatient. She will continue clear liquid diet and start adding back in food within the next 24 hours. She will be given a new prescription for Percocet to help control pain. ED Disposition - Plan for ED Patient: Disposition: Home or Assisted Living Diagnosis: Abdominal pain, Chronic pancreatitis Instructions: ED Abdominal Pain Unkn Cause Fem Prescriptions: Oxycodone HCl/Acetaminophen [Percocet 5/325] 1 tablet PO Q6H PRN PRN 3 Days #12 tablet PRN Reason: Pain Referrals: Jonah Leroy MD [Primary Care Provider] - 5-7 Days
[2020-05-06] MEDS: proMETHazine 25 MG/ML Syringe 6.25 MG IV (21:49)
[2020-05-06] MEDS: 0.9% Normal Saline 1,000 ML 1000 ML IV (21:49)
[2020-05-06] MEDS: HYDROmorphone 1 MG/ML Syringe 0.5 MG IV (21:50)
[2020-05-06 21:51] VITALS: RESP 17
[2020-05-06 22:02] LABS: Bacteria 0 SEEN /hpf (None Seen); Mucous, Urine 0 SEEN /hpf (<or=2+); Red Blood Cells-Urine 0 SEEN /hpf (0-5); White Blood Cells 0 SEEN /hpf (0-5)
[2020-05-06 22:05] LABS: Color, Urine Yellow (Yellow); Glucose, Dipstick Normal (Normal); Ketone-Dipstick Negative (Negative); Leukocyte Esterase-Dipstick Negative /ul (Negative); Nitrite-Dipstick Negative (Negative); Occult Blood-Urine Negative /ul (Negative); Protein-Dipstick Negative (Negative); Urine Bilirubin Dipstick Negative (Negative); Urine Clarity Clear (Clear); Urine Urobilinogen Normal (Normal)
[2020-05-06 22:05] LABS: Absolute Lymphocyte Count 2.96 X10^3/uL (0.83-4.51); Absolute Neutrophil Count 9.2 X10^3/uL (2.0-7.7); Basophil# 0.03 X10^3/uL; Basophil% 0.2 % (0-1); Eosinophil# 0.29 X10^3/uL; Eosinophils% 2.2 % (0-5); Hematocrit 36.2 % (37-47); Hemoglobin 12.3 g/dL (12.0-15.0); Lymphocyte # 2.96 X10^3/ul (4.0); Lymphocyte % 22.4 % (19-41); Mean Corpuscular Hgb 36.9 pg (27.0-32.0); Mean Corpuscular Volume 108.7 fL (81-99); Mean Platelet Vol. 11.5 fl (6.2-12.0); Monocyte% 5.3 % (0-10); NRBC Flagged by Analyzer 0 % (0-5); Neutrophil # 9.16 X10^3/uL (2.7-7.7); Neutrophil % 69.4 % (47-70); Platelet Count 388 K/mm3 (150-450); RBC Distribution Width CV 15.8 % (11.6-14.6); RBC Distribution Width SD 63.2 fl (35.1-43.9); Red Blood Count 3.33 M/mm3 (4.2-5.4); White Blood Count 13.2 K/mm3 (4.4-11.0)
[2020-05-06 22:13] LABS: Squamous Epithelial Cells - UA 5-10 SEEN /hpf (5-10)
[2020-05-06 22:30] LABS: ALB/GLOB Ratio 0.8 RATIO (0.9-2.4); AST(SGOT) 27 U/L (15-37); Alanine Aminotransfer ALT/SGPT 15 U/L (13-56); Albumin, Serum 3.1 g/dL (3.2-5.0); Alkaline Phosphatase 102 U/L (45-117); Anion Gap 6 (5-15); BUN 7 mg/dL (7-18); BUN/Creat Ratio 12.5 RATIO (10-20); Calcium,Total 9.2 mg/dL (8.5-10.1); Chloride 105 mmol/L (98-107); Creatinine, Serum 0.56 mg/dL (0.55-1.02); EST Glomerular Filtration Rate 129 mL/min (>60); Est Glom Filt Rate - Afr Amer 156 mL/min (>60); Estimated Creatinine Clearance 96.88 ml/min; Globulin 4.1 g/dL (2.2-4.2); Glucose 79 mg/dL (74-106); Lipase 740 U/L (73-393); Potassium 3.9 mmol/L (3.5-5.1); Protein, Total 7.2 g/dL (6.4-8.2); Sodium Level 138 mmol/L (136-145)
[2020-05-06] MEDS: HYDROmorphone 1 MG/ML Syringe IV (23:45)
[2020-05-07 01:19] VITALS: BP 118/60; PULSE 80; RESP 18; O2SAT 97
== END 2020-05-07 01:20 | disposition home or self-care (01) ==
PROVIDERS: Emergency Medicine; Emergency Provider Emergency Medicine; PCP Family Medicine
DX: R10.9 Unspecified abdominal pain (principal); K86.1 Other chronic pancreatitis; F17.200 Nicotine dependence, unspecified, uncomplicated; Z79.01 Long term (current) use of anticoagulants; Z86.718 Personal history of other venous thrombosis and embolism
CPT/HCPCS: 80053; 81001; 83690; 85025; 96361; 96374; 96375; 96376; 99284; J7030; A4216

== ENCOUNTER 2020-05-25 09:39 | Emergency (ER) | payer MEDICAID, SELFPAY ==
[2020-05-25] VITALS (8 sets, daily range): BP systolic 97–126; BP diastolic 63–85; PULSE 52–101; RESP 18–20; TEMP 36.4–36.9; O2SAT 98–99; BMI 18.3
--- NOTE | 2020-05-25 10:31 | ED.VIS.GEN ---
History of Present Illness Chief Complaint: Abd Pain Narrative: 89-year-old female with history of pancreatitis and pancreatic cysts as well as oral vein thrombosis. She was previously seen about a month ago and admitted to [facility]. She is on Eliquis currently. She has an appointment today to see her primary care doctor to get into pain management however she felt her pain was too much to go to the office and was sent to the ER given her concerns of pain and also a new cough. Patient's exposures to sick contacts would have been from her previous hospital visit as well as her children that go to school. She states that her children have been healthy. She has a cough but no loss of taste or smell, no fever, no shortness of breath or chest pain. - Past Medical History (1) Acute alcoholic hepatitis Status: Chronic (2) Acute pancreatitis Status: Chronic (3) Hypokalemia Status: Chronic (4) Hypomagnesemia Status: Chronic (5) Viral URI with cough Status: Chronic (6) Alcohol abuse Status: Chronic (7) Anxiety and depression Status: Chronic (8) Hepatic steatosis Status: Chronic Past Medical History - Allergies and Home Meds Allergies/Adverse Reactions: Allergies ondansetron [From Zofran] Adverse Reaction (Verified 05/25/20 10:37) NEEDS FOLLOW-UP Primary Care Physician: Jonah Leroy MD [Primary Care Provider] - Past Medical History: - - Reviewed under problem list Surgical History: hysterectomy, - - sections Smoking Status: Current every day smoker - Family History Maternal Family History: Reports: Heart Disease, Hypertension Paternal Family History: Reports: Stroke Review of Systems General: Denies: Chills, Fever Eyes: Denies: Visual changes - left, Visual changes - right ENT: Denies: Rhinorrhea, Sore throat Cardiovascular: Denies: Chest pain, Palpitations Respiratory: Reports: Cough. Denies: Dyspnea, Sputum Gastrointestinal: Reports: Abdominal pain, Nausea, Vomiting Genitourinary: Denies: Dysuria, Hematuria Musculoskeletal: Reports: Myalgias Skin: Denies: Rash, Abscess Physical Exam Vital Signs/Narrative: Vital Signs Temp Pulse Resp BP Pulse Ox 05/25/20 09:39 97.6 F L 101 H 20 H 126/85 H 98 General: Well nourished, Well developed, No Acute Distress Head: Normocephalic, Atraumatic Eyes: Perrl. Negative for: Scleral icterus ENT: Negative for: Moist mucous membranes Cardiovascular: Negative for: Regular rate, Regular rhythm Respiratory: Negative for: No distress, CTA bilaterally Abdomen: Tender - Generalized tenderness to palpation with worsening tenderness in the epigastric region.. Negative for: Soft Extremities: Nontender, No edema Skin: Normal color, No rash Neurological: Alert, Oriented x3 Psychological: Normal affect Diagnostic/Tx/Re-eval Clinical Impression(s) from Imaging Studies Abdomen/Pelvis CTA 05/25/20 10:35 IMPRESSION: Interval decrease in size of the cystic lesion in the tail the pancreas with mild residual peripancreatic inflammatory changes. Hepatomegaly and diffuse fatty replacement of the liver. 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 Electronically Signed: Parker Brandi, at 12:06 EDT , Service support , Chest X-Ray 05/25/20 11:40 IMPRESSION: Normal x-ray examination of the chest. Electronically Signed: Parker Paz, at 12:11 EDT , Service support , Laboratory Data 05/25/20 05/25/20 05/25/20 11:00 11:00 11:59 WBC 10.7 RBC 3.50 L Hgb 12.6 Hct 36.2 L MCV 103.4 H MCH 36.0 H MCHC 34.8 RDW Std Deviation 57.3 H RDW Coeff of Jose Guadalupe 15.1 H Plt Count 419 MPV 10.9 Immature Gran % (Auto) 0.300 Neut % (Auto) 70.5 H Lymph % (Auto) 21.9 [place] % (Auto) 5.3 Eos % (Auto) 1.8 Baso % (Auto) 0.2 Absolute Neuts (auto) 7.6 Absolute Lymphs (auto) 2.34 Nucleated RBC % 0 Total Bilirubin 0.60 Direct Bilirubin 0.06 AST 41 H ALT 20 Alkaline Phosphatase 100 Total Protein 7.3 Albumin 3.5 Globulin 3.8 Lipase 333 Urine Color Straw Urine Clarity Clear Urine pH 6.5 Ur Specific [place] 1.005 Urine Protein Negative Urine Glucose (UA) Normal Urine Ketones Negative Urine Occult Blood Negative Urine Nitrite Negative Urine Bilirubin Negative Urine Urobilinogen Normal Ur Leukocyte Esterase Negative Urine RBC 0 SEEN Urine WBC 0 SEEN Ur Squamous Epith Cells 0-5 SEEN Urine Bacteria RARE Urine Mucus 0 SEEN - Medical Decision Making Patient presents with abdominal pain which is been off and on since her diagnosis of pancreatitis and pancreatic pseudocyst as well as portal vein thrombosis. She is currently on Eliquis. She states that she had an appointment today to get into pain management but missed it because she was having pain as well as a cough and her PCP sent her to the emergency room. She does have generalized pain on examination but is not peritoneal. Her lungs are clear to auscultation. Her vital signs are stable and she is afebrile. She is nontoxic-appearing. I did repeat labs and imaging. There is no significant change on her CT a of the abdomen pelvis. Chest x-ray is negative. Patient request pain medication for home. I did speak to her at length about following up with her primary care doctor to get into pain management as we do not treat chronic pain in the emergency room. This has become a chronic issue for her. I did offer her a prescription for Percocet given that her oars report no current prescription. She acknowledged understanding that if she comes back to the emergency room she would not get another prescription for pain medication and that she needs to follow-up. She is given return precautions otherwise and if she needs to come back to the pain and be admitted she will return. Impression: 1. Abdominal pain 2. Chronic pancreatitis 3. Cough ED Disposition - Plan for ED Patient: Disposition: Home or Assisted Living Instructions: Chronic Pancreatitis, ED Viral Syndrome Prescriptions: Oxycodone HCl/Acetaminophen [Percocet 5/325] 1 tab PO Q6H PRN PRN 3 Days #12 tab PRN Reason: Pain Score 1-10/10 Prescription Printed proMETHazine tablet [Phenergan tablet] 25 mg PO Q6H PRN PRN #14 tab PRN Reason: Nausea Prescription Printed Referrals: Jonah Leroy MD [Primary Care Provider] -
--- NOTE | 2020-05-25 10:35 | CT_ITS ---
STUDY: CT ABDOMEN AND PELVIS WITH CONTRAST REASON FOR EXAM: Female, 40 years old. ABD PAIN, PANCREATIC LESION, SOB, COUGH, FEVER RADIATION DOSAGE (If Supplied By Facility): CTDIvol = ( 13.10 ) mGy, DLP = ( 463.31 ) mGycm TECHNIQUE: Transaxial images were obtained from the dome of the diaphragm to the symphysis pubis without oral contrast. 75 CC ISOVUE 370 was administered. Sagittal and coronal images were reconstructed. Individualized dose optimization techniques were used for this CT. COMPARISON: Comparison is made with prior examination dated 04/22/2020 and 05/01/2020.. FINDINGS: The visualized lung bases are unremarkable. The visualized portions of the heart are within normal limits. There is decreased attenuation of the liver consistent with steatosis. Hepatomegaly. Once again, there is evidence of portal venous thrombosis with collateral circulation in the hilum of the liver. Normal gallbladder and extrahepatic biliary system. Normal spleen. The previously seen cystic nodule in the tail of the pancreas has decreased in size. It presently measures 8.2 mm. Minimal residual increased markings in the peripancreatic region extending into the left perinephric region. Normal bilateral adrenal glands. Normal right kidney. Normal left kidney. Normal visualized stomach. Normal small intestine. Normal colon. The appendix is visualized and appears normal. There is scattered atherosclerotic calcification of the abdominal aorta, without a demonstrated aneurysm. Normal inferior vena cava. Normal retroperitoneum. Normal urinary bladder. Normal abdominal wall. Normal osseous structures. CT/CT ANGIO ABD&PEL W/O&W/DYE IMPRESSION: Interval decrease in size of the cystic lesion in the tail the pancreas with mild residual peripancreatic inflammatory changes. Hepatomegaly and diffuse fatty replacement of the liver. 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 Electronically Signed: Parker Paz, at 12:06 EDT , Service support ,
[2020-05-25 11:11] LABS: Absolute Lymphocyte Count 2.34 X10^3/uL (0.83-4.51); Absolute Neutrophil Count 7.6 X10^3/uL (2.0-7.7); Basophil# 0.02 X10^3/uL; Basophil% 0.2 % (0-1); Eosinophil# 0.19 X10^3/uL; Eosinophils% 1.8 % (0-5); Hematocrit 36.2 % (37-47); Hemoglobin 12.6 g/dL (12.0-15.0); Lymphocyte # 2.34 X10^3/ul (4.0); Lymphocyte % 21.9 % (19-41); Mean Corp Hgb Conc 34.8 g/dL (32-36); Mean Corpuscular Volume 103.4 fL (81-99); Mean Platelet Vol. 10.9 fl (6.2-12.0); Monocyte# 0.57 X10^3/uL; Monocyte% 5.3 % (0-10); NRBC Flagged by Analyzer 0 % (0-5); Neutrophil # 7.55 X10^3/uL (2.7-7.7); Neutrophil % 70.5 % (47-70); Platelet Count 419 K/mm3 (150-450); RBC Distribution Width CV 15.1 % (11.6-14.6); RBC Distribution Width SD 57.3 fl (35.1-43.9); White Blood Count 10.7 K/mm3 (4.4-11.0)
[2020-05-25] MEDS: HYDROmorphone 1 MG/ML Syringe IV (11:19)
[2020-05-25] MEDS: 0.9% Normal Saline 1,000 ML 1000 ML IV (11:19)
[2020-05-25] MEDS: proMETHazine 25 MG/ML Syringe 12.5 MG IV (11:26)
[2020-05-25 11:27] LABS: AST(SGOT) 41 U/L (15-37); Alanine Aminotransfer ALT/SGPT 20 U/L (13-56); Albumin, Serum 3.5 g/dL (3.2-5.0); Alkaline Phosphatase 100 U/L (45-117); Bilirubin, Direct 0.06 mg/dL (0.00-0.30); Globulin 3.8 g/dL (2.2-4.2); Lipase 333 U/L (73-393); Protein, Total 7.3 g/dL (6.4-8.2)
--- NOTE | 2020-05-25 11:40 | RAD_ITS ---
STUDY: X-RAY CHEST REASON FOR EXAM: Female, 40 years old. Cough/fever x 4 days TECHNIQUE: Single AP portable view of the chest. COMPARISON: Comparison is made with prior study dated 10/09/2019. FINDINGS: The lungs are clear and expanded. There is no demonstrated pleural abnormality. Normal size heart. Normal mediastinum and chantell. Normal visualized pulmonary arteries. Normal visualized aortic arch and descending thoracic aorta. Normal visualized thoracic spine. Normal visualized ribs, clavicles, and shoulders. There is no demonstrated abnormality of the visualized soft tissue structures of the upper abdomen. RAD/Chest 1 View (Portable) IMPRESSION: Normal x-ray examination of the chest. Electronically Signed: Parker Paz, at 12:11 EDT , Service support ,
[2020-05-25 12:09] LABS: Mucous, Urine 0 SEEN /hpf (<or=2+); Red Blood Cells-Urine 0 SEEN /hpf (0-5); White Blood Cells 0 SEEN /hpf (0-5)
[2020-05-25 12:11] LABS: Color, Urine Straw (Yellow); Glucose, Dipstick Normal (Normal); Ketone-Dipstick Negative (Negative); Leukocyte Esterase-Dipstick Negative /ul (Negative); Nitrite-Dipstick Negative (Negative); Occult Blood-Urine Negative /ul (Negative); Protein-Dipstick Negative (Negative); Specific Gravity, Urine 1.005 (1.002-1.030); Urine Bilirubin Dipstick Negative (Negative); Urine Clarity Clear (Clear); Urine Urobilinogen Normal (Normal); Urine pH 6.5 (5.0 - 8.0)
[2020-05-25 12:17] LABS: Bacteria RARE /hpf (None Seen); Squamous Epithelial Cells - UA 0-5 SEEN /hpf (5-10)
[2020-05-25] MEDS: fentaNYL 100 MCG/2 ML Ampul 50 MCG IV (12:26)
== END 2020-05-25 14:44 | disposition home or self-care (01) ==
PROVIDERS: Emergency Provider Student in an Organized Health Care Education/Training Program; PCP Family Medicine
DX: R10.9 Unspecified abdominal pain (principal); K86.1 Other chronic pancreatitis; R05 Cough; F17.200 Nicotine dependence, unspecified, uncomplicated; Z79.01 Long term (current) use of anticoagulants; Z86.718 Personal history of other venous thrombosis and embolism
CPT/HCPCS: 71045; 74174; 80076; 81001; 83690; 85025; 87635; 94799; 96374; 96375; 96376; 99285; J7030; Q9967; A4216; U0003

== ENCOUNTER 2020-06-16 21:33 | Emergency (ER) | payer MEDICAID, SELFPAY ==
[2020-05-25 09:39] VITALS: BMI 18.3
[2020-06-16 21:33] VITALS: BP 121/78; PULSE 99; RESP 16; TEMP 36.2; O2SAT 99; BMI 18.3
--- NOTE | 2020-06-16 22:35 | EKG12_ITS ---
Test Reason : OTHER PAIN Blood Pressure : / mmHG Vent. Rate : 069 BPM Atrial Rate : 069 BPM P-R Int : 138 ms QRS Dur : 070 ms QT Int : 366 ms P-R-T Axes : 020 039 066 degrees QTc Int : 392 ms Normal sinus rhythm Normal ECG Confirmed by YU LATIF, MAURICE ([id number]), film editor MELITON PENNY ([id number]) on 06/21/2020 1:28:53 PM Referred By: LUCIO Confirmed By:MAURICE NICHOLAS MD
--- NOTE | 2020-06-16 22:39 | ED.DCSUM_ITS ---
History of Present Illness Chief Complaint: Other, Pain/Inj Narrative: Patient is a 40-year-old female who presents with left shoulder chest and abdominal pain. She has a history of multiple recent hospitalizations for pancreatitis. She also was found to have splenic vein and portal thrombosis. She is on Eliquis. She was most recently hospitalized at [facility] and discharged 9 days ago. Over the past 3 days she complains of severe left shoulder pain and left-sided chest pain. This pain is sharp. Her pain is pleuritic. It is worse with inspiration coughing or hiccups. She also reports nausea and vomiting. No fevers. No diarrhea. Past Medical History - Allergies and Home Meds Allergies/Adverse Reactions: Allergies ondansetron [From Zofran] Adverse Reaction (Verified 06/16/20 21:36) Vomiting Primary Care Physician: Jonah Leroy MD [Primary Care Provider] - Past Medical History: - - Alcohol induced pancreatitis, portal and splenic vein thrombosis Surgical History: hysterectomy, - - sections Smoking Status: Current every day smoker - Family History Maternal Family History: Reports: Heart Disease, Hypertension Paternal Family History: Reports: Stroke Review of Systems All systems negative except as indicated General: Denies: Fever Eyes: Denies: Visual changes - bilaterally Cardiovascular: Reports: Chest pain Respiratory: Denies: Dyspnea, Cough Gastrointestinal: Reports: Abdominal pain, Nausea, Vomiting. Denies: Diarrhea Musculoskeletal: Denies: Myalgias, Arthralgias Skin: Denies: Rash Neurological: Denies: Headache Allergy: Denies: Uticaria Physical Exam Vital Signs/Narrative: Vital Signs Temp Pulse Resp BP Pulse Ox 06/16/20 21:33 97.1 F L 99 16 121/78 H 99 Inital Vital Signs reviewed: Yes General: Well nourished Head: Normocephalic Eyes: EOMI ENT: Moist mucous membranes Neck: Supple Cardiovascular: Regular rhythm, Tachycardia Respiratory: No distress, CTA bilaterally Abdomen: Soft, Tender, - - Patient has diffuse abdominal tenderness which is greatest in the left upper quadrant she does not have guarding or rebound Skin: Normal color Neurological: Alert Diagnostic/Tx/Re-eval Impressions Chest CTA 06/17/20 22:36 IMPRESSION: Chronic obstructive pulmonary disease. No visualize aneurysmal dilatation. Limited contrast bolus to evaluate for pulmonary embolism no visualized centrally located clot. Electronically Signed: Tish Riley MD at 1:58 EDT Tel , Service support , Abdomen/Pelvis CTA 06/17/20 22:38 IMPRESSION: Findings are most suggestive of mild ascites. The liver is enlarged partially fatty infiltrated. There is what appears to be chronic partial thrombosis of the portal vein and the superior mesenteric vein extending to the splenic confluence. However it should be noted that this is a CT angiogram which primarily enhances the arteries and often the veins at the timing of an angiogram, demonstrates mixing of contrast within the venous structures including the portal veins. Recommend consideration for Doppler ultrasound. Consider follow-up study such as CT liver mass protocol may be helpful if provides arterial and venous phase delayed imaging to evaluate the vessels. The timing of this study there is enhancement of arterial structures. Nonspecific bowel gas pattern air-fluid levels within the colon the patient may develop diarrhea. Persistent Mild edema of the periphery of the stomach adjacent to the pancreas cannot exclude a small focus of pancreatitis recommend correlation with laboratory values. No evidence of aneurysmal dilatation of the aorta or dissection. Partial visualization of pulmonary emphysema probable chronic obstructive pulmonary disease. Electronically Signed: Tish Riley MD at 1:51 EDT Tel , Service support , 06/17/20 22:36 CTA Chest W/WO Contrast [CT] Stat 06/17/20 22:38 CT ANGIO ABD&PEL W/O&W/DYE [CT] Stat Laboratory Results 06/16/20 06/16/20 06/16/20 23:19 23:19 23:19 WBC 12.4 H RBC 3.44 L Hgb 11.4 L Hct 33.8 L MCV 98.3 MCH 33.1 H MCHC 33.7 RDW Std Deviation 53.0 H RDW Coeff of Jose Guadalupe 14.7 H Plt Count 446 MPV 10.7 Immature Gran % (Auto) 0.300 Neut % (Auto) 77.3 H Lymph % (Auto) 15.5 L [place] % (Auto) 5.9 Eos % (Auto) 0.9 Baso % (Auto) 0.1 Absolute Neuts (auto) 9.6 H Absolute Lymphs (auto) 1.91 Nucleated RBC % 0 PT 17.5 H INR 1.5 Sodium 136 Potassium 3.6 Chloride 104 Carbon Dioxide 26.0 Anion Gap 6 BUN 8 Creatinine 0.51 L Estim Creat Clear Calc 99.60 Est GFR (MDRD) Af Amer 172 Est GFR (MDRD) Non-Af 142 BUN/Creatinine Ratio 15.7 Glucose 97 Calcium 9.5 Total Bilirubin 0.50 AST 17 ALT 15 Alkaline Phosphatase 109 Troponin I < 0.015 Total Protein 7.6 Albumin 3.5 Globulin 4.1 Albumin/Globulin Ratio 0.9 Lipase 418 H - Medical Decision Making Patient was treated with IV fluids morphine Phenergan. She is resting comfortably on reevaluation. Laboratory studies and imaging as above. Patient did undergo CTAs of the chest abdomen and pelvis. Given her clinical presentation I was concerned for possible pulmonary embolism or splenic pathology causing diaphragmatic irritation with referred pain. No evidence of pulmonary embolism and no evidence of splenic infarct. At this point I do not see an indication to hospitalization, patient is in agreement with this. She was advised to follow-up as an outpatient. She does understand to return for new or worsening symptoms. ED Disposition - Plan for ED Patient: Disposition: Home or Assisted Living Diagnosis: Chest pain, Abdominal pain Instructions: ED Chest Pain NonCardiac Referrals: Jonah Leroy MD [Primary Care Provider] -
[2020-06-16 23:26] LABS: Absolute Lymphocyte Count 1.91 X10^3/uL (0.83-4.51); Absolute Neutrophil Count 9.6 X10^3/uL (2.0-7.7); Basophil# 0.01 X10^3/uL; Basophil% 0.1 % (0-1); Eosinophil# 0.11 X10^3/uL; Eosinophils% 0.9 % (0-5); Hematocrit 33.8 % (37-47); Hemoglobin 11.4 g/dL (12.0-15.0); Lymphocyte # 1.91 X10^3/ul (4.0); Lymphocyte % 15.5 % (19-41); Mean Corp Hgb Conc 33.7 g/dL (32-36); Mean Corpuscular Hgb 33.1 pg (27.0-32.0); Mean Corpuscular Volume 98.3 fL (81-99); Mean Platelet Vol. 10.7 fl (6.2-12.0); Monocyte# 0.73 X10^3/uL; Monocyte% 5.9 % (0-10); NRBC Flagged by Analyzer 0 % (0-5); Neutrophil # 9.56 X10^3/uL (2.7-7.7); Neutrophil % 77.3 % (47-70); Platelet Count 446 K/mm3 (150-450); RBC Distribution Width CV 14.7 % (11.6-14.6); Red Blood Count 3.44 M/mm3 (4.2-5.4); White Blood Count 12.4 K/mm3 (4.4-11.0)
[2020-06-16] MEDS: Morphine 4 MG/ML Syringe IV (23:30)
[2020-06-16] MEDS: proMETHazine 25 MG/ML Syringe 12.5 MG IV (23:30)
[2020-06-16] MEDS: 0.9% Normal Saline 1,000 ML 1000 ML IV (23:31)
[2020-06-16 23:34] VITALS: BP 113/86; PULSE 85; RESP 14; O2SAT 97
[2020-06-16 23:47] LABS: ALB/GLOB Ratio 0.9 RATIO (0.9-2.4); AST(SGOT) 17 U/L (15-37); Alanine Aminotransfer ALT/SGPT 15 U/L (13-56); Albumin, Serum 3.5 g/dL (3.2-5.0); Alkaline Phosphatase 109 U/L (45-117); Anion Gap 6 (5-15); BUN 8 mg/dL (7-18); BUN/Creat Ratio 15.7 RATIO (10-20); Calcium,Total 9.5 mg/dL (8.5-10.1); Chloride 104 mmol/L (98-107); Creatinine, Serum 0.51 mg/dL (0.55-1.02); EST Glomerular Filtration Rate 142 mL/min (>60); Est Glom Filt Rate - Afr Amer 172 mL/min (>60); Globulin 4.1 g/dL (2.2-4.2); Glucose 97 mg/dL (74-106); International Normalized Ratio 1.5; Lipase 418 U/L (73-393); Potassium 3.6 mmol/L (3.5-5.1); Protein, Total 7.6 g/dL (6.4-8.2); Prothrombin Time (Protime)PT. 17.5 SECONDS (11.7-14.9); Sodium Level 136 mmol/L (136-145)
[2020-06-17 01:00] VITALS: BP 107/74; PULSE 76; RESP 17; O2SAT 99
--- NOTE | 2020-06-17 01:43 | ED.RN ---
CALLED CT FOR RESULTS SHE WAS SCANNED AT 0005. PER ALEX, SHE HAD TO RESEND SOME OF THE IMAGES, RADIOLOGIST IS LOOKING AT HER FILMS RIGHT NOW.
[2020-06-17 02:32] VITALS: BP 107/76; PULSE 70; RESP 18; O2SAT 98
--- NOTE | 2020-06-17 22:36 | CT_ITS ---
STUDY: CTA CHEST REASON FOR EXAM: Female, 40 years old. LEFT SHOULDER PAIN THAT RADIATES DOWN LEFT CHEST WITH EMESIS, HX HYSTERECTOMY, PANCREATITIS, SPLENIC THROMBIS HX RADIATION DOSAGE (If Supplied By Facility): CTDIvol = ( 18.03 ) mGy, DLP = ( 390.10 ) mGycm TECHNIQUE: The examination was performed with the intravenous administration of IV 100mL Isovue-370. Post-processing of the angiographic images was performed, with multiplanar reformation and 3D reconstruction. Individualized dose optimization techniques were used for this CT. COMPARISON: Chest x-ray May 25, 2020 FINDINGS: There is limited enhancement of the main pulmonary artery and right and left pulmonary arteries. Normal enhancement of the bilateral peripheral pulmonary arteries. There is no demonstrated pulmonary embolism. Normal thoracic aorta and visualized great vessels. There is no demonstrated aortic dissection. Normal heart and pericardium. Normal mediastinum. Normal hilar regions. Normal visualized trachea and bronchi. There is a pattern of hyperinflation. There is emphysematous change especially in the lung apices. There is increased AP diameter of the chest. There is no focal consolidation pleural effusion or pulmonary edema. Normal pulmonary parenchyma. Normal pleura. Normal chest wall structures. Normal osseous structures. Hepatic steatosis and inhomogeneity. CT/CTA Chest W/WO Contrast IMPRESSION: Chronic obstructive pulmonary disease. No visualize aneurysmal dilatation. Limited contrast bolus to evaluate for pulmonary embolism no visualized centrally located clot. Electronically Signed: Tish Riley MD at 1:58 EDT Tel , Service support ,
--- NOTE | 2020-06-17 22:38 | CT_ITS ---
STUDY: CT ANGIOGRAM ABDOMEN AND PELVIS WITH ALL CONTRAST. REASON FOR EXAM: Female, 40 years old. PLEURITIC CHEST PAIN, LEFT SHOULDER RADIATES DOWN LEFT CHEST, HX SPLENIC THROMBUS, PANCREATITIS RADIATION DOSAGE (If Supplied By Facility): CTDIvol = ( 18.03 ) mGy, DLP = ( 390.10 ) mGycm. Individualized dose optimization techniques were used for this CT.? TECHNIQUE: Multiple axial images of the abdomen and pelvis were obtained from the base of the lungs to the proximal femurs after the administration of 100 mL of Isovue-370. Sagittal coronal reformatted images were obtained as well as 3-D mip reconstruction images. COMPARISON: CT angiogram abdomen and pelvis May 25 CT abdomen and pelvis FINDINGS: There are a few scattered emphysematous blebs within the lungs. The lungs appear hyperinflated. There is no visualized focal infiltrate. The heart appears normal in size. The liver is borderline enlarged fatty infiltrated with focal areas of sparing. As seen on the prior studies there is persistent partial thrombus of the portal vein. Prior studies are in the arterial phase which limits the evaluation of the portal venous structures. On today''s structure there is some contrast within the portal venous system. The splenic confluence shows focal filling defect which at this time and could be clot versus the timing of the procedure. This was also seen on the prior study May 01, 2020. At the timing of this CT angiogram study this is in an arterial phase demonstrating good contrast enhancement of the hepatic arteries And the superior Mesenteric arteries. The aorta measures 1.9 x 1.6 cm, at the level of the hiatus. At the level of the renal arteries the aorta measures 1.5 x 1.6 cm. It maintains a normal caliber throughout. There is trace calcification of the proximal left common iliac artery which remains patent. The bilateral kidneys appear grossly normal. The bilateral renal veins and inferior vena cava are noncontrasted at the timing of the CT angiogram. The stomach is decompressed. There is a small amount of fluid adjacent to the stomach. There is trace edema adjacent to the anterior aspect of the pancreas. There is mild distention of the pancreatic duct. There is visualized pericholecystic fluid and fluid in the pericolic gutter right greater than left suspicious for ascites. There is minimal distention of the small bowel. There is a nonspecific minimally distended appearance of the proximal colon with an air-fluid level. The appendix is partially visualized and appears grossly normal. There are few nonspecific but peritoneal lymph nodes. The bladder is distended. There is a small to moderate amount of fluid within the pelvis. The uterus appears to been surgically removed. Superficial soft tissues appear grossly normal. Is minimal degenerative change in the thoracolumbar spine. The spleen is homogeneous without evidence of visualized infarct. The spleen measures 8.6 x 3.6 cm. The jejunal glands appear normal. There is no evidence of hydronephrosis. . CT/CT ANGIO ABD&PEL W/O&W/DYE IMPRESSION: Findings are most suggestive of mild ascites. The liver is enlarged partially fatty infiltrated. There is what appears to be chronic partial thrombosis of the portal vein and the superior mesenteric vein extending to the splenic confluence. However it should be noted that this is a CT angiogram which primarily enhances the arteries and often the veins at the timing of an angiogram, demonstrates mixing of contrast within the venous structures including the portal veins. Recommend consideration for Doppler ultrasound. Consider follow-up study such as CT liver mass protocol may be helpful if provides arterial and venous phase delayed imaging to evaluate the vessels. The timing of this study there is enhancement of arterial structures. Nonspecific bowel gas pattern air-fluid levels within the colon the patient may develop diarrhea. Persistent Mild edema of the periphery of the stomach adjacent to the pancreas cannot exclude a small focus of pancreatitis recommend correlation with laboratory values. No evidence of aneurysmal dilatation of the aorta or dissection. Partial visualization of pulmonary emphysema probable chronic obstructive pulmonary disease. Electronically Signed: Tish Riley MD at 1:51 EDT Tel , Service support ,
== END 2020-06-17 02:36 | disposition home or self-care (01) ==
PROVIDERS: Emergency Provider Emergency Medicine; PCP Family Medicine
DX: R07.9 Chest pain, unspecified (principal); R10.9 Unspecified abdominal pain; F17.200 Nicotine dependence, unspecified, uncomplicated; Z79.01 Long term (current) use of anticoagulants; Z87.19 Personal history of other diseases of the digestive system
CPT/HCPCS: 71275; 74174; 80053; 83690; 84484; 85025; 85610; 93005; 96361; 96374; 96375; 99285; J7030; Q9967; A4216

== ENCOUNTER 2020-07-22 08:58 | Emergency (ER) | payer MEDICAID, SELFPAY ==
[2020-07-22 08:58] VITALS: BP 111/88; PULSE 95; RESP 18; TEMP 36.6; O2SAT 100; BMI 19.5
--- NOTE | 2020-07-22 09:16 | EKG12_ITS ---
Test Reason : ABD PAIN Blood Pressure : / mmHG Vent. Rate : 087 BPM Atrial Rate : 087 BPM P-R Int : 122 ms QRS Dur : 076 ms QT Int : 356 ms P-R-T Axes : 010 039 066 degrees QTc Int : 428 ms Normal sinus rhythm Normal ECG Confirmed by NEISHA LATIF, CASH ([id number]), medical transcription editor MELITON PENNY ([id number]) on 07/26/2020 12:38:54 PM Referred By: COLEMAN Confirmed By:CASH DRIVER MD
--- NOTE | 2020-07-22 09:16 | RAD_ITS ---
STUDY: X-RAY CHEST REASON FOR EXAM: Female, 40 years old. Chest pain, left sided abd pain TECHNIQUE: PA and lateral views of the chest. COMPARISON: Comparison is made with prior examination dated 05/25/2020. FINDINGS: EKG electrodes are seen. There is evidence of blunting of the right costophrenic angle. Hyperinflation. Normal size heart. Normal mediastinum and hcantell. Normal visualized pulmonary arteries. Normal visualized aortic arch and descending thoracic aorta. Normal visualized thoracic spine. Normal visualized ribs, clavicles, and shoulders. There is no demonstrated abnormality of the visualized soft tissue structures of the upper abdomen. RAD/Chest PA and Lateral IMPRESSION: Minimal blunting of the right costophrenic angle. Electronically Signed: Parker Paz, at 11:23 EDT , Service support ,
--- NOTE | 2020-07-22 09:18 | CT_ITS ---
STUDY: CT ABDOMEN AND PELVIS WITHOUT CONTRAST REASON FOR EXAM: Female, 40 years old. VOMITING BLOOD, CHRONIC NECROTIC PANCREATITIS, ABD PAIN RADIATION DOSAGE (If Supplied By Facility): CTDIvol = ( 9.356 ) mGy, DLP = ( 228.46 ) mGycm TECHNIQUE: Transaxial images were obtained from the dome of the diaphragm to the symphysis pubis without oral contrast, and without intravenous contrast. Sagittal and coronal images were reconstructed. Individualized dose optimization techniques were used for this CT. COMPARISON: Comparison is made with prior study dated 06/17/2020. FINDINGS: The visualized lung bases are unremarkable. The visualized portions of the heart are within normal limits. Small amount of free fluid is seen in the left upper quadrant anterior to the spleen. Small amount of fluid is seen in the lesser sac posterior to the stomach. There is decreased attenuation of the liver consistent with steatosis. Normal gallbladder and extrahepatic biliary system. Normal spleen. There is diffuse atrophy of the pancreas. Normal bilateral adrenal glands. Normal right kidney. Normal left kidney. Normal visualized stomach. Normal small intestine. There is evidence of a thickening of the right hemicolon. Colitis should be ruled out. The appendix is visualized and appears normal. Normal abdominal aorta. Normal inferior vena cava. Normal retroperitoneum. Normal urinary bladder. Normal abdominal wall. Normal osseous structures. CT/Abdomen/Pelvis W IV Cont ONLY IMPRESSION: Fluid is seen in the left upper quadrant as well as in the lesser sac. The pancreas is atrophic. Findings suggestive of colitis involving the ascending colon and transverse colon. Electronically Signed: Parker Paz, at 11:16 EDT , Service support ,
--- NOTE | 2020-07-22 09:18 | ED.VIS.GEN ---
History of Present Illness Chief Complaint: Abd Pain Narrative: This patient is a 40-year-old female who presents with hematemesis. She has a history of chronic pancreatitis. 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 She is on Eliquis. I saw her a little over a month ago she was developing severe left flank and shoulder pain. She underwent diagnostic evaluation at that time including a CTA of the chest abdomen pelvis. Showed known thrombosis. Patient was discharged to follow-up as an outpatient. She states she has been dealing with the ongoing left flank and shoulder pain ever since that time. Last night she developed nausea and vomiting which has been severe since last night. She reports bright red blood in her emesis. This was not on the initial episode but developed later. She also complains of some diarrhea. No fevers. Past Medical History - Allergies and Home Meds Allergies/Adverse Reactions: Allergies ondansetron [From Zofran] Adverse Reaction (Verified 07/22/20 09:00) Vomiting Primary Care Physician: Jonah Leroy MD [Primary Care Provider] - Past Medical History: - - Chronic pancreatitis, portal vein thrombosis Surgical History: hysterectomy, - - sections Smoking Status: Current every day smoker - Family History Maternal Family History: Reports: Heart Disease, Hypertension Paternal Family History: Reports: Stroke Review of Systems All systems negative except as indicated General: Denies: Fever Eyes: Denies: Visual changes - bilaterally ENT: Denies: Bilateral ear pain Cardiovascular: Reports: Chest pain Respiratory: Denies: Dyspnea, Cough Gastrointestinal: Reports: Abdominal pain, Nausea, Vomiting, Diarrhea Musculoskeletal: Denies: Myalgias, Arthralgias Skin: Denies: Rash Neurological: Denies: Headache Hematologic: Reports: Easy bruising, Easy bleeding Allergy: Denies: Uticaria Physical Exam Vital Signs/Narrative: Vital Signs Temp Pulse Resp BP Pulse Ox 07/22/20 08:58 97.9 F 95 18 111/88 H 100 Inital Vital Signs reviewed: Yes General: Well nourished Head: Normocephalic Eyes: EOMI ENT: Moist mucous membranes Neck: Supple Cardiovascular: Regular rhythm, Tachycardia Respiratory: No distress, CTA bilaterally. Negative for: Rales, Rhonchi Abdomen: Soft, - - Diffuse left-sided abdominal tenderness without guarding without rebound, bowel sounds are normal Skin: Normal color Neurological: Alert Psychological: Tearful Diagnostic/Tx/Re-eval Impressions Chest X-Ray 07/22/20 09:16 IMPRESSION: Minimal blunting of the right costophrenic angle. Electronically Signed: Parker Paz, at 11:23 EDT , Service support , Abdomen/Pelvis CT 07/22/20 09:18 IMPRESSION: Fluid is seen in the left upper quadrant as well as in the lesser sac. The pancreas is atrophic. Findings suggestive of colitis involving the ascending colon and transverse colon. Electronically Signed: Parker Paz, at 11:16 EDT , Service support , 07/22/20 09:16 Chest PA and Lateral [RAD] Stat 07/22/20 09:18 CT Abd [Abdomen/Pelvis W IV Cont ONLY] [CT] Stat Laboratory Results 07/22/20 07/22/20 07/22/20 09:35 09:35 09:35 WBC 15.6 H RBC 4.02 L Hgb 12.8 Hct 39.6 MCV 98.5 MCH 31.8 MCHC 32.3 RDW Std Deviation 56.3 H RDW Coeff of Jose Guadalupe 15.7 H Plt Count 526 H MPV 10.7 Immature Gran % (Auto) 0.300 Neut % (Auto) 82.4 H Lymph % (Auto) 10.6 L Haines % (Auto) 4.0 Eos % (Auto) 2.4 Baso % (Auto) 0.3 Absolute Neuts (auto) 12.9 H Absolute Lymphs (auto) 1.66 Nucleated RBC % 0 PT 14.4 INR 1.2 Sodium 140 Potassium 3.8 Chloride 105 Carbon Dioxide 29.0 Anion Gap 6 BUN 10 Creatinine 0.75 Estim Creat Clear Calc 72.11 Est GFR (MDRD) Af Amer 111 Est GFR (MDRD) Non-Af 92 BUN/Creatinine Ratio 13.4 Glucose 93 Calcium 9.0 Total Bilirubin 0.50 AST 25 ALT 16 Alkaline Phosphatase 140 H Troponin I < 0.015 Total Protein 7.0 Albumin 3.1 L Globulin 3.9 Albumin/Globulin Ratio 0.8 L Lipase 469 H - Medical Decision Making Patient was treated with IV fluids, morphine, Zofran. INR 1.2. Patient has had no further hematemesis while here. Hemoglobin is normal. CT abdomen pelvis shows findings consistent with ascending and transverse colitis. She does have a white count of 15.6. She was given a dose of IV Zosyn. EKG shows normal sinus rhythm at a rate of 87. I spoke to the hospitalist and general surgeon here. Given that we do not have GI coverage transfer was recommended. Patient transferred to [facility]. ED Disposition - Plan for ED Patient: Disposition: [facility] Diagnosis: UGIB (upper gastrointestinal bleed), Colitis Referrals: Jonah Leroy MD [Primary Care Provider] -
[2020-07-22] MEDS: proMETHazine 25 MG/ML Syringe 12.5 MG IV (09:33)
[2020-07-22] MEDS: Morphine 4 MG/ML Syringe IV (09:33)
[2020-07-22] MEDS: 0.9% Normal Saline 1,000 ML 1000 ML IV (09:34)
[2020-07-22 09:54] LABS: Absolute Lymphocyte Count 1.66 X10^3/uL (0.83-4.51); Absolute Neutrophil Count 12.9 X10^3/uL (2.0-7.7); Basophil# 0.04 X10^3/uL; Basophil% 0.3 % (0-1); Eosinophil# 0.38 X10^3/uL; Eosinophils% 2.4 % (0-5); Hematocrit 39.6 % (37-47); Hemoglobin 12.8 g/dL (12.0-15.0); Lymphocyte # 1.66 X10^3/ul (4.0); Lymphocyte % 10.6 % (19-41); Mean Corp Hgb Conc 32.3 g/dL (32-36); Mean Corpuscular Hgb 31.8 pg (27.0-32.0); Mean Corpuscular Volume 98.5 fL (81-99); Mean Platelet Vol. 10.7 fl (6.2-12.0); Monocyte# 0.63 X10^3/uL; NRBC Flagged by Analyzer 0 % (0-5); Neutrophil # 12.88 X10^3/uL (2.7-7.7); Neutrophil % 82.4 % (47-70); Platelet Count 526 K/mm3 (150-450); RBC Distribution Width CV 15.7 % (11.6-14.6); RBC Distribution Width SD 56.3 fl (35.1-43.9); Red Blood Count 4.02 M/mm3 (4.2-5.4); White Blood Count 15.6 K/mm3 (4.4-11.0)
[2020-07-22 10:02] LABS: International Normalized Ratio 1.2; Prothrombin Time (Protime)PT. 14.4 SECONDS (11.7-14.9)
[2020-07-22 10:15] LABS: ALB/GLOB Ratio 0.8 RATIO (0.9-2.4); AST(SGOT) 25 U/L (15-37); Alanine Aminotransfer ALT/SGPT 16 U/L (13-56); Albumin, Serum 3.1 g/dL (3.2-5.0); Alkaline Phosphatase 140 U/L (45-117); Anion Gap 6 (5-15); BUN 10 mg/dL (7-18); BUN/Creat Ratio 13.4 RATIO (10-20); Chloride 105 mmol/L (98-107); Creatinine, Serum 0.75 mg/dL (0.55-1.02); EST Glomerular Filtration Rate 92 mL/min (>60); Est Glom Filt Rate - Afr Amer 111 mL/min (>60); Estimated Creatinine Clearance 72.11 ml/min; Globulin 3.9 g/dL (2.2-4.2); Glucose 93 mg/dL (74-106); Lipase 469 U/L (73-393); Potassium 3.8 mmol/L (3.5-5.1); Sodium Level 140 mmol/L (136-145)
[2020-07-22 12:56] VITALS: BP 110/73; PULSE 79; RESP 16; O2SAT 99
[2020-07-22] MEDS: HYDROmorphone 1 MG/ML Syringe IV (13:35)
--- NOTE | 2020-07-22 13:35 | HP.PCM_ITS ---
Problem List (1) Colitis Status: Acute (2) UGIB (upper gastrointestinal bleed) Status: Acute (3) Acute alcoholic hepatitis Status: Inactive (4) Acute pancreatitis Status: Chronic Qualifiers: Pancreatitis type: alcohol induced Acute pancreatitis complication: unspecified Qualified Code(s): K85.20 - Alcohol induced acute pancreatitis without necrosis or infection (5) Alcohol abuse Status: Chronic (6) Anxiety and depression Status: Chronic (7) Hepatic steatosis Status: Chronic (8) Hepatomegaly Status: Chronic (9) Hypokalemia Status: Inactive (10) Hypomagnesemia Status: Inactive (11) Pancreatitis Status: Chronic Qualifiers: Chronicity: chronic (12) Tobacco use Status: Chronic (13) Viral URI with cough Status: Inactive History of Present Illness The patient is a 40 year old F [] Past Medical History Past Medical History (Chronic Problems): Chronic Problems Acute pancreatitis (Chronic) Tobacco use (Chronic) Anxiety and depression (Chronic) Alcohol abuse (Chronic) Hepatomegaly (Chronic) Hepatic steatosis (Chronic) Pancreatitis (Chronic) Allergies ondansetron [From Zofran] Adverse Reaction (Verified 07/22/20 09:00) Vomiting Home Medications: Ambulatory Orders Medication Instructions Recorded Apixaban [Eliquis] 5 mg PO BID 05/01/20 Lipase/Protease/Amylase [Harman Issa 1 ea PO TID 05/01/20 36,000 Units Capsule] Pantoprazole Sodium 20 mg PO DAILY 05/01/20 Surgical History: hysterectomy, - - sections Psychiatric History: Anxiety, Depression 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 Smoking Status: Current every day smoker - *Family History Maternal History Items: Heart Disease, Hypertension Paternal History Items: Stroke Patient Problems: Active and Suspected Problems UGIB (upper gastrointestinal bleed) (Acute) Colitis (Acute) - Physical Exam Vitals/I&O's: Vital Signs Temp Pulse Resp BP Pulse Ox 97.9 F 79 16 110/73 99 07/22/20 08:58 07/22/20 12:56 07/22/20 12:56 07/22/20 12:56 07/22/20 12:56 Oxygen Delivery Method Room Air Weight: 45.359 kg Body Mass Index (BMI) 19.5 Finger Stick Blood Glucose 185 Intake and Output for Last 24 Hours 07/20/20 07/21/20 07/22/20 23:59 23:59 23:59 Intake Total 1000 / 1000 Balance 1000 / 1000 Laboratory Results 07/22/20 09:35: WBC 15.6 H, RBC 4.02 L, Hgb 12.8, Hct 39.6, MCV 98.5, MCH 31.8, MCHC 32.3, RDW Std Deviation 56.3 H, RDW Coeff of Jose Guadalupe 15.7 H, Plt Count 526 H, MPV 10.7, Immature Gran % (Auto) 0.300, Neut % (Auto) 82.4 H, Lymph % (Auto) 10.6 L, [place] % (Auto) 4.0, Eos % (Auto) 2.4, Baso % (Auto) 0.3, Absolute Neuts (auto) 12.9 H, Absolute Lymphs (auto) 1.66, Nucleated RBC % 0 07/22/20 09:35: PT 14.4, INR 1.2 07/22/20 09:35: Sodium 140, Potassium 3.8, Chloride 105, Carbon Dioxide 29.0, Anion Gap 6, BUN 10, Creatinine 0.75, Estim Creat Clear Calc 72.11, Est GFR (MDRD) Af Amer 111, Est GFR (MDRD) Non-Af 92, BUN/Creatinine Ratio 13.4, Glucose 93, Calcium 9.0, Total Bilirubin 0.50, AST 25, ALT 16, Alkaline Phosphatase 140 H, Troponin I < 0.015, Total Protein 7.0, Albumin 3.1 L, Globulin 3.9, Albumin/Globulin Ratio 0.8 L, Lipase 469 H Assessment/Plan All Active Problems UGIB (upper gastrointestinal bleed) (Acute) Colitis (Acute)
--- NOTE | 2020-07-22 13:52 | NURSING ---
CALLED [facility], ETA IS 75 MIN
--- NOTE | 2020-07-22 14:13 | ED.RN ---
attempted to call report to [facility]. nurse giving blood would like me to call back in 15 minutes
[2020-07-22 15:00] VITALS: BP 107/66; PULSE 71; RESP 18; O2SAT 97
== END 2020-07-22 15:53 | disposition short-term general hospital (02) ==
PROVIDERS: Emergency Provider Emergency Medicine; PCP Family Medicine
DX: K52.9 Noninfective gastroenteritis and colitis, unspecified (principal); F17.200 Nicotine dependence, unspecified, uncomplicated; Z79.01 Long term (current) use of anticoagulants
CPT/HCPCS: 71046; 74177; 80053; 83690; 84484; 85025; 85610; 93005; 96365; 96375; 99285; J7030; Q9967; A4216

== ENCOUNTER 2020-08-11 10:11 | Emergency (ER) | payer MEDICAID, SELFPAY ==
[2020-08-11 10:12] VITALS: BP 134/76; PULSE 89; RESP 17; TEMP 36.4; O2SAT 100; BMI 17.9
--- NOTE | 2020-08-11 10:28 | CT_ITS ---
STUDY: CT ABDOMEN AND PELVIS WITH CONTRAST REASON FOR EXAM: Female, 40 years old. LEFT SIDE ABD PAIN RADIATING INTO BACK, DIARRHEA RADIATION DOSAGE (If Supplied By Facility): CTDIvol = ( 12.25 ) mGy, DLP = ( 215.50 ) mGycm TECHNIQUE: Transaxial images were obtained from the dome of the diaphragm to the symphysis pubis with oral contrast. Oral and amp; IV Gastrografin and amp; 100mL Isovue-300 was administered. Sagittal and coronal images were reconstructed. Individualized dose optimization techniques were used for this CT. COMPARISON: Comparison is made with prior study dated 07/22/2020. FINDINGS: Mild degree of increased markings at the lung bases suggestive of atelectasis. The visualized portions of the heart are within normal limits. Hepatomegaly. Small amount of perihepatic and perisplenic fluid is seen. Once again, a small amount of fluid is seen in the left upper quadrant superior and anterior to the spleen. Fluid is also seen in the lesser sac. 1 cm cyst is seen in the inferior aspect of the right lobe of the liver. Mild residual thickening of the descending colon. Normal gallbladder and extrahepatic biliary system. Normal spleen. There is diffuse atrophy of the pancreas. Normal bilateral adrenal glands. Normal right kidney. Normal left kidney. Normal visualized stomach. Normal small intestine. Persistent thickening of the descending colon in the region of the cecum although there has been improvement as compared to prior study. The appendix is visualized and appears normal. There is diffuse atherosclerotic calcification of the abdominal aorta, without a demonstrated aneurysm. Normal inferior vena cava. Normal retroperitoneum. Normal urinary bladder. Normal abdominal wall. Straightening of the normal lumbar lordosis. CT/Abdomen/Pelvis WITH Contrast IMPRESSION: Diffuse atrophy of the pancreas. Hepatomegaly and fatty fixation of the liver. Small amount of perihepatic and perisplenic fluid with small amount of fluid in the lesser sac and anterior aspect of the left upper quadrant. Electronically Signed: Parker Paz, at 14:03 EST , Service support ,
[2020-08-11] MEDS: 0.9% Normal Saline 1,000 ML 125 ML IV (11:19)
[2020-08-11] MEDS: Ondansetron 4 MG/2 ML Vial IV (11:20)
[2020-08-11] MEDS: HYDROmorphone 1 MG/ML Syringe IV ×2 (11:20→13:37)
[2020-08-11 11:22] VITALS: RESP 22
[2020-08-11 11:43] LABS: Absolute Lymphocyte Count 1.49 X10^3/uL (0.83-4.51); Absolute Neutrophil Count 11.5 X10^3/uL (2.0-7.7); Basophil# 0.03 X10^3/uL; Basophil% 0.2 % (0-1); Eosinophil# 0.18 X10^3/uL; Eosinophils% 1.3 % (0-5); Hematocrit 33.5 % (37-47); Hemoglobin 11.2 g/dL (12.0-15.0); Lymphocyte # 1.49 X10^3/ul (4.0); Lymphocyte % 10.7 % (19-41); Mean Corp Hgb Conc 33.4 g/dL (32-36); Mean Corpuscular Hgb 31.8 pg (27.0-32.0); Mean Corpuscular Volume 95.2 fL (81-99); Mean Platelet Vol. 11.1 fl (6.2-12.0); Monocyte# 0.67 X10^3/uL; Monocyte% 4.8 % (0-10); NRBC Flagged by Analyzer 0 % (0-5); Neutrophil # 11.54 X10^3/uL (2.7-7.7); Neutrophil % 82.6 % (47-70); Platelet Count 491 K/mm3 (150-450); RBC Distribution Width CV 15.5 % (11.6-14.6); RBC Distribution Width SD 53.2 fl (35.1-43.9); Red Blood Count 3.52 M/mm3 (4.2-5.4)
[2020-08-11 12:09] LABS: Lactic Acid 1.2 mmol/L (0.4-1.9)
[2020-08-11 12:59] LABS: Bacteria 0 SEEN /hpf (None Seen); Mucous, Urine 0 SEEN /hpf (<or=2+); Red Blood Cells-Urine 0 SEEN /hpf (0-5)
[2020-08-11 13:21] LABS: Color, Urine Yellow (Yellow); Glucose, Dipstick Normal (Normal); Ketone-Dipstick Negative (Negative); Leukocyte Esterase-Dipstick Negative /ul (Negative); Nitrite-Dipstick Negative (Negative); Occult Blood-Urine Negative /ul (Negative); Protein-Dipstick Negative (Negative); Urine Bilirubin Dipstick Negative (Negative); Urine Clarity Clear (Clear); Urine Urobilinogen Normal (Normal)
[2020-08-11 13:31] LABS: Squamous Epithelial Cells - UA 0-5 SEEN /hpf (5-10); White Blood Cells 0-5 SEEN /hpf (0-5)
[2020-08-11 14:12] LABS: ALB/GLOB Ratio 0.7 RATIO (0.9-2.4); AST(SGOT) 6 U/L (15-37); Alanine Aminotransfer ALT/SGPT 9 U/L (13-56); Albumin, Serum 2.7 g/dL (3.2-5.0); Alkaline Phosphatase 100 U/L (45-117); Anion Gap 4 (5-15); BUN 6 mg/dL (7-18); BUN/Creat Ratio 13.8 RATIO (10-20); Calcium,Total 8.9 mg/dL (8.5-10.1); Chloride 107 mmol/L (98-107); Creatinine, Serum 0.44 mg/dL (0.55-1.02); EST Glomerular Filtration Rate 171 mL/min (>60); Est Glom Filt Rate - Afr Amer 206 mL/min (>60); Estimated Creatinine Clearance 112.73 ml/min; Globulin 3.8 g/dL (2.2-4.2); Glucose 91 mg/dL (74-106); Lipase 387 U/L (73-393); Potassium 3.7 mmol/L (3.5-5.1); Protein, Total 6.5 g/dL (6.4-8.2); Sodium Level 138 mmol/L (136-145)
--- NOTE | 2020-08-11 14:25 | ED.DCSUM_ITS ---
- ER Visit Summary Date of Service: 08/11/20 Chief Complaint: [Abdominal pain] History of Present Illness: The patient is a 40 F [presents to the emergency department with worsening abdominal pain over the last 3 days. Patient states that she has been dealing with similar type issues for the last 6 months. Patient since June is lost about 15 pounds. 3 weeks ago she was in this department and transferred to [facility] where she was admitted for a week. Patient had an EGD at that time and also they attempted colonoscopy however her prep was not sufficient and they could not complete it. Patient describes left lower quadrant pain and keeps her up at night. She has had nausea and frequent vomiting. Today she had one episode of diarrhea. She denies any blood in her stool or black tarry stool. She had decreased appetite. She denies any fever or recent illness otherwise.] Physical Examination: [HEENT-PERRLA, EOMI. Cranial nerves II through XII grossly intact. TMs clear. Mucous membranes moist. No adenopathy. Cardiovascular-regular rate and rhythm without murmur or ectopy Lungs-clear to auscultation, chest wall stable without crepitus or subcu emphysema Abdomen-normoactive bowel sounds, soft. Patient has tenderness over left lower quadrant some guarding. There is no rebound, rigidity, or peritoneal signs. Extremities-intact ?4, normal range of motion, normal pulses, atraumatic] Test Results: [CBC with differential obtained showed a white of 14,000 which appears to be a chronic finding for her. Hemoglobin was 11, hematocrit 33, placed 491. Chemistries unremarkable. LFTs unremarkable. Lipase was normal. Lactate was 1.2. Urinalysis was normal. CT scan of the abdomen pelvis with IV and p.o. contrast was read by radiology as diffuse atrophy of pancreas. Patient had hepatomegaly and fatty infiltration of the liver. Patient had small amount of perihepatic and perisplenic fluid with small amount of fluid in the lesser sac and anterior aspect of the left upper quadrant.] Emergency Department Course and Treatment: [IV line established on arrival. Patient was medicated with Dilaudid and Zofran.] Treatment Plan: [At this point I do not have a clear etiology for patient's pain. We discussed options of keeping her appointment with her content developer which is coming up in a few weeks. I also offered to transfer her to the [facility] which is what she requested last time she was admitted to [facility] and was refused that. Patient would prefer to be discharged to home and follow-up with her gastroentero logist.] Patient will be given a prescription for a few Percocet. Disposition: [Discharged home in stable condition] Impression: [Abdominal pain-etiology uncertain] This note was generated with [employer] dictation software. It may contain incorrect words, spelling, and punctuation that were not noted in review of the chart prior to signing ED Disposition - Plan for ED Patient: Referrals: Jonah Leroy MD [Primary Care Provider] -
--- NOTE | 2020-08-11 14:28 | DCINST.ED_ITS ---
ED Disposition - Plan for ED Patient: Instructions: ED Abdominal Pain Unkn Cause Fem Prescriptions: Oxycodone HCl/Acetaminophen [Percocet 5/325] 1 tab PO Q6H PRN PRN 3 Days #12 tab PRN Reason: Pain Prescription Printed Referrals: Jonah Leroy MD [Primary Care Provider] - 3-5 Days Additional Instructions: see your manager of engineering
[2020-08-11 14:45] VITALS: PULSE 75; RESP 16; O2SAT 96
== END 2020-08-11 14:46 | disposition home or self-care (01) ==
LOC: ED 10:59
PROVIDERS: Emergency Provider Emergency Medicine; PCP Family Medicine
DX: R10.32 Left lower quadrant pain (principal); F17.200 Nicotine dependence, unspecified, uncomplicated; Z79.02 Long term (current) use of antithrombotics/antiplatelets
CPT/HCPCS: 74177; 80053; 81001; 83605; 83690; 85025; 96361; 96374; 96375; 96376; 99283; J7030; Q9967; J2405

== ENCOUNTER 2020-11-05 21:59 | Observation (INO) | payer MEDICAID, SELFPAY ==
[2020-11-05 22:01] VITALS: BP 132/81; PULSE 88; RESP 16; TEMP 36.1; O2SAT 96; BMI 19.5
--- NOTE | 2020-11-05 22:29 | EKG12_ITS ---
Test Reason : SUBSTANCE ABUSE Blood Pressure : / mmHG Vent. Rate : 065 BPM Atrial Rate : 065 BPM P-R Int : 128 ms QRS Dur : 076 ms QT Int : 396 ms P-R-T Axes : 011 045 066 degrees QTc Int : 411 ms Normal sinus rhythm Normal ECG Confirmed by YU LATIF, MAURICE ([id number]), food expeditor MELITON PENNY ([id number]) on 11/08/2020 2:20:30 PM Referred By: Confirmed By:MAURICE NICHOLAS MD
--- NOTE | 2020-11-05 22:30 | ED.DCSUM_ITS ---
History of Present Illness Chief Complaint: Substance Abuse Informant: Patient Narrative: 40-year-old female presenting with abdominal pain and request for opiate detox. Patient has a history of alcoholic pancreatitis. She states that after several hospitalizations she began to use fentanyl for the past several months on a daily basis. She states that she again is having vomiting and abdominal pain. She states she last used fentanyl around today. She reports that she tried past week to detox but withdrawal symptoms prevented her from continuing. She denies any routinely use of alcohol. Denies suicidal homicidal ideation - Past Medical History (1) Acute pancreatitis Status: Chronic (2) Alcohol abuse Status: Chronic (3) Anxiety and depression Status: Chronic (4) Hepatic steatosis Status: Chronic (5) Pancreatitis Status: Chronic Past Medical History - Allergies and Home Meds Allergies/Adverse Reactions: Allergies ondansetron [From Zofran] Adverse Reaction (Verified 11/05/20 22:04) headache Primary Care Physician: Jonah Leroy MD [Primary Care Provider] - Surgical History: hysterectomy, - - sections Lives: Spouse/ Significant Other Smoking Status: Current every day smoker Alcohol: Occasional Drugs: - - Fentanyl - Family History Maternal Family History: Reports: Heart Disease, Hypertension Paternal Family History: Reports: Stroke Review of Systems General: Denies: Chills, Fever, Sweats Eyes: Denies: Visual changes - bilaterally, Diplopia ENT: Denies: Rhinorrhea, Sore throat Cardiovascular: Denies: Chest pain, Palpitations Respiratory: Denies: Dyspnea, Cough, Dyspnea on exertion Gastrointestinal: Reports: Abdominal pain, Nausea, Vomiting, Diarrhea. Denies: Melena, Hematochezia Genitourinary: Denies: Dysuria, Hematuria, Frequency Musculoskeletal: Reports: Myalgias. Denies: Back pain, Extremity Pain Skin: Denies: Rash, Wounds Neurological: Denies: Headache, Weakness, Numbness Physical Exam Vital Signs/Narrative: Vital Signs Temp Pulse Resp BP Pulse Ox 11/05/20 22:01 97 F L 88 16 132/81 H 96 Inital Vital Signs reviewed: Yes General: Well nourished, Well developed, No Acute Distress Head: Normocephalic, Atraumatic Eyes: Perrl, EOMI ENT: Moist mucous membranes, No rhinorrhea Neck: Supple, Nontender Cardiovascular: Regular rate, Regular rhythm, No murmurs Respiratory: No distress, CTA bilaterally, Chest nontender Abdomen: Soft, Nondistended, Normal bowel sounds, Tender Back: Nontender, Normal Inspection Extremities: Nontender, No edema Skin: Normal color, No rash Neurological: Alert, Oriented x3, Cranial nerves II-XII grossly intact, Normal Strength, Normal Sensation Psychological: Tearful, - - Patient denies suicidal or homicidal ideation Diagnostic/Tx/Re-eval Laboratory Last Values WBC 16.3 K/mm3 (4.4-11.0) H 11/05/20 23:00 RBC 4.34 M/mm3 (4.2-5.4) 11/05/20 23:00 Hgb 13.6 g/dL (12.0-15.0) 11/05/20 23:00 Hct 39.8 % (37-47) 11/05/20 23:00 MCV 91.7 fL (81-99) 11/05/20 23:00 MCH 31.3 pg (27.0-32.0) 11/05/20 23:00 MCHC 34.2 g/dL (32-36) 11/05/20 23:00 RDW Std Deviation 56.3 fl (35.1-43.9) H 11/05/20 23:00 RDW Coeff of Jose Guadalupe 16.8 % (11.6-14.6) H 11/05/20 23:00 Plt Count 455 K/mm3 (150-450) H 11/05/20 23:00 MPV 11.5 fl (6.2-12.0) 11/05/20 23:00 Immature Gran % (Auto) 0.400 % (0.0-0.9) 11/05/20 23:00 Neut % (Auto) 80.3 % (47-70) H 11/05/20 23:00 Lymph % (Auto) 11.1 % (19-41) L 11/05/20 23:00 [place] % (Auto) 4.4 % (0-10) 11/05/20 23:00 Eos % (Auto) 3.5 % (0-5) 11/05/20 23:00 Baso % (Auto) 0.3 % (0-1) 11/05/20 23:00 Absolute Neuts (auto) 13.1 X10^3/uL (2.0-7.7) H 11/05/20 23:00 Absolute Lymphs (auto) 1.81 X10^3/uL (0.83-4.51) 11/05/20 23:00 Nucleated RBC % 0 % (0-5) 11/05/20 23:00 PT 14.1 SECONDS (11.7-14.9) 11/05/20 23:00 INR 1.1 11/05/20 23:00 Sodium 135 mmol/L (136-145) L 11/05/20 23:00 Potassium 3.0 mmol/L (3.5-5.1) L 11/05/20 23:00 Chloride 95 mmol/L (98-107) L 11/05/20 23:00 Carbon Dioxide 34.0 mmol/L (21.0-32.0) H 11/05/20 23:00 Anion Gap 6 (5-15) 11/05/20 23:00 BUN 4 mg/dL (7-18) L 11/05/20 23:00 Creatinine 0.67 mg/dL (0.55-1.02) 11/05/20 23:00 Estim Creat Clear Calc 80.72 ml/min 11/05/20 23:00 Est GFR (MDRD) Af Amer 126 mL/min (>60) 11/05/20 23:00 Est GFR (MDRD) Non-Af 104 mL/min (>60) 11/05/20 23:00 BUN/Creatinine Ratio 6.0 RATIO (10-20) L 11/05/20 23:00 Glucose 102 mg/dL (74-106) 11/05/20 23:00 Calcium 9.4 mg/dL (8.5-10.1) 11/05/20 23:00 Total Bilirubin 0.30 mg/dL (0.20-1.00) 11/05/20 23:00 AST 13 U/L (15-37) L 11/05/20 23:00 ALT 14 U/L (13-56) 11/05/20 23:00 Alkaline Phosphatase 107 U/L (45-117) 11/05/20 23:00 Total Protein 7.6 g/dL (6.4-8.2) 11/05/20 23:00 Albumin 3.5 g/dL (3.2-5.0) 11/05/20 23:00 Globulin 4.1 g/dL (2.2-4.2) 11/05/20 23:00 Albumin/Globulin Ratio 0.9 RATIO (0.9-2.4) 11/05/20 23:00 Lipase 452 U/L (73-393) H 11/05/20 23:00 Serum , Qual NEGATIVE Negative 11/05/20 23:00 Urine Color Yellow (Yellow) 11/05/20 23:00 Urine Clarity Clear (Clear) 11/05/20 23:00 Urine pH 6.0 (5.0 - 8.0) 11/05/20 23:00 Ur Specific [place] 1.020 (1.002-1.030) 11/05/20 23:00 Urine Protein 30 mg/dl (Negative) H 11/05/20 23:00 Urine Glucose (UA) Normal mg/dl (Normal) 11/05/20 23:00 Urine Ketones 5 mg/dl (Negative) H 11/05/20 23:00 Urine Occult Blood 10 /ul (Negative) H 11/05/20 23:00 Urine Nitrite Negative (Negative) 11/05/20 23:00 Urine Bilirubin 1 mg/dL (Negative) H 11/05/20 23:00 Urine Urobilinogen 4 mg/dl (Normal) H 11/05/20 23:00 Ur Leukocyte Esterase 100 /ul (Negative) H 11/05/20 23:00 Urine RBC 0 SEEN /hpf (0-5) 11/05/20 23:00 Urine WBC 0 SEEN /hpf (0-5) 11/05/20 23:00 Ur Squamous Epith Cells 0-5 SEEN /hpf (5-10) 11/05/20 23:00 Urine Bacteria 0 SEEN /hpf (None Seen) 11/05/20 23:00 Urine Mucus 3+ /hpf (<or=2+) 11/05/20 23:00 Urine Opiates Screen NEGATIVE (< 300 ng/mL) 11/05/20 23:00 Urine Methadone Screen NEGATIVE (< 300 ng/mL) 11/05/20 23:00 Ur Barbiturates Screen NEGATIVE (< 200 ng/mL) 11/05/20 23:00 Ur Phencyclidine Scrn NEGATIVE (< 25 ng/mL) 11/05/20 23:00 Ur Amphetamines Screen NEGATIVE (<1000 ng/mL) 11/05/20 23:00 U Methamphetamin-MDMA NEGATIVE (< 500 ng/mL) 11/05/20 23:00 U Benzodiazepines Scrn NEGATIVE (< 200 ng/mL) 11/05/20 23:00 Urine Cocaine Screen NEGATIVE (< 300 ng/mL) 11/05/20 23:00 U Cannabinoids Screen POSITIVE (< 50 ng/mL) H 11/05/20 23:00 Ur Drug Screen Comment 11/05/20 23:00 Ethyl Alcohol < 3.0 mg/dL 11/05/20 23:00 - Medical Decision Making Patient received IV fluids. She is requesting pain medication. But she is also here for detoxing from fentanyl. She had a CT scan the end of 2019 that showed a normal gallbladder. Her lipase is minimally elevated today. Plan will be admission. ED Disposition - Plan for ED Patient: Disposition: Acute Care Hospital [facility] Diagnosis: Opiate withdrawal, Opiate abuse, continuous, Chronic pancreatitis Referrals: Jonah Leroy MD [Primary Care Provider] -
[2020-11-05 23:12] LABS: Bacteria 0 SEEN /hpf (None Seen); Red Blood Cells-Urine 0 SEEN /hpf (0-5); White Blood Cells 0 SEEN /hpf (0-5)
[2020-11-05 23:26] LABS: Absolute Lymphocyte Count 1.81 X10^3/uL (0.83-4.51); Absolute Neutrophil Count 13.1 X10^3/uL (2.0-7.7); Basophil# 0.05 X10^3/uL; Basophil% 0.3 % (0-1); Eosinophil# 0.57 X10^3/uL; Eosinophils% 3.5 % (0-5); Hematocrit 39.8 % (37-47); Hemoglobin 13.6 g/dL (12.0-15.0); Lymphocyte # 1.81 X10^3/ul (4.0); Lymphocyte % 11.1 % (19-41); Mean Corp Hgb Conc 34.2 g/dL (32-36); Mean Corpuscular Hgb 31.3 pg (27.0-32.0); Mean Corpuscular Volume 91.7 fL (81-99); Mean Platelet Vol. 11.5 fl (6.2-12.0); Monocyte# 0.71 X10^3/uL; Monocyte% 4.4 % (0-10); NRBC Flagged by Analyzer 0 % (0-5); Neutrophil # 13.11 X10^3/uL (2.7-7.7); Neutrophil % 80.3 % (47-70); Platelet Count 455 K/mm3 (150-450); RBC Distribution Width CV 16.8 % (11.6-14.6); RBC Distribution Width SD 56.3 fl (35.1-43.9); Red Blood Count 4.34 M/mm3 (4.2-5.4); White Blood Count 16.3 K/mm3 (4.4-11.0)
[2020-11-05 23:27] LABS: Internal QC Validated? YES +Cl - CLEAR BKGD; Pregnancy, Serum, hCG Quali. NEGATIVE Negative
[2020-11-05 23:28] LABS: International Normalized Ratio 1.1; Prothrombin Time (Protime)PT. 14.1 SECONDS (11.7-14.9)
[2020-11-05 23:34] LABS: ALB/GLOB Ratio 0.9 RATIO (0.9-2.4); AST(SGOT) 13 U/L (15-37); Alanine Aminotransfer ALT/SGPT 14 U/L (13-56); Albumin, Serum 3.5 g/dL (3.2-5.0); Alkaline Phosphatase 107 U/L (45-117); Amphetamine Urine VISTA NEGATIVE (<1000 ng/mL); Anion Gap 6 (5-15); BUN 4 mg/dL (7-18); Barbiturate Urine VISTA NEGATIVE (< 200 ng/mL); Benzodiazepine Urine VISTA NEGATIVE (< 200 ng/mL); Calcium,Total 9.4 mg/dL (8.5-10.1); Chloride 95 mmol/L (98-107); Cocaine Urine VISTA NEGATIVE (< 300 ng/mL); Creatinine, Serum 0.67 mg/dL (0.55-1.02); EST Glomerular Filtration Rate 104 mL/min (>60); Ecstacy Urine VISTA NEGATIVE (< 500 ng/mL); Est Glom Filt Rate - Afr Amer 126 mL/min (>60); Estimated Creatinine Clearance 80.72 ml/min; Globulin 4.1 g/dL (2.2-4.2); Glucose 102 mg/dL (74-106); Lipase 452 U/L (73-393); Methadone Urine VISTA NEGATIVE (< 300 ng/mL); PCP Urine VISTA NEGATIVE (< 25 ng/mL); Protein, Total 7.6 g/dL (6.4-8.2); Sodium Level 135 mmol/L (136-145); THC Urine VISTA POSITIVE (< 50 ng/mL); Vista UDS pH Range 6
[2020-11-05 23:35] VITALS: BP 114/84; PULSE 85; RESP 18
[2020-11-05 23:54] LABS: Alcohol, Blood (Medical)-Serum < 3.0 mg/dL
[2020-11-06] VITALS (9 sets, daily range): BP systolic 95–120; BP diastolic 57–81; PULSE 55–80; RESP 14–20; TEMP 36.1–37.2; O2SAT 95–100; BMI 19.5
[2020-11-06] MEDS: 0.9% Normal Saline 1,000 ML 999 ML IV (00:17)
[2020-11-06 00:20] LABS: Color, Urine Yellow (Yellow); Glucose, Dipstick Normal (Normal); Ketone-Dipstick 5 mg/dl (Negative); Leukocyte Esterase-Dipstick 100 /ul (Negative); Nitrite-Dipstick Negative (Negative); Occult Blood-Urine 10 /ul (Negative); Protein-Dipstick 30 mg/dl (Negative); Urine Clarity Clear (Clear); Urine Urobilinogen 4 mg/dl (Normal)
[2020-11-06 00:23] LABS: Urine Bilirubin Dipstick 1 mg/dL (Negative)
[2020-11-06 00:31] LABS: Mucous, Urine 3+ /hpf (<or=2+); Squamous Epithelial Cells - UA 0-5 SEEN /hpf (5-10)
--- NOTE | 2020-11-06 01:11 | HP.PCM_ITS ---
Problem List (1) Opiate abuse, continuous Status: Acute (2) Opiate withdrawal Status: Acute (3) Alcohol abuse Status: Chronic (4) Anxiety and depression Status: Chronic (5) Chronic pancreatitis Status: Chronic (6) Hepatic steatosis Status: Chronic (7) Pancreatitis Status: Chronic Qualifiers: Chronicity: chronic (8) Hepatomegaly Status: Chronic (9) Tobacco use Status: Chronic History of Present Illness Date of Admission: 11/06/20 Chief Complaint: Opioid withdrawal symptoms The patient is a 40 year old F with a significant history of colitis; DVT of the splenic vein; previous alcohol abuse; and currently opioid dependent who presents to the emergency department with withdrawal symptoms. Her drug of choice is fentanyl. She snorted fentanyl. Last time she used the fentanyl was few hours before presentation. Her chronic pancreatitis developed from alcoholism. Because previously her pain was controlled with narcotics including fentanyl she began using fentanyl from the street. Her withdrawal symptoms include generalized pain and more pronounced pain in her left abdomen to her left flank to her back. She does not think that she is having acute pancreatitis as previously her acute pancreatitis was in her right side of her abdomen and in her epigastric region. Reportedly she tried stopping of fentanyl sometime last week but the side effects was so much that she had to go back to the use of fentanyl. She report that the last time she drank alcohol was in 2019. Past Medical History Past Medical History (Chronic Problems): Chronic Problems Chronic pancreatitis (Chronic) Tobacco use (Chronic) Anxiety and depression (Chronic) Alcohol abuse (Chronic) Hepatomegaly (Chronic) Hepatic steatosis (Chronic) Pancreatitis (Chronic) Allergies ondansetron [From Zofran] Adverse Reaction (Verified 11/05/20 22:04) headache Home Medications: Ambulatory Orders Medication Instructions Recorded Apixaban [Eliquis] 5 mg PO BID 05/01/20 Lipase/Protease/Amylase [Harman Dr 1 ea PO TID 05/01/20 36,000 Units Capsule] Pantoprazole Sodium 20 mg PO DAILY 05/01/20 Surgical History: hysterectomy, - - sections Psychiatric History: Anxiety, Depression [employer]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 Denies: Nausea, Vomiting Genitourinary: Denies: Dysuria Musculoskeletal: Reports: Back Pain, Muscle pain. Denies: Joint Pain, Joint Tenderness Skin: Denies: Rash, Wounds Neurological: Denies: Numbness, Tingling, Focal weakness Psychiatric: Denies: Anxiety, Depression, Homicidal Ideations, Suicidal Ideations Hematologic/ Lymphatic: Denies: Easy Bruising, Easy Bleeding VTE Information - Inpt Only VTE Present on Admission: No VTE Mechan Device Prophylaxis: None VTE Pharm Prophylaxis ordered?: No Reason prophylaxis not ordered:: Treatment Not Indicated - Low risk; encouraged to ambulate. Patient Problems: Active and Suspected Problems Opiate withdrawal (Acute) Opiate abuse, continuous (Acute) - Physical Exam Vitals/I&O's: Vital Signs Temp Pulse Resp BP Pulse Ox 97 F L 85 18 114/84 H 96 11/05/20 22:01 11/05/20 23:35 11/05/20 23:35 11/05/20 23:35 11/05/20 22:01 Oxygen Delivery Method Room Air Weight: 45.359 kg Body Mass Index (BMI) 19.5 Finger Stick Blood Glucose 185 General: Alert, Oriented x3, Cooperative, - - Patient crying secondary to pain HEENT: Atraumatic, PERRLA, EOMI, Normocephalic Neck: Supple, No JVD, Negative Carotid Bruits Lungs: Clear to auscultation, Normal air movement Cardiovascular: Regular rate, Normal S1, Normal S2, No murmurs Abdomen: Bowel Sounds Present, Soft, Non Tender Extremities: No edema, Capillary Refill Less than 3 Seconds Skin: No rashes, No breakdown Musculoskeletal: No Tenderness to Palpation of Joints or Extremities Neurological: Cranial nerves II-XII grossly intact Psych/Mental Status: - - Crying Laboratory Results 11/05/20 23:00: WBC 16.3 H, RBC 4.34, Hgb 13.6, Hct 39.8, MCV 91.7, MCH 31.3, MCHC 34.2, RDW Std Deviation 56.3 H, RDW Coeff of Jose Guadalupe 16.8 H, Plt Count 455 H, MPV 11.5, Immature Gran % (Auto) 0.400, Neut % (Auto) 80.3 H, Lymph % (Auto) 11.1 L, [place] % (Auto) 4.4, Eos % (Auto) 3.5, Baso % (Auto) 0.3, Absolute Neuts (auto) 13.1 H, Absolute Lymphs (auto) 1.81, Nucleated RBC % 0 11/05/20 23:00: PT 14.1, INR 1.1 11/05/20 23:00: Sodium 135 L, Potassium 3.0 L, Chloride 95 L, Carbon Dioxide 34.0 H, Anion Gap 6, BUN 4 L, Creatinine 0.67, Estim Creat Clear Calc 80.72, Est GFR (MDRD) Af Amer 126, Est GFR (MDRD) Non-Af 104, BUN/Creatinine Ratio 6.0 L, Glucose 102, Calcium 9.4, Total Bilirubin 0.30, AST 13 L, ALT 14, Alkaline Phosphatase 107, Total Protein 7.6, Albumin 3.5, Globulin 4.1, Albumin/Globulin Ratio 0.9, Lipase 452 H 11/05/20 23:00: Ethyl Alcohol < 3.0 11/05/20 23:00: Urine Opiates Screen NEGATIVE, Urine Methadone Screen NEGATIVE, Ur Barbiturates Screen NEGATIVE, Ur Phencyclidine Scrn NEGATIVE, Ur Amphetamines Screen NEGATIVE, U Methamphetamin-MDMA NEGATIVE, U Benzodiazepines Scrn NEGATIVE, Urine Cocaine Screen NEGATIVE, U Cannabinoids Screen POSITIVE H, Ur Drug Screen Comment 11/05/20 23:00: Serum , Qual NEGATIVE 11/05/20 23:00: Urine Color Yellow, Urine Clarity Clear, Urine pH 6.0, Ur Specific [place] 1.020, Urine Protein 30 H, Urine Glucose (UA) Normal, Urine Ketones 5 H, Urine Occult Blood 10 H, Urine Nitrite Negative, Urine Bilirubin 1 H, Urine Urobilinogen 4 H, Ur Leukocyte Esterase 100 H, Urine RBC 0 SEEN, Urine WBC 0 SEEN, Ur Squamous Epith Cells 0-5 SEEN, Urine Bacteria 0 SEEN, Urine Mucus 3+ Assessment/Plan All Active Problems Opiate withdrawal (Acute) Opiate abuse, continuous (Acute) The patient is a 40 year old F with a significant history of colitis; DVT of the splenic vein; previous alcohol abuse; and currently opioid dependent who presents to the emergency department with withdrawal symptoms Opioid dependence and withdrawal Patient be started on Subutex and other adjunctive medications: Gabapentin as needed; dicyclomine as needed; Vistaril as needed; methocarbamol as needed; clonidine as needed; Imodium as needed; trazodone as needed and Zofran as needed. Monitor COWS and CINA score Tobacco abuse Counseled Nicotine patch prescribed. Chronic pancreatitis Lipase is within baseline. Pancreatic enzymes are continued History of DVT and splenic vein Eliquis continued GERD Protonix continued DVT prophylaxis Low risk Encourage to ambulate Inpatient E&M: 02241 Init Hosp L2
[2020-11-06] MEDS: Dicyclomine 10 MG Capsule 20 MG PO ×3 (02:40→18:21)
[2020-11-06] MEDS: Methocarbamol 750 MG Tablet 1500 MG PO ×3 (06:22→21:59)
[2020-11-06] MEDS: hydrOXYzine PAM 25 MG Capsule 50 MG PO ×2 (06:22→21:59)
[2020-11-06] MEDS: Buprenorphine HCl 2 MG TAB.SUBL SL ×3 (06:28→21:59)
[2020-11-06] MEDS: APIXABAN 5 MG TABLET PO ×2 (10:02→21:59)
[2020-11-06] MEDS: Pantoprazole Sodium 20 MG Tablet PO (10:02)
[2020-11-06] MEDS: Gabapentin 300 MG Capsule PO ×2 (10:07→18:21)
[2020-11-06] MEDS: cloNIDine HCl 0.1 MG Tablet PO (10:07)
[2020-11-06] MEDS: traZODone 100 MG Tablet PO (21:59)
[2020-11-07 05:26] VITALS: BP 98/71; PULSE 64; RESP 14; TEMP 36.6; O2SAT 95
[2020-11-07] MEDS: Gabapentin 300 MG Capsule PO ×2 (05:28→20:07)
[2020-11-07] MEDS: Dicyclomine 10 MG Capsule 20 MG PO ×3 (05:28→22:04)
[2020-11-07] MEDS: Methocarbamol 750 MG Tablet 1500 MG PO ×2 (05:28→18:00)
[2020-11-07] MEDS: Buprenorphine HCl 2 MG TAB.SUBL SL ×3 (05:29→22:04)
[2020-11-07] MEDS: 0.9% Saline Lock 10 ML Syringe IV (06:03)
[2020-11-07 07:27] LABS: Absolute Lymphocyte Count 2.41 X10^3/uL (0.83-4.51); Absolute Neutrophil Count 3.2 X10^3/uL (2.0-7.7); Basophil# 0.03 X10^3/uL; Basophil% 0.4 % (0-1); Eosinophil# 0.89 X10^3/uL; Eosinophils% 12.8 % (0-5); Hematocrit 33.2 % (37-47); Hemoglobin 10.7 g/dL (12.0-15.0); Lymphocyte # 2.41 X10^3/ul (4.0); Lymphocyte % 34.7 % (19-41); Mean Corp Hgb Conc 32.2 g/dL (32-36); Mean Corpuscular Hgb 30.5 pg (27.0-32.0); Mean Corpuscular Volume 94.6 fL (81-99); Mean Platelet Vol. 11.3 fl (6.2-12.0); Monocyte% 5.8 % (0-10); NRBC Flagged by Analyzer 0 % (0-5); Platelet Count 352 K/mm3 (150-450); RBC Distribution Width CV 17.3 % (11.6-14.6); RBC Distribution Width SD 59.6 fl (35.1-43.9); Red Blood Count 3.51 M/mm3 (4.2-5.4)
[2020-11-07 08:00] LABS: Anion Gap 6 (5-15); BUN 5 mg/dL (7-18); BUN/Creat Ratio 8.8 RATIO (10-20); Calcium,Total 8.7 mg/dL (8.5-10.1); Chloride 106 mmol/L (98-107); Creatinine, Serum 0.57 mg/dL (0.55-1.02); EST Glomerular Filtration Rate 125 mL/min (>60); Est Glom Filt Rate - Afr Amer 151 mL/min (>60); Estimated Creatinine Clearance 94.88 ml/min; Glucose 97 mg/dL (74-106); Phosphorus 2.6 mg/dL (2.5-4.9); Potassium 3.5 mmol/L (3.5-5.1); Sodium Level 139 mmol/L (136-145)
[2020-11-07 09:00] VITALS: PULSE 60; RESP 20; O2SAT 100
--- NOTE | 2020-11-07 09:59 | PCM.PN.HOSP ---
Patient Problems: Active and Suspected Problems Opiate withdrawal (Acute) Opiate abuse, continuous (Acute) Subjective: Little bit tired today, otherwise no issues overnight. Doing well Vitals/I&O's: Vital Signs Temp Pulse Resp BP Pulse Ox 97.8 F 64 14 98/71 95 11/07/20 05:26 11/07/20 05:26 11/07/20 05:26 11/07/20 05:26 11/07/20 05:26 Oxygen Delivery Method Room Air Weight: 100 lb Body Mass Index (BMI) 19.5 Finger Stick Blood Glucose 185 Intake and Output for Last 24 Hours 11/05/20 11/06/20 11/07/20 23:59 23:59 23:59 Intake Total 1180 / 1630 650 / 650 Output Total 0 / 500 500 / 500 Balance 1180 / 1130 150 / 150 General: Alert, Oriented x3, Cooperative, No apparent distress HEENT: Atraumatic, PERRLA, EOMI, Normocephalic Oral: Moist Mucosa Neck: Supple, No JVD Lungs: Clear to auscultation, Normal air movement, No rhonchi, No wheeze, No rales Cardiovascular: Regular rate, Regular Rhythm, Normal S1, Normal S2, No murmurs Abdomen: Soft, Non Tender, Non-Distended, No Hepato-splenomegaly Extremities: No edema, Capillary Refill Less than 3 Seconds Skin: No rashes, No breakdown Neurological: Neuro grossly intact, Sensory exam intact to light touch and pain Psych/Mental Status: Flat Affect Laboratory Results 11/07/20 06:28: WBC 7.0, RBC 3.51 L, Hgb 10.7 L, Hct 33.2 L, MCV 94.6, MCH 30.5, MCHC 32.2 D, RDW Std Deviation 59.6 H, RDW Coeff of Jose Guadalupe 17.3 H, Plt Count 352, MPV 11.3, Immature Gran % (Auto) 0.300, Neut % (Auto) 46.0 L, Lymph % (Auto) 34.7, [place] % (Auto) 5.8, Eos % (Auto) 12.8 H, Baso % (Auto) 0.4, Absolute Neuts (auto) 3.2, Absolute Lymphs (auto) 2.41, Nucleated RBC % 0 11/07/20 06:28: Sodium 139, Potassium 3.5, Chloride 106, Carbon Dioxide 27.0, Anion Gap 6, BUN 5 L, Creatinine 0.57, Estim Creat Clear Calc 94.88, Est GFR (MDRD) Af Amer 151, Est GFR (MDRD) Non-Af 125, BUN/Creatinine Ratio 8.8 L, Glucose 97, Calcium 8.7, Phosphorus 2.6, Magnesium 2.0 Current Medications Apixaban (Apixaban 5 Mg Tablet) 5 mg PO BID [facility] Last Admin: 11/06/20 21:59 Dose: 5 mg Documented by: Buprenorphine HCl (Buprenorphine Hcl 2 Mg Tab.Subl) 2 mg SL Q8H AMRIT; Taper Stop: 11/09/20 06:29 Last Admin: 11/07/20 05:29 Dose: 2 mg Documented by: Clonidine (Clonidine Hcl 0.1 Mg Tablet) 0.1 mg PO Q8H PRN PRN PRN Reason: RESTLESSNESS Last Admin: 11/06/20 10:07 Dose: 0.1 mg Documented by: Dicyclomine HCl (Dicyclomine 10 Mg Capsule) 20 mg PO Q6H PRN PRN PRN Reason: Abdominal Discomfort Last Admin: 11/07/20 05:28 Dose: 20 mg Documented by: Gabapentin (Gabapentin 300 Mg Capsule) 300 mg PO Q8H PRN PRN PRN Reason: moderate to severe anxiety Last Admin: 11/07/20 05:28 Dose: 300 mg Documented by: Hydroxyzine Pamoate (Hydroxyzine [place] 25 Mg Capsule) 50 mg PO Q6H PRN PRN PRN Reason: mild anxiety Last Admin: 11/06/20 21:59 Dose: 50 mg Documented by: Loperamide HCl (Loperamide 2 Mg Capsule) 2 mg PO Q4H PRN PRN PRN Reason: LOOSE STOOLS Methocarbamol (Methocarbamol 750 Mg Tablet) 1,500 mg PO Q6H PRN PRN PRN Reason: MUSCLE SPASM Last Admin: 11/07/20 05:28 Dose: 1,500 mg Documented by: Nicotine (Nicotine 14 Mg Patch) 14 mg TD DAILY [facility] Last Admin: 11/06/20 02:40 Dose: 14 mg Documented by: Pancrelipase (Creon 12,[address] Capsule) 3 capsule PO TIDCM [facility] Last Admin: 11/07/20 08:34 Dose: Not Given Documented by: Pantoprazole Sodium (Pantoprazole Sodium 20 Mg Tablet) 20 mg PO DAILY AMRIT Last Admin: 11/06/20 10:02 Dose: 20 mg Documented by: Sodium Chloride (0.9% Saline Lock 10 Ml Syringe) 10 - 40 ml IV UD PRN PRN Reason: SALINE FLUSH Last Admin: 11/07/20 06:03 Dose: 10 ml Documented by: Trazodone HCl (Trazodone 100 Mg Tablet) 100 mg PO QHS PRN PRN PRN Reason: INSOMNIA Last Admin: 11/06/20 21:59 Dose: 100 mg Documented by: Medical Necessity - Tobacco Use Smoking Status: Current every day smoker Tobacco Use: Cigarettes Assessment/Plan All Active Problems Opiate withdrawal (Acute) Opiate abuse, continuous (Acute) 1. Acute opiate withdrawal/tobacco abuse -Continue with opiate withdrawal protocol -Follow-up with rehab -Discussed cessation, continue with nicotine patch 2. Chronic pancreatitis/splenic vein thrombosis -Continue with Eliquis as well as Creon -Stable 3. GERD -Stable -Continue with PPI DVT: Eliquis Inpatient E&M: 19173 Subs Hosp L2
[2020-11-07 10:00] VITALS: BP 111/51; PULSE 60; RESP 20; TEMP 36.1; O2SAT 100
[2020-11-07] MEDS: Pantoprazole Sodium 20 MG Tablet PO (11:12)
[2020-11-07] MEDS: APIXABAN 5 MG TABLET PO ×2 (11:12→22:05)
[2020-11-07 13:53] VITALS: BP 98/66; PULSE 69; RESP 20; TEMP 36.8; O2SAT 100
[2020-11-07] MEDS: hydrOXYzine PAM 25 MG Capsule 50 MG PO ×2 (14:48→22:04)
[2020-11-07 18:02] VITALS: BP 98/55; PULSE 81; RESP 18; TEMP 36.7; O2SAT 97
[2020-11-07 22:00] VITALS: BP 128/87; PULSE 92; RESP 14; TEMP 36.6; O2SAT 94
[2020-11-07] MEDS: traZODone 100 MG Tablet PO (22:04)
[2020-11-08] MEDS: Methocarbamol 750 MG Tablet 1500 MG PO ×2 (02:05→10:42)
[2020-11-08 05:39] VITALS: BP 94/61; PULSE 58; RESP 16; TEMP 36.6; O2SAT 94
[2020-11-08] MEDS: Dicyclomine 10 MG Capsule 20 MG PO (05:42)
[2020-11-08] MEDS: Gabapentin 300 MG Capsule PO ×2 (05:42→16:11)
[2020-11-08] MEDS: Buprenorphine HCl 2 MG TAB.SUBL SL ×2 (05:42→17:38)
--- NOTE | 2020-11-08 07:52 | PN_ITS ---
Patient Problems: Active and Suspected Problems Opiate withdrawal (Acute) Opiate abuse, continuous (Acute) Vitals/I&O's: Vital Signs Temp Pulse Resp BP Pulse Ox 97.9 F 58 L 16 94/61 94 11/08/20 05:39 11/08/20 05:39 11/08/20 05:39 11/08/20 05:39 11/08/20 05:39 Oxygen Delivery Method Room Air Weight: 100 lb Body Mass Index (BMI) 19.5 Finger Stick Blood Glucose 185 Intake and Output for Last 24 Hours 11/06/20 11/07/20 11/08/20 23:59 23:59 23:59 Intake Total 1180 / 1630 890 / 1330 840 / 840 Output Total 0 / 500 600 / 600 Balance 1180 / 1130 290 / 730 840 / 840 Laboratory Results 11/07/20 06:28: WBC 7.0, RBC 3.51 L, Hgb 10.7 L, Hct 33.2 L, MCV 94.6, MCH 30.5, MCHC 32.2 D, RDW Std Deviation 59.6 H, RDW Coeff of Jose Guadalupe 17.3 H, Plt Count 352, MPV 11.3, Immature Gran % (Auto) 0.300, Neut % (Auto) 46.0 L, Lymph % (Auto) 34.7, [place] % (Auto) 5.8, Eos % (Auto) 12.8 H, Baso % (Auto) 0.4, Absolute Neuts (auto) 3.2, Absolute Lymphs (auto) 2.41, Nucleated RBC % 0 11/07/20 06:28: Sodium 139, Potassium 3.5, Chloride 106, Carbon Dioxide 27.0, Anion Gap 6, BUN 5 L, Creatinine 0.57, Estim Creat Clear Calc 94.88, Est GFR (MDRD) Af Amer 151, Est GFR (MDRD) Non-Af 125, BUN/Creatinine Ratio 8.8 L, Glucose 97, Calcium 8.7, Phosphorus 2.6, Magnesium 2.0 Current Medications Apixaban (Apixaban 5 Mg Tablet) 5 mg PO BID AMRIT Last Admin: 11/07/20 22:05 Dose: 5 mg Documented by: Buprenorphine HCl (Buprenorphine Hcl 2 Mg Tab.Subl) 2 mg SL Q12H [facility]; Taper Stop: 11/09/20 06:29 Last Admin: 11/08/20 05:42 Dose: 2 mg Documented by: Clonidine (Clonidine Hcl 0.1 Mg Tablet) 0.1 mg PO Q8H PRN PRN PRN Reason: RESTLESSNESS Last Admin: 11/06/20 10:07 Dose: 0.1 mg Documented by: Dicyclomine HCl (Dicyclomine 10 Mg Capsule) 20 mg PO Q6H PRN PRN PRN Reason: Abdominal Discomfort Last Admin: 11/08/20 05:42 Dose: 20 mg Documented by: Gabapentin (Gabapentin 300 Mg Capsule) 300 mg PO Q8H PRN PRN PRN Reason: moderate to severe anxiety Last Admin: 11/08/20 05:42 Dose: 300 mg Documented by: Hydroxyzine Pamoate (Hydroxyzine [place] 25 Mg Capsule) 50 mg PO Q6H PRN PRN PRN Reason: mild anxiety Last Admin: 11/07/20 22:04 Dose: 50 mg Documented by: Loperamide HCl (Loperamide 2 Mg Capsule) 2 mg PO Q4H PRN PRN PRN Reason: LOOSE STOOLS Methocarbamol (Methocarbamol 750 Mg Tablet) 1,500 mg PO Q6H PRN PRN PRN Reason: MUSCLE SPASM Last Admin: 11/08/20 02:05 Dose: 1,500 mg Documented by: Nicotine (Nicotine 14 Mg Patch) 14 mg TD DAILY [facility] Last Admin: 11/07/20 11:12 Dose: 14 mg Documented by: Pancrelipase (Creon 12,[address] Capsule) 3 capsule PO TIDCM [facility] Last Admin: 11/07/20 17:56 Dose: 3 capsule Documented by: Pantoprazole Sodium (Pantoprazole Sodium 20 Mg Tablet) 20 mg PO DAILY [facility] Last Admin: 11/07/20 11:12 Dose: 20 mg Documented by: Sodium Chloride (0.9% Saline Lock 10 Ml Syringe) 10 - 40 ml IV UD PRN PRN Reason: SALINE FLUSH Last Admin: 11/07/20 06:03 Dose: 10 ml Documented by: Trazodone HCl (Trazodone 100 Mg Tablet) 100 mg PO QHS PRN PRN PRN Reason: INSOMNIA Last Admin: 11/07/20 22:04 Dose: 100 mg Documented by: STROKE Vital Signs/Narrative: Vital Signs Temp Pulse Resp BP Pulse Ox 11/08/20 05:39 97.9 F 58 L 16 94/61 94 Medical Necessity - Tobacco Use Smoking Status: Current every day smoker Tobacco Use: Cigarettes Assessment/Plan All Active Problems Opiate withdrawal (Acute) Opiate abuse, continuous (Acute)
[2020-11-08 09:00] VITALS: BP 94/66; PULSE 64; RESP 18; TEMP 36.4; O2SAT 98
[2020-11-08] MEDS: hydrOXYzine PAM 25 MG Capsule 50 MG PO ×2 (10:42→17:38)
[2020-11-08] MEDS: APIXABAN 5 MG TABLET PO (10:43)
[2020-11-08] MEDS: Pantoprazole Sodium 20 MG Tablet PO (10:43)
--- NOTE | 2020-11-08 11:26 | ADDICTION ---
This lyric writer met with PT in her room to conduct assessments and discharge planning. PT a/ox4 and engaged appropriately. PT to d/c today. This lyric writer facilitated a call to PT's to coordinate d/c plan with . to picker/puller PT after last dose of BUP today around 6:30p. All assessments completed, faxed to [facility] and placed in PT chart. PT given copy of d/c plan for her records. PT to d/c to home.
--- NOTE | 2020-11-08 11:45 | DCINST_ITS ---
- Discharge Diagnoses Current Active Problems: Current Active and Chronic Problems 1. Acute opiate withdrawal 2. Opiate abuse, continuous 3. Chronic pancreatitis 4. Tobacco use 5. 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 History of prior alcohol abuse 7. Anxiety and depression 8. GERD You will use the following diet at home:: Other - Strongly recommend low-fat, low-cholesterol diet given history of pancreatitis. Your food should be the consistency of: Regular Your liquids should be the consistency of: Regular/Thin Discharge Activity: Return to Normal Activity Call your doctor if you observe: Fever of 101 or Higher, Inability to urinate, Inability to have a bowel movement, Shortness of breath, Dizziness, Fainting spells, Chest pain, Uncontrolled pain Instructions: ED Opioid Withdrawal, Understanding Chronic Pain, The Cycle of Chronic Pain, Managing Chronic Pain: Activity, Managing Chronic Pain: Therapies for Mind and Body Allergies/Adverse Reactions: Allergies ondansetron [From Zofran] Adverse Reaction (Verified 11/05/20 22:04) headache Medications to take at Discharge Apixaban [Eliquis] 5 mg PO BID 05/01/20 Lipase/Protease/Amylase [Harman Dr 36,000 Units Capsule] 1 ea PO TIDCM 05/01/20 Pantoprazole Sodium 20 mg PO DAILY 05/01/20 Primary Care Physician: Jonah Leroy MD [Primary Care Provider] - Please follow up with your Primary Care Physician in: Follow-up within 1 week to review admission or earlier if concerns. Test Results: Test results from this visit will be discussed in further detail at your follow- up appointment, if applicable. Please Follow Up With: [facility]-Counseling and Therapy When: Please continue as currently arranged and planned upon discharge. Proposed Discharge Date: 11/08/20
--- NOTE | 2020-11-08 11:49 | DS.PCM_ITS ---
Discharge Date and Diagnosis - Problem List Patient Problems: Active and Suspected Problems Opiate withdrawal (Acute) Opiate abuse, continuous (Acute) Date of Admission: 11/06/20 Date of Discharge: 11/08/20 - Primary Discharge Diagnosis Acute Problems: Active Problems 1. Acute opiate withdrawal 2. Opiate abuse, continuous 3. Chronic pancreatitis 4. Tobacco use 5. 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 History of prior alcohol abuse 7. Anxiety and depression 8. GERD - Secondary Discharge Diagnosis Chronic Problems: Chronic Problems Chronic pancreatitis (Chronic) Tobacco use (Chronic) Anxiety and depression (Chronic) Alcohol abuse (Chronic) Hepatomegaly (Chronic) Hepatic steatosis (Chronic) Pancreatitis (Chronic) Hospital Course and Treatment 180 consultation Operations: None Procedures: None Summary of Care Provided: The patient is a 40 y/o F w/ PMHx: Opiate abuse, Chronic pancreatitis with chronic abdominal pain, Hx splenic DVT on anticoagulation therapy, Prior EtOH Abuse, Anxiety and Depression, GERD, Tobacco use who presented to the [facility] ED on 11/06/20 with history of ongoing history of fentanyl usage, snorted with last usage several hours prior to initial ED presentation secondary to inability to control her chronic abdominal pain secondary to chronic pancreatitis from prior alcohol abuse with last alcohol intake in 2019 per her report. Patient presents to the [facility] ED for initiation of opiate withdrawal treatm ent as she is interested in maintaining clean and sober status. Patient was admitted to medical surgical floor, initiated and continued on protocol of tapering course of Subutex, as needed tylenol, ibuprofen, bowel regimen, gabapentin, Bentyl, Vistaril, methocarbamol, clonidine, PRN nightly trazodone for insomnia, IV fluids, IV antiemetics. Case management and one ED were consulted for transition to next level of rehabilitation care. Patient clinically improved and patient was discharged to home with continued close follow-up with 180 per her preference on 11/08/2020 evening following last dose of Subutex taper. During patient's admission patient's spouse had called several times and was strongly voiced opinion that patient be should be transition to withdrawal program in [place] however patient is oriented and appropriate mental state and declined this offer. Strongly encourage patient to follow-up with her primary care physician and consider alternate methods for pain control. DAY OF DISCHARGE PROGRESS NOTE: Subjective: Patient without acute event overnight per self and nursing report. Patient denies fever, chills, nausea, emesis, abdominal pain, chest pain or dyspnea. Patient notes previous significant diaphoresis, abdominal cramping, withdrawal symptoms have resolved. Patient does report some mild abdominal discomfort and some back discomfort but notes it is currently controlled and understands need to avoid addictive agents. Patient agreeable to discharge to home with close 180 follow-up following her last tapering Subutex dose this evening. Patient will be discharged with follow-up with primary care physician within 3-5 days in addition to again as noted close follow-up with 180. Objective: T 98, heart rate 62, BP 126/74, respiratory rate 18, 98% on room air. Physical Examination: General: awake, alert, oriented x 3 and cooperative, seated upright in the medical surgical bed, NAD, denies resolution of withdrawal symptoms. Skin: normal color, turgor, no icterus, cyanosis, significant upper extremity tattoos noted. HEENT: AT/NC, EOMI, PERRLA, MMM. Lungs: CTA bilaterally, moderate effort, mild decrease BL bases, no rales, ronchi or wheezing; Heart: Regular rate and rhythm; no gallop, rub audible. Abdomen: soft, NTTP, ND, mildly hyperactive BS. Extremities: no cyanosis, clubbing, or edema. Neurological: patient awake, alert, oriented as noted; cognitive function appears intact upon questioning,; pupils equally reactive to light and accomodation; cranial nerves II-XII grossly normal, moving all 4 extremities, strength improved, mildly globally decreased. Psychiatric: affect appears fatigued otherwise normal, no acute evidence of depressive or anxiety feelings. Assessment and Plan: Please see hospital summary above. Patient Problems: Active and Suspected Problems Opiate withdrawal (Acute) Opiate abuse, continuous (Acute) - Physical Exam Vitals/I&O's: Vital Signs Temp Pulse Resp BP Pulse Ox 97.6 F L 64 18 94/66 98 11/08/20 09:00 11/08/20 09:00 11/08/20 09:00 11/08/20 09:00 11/08/20 09:00 Oxygen Delivery Method Room Air Weight: 100 lb 1.438 oz Body Mass Index (BMI) 19.5 Finger Stick Blood Glucose 185 Intake and Output for Last 24 Hours 11/06/20 11/07/20 11/08/20 23:59 23:59 23:59 Intake Total 1180 / 1630 890 / 1330 840 / 840 Output Total 0 / 500 600 / 600 Balance 1180 / 1130 290 / 730 840 / 840 Current Medications Apixaban (Apixaban 5 Mg Tablet) 5 mg PO BID [facility] Last Admin: 11/08/20 10:43 Dose: 5 mg Documented by: Buprenorphine HCl (Buprenorphine Hcl 2 Mg Tab.Subl) 2 mg SL Q12H [facility]; Taper Stop: 11/09/20 06:29 Last Admin: 11/08/20 05:42 Dose: 2 mg Documented by: Clonidine (Clonidine Hcl 0.1 Mg Tablet) 0.1 mg PO Q8H PRN PRN PRN Reason: RESTLESSNESS Last Admin: 11/06/20 10:07 Dose: 0.1 mg Documented by: Dicyclomine HCl (Dicyclomine 10 Mg Capsule) 20 mg PO Q6H PRN PRN PRN Reason: Abdominal Discomfort Last Admin: 11/08/20 05:42 Dose: 20 mg Documented by: Gabapentin (Gabapentin 300 Mg Capsule) 300 mg PO Q8H PRN PRN PRN Reason: moderate to severe anxiety Last Admin: 11/08/20 05:42 Dose: 300 mg Documented by: Hydroxyzine Pamoate (Hydroxyzine [place] 25 Mg Capsule) 50 mg PO Q6H PRN PRN PRN Reason: mild anxiety Last Admin: 11/08/20 10:42 Dose: 50 mg Documented by: Loperamide HCl (Loperamide 2 Mg Capsule) 2 mg PO Q4H PRN PRN PRN Reason: LOOSE STOOLS Methocarbamol (Methocarbamol 750 Mg Tablet) 1,500 mg PO Q6H PRN PRN PRN Reason: MUSCLE SPASM Last Admin: 11/08/20 10:42 Dose: 1,500 mg Documented by: Nicotine (Nicotine 14 Mg Patch) 14 mg TD DAILY [facility] Last Admin: 11/08/20 10:43 Dose: 14 mg Documented by: Pancrelipase (Creon 12,[address] Capsule) 3 capsule PO TIDCM [facility] Last Admin: 11/08/20 08:36 Dose: 3 capsule Documented by: Pantoprazole Sodium (Pantoprazole Sodium 20 Mg Tablet) 20 mg PO DAILY [facility] Last Admin: 11/08/20 10:43 Dose: 20 mg Documented by: Sodium Chloride (0.9% Saline Lock 10 Ml Syringe) 10 - 40 ml IV UD PRN PRN Reason: SALINE FLUSH Last Admin: 11/07/20 06:03 Dose: 10 ml Documented by: Trazodone HCl (Trazodone 100 Mg Tablet) 100 mg PO QHS PRN PRN PRN Reason: INSOMNIA Last Admin: 11/07/20 22:04 Dose: 100 mg Documented by: Discharge Activity: Return to Normal Activity Call your doctor if you observe: Fever of 101 or Higher, Inability to urinate, Inability to have a bowel movement, Shortness of breath, Dizziness, Fainting sp ells, Chest pain, Uncontrolled pain Home Medications: Medications to take at Discharge Apixaban [Eliquis] 5 mg PO BID 05/01/20 Lipase/Protease/Amylase [Harman Dr 36,000 Units Capsule] 1 ea PO TIDCM 05/01/20 Pantoprazole Sodium 20 mg PO DAILY 05/01/20 Primary Care Physician: Jonah Leroy MD [Primary Care Provider] - Please follow up with your Primary Care Physician in: Follow-up within 1 week to review admission or earlier if concerns. Please Follow Up With: 180-Counseling and Therapy When: Please continue as currently arranged and planned upon discharge. Patient Instructions: Understanding Chronic Pain, The Cycle of Chronic Pain, Camelia serra Chronic Pain: Activity, Managing Chronic Pain: Therapies for Mind and Body, ED Opioid Withdrawal Disposition: Home Minutes spent on discharge:: 35 Patient Condition:: Fair Medical Necessity - Tobacco Use Smoking Status: Current every day smoker Tobacco Use: Cigarettes Meaningful Use Info Meaningful Use Diagnoses (Choose all that apply): None applicable Inpatient E&M: 13335 Disch Hosp
--- NOTE | 2020-11-08 14:04 | PHA.DC.MR ---
Pharmacy Service has performed discharge medication reconciliation for this patient. No new medications at time of discharge review. Medications reviewed are from previously reported home medications. Home Medications Apixaban [Eliquis] 5 mg PO BID 05/01/20 Lipase/Protease/Amylase [Harman Issa 36,000 Units Capsule] 1 ea PO TIDCM 05/01/20 Pantoprazole Sodium 20 mg PO DAILY 05/01/20 The patient's discharge medication list was reviewed for discrepancies and discrepancies were resolved.
[2020-11-08 15:00] VITALS: RESP 18
[2020-11-08 16:14] VITALS: BP 126/74; PULSE 62; RESP 18; TEMP 36.7; O2SAT 98
[2020-11-08 17:41] VITALS: BP 113/66; PULSE 72; RESP 18; TEMP 37.2; O2SAT 98
== END 2020-11-08 17:52 | disposition home or self-care (01) ==
LOC: ED 22:45 → MS3 11-06 07:02
PROVIDERS: Family Medicine; Admitting Provider Hospitalist; Emergency Provider Emergency Medicine; PCP Family Medicine; Visit Provider Family Medicine
DX: F11.23 Opioid dependence with withdrawal (principal); K21.9 Gastro-esophageal reflux disease without esophagitis; K86.0 Alcohol-induced chronic pancreatitis; F10.20 Alcohol dependence, uncomplicated; K76.0 Fatty (change of) liver, not elsewhere classified; F17.210 Nicotine dependence, cigarettes, uncomplicated; Z79.899 Other long term (current) drug therapy; Z79.01 Long term (current) use of anticoagulants; Z86.718 Personal history of other venous thrombosis and embolism
CPT/HCPCS: 36415; 80048; 80053; 80307; 81001; 82077; 83690; 83735; 84100; 84703; 85025; 85610; 93005; 99284; 99406; H0012; J7030; A4216

== ENCOUNTER 2020-11-16 08:09 | Emergency (ER) | payer MEDICAID, SELFPAY ==
[2020-11-06 02:09] VITALS: BMI 19.5
[2020-11-16] VITALS (11 sets, daily range): BP systolic 104–141; BP diastolic 73–114; PULSE 59–102; RESP 16–28; TEMP 36.1–36.8; O2SAT 95–98; BMI 17.9
--- NOTE | 2020-11-16 08:15 | RAD_ITS ---
STUDY: X-RAY CHEST REASON FOR EXAM: Female, 40 years old. PT TO ED VIA EMS, PT COMPLAINS OF ACUTE ABDOMINAL PAIN THAT STARTED APPROX. 30 MINUTES FANCY SEWER. DENIES N/V. -- BODY ACHES X1 WEEK. TECHNIQUE: Single AP portable view of the chest. COMPARISON: Comparison is made with prior study dated 07/22/2020. FINDINGS: EKG electrodes are seen. Hyperinflation. The lungs are clear. There is no demonstrated pleural abnormality. Normal size heart. Normal mediastinum and chantell. Normal visualized pulmonary arteries. Normal visualized aortic arch and descending thoracic aorta. Normal visualized thoracic spine. Normal visualized ribs, clavicles, and shoulders. There is no demonstrated abnormality of the visualized soft tissue structures of the upper abdomen. RAD/Chest 1 View (Portable) IMPRESSION: Hyperinflation. The lungs are clear. Electronically Signed: Parker Paz MD at 8:56 EST , Service support ,
--- NOTE | 2020-11-16 08:16 | CT_ITS ---
STUDY: CT ABDOMEN AND PELVIS WITH CONTRAST REASON FOR EXAM: Female, 40 years old. ACUTE ABDOMINAL PAIN WITH HISTORY OF ALCOHOL/DRUG ABUSE. CHRONIC PANCREATITIS, SPLENIC VEIN DVT, PARTIAL HYSTERECTOMY RADIATION DOSAGE (If Supplied By Facility): CTDIvol = ( 9.83 ) mGy, DLP = ( 404.65 ) mGycm TECHNIQUE: Transaxial images were obtained from the dome of the diaphragm to the symphysis pubis without oral contrast. IV 100mL Isovue-300 was administered. Sagittal and coronal images were reconstructed. Individualized dose optimization techniques were used for this CT. COMPARISON: Comparison is made with prior study dated 08/11/2020. FINDINGS: The visualized lung bases are unremarkable. The visualized portions of the heart are within normal limits. There is hepatomegaly with diffuse hepatic enlargement. Small amount of perihepatic fluid. Normal gallbladder and extrahepatic biliary system. Normal spleen. There is an 8.3 cm x 3.4 cm x 4.1 cm encapsulated fluid collection in the region of the tail of the pancreas extending into the lesser sac. This is suggestive of a pancreatic pseudocyst. Normal bilateral adrenal glands. Normal right kidney. Normal left kidney. Normal visualized stomach. Normal small intestine. Normal colon. The appendix is visualized and appears normal. Normal abdominal aorta. Normal inferior vena cava. Normal retroperitoneum. Normal urinary bladder. Small amount of ascites in the pelvis. Normal abdominal wall. Normal osseous structures. CT/Abdomen/Pelvis W IV Cont ONLY IMPRESSION: Findings suggestive of an 8.3 cm x 3.4 cm by 4.1 cm pseudocyst in the region of the tail of the pancreas extending into the lesser sac. Hepatomegaly. Small amount of fluid in the pelvis. Small amount of perihepatic fluid. Electronically Signed: Parker Paz MD at 9:22 EST , Service support ,
--- NOTE | 2020-11-16 08:18 | ED.VIS.GI ---
History of Present Illness Chief Complaint: Abd Pain Informant: Patient - Abdominal Pain/Flank Pain Onset: - - 15 min prior to calling EMS Context: Sudden Onset - while sleeping Timing: Continuous Quality: - - pain Location: - - across lower abd Current Severity: Severe Maximum Severity: Severe Worsened by: - - unk Relieved by: Nothing - Nausea/Vomiting/Emesis GI Symptom: Negative for: Nausea, Vomiting - Diarrhea/Melena/Hematochezia GI Symptom: - - last BM last night, normal per pt. Negative for: Diarrhea, Melena, Hematochezia Associated Symptoms: - - Last urinated last night, normal LMP: s/p partial hysterectomy Narrative: Patient states she woke up in severe lower abdominal pain. She does feel some of the pain in her back, but states this does not feel like episodes of pancreatitis she has had in the past. When asked if she had pancreatitis from alcohol use or gallstones, she states she does not know. Her EMR history suggests that it may be related to alcohol. She denies being an IV drug user. She was recently discharged from the hospital for opiate abuse. States she has never had severe pain like this before, stating that it feels like her abdomen is going to pop. Only prior abdominal surgery is a partial hysterectomy. She states last night she felt fine with the exception of having upper respiratory symptoms for the last week, including myalgias, headache, fevers, chills, her tested positive for COVID-19 last night, she has not yet been tested. She has not been dyspneic. - Past Medical History (1) Opiate abuse, continuous Status: Chronic (2) Anxiety and depression Status: Chronic (3) Chronic pancreatitis Status: Chronic (4) Hepatic steatosis Status: Chronic Past Medical History - Allergies and Home Meds Allergies/Adverse Reactions: Allergies ondansetron [From Zofran] Adverse Reaction (Verified 11/16/20 08:10) headache Primary Care Physician: Jonah Leroy MD [Primary Care Provider] - Surgical History: hysterectomy, - - sections Smoking Status: Current every day smoker Alcohol: None - in past year - Family History Maternal Family History: Reports: Heart Disease, Hypertension Paternal Family History: Reports: Stroke Review of Systems General: Reports: Chills, Fever, Malaise Eyes: Denies: Visual changes - bilaterally, Diplopia ENT: Denies: Bilateral ear pain, Rhinorrhea, Sore throat Cardiovascular: Denies: Chest pain, Palpitations Respiratory: Reports: Cough. Denies: Dyspnea, Sputum, Dyspnea on exertion Gastrointestinal: Reports: Abdominal pain. Denies: Nausea, Vomiting, Diarrhea, Constipation, Melena, Hematochezia Genitourinary: Denies: Dysuria, Hematuria, Frequency Musculoskeletal: Reports: Myalgias, Back pain. Denies: Neck pain, Swelling, Extremity Pain Skin: Denies: Rash, Wounds Neurological: Denies: Weakness, Numbness Physical Exam Vital Signs/Narrative: Vital Signs Temp Pulse Resp BP Pulse Ox 11/16/20 08:13 97.0 F L 102 H 28 H 141/114 H 98 Inital Vital Signs reviewed: Yes General: Well nourished, Well developed, Acute Distress - severe painful, screaming and crying but answering most questions, with 1-2 word answers Head: Normocephalic, Atraumatic Eyes: Perrl, EOMI ENT: Moist mucous membranes, No rhinorrhea Neck: Supple, Nontender, No lymphadenopathy Cardiovascular: Regular rate, Regular rhythm, No murmurs, Tachycardia Respiratory: No distress, CTA bilaterally, Chest nontender Abdomen: Nondistended - abd flat, pt thin, Tender - diffuse; not able to assess for rebound due to guarding; limited exam due to bilat thigh flexion and guarding, Guarding, Hypoactive bowel sounds Back: Normal Inspection, - - limited exam for tenderness in back due to CVA tend evaluation increasing abd pain Extremities: Nontender, No edema Skin: Normal color, No rash, No Trauma Neurological: Alert, Oriented x3, Cranial nerves II-XII grossly intact, Normal Strength, Normal Sensation Psychological: Tearful - limited eval due to acuity/pain Diagnostic/Tx/Re-eval Chest X-Ray - ED: 1 View, Read by ED Physician, No Acute Disease - except for hyperexpansion. neg for free abd air. Clinical Impression(s) from Imaging Studies Chest X-Ray 11/16/20 08:15 IMPRESSION: Hyperinflation. The lungs are clear. Electronically Signed: Parker Paz MD at 8:56 EST , Service support , Abdomen/Pelvis CT 11/16/20 08:16 IMPRESSION: Findings suggestive of an 8.3 cm x 3.4 cm by 4.1 cm pseudocyst in the region of the tail of the pancreas extending into the lesser sac. Hepatomegaly. Small amount of fluid in the pelvis. Small amount of perihepatic fluid. Electronically Signed: Parker Paz MD at 9:22 EST , Service support , Transvaginal US 11/16/20 09:28 IMPRESSION: Status post hysterectomy. Dominant follicle in the left ovary. Free fluid in the pelvis. Electronically Signed: Parker Paz MD at 10:26 EST , Service support , Gallbladder Ultrasound 11/16/20 10:41 IMPRESSION: Hepatomegaly and diffuse fatty infiltration of the liver. 5.5 cm x 9.1 cm x 5.3 cm complex cyst in the distal body and tail portions of the pancreas in keeping with a pancreatic pseudocyst. Electronically Signed: Parker Paz MD at 12:05 EST , Service support , Laboratory Tests 11/16/20 11/16/20 11/16/20 Range/Units 08:20 08:20 08:20 WBC 16.4 H (4.4-11.0) K/mm3 RBC 4.41 (4.2-5.4) M/mm3 Hgb 13.4 (12.0-15.0) g/dL Hct 40.9 (37-47) % MCV 92.7 (81-99) fL MCH 30.4 (27.0-32.0) pg MCHC 32.8 (32-36) g/dL RDW Std Deviation 55.0 H (35.1-43.9) fl RDW Coeff of Jose Guadalupe 16.3 H (11.6-14.6) % Plt Count 467 H (150-450) K/mm3 MPV 11.3 (6.2-12.0) fl Immature Gran % (Auto) 0.400 (0.0-0.9) % Neut % (Auto) 65.3 (47-70) % Lymph % (Auto) 21.3 (19-41) % [place] % (Auto) 5.7 (0-10) % Eos % (Auto) 6.9 H (0-5) % Baso % (Auto) 0.4 (0-1) % Absolute Neuts (auto) 10.7 H (2.0-7.7) X10^3/uL Absolute Lymphs (auto) 3.48 (0.83-4.51) X10^3/uL Nucleated RBC % 0 (0-5) % PT 15.1 H (11.7-14.9) SECONDS INR 1.2 APTT 33.8 (24.1-36.2) Seconds Sodium (136-145) mmol/L Potassium (3.5-5.1) mmol/L Chloride (98-107) mmol/L Carbon Dioxide (21.0-32.0) mmol/L Anion Gap (5-15) BUN (7-18) mg/dL Creatinine (0.55-1.02) mg/dL Estim Creat Clear Calc ml/min Est GFR (MDRD) Af Amer (>60) mL/min Est GFR (MDRD) Non-Af (>60) mL/min BUN/Creatinine Ratio (10-20) RATIO Glucose (74-106) mg/dL Lactic Acid 1.3 (0.4-1.9) mmol/L Calcium (8.5-10.1) mg/dL Total Bilirubin (0.20-1.00) mg/dL AST (15-37) U/L ALT (13-56) U/L Alkaline Phosphatase (45-117) U/L Troponin I (<0.045) ng/mL Total Protein (6.4-8.2) g/dL Albumin (3.2-5.0) g/dL Globulin (2.2-4.2) g/dL Albumin/Globulin Ratio (0.9-2.4) RATIO Lipase (73-393) U/L 11/16/20 Range/Units 08:20 WBC (4.4-11.0) K/mm3 RBC (4.2-5.4) M/mm3 Hgb (12.0-15.0) g/dL Hct (37-47) % MCV (81-99) fL MCH (27.0-32.0) pg MCHC (32-36) g/dL RDW Std Deviation (35.1-43.9) fl RDW Coeff of Jose Guadalupe (11.6-14.6) % Plt Count (150-450) K/mm3 MPV (6.2-12.0) fl Immature Gran % (Auto) (0.0-0.9) % Neut % (Auto) (47-70) % Lymph % (Auto) (19-41) % [place] % (Auto) (0-10) % Eos % (Auto) (0-5) % Baso % (Auto) (0-1) % Absolute Neuts (auto) (2.0-7.7) X10^3/uL Absolute Lymphs (auto) (0.83-4.51) X10^3/uL Nucleated RBC % (0-5) % PT (11.7-14.9) SECONDS INR APTT (24.1-36.2) Seconds Sodium 136 (136-145) mmol/L Potassium 3.9 (3.5-5.1) mmol/L Chloride 104 (98-107) mmol/L Carbon Dioxide 26.0 (21.0-32.0) mmol/L Anion Gap 6 (5-15) BUN 15 (7-18) mg/dL Creatinine 0.62 (0.55-1.02) mg/dL Estim Creat Clear Calc 79.81 ml/min Est GFR (MDRD) Af Amer 136 (>60) mL/min Est GFR (MDRD) Non-Af 112 (>60) mL/min BUN/Creatinine Ratio 24.0 H (10-20) RATIO Glucose 113 H (74-106) mg/dL Lactic Acid (0.4-1.9) mmol/L Calcium 9.4 (8.5-10.1) mg/dL Total Bilirubin 0.50 (0.20-1.00) mg/dL AST 11 L (15-37) U/L ALT 13 (13-56) U/L Alkaline Phosphatase 98 (45-117) U/L Troponin I < 0.015 (<0.045) ng/mL Total Protein 7.5 (6.4-8.2) g/dL Albumin 3.8 (3.2-5.0) g/dL Globulin 3.7 (2.2-4.2) g/dL Albumin/Globulin Ratio 1.0 (0.9-2.4) RATIO Lipase 1473 H (73-393) U/L - Medical Decision Making Patient appears to be in a tremendous amount of pain and states she has a difficult stick/IV access. Therefore Dilaudid was ordered IM and a stat portable chest x-ray was ordered in addition to the rest of the work-up, since the wide differential diagnosis includes emergent surgical conditions such as perforated viscus. The chest x-ray does not appear to show any pneumonia nor does it show free air. Her blood pressure is stable. Nurses were able to get IV access expeditiously so the Dilaudid was given IV, as well as fluids and Reglan (with attempting to examine her abdomen, she started dry heaving) prior to getting her over to CT with stable vital signs. CT does show an 8 cm pancreatic pseudocyst but no other acute abnormalities. There is some free fluid in her pelvis and in Morison's pouch, however this is stable compared with her prior and likely related to some of her chronic hepatic issues/steatosis. I was able to get her pain under better control with analgesics, but she did remain in pain. Since most of her pain is low I obtained a stat ultrasound of her ovaries, there is good flow and there is no sign of torsion. Therefore I suspect all of this is related to her pancreas and/or her pseudocyst. I discussed with surgery Dr. Rios who does ECRP, however does not do pseudocyst drainage, also discussed with our interventional radiologist who also does not do them. Meanwhile, patient was sent for an additional ultrasound, of her gallbladder since she has never had any gallbladder issues, to rule out cholelithiasis/cholecystitis, and she was given additional analgesics. Additionally, her Covid rapid antigen returned negative. She states everyone in her house has Covid and has tested positive for it and she had symptoms prior to them, making her pretest probability very high and the chances of a false negative antigen test also high. Therefore the PCR was sent. It returned negative although the suspicion for this patient having COVID-19 is relatively high based on the history. Gallbladder ultrasound is unremarkable and shows no evidence of acute cholecystitis or cholelithiasis. This is all consistent with her pseudocyst potentially causing her pain. Since we do not have the capability of draining these here, she will require transfer to a tertiary care center. There are many hospitals in the area that are at or beyond capacity. At this time, I have tried [facility], [facility], [facility], [facility], none of them can accept the patient at this time. [facility], accepted by Dr. Munguia but we are waiting on a bed. I discussed with the patient and she is comfortable waiting for this and is clinically stable, appearing to have her pain controlled after multiple doses of hydromorphone. Critical care time (excluding procedures): 30-74 minutes - 40 minutes including time spent discussing with patient and consultants, arranging admission, performing direct patient care and reevaluation at the bedside, and documentation. Time exclusive of procedures. ED Disposition - Plan for ED Patient: Disposition: [facility] Diagnosis: Acute pancreatitis, Pancreatic pseudocyst Referrals: Jonah Leroy MD [Primary Care Provider] -
[2020-11-16] MEDS: HYDROmorphone 1 MG/ML Syringe IV ×5 (08:31→20:41)
[2020-11-16 08:37] LABS: Absolute Lymphocyte Count 3.48 X10^3/uL (0.83-4.51); Absolute Neutrophil Count 10.7 X10^3/uL (2.0-7.7); Basophil# 0.07 X10^3/uL; Basophil% 0.4 % (0-1); Eosinophil# 1.12 X10^3/uL; Eosinophils% 6.9 % (0-5); Hematocrit 40.9 % (37-47); Hemoglobin 13.4 g/dL (12.0-15.0); Lymphocyte # 3.48 X10^3/ul (4.0); Lymphocyte % 21.3 % (19-41); Mean Corp Hgb Conc 32.8 g/dL (32-36); Mean Corpuscular Hgb 30.4 pg (27.0-32.0); Mean Corpuscular Volume 92.7 fL (81-99); Mean Platelet Vol. 11.3 fl (6.2-12.0); Monocyte# 0.94 X10^3/uL; Monocyte% 5.7 % (0-10); NRBC Flagged by Analyzer 0 % (0-5); Neutrophil # 10.68 X10^3/uL (2.7-7.7); Neutrophil % 65.3 % (47-70); Platelet Count 467 K/mm3 (150-450); RBC Distribution Width CV 16.3 % (11.6-14.6); Red Blood Count 4.41 M/mm3 (4.2-5.4); White Blood Count 16.4 K/mm3 (4.4-11.0)
[2020-11-16 08:48] LABS: International Normalized Ratio 1.2; Prothrombin Time (Protime)PT. 15.1 SECONDS (11.7-14.9)
[2020-11-16 08:49] LABS: Partial Thromboplast Time 33.8 Seconds (24.1-36.2)
[2020-11-16] MEDS: 0.9% Normal Saline 1,000 ML 999 ML IV (08:57)
[2020-11-16] MEDS: Metoclopramide 10 MG/2 ML Vial 5 MG IV (08:57)
[2020-11-16 09:02] LABS: AST(SGOT) 11 U/L (15-37); Alanine Aminotransfer ALT/SGPT 13 U/L (13-56); Albumin, Serum 3.8 g/dL (3.2-5.0); Alkaline Phosphatase 98 U/L (45-117); Anion Gap 6 (5-15); BUN 15 mg/dL (7-18); Calcium,Total 9.4 mg/dL (8.5-10.1); Chloride 104 mmol/L (98-107); Creatinine, Serum 0.62 mg/dL (0.55-1.02); EST Glomerular Filtration Rate 112 mL/min (>60); Est Glom Filt Rate - Afr Amer 136 mL/min (>60); Estimated Creatinine Clearance 79.81 ml/min; Globulin 3.7 g/dL (2.2-4.2); Glucose 113 mg/dL (74-106); Lipase 1473 U/L (73-393); Potassium 3.9 mmol/L (3.5-5.1); Protein, Total 7.5 g/dL (6.4-8.2); Sodium Level 136 mmol/L (136-145)
[2020-11-16 09:12] LABS: Lactic Acid 1.3 mmol/L (0.4-1.9)
--- NOTE | 2020-11-16 09:28 | US_ITS ---
STUDY: ULTRASOUND OF THE FEMALE PELVIS - COMPLETE REASON FOR EXAM: Female, 40 years old. Severe abd pain LMP: Post hysterectomy. TECHNIQUE: Transvaginal TECHNICAL QUALITY: Adequate. COMPARISON: None. FINDINGS: The patient is status post hysterectomy. The right ovary is non-visualized. The left ovary is visualized. The left ovary measures 3.7 cm x 3.1 cm x 2.2 cm. There is a 1.9 cm x 1.9 cm x 1.5 cm dominant follicle in the left ovary. There is no visualized left adnexal mass or complex lesion. There is normal arterial and normal venous vascularity. There is a moderate amount of fluid in the cul-de-sac. The pre void volume of the bladder was 180 ml. US/Transvaginal Non- IMPRESSION: Status post hysterectomy. Dominant follicle in the left ovary. Free fluid in the pelvis. Electronically Signed: Parker Paz MD at 10:26 EST , Service support ,
--- NOTE | 2020-11-16 10:39 | ED.RN ---
DR GONZALO CUTLER FOR DR LIANG
--- NOTE | 2020-11-16 10:41 | US_ITS ---
STUDY: ABDOMINAL ULTRASOUND - RIGHT UPPER QUADRANT REASON FOR VISIT: Female, 40 years old pain , elevated lipase TECHNIQUE: Ultrasound evaluation of the right upper quadrant was performed with real-time and static ramírez-scale imaging. TECHNICAL QUALITY: Adequate. COMPARISON: Comparison is made with prior study dated 10/10/2019. Comparison is also made with prior CT scan abdomen and pelvis done earlier in the day. FINDINGS: Liver: The liver is enlarged and measures 19.9 cm. There is increased echogenicity consistent with fatty infiltration. The bile ducts are within normal limits. There is hepatic color flow. The direction of portal flow is hepatopetal. There is no demonstrated mass lesion. Gallbladder: Normal distended gallbladder. The gallbladder wall measures 1.8 mm. There is a negative sonographic Rain''s sign. There is no pericholecystic fluid. There are no gallstones. Common Bile Duct (C.B.D.): The common bile duct measures 2.4 mm. Pancreas: Normal size of the head, body and tail of the pancreas. There is normal echogenicity of the pancreas. There is a 5.5 cm x 9.1 cm x 5.3 cm complex cyst in the distal body and tail portions of the pancreas in keeping with the findings on the CT scan of a pancreatic pseudocyst. Right Kidney: Normal size of the right kidney. The right kidney measures 10.3 cm x 5 cm x 3.5 cm. Normal renal cortex. The right cortex measures 1.2 cm. There is no demonstrated renal mass or cyst. There is no right hydronephrosis. US/Gallbladder IMPRESSION: Hepatomegaly and diffuse fatty infiltration of the liver. 5.5 cm x 9.1 cm x 5.3 cm complex cyst in the distal body and tail portions of the pancreas in keeping with a pancreatic pseudocyst. Electronically Signed: Parker Paz MD at 12:05 EST , Service support ,
[2020-11-16] MEDS: HYDROmorphone 0.5 MG/0.5 ML SYRINGE IV (13:10)
== END 2020-11-16 22:07 | disposition short-term general hospital (02) ==
PROVIDERS: Emergency Provider Emergency Medicine; PCP Family Medicine
DX: K85.90 Acute pancreatitis without necrosis or infection, unspecified (principal); K86.3 Pseudocyst of pancreas; F17.200 Nicotine dependence, unspecified, uncomplicated; Z90.710 Acquired absence of both cervix and uterus; Z79.02 Long term (current) use of antithrombotics/antiplatelets
CPT/HCPCS: 36415; 71045; 74177; 76705; 76830; 80053; 83605; 83690; 84484; 85025; 85610; 85730; 87040; 87426; 87635; 96361; 96372; 96374; 96375; 96376; 99285; J7030; Q9967; A4216; U0002

== ENCOUNTER 2020-11-24 16:56 | Emergency (ER) | payer MEDICAID, SELFPAY ==
[2020-11-16 08:13] VITALS: BMI 17.9
[2020-11-24] VITALS (8 sets, daily range): BP systolic 104–132; BP diastolic 66–83; PULSE 87–131; RESP 16–18; TEMP 35.8–37.4; O2SAT 95–100; BMI 17.6
--- NOTE | 2020-11-24 18:13 | CT_ITS ---
STUDY: CT ABDOMEN AND PELVIS WITH CONTRAST REASON FOR EXAM: Female, 40 years old. Pancreatitis. RADIATION DOSAGE (If Supplied By Facility): CTDIvol = ( 15.50 ) mGy, DLP = ( 212.81 ) mGycm TECHNIQUE: Transaxial images were obtained from the dome of the diaphragm to the symphysis pubis without oral contrast. IV 80mL Isovue-370 was administered. Sagittal and coronal images were reconstructed. Individualized dose optimization techniques were used for this CT. COMPARISON: : Ultrasound, 11/16/2020. CT of the abdomen and pelvis, 11/16/2020. FINDINGS: The visualized lung bases are unremarkable. The visualized portions of the heart are within normal limits. Small cyst seen in segment 7 of the enlarged liver.. Normal gallbladder and extrahepatic biliary system. Normal spleen. There is marked enlargement and fluid collection in the pancreatic tail when compared to the prior study. This now measures 16.6 x 8.6 x 10.4 cm. This collapses and displaces the stomach anteriorly and compresses the pancreatic tail and splenic vessels posteriorly. The pancreatic neck and head are mildly atrophic. There is no marked peripancreatic stranding. Normal bilateral adrenal glands. Normal right kidney. Normal left kidney. Normal visualized stomach. Normal small intestine. Large amount of fecal material throughout the colon most marked in the right colon. There is non-visualization of the appendix. There is diffuse atherosclerotic calcification of the abdominal aorta, without a demonstrated aneurysm. Normal inferior vena cava. Normal retroperitoneum. Normal urinary bladder. Unremarkable vaginal cuff. There is no pelvic lymphadenopathy or mass. No free air or free fluid is seen within the peritoneal cavity. Normal abdominal wall. No osseous changes. CT/Abdomen/Pelvis W IV Cont ONLY IMPRESSION: 1. Marked enlargement of the fluid collection in the pancreatic tail and compared to prior study. Probable pseudocyst. There is no acute inflammatory changes about the pancreas. 2. Large amount of colonic feces. Question constipation. 3. Resolution of the ascites seen on the previous study. 4. No other major interval change. Electronically Signed: Elvin Perez DO at 20:04 EST Tel [phone], Service support ,
--- NOTE | 2020-11-24 18:38 | ED.VISSUMM ---
- ER Visit Summary Date of Service: 11/24/20 Chief Complaint: Abdominal pain and fever History of Present Illness: The patient is a [address] Leroy. She reports she has abdominal pain began 10 days ago. She was admitted [facility] for 1 week and discharged 2 days ago. She was found to have a pseudocyst and pancreatitis. She has follow-up with gastroenterology on January 06. She reports that her pain is never gotten better. The stabbing pain is 10 of 10 at worst 9-10 currently. Is worsened by nothing. She taking oxycodone without relief. She had nausea without vomiting. No diarrhea. Her last bowel was 3 days ago and typically she goes daily. No dysuria or frequency. Patient reports that her has Covid. States she has a fever that began 2 days ago when she got home. She has a little cough that is nonproductive. She has mild shortness of breath that she reports is from her abdominal pain. Physical Examination: Vitals: Stable. Afebrile. General: Well-nourished and well-developed. Head: Normocephalic atraumatic. Neck: Supple, no lymphadenopathy. No JVD. Nontender. Cardiovascular: Tachycardic regular rhythm. No murmurs. Respiratory: No respiratory distress. Clear to auscultation bilaterally. Abdominal: Soft, severe diffuse tenderness to palpation, nondistended, normal bowel sounds. No guarding, rebound, or peritoneal signs. Back: Nontender. Extremities: Nontender, no edema. Skin: Normal color, no rash. Neurologic: Alert and oriented ?3. Cranial nerves II through XII are intact. Normal strength and sensation. Psych: Depressed. Test Results: CBC shows a white count 11.5 with an H&H of 10.5 and 31.2, segmented neutrophils 78, lymphs at 12. Chem-7 shows a sodium 134, potassium 3.2, chloride 97. LFTs show an albumin of 2.9, globin of 5.0, ALT of 12, AST of 10. Lipase is 162. test is negative. Clinical Impression(s) from Imaging Studies Abdomen/Pelvis CT 11/24/20 18:13 IMPRESSION: 1. Marked enlargement of the fluid collection in the pancreatic tail and compared to prior study. Probable pseudocyst. There is no acute inflammatory changes about the pancreas. 2. Large amount of colonic feces. Question constipation. 3. Resolution of the ascites seen on the previous study. 4. No other major interval change. Electronically Signed: Elvin Perez DO at 20:04 EST Tel [phone], Service support , Chest X-Ray 11/24/20 19:39 IMPRESSION: 1. No acute cardiopulmonary disease. 2. Elevated left hemidiaphragm secondary to large left upper quadrant pseudocyst. Electronically Signed: Elvin Perez DO at 20:07 EST Tel [phone], Service support , Emergency Department Course and Treatment: Patient had an IV placed. She was given a liter normal saline. She was given Dilaudid and Phenergan IV. Treatment Plan: The patient was discussed with Dr. Madrid who asked that she be transferred back to [facility] for further evaluation and treatment. Disposition: Transferred in improved condition. Impression: 1, Pancreatic psuedocyst 16.6x8.6x10.4 cm. This note was generated with [employer] dictation software. It may contain incorrect words, spelling, and punctuation that were not noted in review of the chart prior to signing ED Disposition - Plan for ED Patient: Referrals: Jonah Leroy MD [Primary Care Provider] -
[2020-11-24 18:48] LABS: Absolute Lymphocyte Count 1.32 X10^3/uL (0.83-4.51); Absolute Neutrophil Count 8.9 X10^3/uL (2.0-7.7); Basophil# 0.03 X10^3/uL; Basophil% 0.3 % (0-1); Eosinophil# 0.12 X10^3/uL; Hematocrit 31.2 % (37-47); Hemoglobin 10.5 g/dL (12.0-15.0); Lymphocyte # 1.32 X10^3/ul (4.0); Lymphocyte % 11.5 % (19-41); Mean Corp Hgb Conc 33.7 g/dL (32-36); Mean Corpuscular Hgb 30.1 pg (27.0-32.0); Mean Corpuscular Volume 89.4 fL (81-99); Mean Platelet Vol. 11.4 fl (6.2-12.0); Monocyte# 1.02 X10^3/uL; Monocyte% 8.9 % (0-10); NRBC Flagged by Analyzer 0 % (0-5); Neutrophil # 8.92 X10^3/uL (2.7-7.7); Neutrophil % 77.9 % (47-70); POSITIVE MORPHOLOGY YES; Platelet Count 542 K/mm3 (150-450); RBC Distribution Width CV 15.1 % (11.6-14.6); RBC Distribution Width SD 49.5 fl (35.1-43.9); Red Blood Count 3.49 M/mm3 (4.2-5.4); White Blood Count 11.5 K/mm3 (4.4-11.0)
[2020-11-24] MEDS: HYDROmorphone 1 MG/ML Syringe IV ×4 (18:49→23:29)
[2020-11-24] MEDS: 0.9% Normal Saline 1,000 ML 999 ML IV ×2 (18:49→21:10)
[2020-11-24] MEDS: proMETHazine 25 MG/ML Syringe 6.25 MG IV (18:49)
[2020-11-24 18:52] LABS: Differential Indicated SCAN CRITERIA MET
[2020-11-24 19:05] LABS: ALB/GLOB Ratio 0.6 RATIO (0.9-2.4); AST(SGOT) 10 U/L (15-37); Alanine Aminotransfer ALT/SGPT 12 U/L (13-56); Albumin, Serum 2.9 g/dL (3.2-5.0); Alkaline Phosphatase 105 U/L (45-117); Anion Gap 7 (5-15); BUN 7 mg/dL (7-18); BUN/Creat Ratio 11.7 RATIO (10-20); Calcium,Total 9.9 mg/dL (8.5-10.1); Chloride 97 mmol/L (98-107); EST Glomerular Filtration Rate 118 mL/min (>60); Est Glom Filt Rate - Afr Amer 143 mL/min (>60); Estimated Creatinine Clearance 81.13 ml/min; Glucose 104 mg/dL (74-106); Lipase 162 U/L (73-393); Potassium 3.2 mmol/L (3.5-5.1); Protein, Total 7.9 g/dL (6.4-8.2); Sodium Level 134 mmol/L (136-145)
[2020-11-24 19:06] LABS: Differential Comment SCANNED
--- NOTE | 2020-11-24 19:39 | RAD_ITS ---
STUDY: X-RAY CHEST REASON FOR EXAM: Female, 40 years old. Fever. Patient recently discharged from an outside Medical Center with pancreatitis and pseudocyst. Fever and increased pain. TECHNIQUE: Single AP portable view of the chest. COMPARISON: Chest, 11/16/2020. CT of the abdomen and pelvis, 11/24/2020. FINDINGS: There is elevation of the left hemidiaphragm, not previously seen. Lungs are well expanded. There is no acute infiltrate or mass. There is no demonstrated pleural abnormality. Normal size heart. Normal mediastinum and chantell. Normal visualized pulmonary arteries. Normal visualized aortic arch and descending thoracic aorta. Normal visualized thoracic spine. Normal visualized ribs, clavicles, and shoulders. There is compression of the stomach along the underside of the diaphragm. There is soft tissue density in the left upper quadrant consistent with a large pseudocyst noted on the CT scan. RAD/Chest 1 View (Portable) IMPRESSION: 1. No acute cardiopulmonary disease. 2. Elevated left hemidiaphragm secondary to large left upper quadrant pseudocyst. Electronically Signed: Elvin Perez DO at 20:07 EST Tel [phone], Service support ,
[2020-11-24 20:21] LABS: Bacteria 0 SEEN /hpf (None Seen); Mucous, Urine 0 SEEN /hpf (<or=2+)
[2020-11-24 20:22] LABS: Color, Urine Yellow (Yellow); Glucose, Dipstick Normal (Normal); Ketone-Dipstick Negative (Negative); Leukocyte Esterase-Dipstick Negative /ul (Negative); Nitrite-Dipstick Negative (Negative); Occult Blood-Urine 25 /ul (Negative); Protein-Dipstick 15 mg/dl (Negative); Urine Bilirubin Dipstick Negative (Negative); Urine Clarity Clear (Clear); Urine Urobilinogen 1 mg/dl (Normal)
[2020-11-24 20:42] LABS: Squamous Epithelial Cells - UA 0-5 SEEN /hpf (5-10)
[2020-11-24 20:43] LABS: Red Blood Cells-Urine 0-5 SEEN /hpf (0-5)
[2020-11-24 20:44] LABS: White Blood Cells 0-5 SEEN /hpf (0-5)
--- NOTE | 2020-11-25 00:41 | ED.RN ---
[facility] TRANSPORTED PT TO [facility] WITHOUT RECEIVING REPORT FROM RN. [facility] NURSE RIVERA MADE AWARE
== END 2020-11-25 00:42 | disposition short-term general hospital (02) ==
LOC: ED 18:45
PROVIDERS: Emergency Provider Emergency Medicine; PCP Family Medicine
DX: K86.3 Pseudocyst of pancreas (principal)
CPT/HCPCS: 71045; 74177; 80053; 81001; 83690; 85025; 87426; 96361; 96374; 96375; 96376; 99285; J7030; Q9967; A4216

== ENCOUNTER 2021-02-17 20:52 | Emergency (ER) | payer MEDICAID, SELFPAY ==
[2020-11-24 16:56] VITALS: BMI 17.6
[2021-02-17 20:55] VITALS: BP 119/73; PULSE 91; RESP 15; TEMP 36.3; O2SAT 98; BMI 18.3
--- NOTE | 2021-02-17 21:37 | EX.ED.UPPERE ---
HPI History of Present Illness Chief Complaint: Upper Extremity Injury Detail of Chief Complaint: Requesting removal of her PICC line Informant: patient Narrative Narrative: Patient presents to the emergency department after she had her PICC line caught on a harkins while gardening and having large portion of it removed from her skin. Patient states that she uses the PICC line to get TPN due to a pancreas that is not functioning. Patient states she is currently being treated for a PICC line infection and is on antibiotics. Patient tells me that she is to see her surgeon on March 08 to have the PICC line removed and begin some sort of parenteral TPN. Patient denies any other complaints at this time. Prior similar symptoms: No PFSH PFSH Home Medications apixaban 5 mg PO BID 05/01/20 [History Last Taken 11/05/20 10:00] [id number] 1 ea PO TIDCM 05/01/20 [History Last Taken 11/05/20 10:00] pantoprazole 20 mg PO DAILY 05/01/20 [History Last Taken 11/05/20 10:00] acyclovir 400 mg PO BID 11/16/20 [History Last Taken Unknown] promethazine 12.5 mg PO Q6H PRN 11/16/20 [History Last Taken Unknown] Allergy/AdvReac Type Severity Reaction Status Date / Time ondansetron [From Zofran] AdvReac headache Verified 02/17/21 20:55 Social History Smoking Status: Former smoker ROS ROS ED Constitutional Constitutional ED: Reports systems reviewed and no addt'l complaints, except as documented; Denies body ache(s), change in weight or chills Eyes Eyes: Denies acute decrease in peripheral vision, change in vision, double vision or loss of vision ENT ENT ED: Reports none; Denies ear pain, lip swelling, loss taste/smell, neck pain, otalgia or sore throat Cardiovascular Cardiovascular: Reports none; Denies abdominal pain, chest pain with activity, leg edema, lightheadedness, palpitations, rapid heart rate or syncope Respiratory/Chest Respiratory/Chest: Reports none; Denies change in mental status, dry cough, dyspnea, hemoptysis, shortness of breath at rest or shortness of breath with exertion Gastrointestinal Gastrointestinal: Reports none; Denies abdominal pain, change in stool character, diarrhea, hematemesis, hematochezia, melena, rectal bleeding or vomiting Genitourinary Genitourinary ED: Reports none; Denies abdominal discomfort, anuria, dysuria, genital pain or polyuria Musculoskeletal Musculoskeletal: Reports none; Denies arthralgias, back pain, difficulty walking, extremity pain, muscle weakness or myalgias Integumentary Reports none; Denies abscess or rash Neurologic Neurologic: Reports none; Denies abnormal gait, confusion, focal weakness, frequent falls, headache(s), loss of vision, numbness, paresthesias, radicular pain, vertigo or weakness Psychiatric Psychiatric: Reports systems reviewed and no addt'l complaints, except as documented and none; Denies behavioral changes, confusion, difficulty concentrating, hallucinations, suicidal ideation, tactile hallucinations or visual hallucinations Endocrine Endocrinology: Denies none, cold intolerance, excessive sweating, fatigue or heat intolerance Hematologic/Lymphatic Hematologic/Lymphatic: Reports none; Denies anemia, easy bleeding or easy bruising Allergic/Immunologic Allergic/Immunologic ED: Denies as per HPI, none, lip swelling, mouth swelling, throat swelling, tongue swelling or hives EXAM Physical Exam Const Vital Signs: 02/17/21 20:55 Temperature 97.3 F L Temperature Source Temporal Pulse Rate 91 Respiratory Rate 15 Blood Pressure 119/73 Blood Pressure Mean 88 Pulse Ox 98 Oxygen Delivery Method Room Air Positive well nourished and well developed General Appearance ED: well developed and NAD HEENT Reports TM's clear and moist mucous membranes normocephalic and atraumatic; Negative for trauma or tenderness Tympanic Membrane ED: Yes TM's clear Eyes PERRL and EOMs intact bilaterally General Eye ED: Negative for pale conjunctiva or scleral icterus Neck no lymphadenopathy, supple and no JVD General: Negative for tenderness Chest Wall inspection of chest normal and palpation of chest normal Chest: Negative for tenderness Resp normal respiratory effort and clear to auscultation bilaterally Effort and Inspection: Negative for respiratory distress or pain with movement Auscultation: Negative for rhonchi, wheezes or diminished lung sounds Cardio regular rate, regular rhythm, S1 normal heart sound, S2 normal heart sound and no murmurs Peripheral Pulses: pulses 2+ throughout GI normal to inspection, nondistended, normoactive bowel sounds, soft to palpation, non-tender, non-distended and no masses Back/Spine no CVA tenderness and no thoracic nor lumbar tenderness Extremity normal to inspection Extremity Narrative: Evaluation of the right upper arm reveals that there is a PICC line in place that has been mostly pulled out of the skin. There are some faint diffuse erythema about the upper arm. No significant cellulitic changes noted. She is neurovascular intact distally. General Extremety ED: Negative for edema General Extremity: Negative for edema Neuro oriented x3, CN's II-XII intact bilaterally, no sensory deficits noted and gait normal Sensorium / Orientation: awake, alert, oriented to person, oriented to place and oriented to time Motor Exam: strength 5/5 throughout and strength abnormal Psych mental status grossly normal Skin no rashes or lesions noted and no wounds MDM MDM MDM Narrative Medical decision making narrative: Case was discussed with patient's surgeon Dr. Luo who recommended removing the PICC line and monitoring over the weekend and they will discuss further options going forward such as PEG tube placement. Discharge Plan Triage Chief Complaint: Upper Extremity Injury ED Provider: Frederic Bucio Dx/Rx/DC Orders Clinical Impression: PIC line (peripherally inserted central catheter) removal Instructions: ED PICC Line Care Prescriptions: No Action pantoprazole 20 MG tablet,delayed release (DR/EC) 20 mg PO DAILY RF: 0 [id number] 1 EACH capsule,delayed release(DR/EC) 1 ea PO TIDCM RF: 0 apixaban 5 MG tablets,dose pack 5 mg PO BID RF: 0 acyclovir 400 MG tablet 400 mg PO BID RF: 0 promethazine 25 MG tablet 12.5 mg PO Q6H PRN (Reason: Nausea/Vomiting) RF: 0 Primary Care Provider: Jonah Leroy Referrals: Jonah Leroy MD [Primary Care Provider] - Activity Restrictions/Additional Instructions: Follow-up with Dr. Luo. Please let Dr. Luo's office know how you are doing through the weekend. Disposition Disposition: Home, self care
--- NOTE | 2021-02-17 22:53 | ED.RN ---
PICC from Rt upper arm removed. Noted at 36cm. Petroleum jelly, 2x2 and occlusive dressing applied to site. Proper instruction given.
== END 2021-02-17 22:55 | disposition home or self-care (01) ==
LOC: ED 21:53
PROVIDERS: Emergency Provider Emergency Medicine; PCP Family Medicine
DX: Z45.2 Encounter for adjustment and management of vascular access device (principal); Z87.891 Personal history of nicotine dependence
CPT/HCPCS: 99282